=== PATIENT | male | born 1955 | race African-American/Black ===

== ENCOUNTER 2019-03-23 00:07 | Observation (INO) ==
[2019-03-23] MEDS ORDERED: ONDANSETRON INJ 2 MG/ML 2 ML VIAL IV STA (00:27)
[2019-03-23] MEDS ORDERED: MoRPHine SULFATE 4 MG/ML 1 ML CARP\\VIAL IV STA (00:27)
[2019-03-23] MEDS ORDERED: SODIUM CHLORIDE 0.9% 500 ML IV SCH (00:30)
--- NOTE | 2019-03-23 01:03 | Emergency Department Note ---
Entered by Kimberly Bacon acting as a scribe for History of Present Illness General Chief complaint: Chest Pain Stated complaint: HX OF HEART PROBLEMS, CHEST PAIN,SOB,ARM PAIN Time Seen by Provider: 03/23/19 00:20 Source: patient History of Present Illness Onset (ago): minute(s) 30 Location: chest Radiation: back (middle) and extremity (bilateral upper) Severity: similar to prior episodes Pain Consistency: + other (episode ) Maximum Pain Intensity: 9 Current Pain Intensity: 9 Associated symptoms: + diaphoresis, + headaches, + shortness of breath and + other (positive blurry vision in left eye; positive dizziness; positive right hand numbness); no fever/chills and no nausea/vomiting The patient is a 63 year old male who presents to the Emergency Room with complaints of an episode of chest pain that began 30 minutes prior to arrival. The patient rates his pain at a 9/10, and states that this pain came on while he was sitting down. The patient states that his pain radiates to both of his arms and the middle of his back. The patient states that his right hand is numb. He states that when his symptoms began he became dizzy and sweaty. The patient states that he currently has a headache and blurry vision in his left eye. He states that he has had similar symptoms over the past several weeks, but states that they resolved. The patient denies nausea, vomiting, and fever. He states that he was previously on blood thinners and Aspirin after having a stent placed one year ago. The patient states that he was taken off this medication after he had a GI bleed. The patient states that his sugar has been around 400 recently. Home Medications Home Medications Medication Instructions Recorded Confirmed Type Ajayaglayush SamuelPen U-100 Insulin 18 unit SUBCUT BID 03/23/19 03/23/19 History atorvastatin [Lipitor] 40 mg PO PM 03/23/19 03/23/19 History carvedilol 3.125 mg PO BID 30 Days #60 tab 03/23/19 Rx doxycycline hyclate 100 mg PO BID 7 Days #14 cap 03/23/19 Rx guaifenesin [Mucinex] 600 mg PO Q12 7 Days #14 tab 03/23/19 Rx losartan 100 mg PO QAM 30 Days #60 tab 03/23/19 Rx Allergies Allergy/AdvReac Type Severity Reaction Status Date / Time No Known Allergies Allergy Verified 03/23/19 01:03 Past Med/Surg History Medical History Diabetes Surgical History History of heart artery stent Social History Preferred Language: Luxembourgish Communication Ability: Effective Beliefs That Will Affect Care: None Current Living Situation: Family Other Information That Helps Us Care for You: No Feels Safe at Home: Yes Safety Concerns: Feels Safe At This Time Smoking Status: Never smoker Hx Alcohol Use: No Hx Substance Use: No Review of Systems See HPI for pertinent positives & negatives. and A total of 10 systems reviewed and were otherwise negative Physical Exam Vital Signs Vital Signs - 24 hr 03/23/19 00:09 03/23/19 00:23 03/23/19 02:00 Temperature 36.9 C Temperature Source Oral Sepsis Recent Fever Within 48 Hours No Sepsis Action Taken by Nursing No Action Required Pulse Rate 102 H Pulse Rate [Apical] 76 Respiratory Rate 18 18 Respiratory Effort / Characteristics Non-Labored Spontaneous Respiratory Depth Normal Respiratory Pattern Regular Blood Pressure 136/83 Blood Pressure [Left Arm] 157/90 H Blood Pressure Mean 100 Blood Pressure Mean [Left Arm] 112 Blood Pressure Position Sitting Pulse Oximetry 97 99 99 Oxygen Delivery Method Room Air Room Air Room Air 03/23/19 03:18 Temperature Temperature Source Sepsis Recent Fever Within 48 Hours Sepsis Action Taken by Nursing Pulse Rate Pulse Rate [Apical] 77 Respiratory Rate 18 Respiratory Effort / Characteristics Non-Labored Spontaneous Respiratory Depth Normal Respiratory Pattern Blood Pressure Blood Pressure [Left Arm] 136/76 Blood Pressure Mean Blood Pressure Mean [Left Arm] 96 Blood Pressure Position Pulse Oximetry 96 Oxygen Delivery Method Room Air GENERAL: Patient is in no acute distress. HEENT: No acute trauma, normocephalic atraumatic, mucous membranes moist, no nasal congestion, no scleral icterus. NECK: No stridor, no adenopathy, no meningismus, trachea is midline. LUNGS: Clear to auscultation bilaterally, no wheeze, no rhonchi, breath sounds equal. HEART: Without murmurs gallops or rubs, regular rate and rhythm. ABDOMEN: Soft, nontender, bowel sounds positive, no hernias, no peritonitis. EXTREMITIES: No cyanosis or edema, full range of motion of all the joints without pain or difficulty, no signs for acute trauma. NEUROLOGIC: Oriented x 3, no acute motor or sensory deficits, no focal weakness. SKIN: No rash, no jaundice, no diaphoresis. Course 0021: Past medical records reviewed. The patient was evaluated in room C9. A complete history and physical exam was performed. I talked to the patient about his findings, he is currently resting comfortably. I am currently waiting on the results of the chest CT scan. The case was signed out to Dr. Mcallister at the change of shift. Administered Medications Carvedilol (Coreg) 3.125 mg PO BID MARCOS Stop: 04/22/19 08:59 Last Admin: 03/23/19 08:51 Dose: 3.125 mg Documented by: [id number] Insulin Aspart (Novolog Flexpen) 0 units SC ACHS MARCOS Stop: 04/22/19 07:29 Last Admin: 03/23/19 12:19 Dose: 4 units Documented by: [id number] Cosigned by: [id number] Admin: 03/23/19 08:51 Dose: 4 units Documented by: [id number] Cosigned by: [id number] Discontinued Medications Aspirin (Aspirin) 324 mg PO NOW [facility] Stop: 03/23/19 03:00 Last Admin: 03/23/19 03:17 Dose: 324 mg Documented by: [id number] Atropine Sulfate (Atropine Sulfate) Confirm Administered Dose 1 mg IV .STK-MED ONE Stop: 03/23/19 10:21 Last Admin: 03/23/19 11:48 Dose: 0.75 mg Documented by: [id number] Dobutamine HCl (Dobutrex) Confirm Administered Dose 250 mg IV .STK-MED ONE Stop: 03/23/19 10:20 Last Admin: 03/23/19 11:47 Dose: 1 dose Documented by: [id number] Sodium Chloride (Nss) 500 mls @ 999 mls/hr IV .Q31M MARCOS Stop: 03/23/19 01:00 Last Infusion: 03/23/19 02:06 Dose: 0 mls/hr Documented by: [id number] Admin: 03/23/19 01:04 Dose: 999 mls/hr Documented by: [id number] Magnesium Sulfate/Dextrose (Magnesium Sulfate / D5w) 1 gm in 100 mls @ 100 mls/hr IV ONE ONE Stop: 03/23/19 02:44 Last Infusion: 03/23/19 03:10 Dose: 0 mls/hr Documented by: [id number] Admin: 03/23/19 02:09 Dose: 100 mls/hr Documented by: [id number] Insulin Human Regular (Novolin R U-100 Per Unit) 6 units IV NOW STA Stop: 03/23/19 02:49 Last Admin: 03/23/19 03:06 Dose: 6 units Documented by: [id number] Cosigned by: [id number] Ioversol (Optiray 320 125ml) 125 ml IV ONCE PRN PRN Reason: Interaction Checking Stop: 03/27/19 01:59 Last Admin: 03/23/19 02:01 Dose: 115 ml Documented by: [id number] Metoprolol Tartrate (Lopressor) Confirm Administered Dose 10 mg IV .STK-MED ONE Stop: 03/23/19 10:20 Last Admin: 03/23/19 11:48 Dose: 5 mg Documented by: [id number] Morphine Sulfate (Morphine Sulfate) 4 mg IV NOW STA Stop: 03/23/19 00:28 Last Admin: 03/23/19 01:04 Dose: 4 mg Documented by: [id number] Morphine Sulfate (Morphine Sulfate) 3 mg IV Q3H PRN PRN Reason: Pain Stop: 04/06/19 04:20 Last Admin: 03/23/19 04:59 Dose: 3 mg Documented by: [id number] Ondansetron HCl (Zofran) 4 mg IV NOW STA Stop: 03/23/19 00:28 Last Admin: 03/23/19 01:04 Dose: 4 mg Documented by: [id number] Perflutren Lipid Microsphere (Definity) 1.5 ml IV ONCE ONE Stop: 03/23/19 11:49 Last Admin: 03/23/19 11:49 Dose: 2 ml Documented by: [id number] Medical Decision Making Differential Diagnosis Differential diagnoses include angina, [place], aortic dissection, PE, anemia, electrolyte imbalance, pneumonia, bronchitis, and others were considered. Medical Records Attestation: I reviewed the patient's medical records. Home Medications Current Medication List: was personally reviewed by me Laboratory Data Attestation: I reviewed the patient's lab results. Result diagrams: 03/23/19 12:05 03/23/19 12:05 Lab Results 03/23/19 03/23/19 03/23/19 Range/Units 00:55 00:55 00:55 WBC 5.04 (4.8-10.8) K/uL RBC 4.51 L (4.7-6.1) M/uL Hgb 13.5 L (14.0-18.0) g/dL Hct 36.8 L (42-52) % MCV 81.6 (80-100) fL MCH 29.9 (25-34) pg MCHC 36.7 H (32-36) g/dL RDW Std Deviation 39.7 (36.4-46.3) fL RDW Coeff of Bernarda 13.2 (11.5-14.5) % Plt Count 171 (130-400) K/uL MPV 8.9 (7.4-10.4) fL Immature Gran % (Auto) 0.4 % Neut % (Auto) 52.8 % Lymph % (Auto) 34.3 % [place] % (Auto) 9.9 % Eos % (Auto) 1.8 % Baso % (Auto) 0.8 % Immature Gran # (Auto) 0.02 (0.00-0.02) K/uL Neut # (Auto) 2.66 (1.4-6.5) K/uL Lymph # (Auto) 1.73 (1.2-3.4) K/uL [place] # (Auto) 0.50 (0.11-0.59) K/uL Eos # (Auto) 0.09 (0-0.5) K/uL Baso # (Auto) 0.04 (0-0.2) K/uL PT 10.6 (9.0-12.0) Seconds INR 1.0 (0.9-1.1) APTT 24.5 (21.0-31.0) Seconds PTT Ratio 0.9 Sodium 138 (136-145) mmol/L Potassium 4.0 (3.5-5.1) mmol/L Chloride 106 (98-107) mmol/L Carbon Dioxide 27 (21-32) mmol/L Anion Gap 5.0 (3-11) BUN 21 H (7-18) mg/dl Creatinine 1.35 (0.6-1.4) mg/dl Est Cr Clr Drug Dosing 79.6 ml/min Est GFR ( Amer) 65.2 Est GFR (Non-Af Amer) 56.3 BUN/Creatinine Ratio 15.4 (10-20) Glucose 298 H (70-99) mg/dl POC Glucose (70-99) Calcium 8.7 (8.5-10.1) mg/dl Magnesium 1.7 L (1.8-2.4) mg/dl Total Bilirubin 0.7 (0.2-1) mg/dl AST 20 (15-37) U/L ALT 29 (12-78) U/L Alkaline Phosphatase 117 (45-117) U/L Troponin I < 0.015 (0-0.045) ng/ml Total Protein 7.3 (6.4-8.2) gm/dl Albumin 3.5 (3.4-5.0) gm/dl Globulin 3.8 (2.5-4.0) gm/dl Albumin/Globulin Ratio 0.9 (0.9-2) Lipase 107 (73-393) U/L / Range/Units 03:08 WBC (4.8-10.8) K/uL RBC (4.7-6.1) M/uL Hgb (14.0-18.0) g/dL Hct (42-52) % MCV (80-100) fL MCH (25-34) pg MCHC (32-36) g/dL RDW Std Deviation (36.4-46.3) fL RDW Coeff of Bernarda (11.5-14.5) % Plt Count (130-400) K/uL MPV (7.4-10.4) fL Immature Gran % (Auto) % Neut % (Auto) % Lymph % (Auto) % [place] % (Auto) % Eos % (Auto) % Baso % (Auto) % Immature Gran # (Auto) (0.00-0.02) K/uL Neut # (Auto) (1.4-6.5) K/uL Lymph # (Auto) (1.2-3.4) K/uL [place] # (Auto) (0.11-0.59) K/uL Eos # (Auto) (0-0.5) K/uL Baso # (Auto) (0-0.2) K/uL PT (9.0-12.0) Seconds INR (0.9-1.1) APTT (21.0-31.0) Seconds PTT Ratio Sodium (136-145) mmol/L Potassium (3.5-5.1) mmol/L Chloride (98-107) mmol/L Carbon Dioxide (21-32) mmol/L Anion Gap (3-11) BUN (7-18) mg/dl Creatinine (0.6-1.4) mg/dl Est Cr Clr Drug Dosing ml/min Est GFR ( Amer) Est GFR (Non-Af Amer) BUN/Creatinine Ratio (10-20) Glucose (70-99) mg/dl POC Glucose 253 H (70-99) Calcium (8.5-10.1) mg/dl Magnesium (1.8-2.4) mg/dl Total Bilirubin (0.2-1) mg/dl AST (15-37) U/L ALT (12-78) U/L Alkaline Phosphatase (45-117) U/L Troponin I (0-0.045) ng/ml Total Protein (6.4-8.2) gm/dl Albumin (3.4-5.0) gm/dl Globulin (2.5-4.0) gm/dl Albumin/Globulin Ratio (0.9-2) Lipase (73-393) U/L Imaging Data Attestation: I personally reviewed and interpreted this imaging study as follows: My Impression: CHEST X-RAY: No pneumonia or CHF. No mediastinal widening. Radiologist's Impression: Chest CT: Pending. ECG Data Attestation: I personally reviewed and interpreted this ECG as follows: Indication: chest pain Rate (beats per minute): 89 Rhythm: normal sinus Findings: no PVC and no ST elevation Blood Pressure Blood Pressure Disposition: further management by hospitalist [facility] Narrative There is no leukocytosis or worrisome anemia. No coagulopathy. Glucose was somewhat elevated at 298, no evidence for renal failure. Magnesium was low 1.7. No liver enzyme elevations. No evidence for pancreatitis. EKG which was done with his chest pain did not show acute ischemia. Cardiac enzyme testing x1 is not consistent with acute cardiac injury. Chest film does not show mediastinal widening, pneumonia or pneumothorax. Chest CT is currently pending. Patient received IV magnesium. He was given IV saline, IV morphine IV Zofran. He received IV insulin. He received oral aspirin. He refused nitroglycerin as this medication always results in a severe headache. Patient's case is being assumed by Dr. Mcallister, he will follow-up on the CT results and determine the patient's final disposition. Even if the chest CT scan is negative for dissection and PE, I do think a hospital stay for further cardiac work-up would be warranted. Impression & Plan Chest pain, precordial, SOB (shortness of breath), History of coronary artery stent placement, Hypomagnesemia, Acute hyperglycemia Discharge Plan Visit Data *Final* Discharge Date/Time: 03/23/19 04:02 Chief Complaint: Chest Pain Stated Complaint: HX OF HEART PROBLEMS, CHEST PAIN,SOB,ARM PAIN ED Provider: Miguel Rosales Discharge Problem: Chest pain, precordial, SOB (shortness of breath), History of coronary artery stent placement, Hypomagnesemia, Acute hyperglycemia Patient Disposition: Admitted As Inpatient Condition: Good Discharge Instructions Interventions: ED Discharge Assessment Last Done: 03/23/19 04:02 The maryannibe's documentation has been prepared under my direction and personally reviewed by me in its entirety. I confirm that the note above accurately reflects all work, treatment, procedures, and medical decision making performed by me.
[2019-03-23 01:07] LABS: Basophils # (auto) 0.04 K/uL (0-0.2); Basophils % (auto) 0.8 %; Eosinophils # (auto) 0.09 K/uL (0-0.5); Eosinophils % (auto) 1.8 %; Hematocrit (blood only) 36.8 % (42-52); Hemoglobin 13.5 g/dL (14.0-18.0); Immature Granulocytes # (auto) 0.02 K/uL (0.00-0.02); Immature Granulocytes % (auto) 0.4 %; Lymphocytes # (auto) 1.73 K/uL (1.2-3.4); Lymphocytes % (auto) 34.3 %; Mean Corpuscular Hgb Conc 36.7 g/dL (32-36); Mean Corpuscular Volume 81.6 fL (80-100); Mean Platelet Volume 8.9 fL (7.4-10.4); Monocytes % (auto) 9.9 %; Neutrophils # (auto) 2.66 K/uL (1.4-6.5); Neutrophils % (auto) 52.8 %; Platelet Count 171 K/uL (130-400); RDW Coefficient of Variation 13.2 % (11.5-14.5); RDW Standard Deviation 39.7 fL (36.4-46.3); Red Blood Count 4.51 M/uL (4.7-6.1); White Blood Count 5.04 K/uL (4.8-10.8)
[2019-03-23 01:18] LABS: Partial Thromboplastin Ratio 0.9; Partial Thromboplastin Time 24.5 Seconds (21.0-31.0); Prothrombin Time 10.6 Seconds (9.0-12.0)
[2019-03-23 01:28] LABS: Alanine Aminotransferase 29 U/L (12-78); Albumin Level 3.5 gm/dl (3.4-5.0); Aspartate Aminotransferase 20 U/L (15-37); BUN Creatinine Ratio 15.4 (10-20); Bilirubin,Total 0.7 mg/dl (0.2-1); Blood Urea Nitrogen 21 mg/dl (7-18); Calcium 8.7 mg/dl (8.5-10.1); Carbon Dioxide 27 mmol/L (21-32); Chloride 106 mmol/L (98-107); Creatinine Clr Calc Pharmacy 79.6 ml/min; Est GFR (African American) 65.2; Est GFR (Non-African American) 56.3; Glucose 298 mg/dl (70-99); Magnesium 1.7 mg/dl (1.8-2.4); Sodium 138 mmol/L (136-145)
[2019-03-23 01:33] LABS: Albumin Globulin Ratio 0.9 (0.9-2); Alkaline Phosphatase 117 U/L (45-117); Globulin 3.8 gm/dl (2.5-4.0); Total Protein 7.3 gm/dl (6.4-8.2); Troponin I < 0.015 ng/ml (0-0.045)
[2019-03-23] MEDS ORDERED: MAGNESIUM SULFATE / D5W 1 GM/100 ML BAG IV ONE (01:45)
[2019-03-23] MEDS ORDERED: OPTIRAY 320 125ml IV PRN (02:00)
[2019-03-23] MEDS ORDERED: NovoLIN-R INSULIN PER UNIT CHARGE IV STA (02:48)
[2019-03-23] MEDS ORDERED: MoRPHine SULFATE 4 MG/ML 1 ML CARP\\VIAL IV PRN ×2 (02:52→04:21)
[2019-03-23] MEDS ORDERED: ASPIRIN CHEW 324 MG PO STA (02:59)
--- NOTE | 2019-03-23 03:06 | Emergency Department Note ---
ED Visit Note Patient signed out to me at change of shift. History and physical verified by me. Patient is awaiting CTA of the chest. CTA of the chest: Neck No prior chest CT. Chest x-ray same day without report. No mild artifact limits evaluation for small peripheral PE but no evidence for PE is identified. Secretions or other debris's with some airways, example right mainstem bronchus and bronchus intermedius. Areas of atelectasis bilaterally. There is asymmetric opacity at the right lower lobe and the right middle lobe to a lesser extent. Tiny hiatal hernia. Gastric distention. Asymmetric opacity on the right may indicate pneumonia and/or pneumonitis. Component of aspiration not excluded. No effusions. No evidence for edema. Coronary artery calcifications/suspected stenting. Enlarged left thyroid gland with nodules, borderline anterior mediastinal node, small perifissural nodules, small low-density liver lesion, possibly cyst or hemangioma and other nonemergent/incidentals. I did discuss the case with the hospitalist service who agreed to admit the patient. Patient was in agreement with the treatment plan. .
[2019-03-23] MEDS ORDERED: NITROGLYCERIN SL 0.4 MG/TAB TAB SL PRN (04:21)
[2019-03-23] MEDS ORDERED: ONDANSETRON INJ 2 MG/ML 2 ML VIAL IV PRN (04:21)
[2019-03-23] MEDS ORDERED: ACETAMINOPHEN 325 MG TAB PO PRN (04:21)
[2019-03-23] MEDS ORDERED: DEXTROSE 50% 50 ML SYRINGE IV PRN (04:45)
[2019-03-23] MEDS ORDERED: CARBOHYDRATES FOR HYPOGLYCEMIA PO PRN (04:45)
[2019-03-23] MEDS ORDERED: GLUCOSE 40% GEL 15 GM TUBE PO PRN (04:45)
[2019-03-23] MEDS ORDERED: GLUCAGON FOR INJ 1 MG VIAL SQ PRN (04:45)
[2019-03-23] MEDS ORDERED: GLUCOSE 10 TABS/TUBE PO PRN (04:45)
--- NOTE | 2019-03-23 04:58 | History and Physical Report ---
DATE OF ADMISSION: 03/23/2019 CHIEF COMPLAINT: Chest pain. HISTORY OF PRESENT ILLNESS: This is a 63-year-old male with past medical history significant for diabetes, hyperlipidemia, hypertension, history of CAD status post cardiac catheterization and stenting in [facility] last year as per patient. The cardiac catheterization was complicated by the compartment syndrome in his right arm status post surgery. The patient has also a history of laryngeal cancer in 2008, status post surgery, history of DVTs and PE, was treated with Coumadin and Xarelto, but was stopped because of GI bleed and also hematuria. The patient was on Brilinta and aspirin, but they were also stopped because of his GI bleed and hematuria. He says he has a renal mass, he was supposed to get it biopsied, but it was not done yet. He says he takes aspirin on and off. Whenever he has some bleeding, he stops the aspirin and after the bleeding stops, he starts taking the aspirin again. Says he had hematuria a few days back. Currently he has no hematuria, no blood in the stools or black stools. Presents with chest pain today. The patient is from [place], visiting [place]. He lives in an apartment. At around 10:00 p.m., he noticed chest pain in the middle of the chest, 9/10 in severity and both arms were feeling numb. He said he almost passed out, felt some shortness of breath, sweating, dizzy. He still has chest pain, but does not want to take nitro because it gives him headaches. He has some headache now. Denies any blurred visions. No earache, no sore throat. He started having some cough since the last 2-3 days. He says he quit smoking about a month ago. No swelling of the legs. Hemodynamically stable. ALLERGIES: No known drug allergies. PAST MEDICAL HISTORY: As mentioned above. PAST SURGICAL HISTORY: Surgery for laryngeal cancer, cardiac catheterization. MEDICATIONS: The patient is on Lipitor 40 mg p.o. p.m.; Coreg, unknown dose; insulin, NovoLog U-100 18 units b.i.d., lisinopril 20 mg daily. FAMILY HISTORY: Father of lung cancer. Mother had hypertension and pacemaker, still alive. SOCIAL HISTORY: Quit smoking about a month ago, smoked half a pack a day for many years. Denies any alcohol use or drug use. Currently lives alone. REVIEW OF SYMPTOMS: As per HPI. Rest of the review of symptoms negative. PHYSICAL EXAMINATION: GENERAL: The patient is of moderate build, not in acute distress. VITAL SIGNS: Temperature 36.9, pulse 77, respiratory rate 18, blood pressure 136/76, oxygen 96% room air. HEENT: No pallor, no icterus. Pupils equal, round, and reactive to light. NECK: No JVD, no neck masses, no carotid bruits. CARDIOVASCULAR: S1, S2 heard, regular rate and rhythm. No murmur, no gallop. RESPIRATORY SYSTEM: Normal AP diameter. No accessory muscle use. No wheezing, no crackles. ABDOMEN: Soft, bowel sounds present. Mild abdominal discomfort. No guarding, no rigidity, no distention. CENTRAL NERVOUS SYSTEM: Cranial nerves II-XII grossly intact, nonfocal. EXTREMITIES: No edema, no erythema. LABORATORY DATA: WBC 5, hemoglobin 13.5, hematocrit 36.8, platelets 171. PT 10.6, INR 1, APTT 24.5. Sodium 138, potassium 4, chloride 106, bicarbonate 27, BUN 21, creatinine 1.35. Serum glucose 298, calcium 8.7, magnesium 1.7, total bilirubin 0.7, AST 20, ALT 29, alkaline phosphatase 117. Troponin I less than 0.015. Lipase 107. IMAGING DATA: Chest x-ray, no acute findings. CT of the chest, unofficial report, unremarkable, possible aspiration. EKG: Normal sinus rhythm, rate of 89, no acute ST changes seen. ASSESSMENT AND PLAN: This is a 63-year-old male who presents with chest pain. 1. Chest pain. History of coronary artery disease status post stents. He used to be on Brilinta and aspirin, but no longer on those medications because of his GI bleed and also hematuria. But he says he takes aspirin on and off. Initial workup was negative, but patient still has chest pain. Declines nitro because it causes headaches. We will place him on IV morphine p.r.n. Continue his home medications; he does not know the dose of Coreg. We will place him on Coreg 3.125 b.i.d., continue with his Lipitor and lisinopril and Lipitor.received full dose aspirin in [place]. Will continue with baby aspirin. Will follow serial cardiac enzymes, echocardiogram. Keep him n.p.o. and consult cardiology for further recommendations. Monitor on tele floor. 2. History of diabetes. We will place him on insulin sliding scale. Follow hemoglobin A1c levels, follow his blood sugars. 3. Hyperlipidemia. Continue statin. Follow his fasting lipid profile. 4. History of hypertension. Continue his lisinopril and Coreg. Monitor the blood pressure. 5. Patient has DVT and PE, but no longer on anticoagulation secondary to GI bleeds and patient does not think that he has an IVC filter. 6. Deep thrombosis prophylaxis, sequential compression devices for now. 7. Disposition: Observation in tele floor. Expect to discharge home and follow with his family doctor. Level 1 full code. MTDD
--- NOTE | 2019-03-23 06:41 | CT Scan Report ---
CT angio chest PE protocol CT DOSE: 661.60 mGy.cm HISTORY: Chest pain. Dyspnea. Chest Pain, eval for PE TECHNIQUE: Multiaxial CT images of the chest were performed following the intravenous administration of contrast to evaluate the pulmonary arteries. Maximal intensity projection images were also obtaine d. A dose lowering technique was utilized adhering to the principles of ALARA. COMPARISON STUDY: None. FINDINGS: There is a normal caliber thoracic aorta with no evidence for dissection. There is no evide nce for pulmonary embolus. No pleural effusions. No pneumothorax. The liver and spleen are unremarkab le. No mediastinal or hilar lymphadenopathy. The central airways are patent. The lungs are remarkable for small parenchymal infiltrate right base. There is a small hiatal hernia. IMPRESSION: 1. No evidence for pulmonary embolus. 2. Small parenchymal infiltrate right base. The above report was generated using voice recognition software. It may contain grammatical, syntax or spelling errors. Electronically signed by: Dax Ritter M.D. 03/23/2019 6:40 AM
--- NOTE | 2019-03-23 07:05 | XRay Report ---
XR chest 1V portable CLINICAL HISTORY: Chest Pain COMPARISON STUDY: No previous studies for comparison. FINDINGS: Lung volumes are normal. Lungs are clear. There is no pneumothorax or pleural effusion. Car diac size is normal. Mediastinal contours are normal. There is no evidence for pulmonary edema. IMPRESSION: No acute cardiopulmonary findings. Electronically signed by: Socrates Argueta M.D. 03/23/2019 7:04 AM
[2019-03-23 07:50] LABS: Estimated Average Glucose 209 mg/dl; Hemoglobin A1C 8.9 % (4.5-5.6)
[2019-03-23] MEDS: INSULIN ASPART 100 UNITS/ML 3 ML PEN SC SCH ×2 (08:51→12:19)
[2019-03-23 08:52] LABS: Chol HDL Ratio 5; Cholesterol 148 mg/dl (0-200); HDL Cholesterol 31 mg/dl; LDL Cholesterol Calculated 72 mg/dl; Triglycerides 223 mg/dl (0-150); VLDL Cholesterol 45 mg/dl
[2019-03-23] MEDS ORDERED: CARVEDILOL 3.125 MG TAB PO SCH ×2 (09:00→21:00)
[2019-03-23] MEDS ORDERED: ASPIRIN 81 MG ECTAB PO SCH (09:00)
--- NOTE | 2019-03-23 09:25 | Hospitalist Progress Note ---
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 Ruiz has a past medical history of coronary artery disease with stenting the LAD, hypertension, hyperlipidemia, TIA. He presented to the emergency department yesterday due to chest pain and headache. He also has developed neurological symptoms including diplopia and disequilibrium. He was experiencing some pain in tingling in his bilateral arms. Cardiology was consulted to help determine whether not he should prior the patient stress testing. The care everywhere tab was reviewed. He has documentation from 25 different hospital systems. Some of his more recent hospital stays have been at [facility] and [facility]. On 03/04/2019 he was evaluated at [facility] for chest pain and bilateral upper extremity paresthesias. The emergency department note reports concerns for conversion disorder in a psychiatric component behind his discomforts. He has had frequent emergency department visits across several hospital systems for the same complaints with no significant findings with testing. His most recent stress test was completed on 02/07/2019. The stress test did not show any evidence of ischemia, no evidence of transient ischemic dilatation. His EF was 52% at that time and the study was overall low risk/extent for ischemia. His most recent heart catheterization was completed on 08/14/2018. The study showed significant 2 vessel disease with a widely patent stent in the LAD and n onobstructive disease in the RCA. The RCA was evaluated via FFR, confirming that the lesions were non-obstructive." -currently on this hospital stay at [facility], troponins negative x 2 -inpatient cardiology service consulted -will monitor off morphine narcotic pain medication History of Compartment syndrome in the past History of TIA in the distant past? -patient did have recently on 03/18/19 a stroke alert called in the ED of [facility] in [place] for which no evidence of acute infarct was found as per the chart review Hypertension -coreg and lisinopril Type 2 diabetes mellitus -HbA1c 8.9 -continue insulin Case management consult placed to help patient with finding primary care in the area and discharge needs Subjective I have seen and discussed with the patient. Patient is not a good historian and needed to be asked to elaborate on previous hospitalizations. Currently at this time, patient appears to be pain free when interviewed by medical doctor. No Chest pain at the time of the exam reported. no shortness of breath. breathing on room air. no vomiting. no reported dizziness Physical Exam Constitutional: WD/WN, vitals as above Eyes: PERRL, conjunctivae normal, anicteric sclerae EOM intact bilaterally ENMT: external ear and nose normal, oropharynx normal Neck: trachea midline, no thyromegaly normal visual inspection Respiratory: normal respiratory effort, lungs clear to auscultation Cardiovascular: RRR, no murmur, no edema Gastrointestinal (Abdomen): normal bowel sounds, soft, nontender, no hepatosplenomegaly Musculoskeletal: no cyanosis or clubbing, extremities motor strength 5/5 Head/Neck/Chest: normocephalic and head atraumatic Neurologic: PERRL, EOMI, accommodation nl, no face palsy, no dysarthria CN's II-XI intact bilaterally Psychiatric: A+Ox3, euthymic affect Results & Data Vital Signs (Past 12 Hours) Vital Signs Temp Pulse Pulse Resp BP BP Pulse Ox 03/23/19 08:04 36.5 C 55 L 20 129/76 96 03/23/19 04:30 36.6 C 67 137/86 96 03/23/19 03:59 85 16 98 03/23/19 03:18 77 18 136/76 96 03/23/19 02:00 76 18 157/90 H 99 03/23/19 00:23 99 03/23/19 00:09 36.9 C 102 H 18 136/83 97
[2019-03-23] MEDS ORDERED: METOPROLOL TARTRATE 1 MG/ML VIAL IV ONE (10:19)
[2019-03-23] MEDS ORDERED: DOBUTamine HCL 12.5 MG/ML 20 ML VIAL IV ONE (10:19)
[2019-03-23] MEDS ORDERED: ATROPINE SULFATE 0.1 MG/ML 10ML SYR IV ONE (10:20)
--- NOTE | 2019-03-23 11:02 | Cardiology Consultation ---
Date of Consultation March 23, 2019 Assessment & Plan (1) Chest pain, precordial: Symptoms atypical for angina with negative EKGs and enzymes though with patient prior coronary intervention and multiple cardiac risk factors. Will order dobutamine stress echocardiography to complete evaluation. Patient on appropriate medical therapies would resume aspirin Assess need for GI therapies given her recent diagnosis of antral gastritis (2) History of coronary artery stent placement: Will need ongoing cardiac care post hospital discharge anticipates seeking such in [facility]. Denies primary care physician as of day History of Present Illness Reason for Consultation: Atypical chest pain, prior history of coronary artery disease Requesting Physician: Dr. Reynolds Attending Physician: Russ Reynolds MD History of Present Illness Patient is a 63-year-old -[place] male new to the [facility] care. Information derived from chart review and discussion with patient. He was hospitalized earlier this week at [facility] in [place] with records from that admission available. Multiple ER visits to [facility] prior. Present at that time with blurred vision and chest pain with cardiac evaluation initially negative endoscopy demonstrating antral gastritis. Patient notes no fevers or chills but has had a rhonchorous cough recently. His past cardiac history is notable for prior coronary intervention left anterior descending in September 2016. He underwent substance second procedure with balloon angioplasty distal stent later in 2017 at [facility], [place], operated by [facility] course complicated by hemorrhage and compartment syndrome right forearm Presents this admission with symptoms of chest pressure atypical features initial EKGs cardiac enzymes and echocardiogram revealed no wall motion rise or suggestions of ischemia. CT scan of the chest revealed no evidence of pulmonary embolus though possible right infiltrate Aspirin recently held due to gastritis patient otherwise on appropriate the rapies with atorvastatin carvedilol and lisinopril Allergies Allergy/AdvReac Type Severity Reaction Status Date / Time No Known Allergies Allergy Verified 03/23/19 01:03 Home Medications Home Medications Medication Instructions Recorded Confirmed Type atorvastatin [Lipitor] 40 mg PO PM 03/23/19 03/23/19 History carvedilol 0 mg PO QPM 03/23/19 03/23/19 History insulin glargine [Basaglar KwikPen 18 unit SUBCUT BID 03/23/19 03/23/19 History U-100 Insulin] lisinopril 20 mg PO QPM 03/23/19 03/23/19 History Patient History Medical History Diabetes Surgical History History of heart artery stent Social History Preferred Language: Sudanese Communication Ability: Effective Beliefs That Will Affect Care: None Current Living Situation: Family Other Information That Helps Us Care for You: No Feels Safe at Home: Yes Safety Concerns: Feels Safe At This Time Smoking Status: Never smoker Hx Alcohol Use: No Hx Substance Use: No Physical Exam Constitutional: WD/WN, vitals as above + obese; no acute distress -Rwandan Eyes: PERRL, conjunctivae normal, anicteric sclerae ENMT: external ear and nose normal, oropharynx normal Neck: + thick neck Respiratory: Examination revealed clear apices with mild rhonchorous cough on forced expiration Cardiovascular: RRR, no murmur, no edema Heart Sounds: normal S1 and normal S2; no gallop and no cardiac rub Vessels: no carotid bruit Extremities: no edema Gastrointestinal (Abdomen): normal bowel sounds, soft, nontender, no hepatosplenomegaly Musculoskeletal: no cyanosis or clubbing, extremities motor strength 5/5 Surgical incisions right arm visible and well-healed Results & Data Vital Signs (Past 12 Hours) Vital Signs Temp Pulse Pulse Resp BP BP Pulse Ox 03/23/19 08:04 36.5 C 55 L 20 129/76 96 03/23/19 04:30 36.6 C 67 137/86 96 03/23/19 03:59 85 16 98 03/23/19 03:18 77 18 136/76 96 03/23/19 02:00 76 18 157/90 H 99 03/23/19 00:23 99 03/23/19 00:09 36.9 C 102 H 18 136/83 97 Laboratory Results Laboratory Results - last 24 hr 03/23/19 03/23/19 03/23/19 00:55 00:55 00:55 WBC 5.04 RBC 4.51 L Hgb 13.5 L Hct 36.8 L MCV 81.6 MCH 29.9 MCHC 36.7 H RDW Std Deviation 39.7 RDW Coeff of Bernarda 13.2 Plt Count 171 MPV 8.9 Immature Gran % (Auto) 0.4 Neut % (Auto) 52.8 Lymph % (Auto) 34.3 Merrick % (Auto) 9.9 Eos % (Auto) 1.8 Baso % (Auto) 0.8 Immature Gran # (Auto) 0.02 Neut # (Auto) 2.66 Lymph # (Auto) 1.73 Merrick # (Auto) 0.50 Eos # (Auto) 0.09 Baso # (Auto) 0.04 PT 10.6 INR 1.0 APTT 24.5 PTT Ratio 0.9 Sodium 138 Potassium 4.0 Chloride 106 Carbon Dioxide 27 Anion Gap 5.0 BUN 21 H Creatinine 1.35 Est Cr Clr Drug Dosing 79.6 Est GFR ( Amer) 65.2 Est GFR (Non-Af Amer) 56.3 BUN/Creatinine Ratio 15.4 Glucose 298 H POC Glucose Estimat Average Glucose Hemoglobin A1c Hgb A1c Pathologist Com Calcium 8.7 Magnesium 1.7 L Total Bilirubin 0.7 AST 20 ALT 29 Alkaline Phosphatase 117 Troponin I < 0.015 Total Protein 7.3 Albumin 3.5 Globulin 3.8 Albumin/Globulin Ratio 0.9 Triglycerides Cholesterol LDL Cholesterol, Calc VLDL Cholesterol, Calc HDL Cholesterol Cholesterol/HDL Ratio Lipase 107 TSH 03/23/19 03/23/19 03/23/19 03:08 03:58 04:37 WBC RBC Hgb Hct MCV MCH MCHC RDW Std Deviation RDW Coeff of Bernarda Plt Count MPV Immature Gran % (Auto) Neut % (Auto) Lymph % (Auto) Merrick % (Auto) Eos % (Auto) Baso % (Auto) Immature Gran # (Auto) Neut # (Auto) Lymph # (Auto) Merrick # (Auto) Eos # (Auto) Baso # (Auto) PT INR APTT PTT Ratio Sodium Potassium Chloride Carbon Dioxide Anion Gap BUN Creatinine Est Cr Clr Drug Dosing Est GFR ( Amer) Est GFR (Non-Af Amer) BUN/Creatinine Ratio Glucose POC Glucose 253 H 156 H 136 H Estimat Average Glucose Hemoglobin A1c Hgb A1c Pathologist Com Calcium Magnesium Total Bilirubin AST ALT Alkaline Phosphatase Troponin I Total Protein Albumin Globulin Albumin/Globulin Ratio Triglycerides Cholesterol LDL Cholesterol, Calc VLDL Cholesterol, Calc HDL Cholesterol Cholesterol/HDL Ratio Lipase TSH 03/23/19 03/23/19 03/23/19 05:30 05:30 05:30 WBC RBC Hgb Hct MCV MCH MCHC RDW Std Deviation RDW Coeff of Bernarda Plt Count MPV Immature Gran % (Auto) Neut % (Auto) Lymph % (Auto) Merrick % (Auto) Eos % (Auto) Baso % (Auto) Immature Gran # (Auto) Neut # (Auto) Lymph # (Auto) Merrick # (Auto) Eos # (Auto) Baso # (Auto) PT INR APTT PTT Ratio Sodium Potassium Chloride Carbon Dioxide Anion Gap BUN Creatinine Est Cr Clr Drug Dosing Est GFR ( Amer) Est GFR (Non-Af Amer) BUN/Creatinine Ratio Glucose POC Glucose Estimat Average Glucose 209 Hemoglobin A1c 8.9 H Hgb A1c Pathologist Com Pending Calcium Magnesium Total Bilirubin AST ALT Alkaline Phosphatase Troponin I < 0.015 Total Protein Albumin Globulin Albumin/Globulin Ratio Triglycerides Cholesterol LDL Cholesterol, Calc VLDL Cholesterol, Calc HDL Cholesterol Cholesterol/HDL Ratio Lipase TSH 2.230 03/23/19 05:30 WBC RBC Hgb Hct MCV MCH MCHC RDW Std Deviation RDW Coeff of Bernarda Plt Count MPV Immature Gran % (Auto) Neut % (Auto) Lymph % (Auto) Merrick % (Auto) Eos % (Auto) Baso % (Auto) Immature Gran # (Auto) Neut # (Auto) Lymph # (Auto) Merrick # (Auto) Eos # (Auto) Baso # (Auto) PT INR APTT PTT Ratio Sodium Potassium Chloride Carbon Dioxide Anion Gap BUN Creatinine Est Cr Clr Drug Dosing Est GFR ( Amer) Est GFR (Non-Af Amer) BUN/Creatinine Ratio Glucose POC Glucose Estimat Average Glucose Hemoglobin A1c Hgb A1c Pathologist Com Calcium Magnesium Total Bilirubin AST ALT Alkaline Phosphatase Troponin I Total Protein Albumin Globulin Albumin/Globulin Ratio Triglycerides 223 H Cholesterol 148 LDL Cholesterol, Calc 72 VLDL Cholesterol, Calc 45 HDL Cholesterol 31 Cholesterol/HDL Ratio 5 Lipase TSH ECG Additional Comments: 23-MAR-2019 00:23:19 [facility]-EDSTAT ROUTINE RETRIEVAL Normal sinus rhythm Normal ECG No previous ECGs available Confirmed by Kendall Vuong ([id number]) on 03/23/2019 11:08:16 AM
[2019-03-23] MEDS ORDERED: PERFLUTREN LIPID MICROSPHERE (DEFINITY) IV ONE (11:48)
[2019-03-23 12:18] LABS: Basophils # (auto) 0.02 K/uL (0-0.2); Basophils % (auto) 0.5 %; Eosinophils % (auto) 2.6 %; Hematocrit (blood only) 35.5 % (42-52); Hemoglobin 12.8 g/dL (14.0-18.0); Immature Granulocytes # (auto) 0.01 K/uL (0.00-0.02); Immature Granulocytes % (auto) 0.3 %; Lymphocytes # (auto) 1.56 K/uL (1.2-3.4); Lymphocytes % (auto) 41.3 %; Mean Corpuscular Hgb Conc 36.1 g/dL (32-36); Mean Corpuscular Volume 82.2 fL (80-100); Mean Platelet Volume 8.1 fL (7.4-10.4); Monocytes # (auto) 0.38 K/uL (0.11-0.59); Monocytes % (auto) 10.1 %; Neutrophils # (auto) 1.71 K/uL (1.4-6.5); Neutrophils % (auto) 45.2 %; Platelet Count 126 K/uL (130-400); RDW Coefficient of Variation 13.2 % (11.5-14.5); Red Blood Count 4.32 M/uL (4.7-6.1); White Blood Count 3.78 K/uL (4.8-10.8)
[2019-03-23 12:50] LABS: Alanine Aminotransferase 26 U/L (12-78); Albumin Level 3.1 gm/dl (3.4-5.0); Aspartate Aminotransferase 17 U/L (15-37); BUN Creatinine Ratio 19.3 (10-20); Blood Urea Nitrogen 20 mg/dl (7-18); Calcium 8.7 mg/dl (8.5-10.1); Carbon Dioxide 25 mmol/L (21-32); Chloride 107 mmol/L (98-107); Creatinine Clr Calc Pharmacy 102.2 ml/min; Est GFR (African American) 90.4; Glucose 235 mg/dl (70-99); Magnesium 1.9 mg/dl (1.8-2.4); Potassium 3.7 mmol/L (3.5-5.1); Sodium 139 mmol/L (136-145)
[2019-03-23 12:55] LABS: Albumin Globulin Ratio 0.9 (0.9-2); Alkaline Phosphatase 107 U/L (45-117); Bilirubin,Total 0.5 mg/dl (0.2-1); Globulin 3.6 gm/dl (2.5-4.0); Total Protein 6.7 gm/dl (6.4-8.2); Troponin I < 0.015 ng/ml (0-0.045)
--- NOTE | 2019-03-23 13:42 | Hospitalist Progress Note ---
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 Ruiz has a past medical history of coronary artery disease with stenting the LAD, hypertension, hyperlipidemia, TIA. He presented to the emergency department yesterday due to chest pain and headache. He also has developed neurological symptoms including diplopia and disequilibrium. He was experiencing some pain in tingling in his bilateral arms. Cardiology was consulted to help determine whether not he should prior the patient stress testing. The care everywhere tab was reviewed. He has documentation from 25 different hospital systems. Some of his more recent hospital stays have been at [facility] and [facility]. On 03/04/2019 he was evaluated at [facility] for chest pain and bilateral upper extremity paresthesias. The emergency department note reports concerns for conversion disorder in a psychiatric component behind his discomforts. He has had frequent emergency department visits across several hospital systems for the same complaints with no significant findings with testing. His most recent stress test was completed on 02/07/2019. The stress test did not show any evidence of ischemia, no evidence of transient ischemic dilatation. His EF was 52% at that time and the study was overall low risk/extent for ischemia. His most recent heart catheterization was completed on 08/14/2018. The study showed significant 2 vessel disease with a widely patent stent in the LAD and n onobstructive disease in the RCA. The RCA was evaluated via FFR, confirming that the lesions were non-obstructive." -currently on this hospital stay at [facility], troponins negative x 3, patient was evaluated by cardiology service with stress echo that was negative for inducible ischemia -have raised the issue with patient whether he was seen in past with psychiatry services in case symptoms may have been psychogenic in nature - Patient denies psychiatry evaluations and was upset that medical doctor raised this question -have discussed about adjusting patient's cardiology medications -will discharge on carvedilol 3.125 mg BID with Losartan 100 mg daily (stop the lisinopril), continue atorvastatin Hypertension -discharge on carvedilol 3.125 mg BID with Losartan 100 mg daily (stop the lisinopril) Cough -There is a normal caliber thoracic aorta with no evidence for dissection. There is no evidence for pulmonary embolus. No pleural effusions. No pneumothorax. The liver and spleen are unremarkable. No mediastinal or hilar lymphadenopathy. The central airways are patent. The lungs are remarkable for small parenchymal infiltrate right base. There is a small hiatal hernia. -no evidence of pneumonia other than small infiltrate -avoiding TIGRE inhibitor by using Losartan in place if lisinopril -doxycycline 100 mg BID for 7 days, gauifenesin 600 mg every 12 hours History of Compartment syndrome in the past History of TIA in the distant past? -patient did have recently on 03/18/19 a stroke alert called in the ED of [facility] in [place] for which no evidence of acute infarct was found as per the chart review Type 2 diabetes mellitus with watermaster current use of insulin -HbA1c 8.9 -continue insulin as glargine 18 units BID Patient will need to establish with primary care doctor Discharge Diagnosis non cardiac chest pain,history of coronary artery disease, type 2 diabetes mellitus with penitentiary current use of insulin, hypertension, cough Subjective patient was evaluated by cardiology service with stress echo that was negative for inducible ischemia -have raised the issue with patient whether he was seen in past with psychiatry services in case symptoms may have been psychogenic in nature - Patient denies psychiatry evaluations and was upset that medical doctor raised this question -directions and prescriptions were given for outpatient follow up. have stressed that patient needs to follow up with a primary care doctor Physical Exam Constitutional: WD/WN, vitals as above Eyes: PERRL, conjunctivae normal, anicteric sclerae EOM intact bilaterally ENMT: external ear and nose normal, oropharynx normal Neck: trachea midline, no thyromegaly normal visual inspection Respiratory: normal respiratory effort, lungs clear to auscultation Cardiovascular: RRR, no murmur, no edema Gastrointestinal (Abdomen): normal bowel sounds, soft, nontender, no hepat osplenomegaly Musculoskeletal: no cyanosis or clubbing, extremities motor strength 5/5 Head/Neck/Chest: normocephalic and head atraumatic Neurologic: PERRL, EOMI, accommodation nl, no face palsy, no dysarthria CN's II-XI intact bilaterally Psychiatric: A+Ox3, euthymic affect Results & Data Vital Signs (Past 12 Hours) Vital Signs Temp Pulse Resp BP Pulse Ox 03/23/19 12:04 36.4 C L 70 20 101/67 96 03/23/19 08:04 36.5 C 55 L 20 129/76 96 03/23/19 04:30 36.6 C 67 137/86 96 03/23/19 03:59 85 16 98 03/23/19 03:18 77 18 136/76 96 03/23/19 02:00 76 18 157/90 H 99
--- NOTE | 2019-03-23 14:07 | Discharge Summary ---
Date of Service March 23, 2019 Admission HPI Per Admitting Provider HISTORY OF PRESENT ILLNESS: This is a 63-year-old male with past medical history significant for diabetes, hyperlipidemia, hypertension, history of CAD status post cardiac catheterization and stenting in [facility] last year as per patient. The cardiac catheterization was complicated by the compartment syndrome in his right arm status post surgery. The patient has also a history of laryngeal cancer in 2008, status post surgery, history of DVTs and PE, was treated with Coumadin and Xarelto, but was stopped because of GI bleed and also hematuria. The patient was on Brilinta and aspirin, but they were also stopped because of his GI bleed and hematuria. He says he has a renal mass, he was supposed to get it biopsied, but it was not done yet. He says he takes aspirin on and off. Whenever he has some bleeding, he stops the aspirin and after the bleeding stops, he starts taking the aspirin again. Says he had hematuria a few days back. Currently he has no hematuria, no blood in the stools or black stools. Presents with chest pain today. The patient is from [place], visiting [place]. He lives in an apartment. At around 10:00 p.m., he noticed chest pain in the middle of the chest, 9/10 in severity and both arms were feeling numb. He said he almost passed out, felt some shortness of breath, sweating, dizzy. He still has chest pain, but does not want to take nitro because it gives him headaches. He has some headache now. Denies any blurred visions. No earache, no sore throat. He started having some cough since the last 2-3 days. He says he quit smoking about a month ago. No swelling of the legs. Hemodynamically stable. ALLERGIES: No known drug allergies. PAST MEDICAL HISTORY: As mentioned above. PAST SURGICAL HISTORY: Surgery for laryngeal cancer, cardiac catheterization. MEDICATIONS: The patient is on Lipitor 40 mg p.o. p.m.; Coreg, unknown dose; insulin, NovoLog U-100 18 units b.i.d., lisinopril 20 mg daily. FAMILY HISTORY: Father of lung cancer. Mother had hypertension and pacemaker, still alive. SOCIAL HISTORY: Quit smoking about a month ago, smoked half a pack a day for many years. Denies any alcohol use or drug use. Currently lives alone. REVIEW OF SYMPTOMS: As per HPI. Rest of the review of symptoms negative. Admission Exam Per Admitting Provider PHYSICAL EXAMINATION: GENERAL: The patient is of moderate build, not in acute distress. VITAL SIGNS: Temperature 36.9, pulse 77, respiratory rate 18, blood pressure 136/76, oxygen 96% room air. HEENT: No pallor, no icterus. Pupils equal, round, and reactive to light. NECK: No JVD, no neck masses, no carotid bruits. CARDIOVASCULAR: S1, S2 heard, regular rate and rhythm. No murmur, no gallop. RESPIRATORY SYSTEM: Normal AP diameter. No accessory muscle use. No wheezing, no crackles. ABDOMEN: Soft, bowel sounds present. Mild abdominal discomfort. No guarding, no rigidity, no distention. CENTRAL NERVOUS SYSTEM: Cranial nerves II-XII grossly intact, nonfocal. EXTREMITIES: No edema, no erythema. Principal Diagnosis non cardiac chest pain,history of coronary artery disease, type 2 diabetes mellitus with jail current use of insulin, hypertension, cough Discharge Exam Constitutional WD/WN, vitals as above Eyes PERRL, conjunctivae normal, anicteric sclerae EOM intact bilaterally ENMT external ear and nose normal, oropharynx normal Neck trachea midline, no thyromegaly normal visual inspection Respiratory normal respiratory effort, lungs clear to auscultation Cardiovascular RRR, no murmur, no edema Gastrointestinal (Abdomen) normal bowel sounds, soft, nontender, no hepatosplenomegaly Musculoskeletal no cyanosis or clubbing, extremities motor strength 5/5 Head/Neck/Chest: normocephalic and head atraumatic Neurologic PERRL, EOMI, accommodation nl, no face palsy, no dysarthria CN's II-XI intact bilaterally Psychiatric A+Ox3, euthymic affect Discharge Data Allergies Allergy/AdvReac Type Severity Reaction Status Date / Time No Known Allergies Allergy Verified 03/23/19 01:03 Consultations 03/23/19 03:06 ED Decision to Admit Stat 03/23/19 08:00 Consult Cardiology Routine 03/23/19 09:58 Consult Case Management - Discharge Planning Routine Ordered Studies 03/23/19 00:27 CT angio chest PE protocol Urgent Hospital Course (1) Chest pain, precordial: This is a 63 year old male who has been to multiple health care providers - he reports that in the past he has been seen in [facility] but because of his job he reports 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 Ruiz has a past medical history of coronary artery disease with stenting the LAD, hypertension, hyperlipidemia, TIA. He presented to the emergency department yesterday due to chest pain and headache. He also has developed neurological symptoms including diplopia and disequilibrium. He was experiencing some pain in tingling in his bilateral arms. Cardiology was consulted to help determine whether not he should prior the patient stress testing. The care everywhere tab was reviewed. He has documentation from 25 different hospital systems. Some of his more recent hospital stays have been at [facility] and [facility]. On 03/04/2019 he was evaluated at [facility] for chest pain and bilateral upper extremity paresthesias. The emergency department note reports concerns for conversion disorder in a psychiatric component behind his discomforts. He has had frequent emergency department visits across several hospital systems for the same complaints with no significant findings with testing. His most recent stress test was completed on 02/07/2019. The stress test did not show any evidence of ischemia, no evidence of transient ischemic dilatation. His EF was 52% at that time and the study was overall low risk/extent for ischemia. His most recent heart catheterization was completed on 08/14/2018. The study showed significant 2 vessel disease with a widely patent stent in the LAD and nonobstructive disease in the RCA. The RCA was evaluated via FFR, confirming that the lesions were non-obstructive." -currently on this hospital stay at [facility], troponins negative x 3, patient was evaluated by cardiology service with stress echo that was negative for inducible ischemia -have raised the issue with patient whether he was seen in past with psychiatry services in case symptoms may have been psychogenic in nature - Patient denies psychiatry evaluations and was upset that medical doctor raised this question -have discussed about adjusting patient's cardiology medications -will discharge on carvedilol 3.125 mg BID with Losartan 100 mg daily (stop the lisinopril), continue atorvastatin Hypertension -discharge on carvedilol 3.125 mg BID with Losartan 100 mg daily (stop the lisinopril) Cough -CTA: There is a normal caliber thoracic aorta with no evidence for dissection. There is no evidence for pulmonary embolus. No pleural effusions. No pneumothorax. The liver and spleen are unremarkable. No mediastinal or hilar lymphadenopathy. The central airways are patent. The lungs are remarkable for small parenchymal infiltrate right base. There is a small hiatal hernia. -no evidence of pneumonia other than small infiltrate -patient also had EGD done on 03/21/19 at [facility] and impression of mild antral gastritis with small sliding hiatal hernia (the examination was otherwise unremarkable) -avoiding TIGRE inhibitor by using Losartan in place if lisinopril -doxycycline 100 mg BID for 7 days, gauifenesin 600 mg every 12 hours History of Compartment syndrome in the past History of TIA in the distant past? -patient did have recently on 03/18/19 a stroke alert called in the ED of [facility] in [place] for which no evidence of acute infarct was found as per the chart review Type 2 diabetes mellitus with jail current use of insulin -HbA1c 8.9 -continue insulin as glargine 18 units BID Patient will need to establish with primary care doctor Discharge Diagnosis non cardiac chest pain,history of coronary artery disease, type 2 diabetes mellitus with jail current use of insulin, hypertension, cough Total Time Total Time Spent Total Time Spent (In Minutes): 40 minutes Total Time Includes: Examination of the Patient, Discharge Planning, Medication Reconciliation and Communication With Other Providers Discharge Plan Discharge Items Patient Disposition: Home - Self-Care Reason For Visit: CHEST PAIN Discharge Diagnosis: non cardiac chest pain,history of coronary artery disease, type 2 diabetes mellitus with charge coordinator current use of insulin, hypertension, cough Condition: Good Discharge Goals: Improve disease control Activity: Resume your previous activity Non-emergency contact: Primary Care Provider Call non-emergency contact if: you have any medication questions Follow-up/Referrals: PCP,NO [Primary Care Provider] - Diet: Carb Consistent or DM2 Addtl Provider Instructions: -currently on this hospital stay at [facility], troponins negative x 3, patient was evaluated by cardiology service with stress echo that was negative for inducible ischemia -have discussed about adjusting patient's cardiology medications -will discharge on carvedilol 3.125 mg BID with Losartan 100 mg daily (stop the lisinopril), continue atorvastatin Cough -There is a normal caliber thoracic aorta with no evidence for dissection. There is no evidence for pulmonary embolus. No pleural effusions. No pneumothorax. The liver and spleen are unremarkable. No mediastinal or hilar lymphadenopathy. The central airways are patent. The lungs are remarkable for small parenchymal infiltrate right base. There is a small hiatal hernia. -no evidence of pneumonia other than small infiltrate -avoiding TIGRE inhibitor by using Losartan in place if lisinopril -doxycycline 100 mg BID for 7 days, gauifenesin 600 mg every 12 hours Type 2 diabetes mellitus with charge coordinator current use of insulin -HbA1c 8.9 -continue insulin as glargine 18 units BID Patient will need to establish with primary care doctor Prescriptions: New losartan 50 mg Tablet 100 mg PO QAM 30 Days Qty: 60 RF: 0 doxycycline hyclate 100 mg Capsule 100 mg PO BID 7 Days Qty: 14 RF: 0 carvedilol 3.125 mg Tablet 3.125 mg PO BID 30 Days Qty: 60 RF: 0 guaifenesin [Mucinex] 600 mg Tablet Extended Release 12hr 600 mg PO Q12 7 Days Qty: 14 RF: 0 Continued atorvastatin [Lipitor] 40 mg Tablet 40 mg PO PM RF: 0 Basaglar KwikPen U-100 Insulin 100 unit/mL (3 mL) insulin pen 18 unit subcut BID RF: 0 Discontinued carvedilol 25 mg Tablet PO QPM RF: 0 lisinopril 20 mg Tablet 20 mg PO QPM RF: 0 Stand-Alone Forms: Call Back Authorization, Pending Sale To [facility] Discharge Orders: Discharge Order (Routine); Ordered 03/23/19 Ordered By: Russ Reynolds Admission Data Admit Date/Time: 03/23/19 03:44 Attending Provider: Russ Reynolds Admit Provider: Phillip Benitez Primary Care Provider: PCP,NO Other Providers: Phillip Benitez ; Don Velazquez Service: Telemetry
[2019-03-23] MEDS ORDERED: DOXYCYCLINE HYCLATE 100 MG CAP PO SCH (21:00)
[2019-03-23] MEDS ORDERED: INSULIN GLARGINE SOLOSTAR 100 UNITS/ML 3 ML PEN SC SCH (21:00)
[2019-03-23] MEDS ORDERED: ATORVASTATIN 40 MG TAB PO SCH (21:00)
[2019-03-23] MEDS ORDERED: guaiFENesin 600 MG TABCR PO SCH (21:00)
[2019-03-23] MEDS ORDERED: LISINOPRIL 20 MG TAB PO SCH (21:00)
[2019-03-24] MEDS ORDERED: ASPIRIN 81 MG ECTAB PO SCH (09:00)
[2019-03-24] MEDS ORDERED: LOSARTAN POTASSIUM 50 MG TAB PO SCH (09:00)
== END 2019-03-23 14:30 | disposition home or self-care (01) ==
LOC: ED 00:07 → 2S 00:07

== ENCOUNTER 2019-04-20 05:02 | Inpatient (IN) ==
[2019-04-20] MEDS ORDERED: INSULIN HUMAN REGULAR PER SC STA ×2 (05:28→08:16)
[2019-04-20] MEDS ORDERED: NovoLIN-R INSULIN PER UNIT CHARGE ONE ×2 (05:41→08:25)
--- NOTE | 2019-04-20 06:44 | Emergency Department Note ---
Entered by Sandra Lilly acting as a scribe for Lakeshia Quintero DO History of Present Illness General Chief complaint: Mental Health Evaluation Stated complaint: DEPRESSION,ANXIETY Time Seen by Provider: 04/20/19 05:08 Source: patient History of Present Illness Onset (ago): year(s) (1.5) Location: head (Depression) Severity: similar to prior episodes Pain Consistency: + other (Worsening) Maximum Pain Intensity: 9 Quality: + other (Depression) Exacerbated By: + other (Compartment syndrome, of sister) Associated symptoms: + other (Depression, anxiety, SI) Treatments prior to arrival: none The patient is a 63 year old male who presents to the Emergency Department complaining of worsening depression starting 1.5 years ago. The patient reports that he was in the ED earlier today for depression and anxiety. He states that he has been having depressing thoughts because of his compartment syndrome in his right arm. He explains that he was diagnosed with compartment syndrome 1.5 years ago and that this has ruined his life and worsens his depressive thoughts. He notes that his depression is worsening as he now has suicidal thoughts. He adds that he has a gun that his friends took from him in fear that he may try to kill himself. The patient reports that when he was discharged from the hospital earlier today his friends were supposed to pick him up but they never came. He states that his friends did not come pick him up because they believe he needs to stay in the hospital to get psychiatric help. He explains that he did not tell the entire truth about his situation during his earlier visit today because he was embarrassed. He notes that he now is voluntary and wants to get help. He adds that despite wanting to get help he regrets coming to the hospital earlier today. The patient reports that a Hernandez act was placed upon him shortly after he was diagnosed with compartment syndrome. He states that he was prescribed medication but that he stopped taking them. He explains that he was also diagnosed with PTSD from this procedure. He notes that he has been very paranoid and isolating himself. He explains that 2 days ago he ignored his obligations and locked himself in a hotel room. He adds that his sister recently but he does not remember what from and that her contributes to his depression. The patient reports that he took no treatments [employer] today. Home Medications Home Medications Medication Instructions Recorded Confirmed Type Elyse SamuelPen U-100 Insulin 18 unit SUBCUT BID 03/23/19 04/20/19 History atorvastatin [Lipitor] 40 mg PO PM 03/23/19 04/20/19 History carvedilol 3.125 mg PO BID 30 Days #60 tab 03/23/19 04/20/19 Rx losartan 100 mg PO QAM 30 Days #60 tab 03/23/19 04/20/19 Rx Allergies Allergy/AdvReac Type Severity Reaction Status Date / Time No Known Allergies Allergy Verified 04/20/19 05:23 Past Med/Surg History Medical History PTSD (post-traumatic stress disorder) HTN (hypertension) Diabetes Compartment syndrome Surgical History History of heart artery stent History of coronary artery stent placement (Acute) Social History Preferred Language: Tamazight Communication Ability: Effective Beliefs That Will Affect Care: None Current Living Situation: Family Feels Safe at Home: Yes Smoking Status: Current some day smoker Tobacco Type: cigarettes Hx Alcohol Use: No Hx Substance Use: No Review of Systems See HPI for pertinent positives & negatives. and A total of 10 systems reviewed and were otherwise negative Physical Exam Vital Signs Vital Signs - 24 hr 04/20/19 05:05 Temperature 36.8 C Temperature Source Oral Sepsis Recent Fever Within 48 Hours No Sepsis New/Unexplained Change in Mental Status No Sepsis Action Taken by Nursing No Action Required Pulse Rate 81 Respiratory Rate 16 Respiratory Effort / Characteristics Non-Labored Spontaneous Respiratory Depth Normal Blood Pressure 162/83 H Blood Pressure Mean 109 Pulse Oximetry 97 Oxygen Delivery Method Room Air See physical exam from patient's chart earlier today. Right arm: Patient has obvious scars from fasciotomy secondary to compartment syndrome Psych: Patient admits to suicidal thoughts. Gave away his gun from fear of shooting himself. Course 0519: The patient was evaluated again in room A6. 0530: The patient had significant hyperglycemia when he was seen here earlier this morning. I consulted with pharmacy in regards to a subcutaneous insulin dose for the patient. 0538: The patients blood glucose is 374 at this time. 0542: Novolin R U-100 per unit 20 units SC 0634: The patient is willing to sign himself in voluntarily. I spoke with the psychiatric adult protective caseworker at this time. The patient will be evaluated by [facility]. They request that his blood sugar decrease before he is evaluated. 0727: I discussed the patient's case with Dr. Esvin ORLANDO. He will evaluate the patient for further management. Consultations Consultation #1: I discussed the patient's case with Dr. Esvin ORLANDO. He will evaluate the patient for further management. Time: 07:27 Administered Medications Discontinued Medications Insulin Human Regular 20 units (/ Syringe) 0.2 mls @ 0.0033 mls/min SC NOW STA Stop: 04/20/19 05:29 Last Admin: 04/20/19 05:42 Dose: 0.0033 mls/min Documented by: [id number] Cosigned by: [id number] Insulin Human Regular (Novolin R U-100 Per Unit) Confirm Administered Dose 20 units .ROUTE .[facility] Stop: 04/20/19 05:42 Last Admin: 04/20/19 05:46 Dose: Not Given Documented by: [id number] Medical Decision Making Differential Diagnosis Differential diagnosis includes SI, mood disorder, thought disorder and medication non-compliance amongst others. Medical Records Attestation: I reviewed the patient's medical records. Home Medications Current Medication List: was personally reviewed by me Laboratory Data Attestation: I reviewed the patient's lab results. Lab Results 04/20/19 04/20/19 Range/Units 05:34 06:23 POC Glucose 374 H* 332 H* (70-99) Blood Pressure Blood Pressure Findings: Elevated blood pressure Blood Pressure Disposition: further management by hospitalist [facility] Narrative The patient is a 63 year old male who presents to the ED with worsening depression starting 1.5 years ago. Differential diagnosis includes SI, mood disorder, thought disorder and medication non-compliance amongst others. The patient had a full work-up and evaluation earlier this morning and was discharged from the emergency department. He never physically left the hospital. He admits that he was not truthful during his initial visit. He admits to suicidal ideation. He was so concerned about his safety that he gave his a gun to a friend so that he would not harm himself. The patient is willing to admit himself voluntarily. He does have a history of insulin-dependent diabetes. He has not been taking his insulin as directed. He was given a dose of subcutaneous insulin here in the emergency department and his sugar is coming down. Patient will be evaluated by [facility]. The case was signed out to Dr. Mcallister at change of shift. Impression & Plan Suicidal ideation, Hyperglycemia Discharge Plan Visit Data Chief Complaint: Mental Health Evaluation Stated Complaint: DEPRESSION,ANXIETY ED Provider: Lakeshia Quintero Discharge Problem: Suicidal ideation, Hyperglycemia Patient Disposition: Still a Patient Forms Stand Alone Forms: My [facility] Prescriptions Prescriptions: No Action atorvastatin [Lipitor] 40 mg Tablet 40 mg PO PM RF: 0 Basaglar KwikPen U-100 Insulin 100 unit/mL (3 mL) insulin pen 18 unit subcut BID RF: 0 losartan 50 mg Tablet 100 mg PO QAM 30 Days Qty: 60 RF: 0 carvedilol 3.125 mg Tablet 3.125 mg PO BID 30 Days Qty: 60 RF: 0 Referrals Referrals: PCP,NO [Primary Care Provider] - The scribe's documentation has been prepared under my direction and personally reviewed by me in its entirety. I confirm that the note above accurately reflects all work, treatment, procedures, and medical decision making performed by me.
[2019-04-20] MEDS ORDERED: IBUPROFEN 600 MG TAB PO STA (08:18)
[2019-04-20] MEDS ORDERED: OXYCODONE HCL IR 5 MG TAB (IMMEDIATE RELEASE) PO STA (08:18)
--- NOTE | 2019-04-20 09:27 | Emergency Department Note ---
ED Visit Note Received patient in signout. History and physical verified by me. Patient's laboratory work from last evening was reviewed. His blood sugars found to be elevated this morning therefore he was given 20 units of insulin subcu. He is complaining of left-sided facial pain. His x-rays and CAT scans were reviewed from last evening. This does not show any acute fracture dislocation. He was therefore given ibuprofen as well as oxycodone for his pain. He currently at this point is a 201 and a bed search is continuing. He was given his NovoLog insulin. His blood sugar continued to drop here in the emergency department and the patient had no other complaints. He was independently evaluated and subsequently admitted to 3 . .
[2019-04-20] MEDS ORDERED: INSULIN HUMAN REGULAR SC STA (09:39)
[2019-04-20] MEDS ORDERED: LANTUS PER UNIT CHARGE SQ STA (09:39)
[2019-04-20] MEDS ORDERED: SODIUM CHLORIDE 0.65% NA SOLN 45 ML (OCEAN) PRN (11:59)
[2019-04-20] MEDS ORDERED: BISMUTH SUBSALICYLATE PER ML OMNICELL CHARGE PO PRN (11:59)
[2019-04-20] MEDS ORDERED: ALUMINUM/MAGNESIUM SUSP 30 ML UDC PO PRN (11:59)
[2019-04-20] MEDS ORDERED: MAGNESIUM HYDROXIDE SUSP 30 ML UDC PO PRN (11:59)
[2019-04-20] MEDS ORDERED: PHARMACY GLYCEMIC MGMT CONSULT PRN (12:54)
[2019-04-20] MEDS ORDERED: NICOTINE 21 MG/24 HR TDSY TD SCH (13:00)
[2019-04-20] MEDS ORDERED: CARBOHYDRATES FOR HYPOGLYCEMIA PO PRN (13:45)
[2019-04-20] MEDS ORDERED: GLUCOSE 40% GEL 15 GM TUBE PO PRN (13:45)
[2019-04-20] MEDS ORDERED: GLUCOSE 10 TABS/TUBE PO PRN (13:45)
[2019-04-20] MEDS ORDERED: DEXTROSE 50% 50 ML SYRINGE IV PRN (13:45)
[2019-04-20] MEDS ORDERED: GLUCAGON FOR INJ 1 MG VIAL IM PRN (13:45)
--- NOTE | 2019-04-20 14:09 | Pharmacy Report ---
Glycemic Control Consultation - Date of Service April 20, 2019 - Scope Scope: Glycemic Pharmacist consulted by Elena Lebron PA-C on 04/20/19 for glycemic control and to write orders per [facility] inpatient glycemic control protocol - Objective Weight: 112.6 kg Accuchecks BSG (last 24hrs): 04/20/19 04/20/19 04/20/19 05:34 06:23 06:56 POC Glucose 374 H* 332 H* 333 H* 04/20/19 04/20/19 04/20/19 07:34 08:03 08:35 POC Glucose 287 H 297 H 346 H* 04/20/19 04/20/19 04/20/19 09:07 09:37 10:07 POC Glucose 350 H* 339 H* 295 H 04/20/19 10:53 POC Glucose 248 H - Recent Pertinent Medications Outpatient Anti-diabetic Regimen: * Basaglar 18 units SQ BID * A1c = 8.9 % 03/24/19 The patient is currently receiving: * Basal insulin: Lantus 18 units x1 dose in ER Novolog 20 units x 2 doses in ER Risk Factors for Insulin Resistance: * Diet: Type 2 DM - Assessment & Plan Assessment & Plan: ASSESSMENT: * 63 year old male admitted for depression, suicidal, type 2 diabetic reported to be on basaglar, but after discussion with RN, pt is homeless so unknown if pt is taking insulin as outpatient * Consult CDE to find out patient's compliance and future insulin compliance after discharge * RN reports patient has been eating constantly since he came up to the floor from ER * Hyperglycemic in ER, likely d/t missed doses of insulin, patient had a total of 58 units of insulin (18 units Lantus, 20 units novolog x2) in ED. * Will treat patient with basal bolus therapy and titrate based on blood sugars. PLAN FOR INPATIENT GLYCEMIC CONTROL: * Basal insulin * Lantus BID * BSG < 180mg/dl - 18 units * BSG 180mg/dl or greater - 24 units * Bolus insulin * NovoLog per scale ACHS or Q6hrs while NPO * Goal Range: Low 110 mg/dL - High 140 mg/dL * Correction Factor: 20 mg/dL/unit * Nutritional / Prandial insulin per carb ratio of 1 unit per 7 grams CHO consumed * Please note that the plan above was derived based on current level of insulin resistance and hospital stress. These recommendations are appropriate for inpatient admission only. Plan of care upon discharge will need to be reassessed to avoid potential outpatient hypo/hyperglycemia. Thank you.
[2019-04-20] MEDS: INSULIN ASPART 100 UNITS/ML 3 ML PEN SC SCH ×3 (14:37→21:30)
[2019-04-20] MEDS: NICOTINE POLACRILEX 2 MG GUM MT PRN (15:03)
--- NOTE | 2019-04-20 15:13 | History & Physical ---
Date of Service April 20, 2019 Impression / Recommendations Impression This 63-year-old man reports that he essentially had no psychiatric history (other than a brief psychiatric hospitalization 13 years ago following a "minor crisis" that resolved quickly) until about a year and a half ago following severe complications associated with an attempt to insert a coronary artery stent. The complication resulted in multiple subsequent surgeries, a jay jay- operative event that led to cardiopulmonary arrest. He also has a chronic compartment syndrome that is quite painful. The pain often interferes with the patient's sleep. Further, the patient is highly distressed by what he perceives to be his significant disfigurement (right forearm). 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 Also, he notes that his sleep sleep onset is typically delayed because of his anger and distress regarding his injured, and that he awakens frequently in the night and finds himself thinking about his injury and the related losses associated with the injury the as great difficulty falling back to sleep complicating the clinical picture is the fact that the patient a number of somatic illnesses, including insulin-dependent diabetes, ASCVD (with stent placement), and hypertension. He appears to be a high functioning individual who attended both [employer] and [employer], both in the [facility], and has a masters degree in criminology. 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 The patient acknowledges that he has had intermittent thoughts of suicide for the past year and a half, within the context of the above referenced surgical complication. He has reported that he had a gun in his apartment, but turned it over to a neighbor for safe keeping, evidently because the neighbor was concerned about the patient's safety. He tells us that he is not having any active thoughts of suicide and does not have a suicide plan. He is also future oriented at this point, as evidenced by his assertion that he mostly wants treatment for depression and PTSD so that he will be able to function appropriately upon returning to his usual profession next month. He says that he has never taken any psychiatric medications and is agreeable to a trial of antidepressants/anxiolytics. 1 of his chief complaints is difficulty sleeping (initial and intermittent insomnia with some activities attendant awakening.) Accordingly, we will offer the trial of duloxetine, starting at 30 mg daily and titrate as indicated and tolerated. Duloxetine is selected to address depression, anxiety, and, possibly, chronic pain. Also, we are offering the patient a trial of trazodone 100 mg at bedtime for sleep. This is ordered as a standing dose. Finally, because the patient tells us that much of his distress is related to not only the disfigurement of his right forearm, but also to the chronic, persistent and sometimes severe pain associated with the surgical complication, the patient has been prescribed Indocin 25 mg 3 times daily. The patient's ASCVD and the cardiac risk associated within indomethacin (and other NSAIDs) is noted, and has been reviewed with the patient. In my opinion, in this case, the anticipated benefit of the anticipated pain relief associated with indomethacin, given the substantial negative impact it has upon the patient's overall health and well-being, outweighs the risk of cardiac complications. (1) Depression: 04/20/19 -We will encourage the patient to participate in individual, group, and activity therapies in order to teach improved coping strategies and to help the patient learn about his illness, together with treatment options. -The patient will be offered Cymbalta (duloxetine) 30 mg daily. Material risks and anticipated benefits of duloxetine have been reviewed with the patient and he indicates understanding. Present on Admission?: Yes (2) Suicidal ideation: 04/20/19 -The patient acknowledges intermittent suicidal thoughts for the past year a nd a half, subsequent to his surgical complication. He reports that, in the past, he "came close" "a couple times to making suicide attempts, but has not recently had suicidal plan or intent. Nevertheless, a neighbor/friend recently asked to take possession of the patient's gun as a safety matter. -The patient has agreed to let us know if suicidal thoughts return. Present on Admission?: Yes (3) Diabetes: 04/20/19 -The patient reports that he is compliant with his diabetic medication regimen, but freely admits that he often is not adherent with his diabetic diet. For example, upon arriving the unit I observe the patient about to take an open a sugar sweetened carbonated beverage, reminded him that he should not be drinking sugared beverages because of his diabetes, and offered him a "diet" soda as an alternative. The patient's initial response was to say, "I do not really care. I usually eat what I want." -We have requested a pharmacy consult in order to receive guidance for management of his diabetes. Present on Admission?: Yes (4) Compartment syndrome: 04/20/19 -The patient had complications associated with a coronary artery stent placement that involved his right radial artery. Reportedly, the radial artery ruptured, he underwent several surgeries and has developed a compartment syndrome that appears to be chronic and is quite painful. -In addition to the pain, of the disfigurement associated with the surgical scars and a somewhat unsightly skin graft remains a source of significant distress. -The patient reports that persistent, chronic, and sometimes severe pain associated with a compartment syndrome interferes with his ability to function, tends to cause him to be irritable, interferes with his sleep, and contributes to his depressed mood. We have added indomethacin 25 mg 3 times daily as needed for pain. The patient has a history of ASCVD, and we are aware of the risk associated with indomethacin in this regard. However, it is my opinion that the anticipated benefit of nonsteroidal anti-inflammatory medication for his compartment syndrome outweighs the risk. Risk benefit has been reviewed with the patient and he is in agreement. Present on Admission?: Yes (5) PTSD (post-traumatic stress disorder): 04/20/19 -Subsequent to surgical complications associated with the attempted placement of a stent approximately year and a half ago, the patient has suffered from symptoms of posttraumatic stress syndrome. These reportedly include nightmares, periodic flashbacks to the surgical complicationswhich reportedly included a jay jay-operative episode of cardiopulmonary arrestand painful rehabilitation efforts and convalescence --generalized anxiety and insomnia. 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 He was admitted on 04/20/19 11:59 on a 201 voluntary agreement. Chief Complaint "PTSD and Depression". History of Present Illness The patient is a 63-year-old man who has presented to the emergency department twice within the past 24 hours, initially for pain associated with a compartment syndrome in his right forearm, and, the second time, without ever leaving the building following release, for worsening depression. The patient explains that approximately a year and a half ago he underwent a procedure for a coronary artery stent that involved access through the right radial artery. He explains that during the procedure complications occurred and he ended up with disfiguring scars on his right forearm, the need for a skin graft, and residual compartment syndrome. He reports that he feels traumatized by the experience, and particular by the degree to which his right forearm is disfigured. He also notes that he is suffering from chronic pain in association with the compartment syndrome. Presenting symptoms include depressed mood, irritable mood, initial and intermittent insomnia, fatigue, anhedonia and psychosocial withdrawal. He also reports that he becomes excessively distressed every time he views his scars, has flashbacks to the trauma of surgeries and medical care (which she says included cardiopulmonary arrest), and episodic nightmares. The patient is focused on the degree to which his injured right forearm has interfered with his ability to function in several spheres. 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 However, he notes that he is scheduled to resume work in his usual profession in [place], [place], in about a month. His concern is that he is not sleeping, feel depressed, irritable, and is concerned that unless he is functioning better he might not be able to perform adequately in his profession. He had reportedly told emergency room staff that friends were concerned enough about him that they removed the gun that he had had in his possession. The patient tells me that he is not suicidal currently, but notes that, in the past year and a half he has contemplated suicide. Past Psychiatric History Previous Psych History: The patient reports that he had a "in and out" psychiatric hospitalization in [place], [place], approximately 13 years ago for what he referred to as a "minor crisis" that resolved quickly. Current Psychiatric Diagnosis: depression, anxiety. Outpatient Services: The patient reports that he does not have a history of outpatient psychiatric treatment. Previous Psych Admissions: As above, the patient reports a psychiatric hospitalization in [place], [place] approximately 13 years ago.. He notes that this admission was "in and out" and was due to a minor crisis that passed jaylon ckly. Do You Have Access To A Gun?: No History of Previous Suicide Attempt: No Describe Attempts in the Past: No prior attempts but prior threats Past Head Trauma/Neuro History History of Concussion/Seizure: Yes (The patient has a history of several concussions. 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.) Allergies Allergy/AdvReac Type Severity Reaction Status Date / Time diphenhydramine Allergy Intermediate Unverified 04/20/19 14:08 [From Benadryl] Home Medications Home Medications Medication Instructions Recorded Confirmed Type Basaglar KwikPen U-100 Insulin 18 unit SUBCUT BID 03/23/19 04/20/19 History atorvastatin [Lipitor] 40 mg PO PM 03/23/19 04/20/19 History carvedilol 3.125 mg PO BID 30 Days #60 tab 03/23/19 04/20/19 Rx losartan 100 mg PO QAM 30 Days #60 tab 03/23/19 04/20/19 Rx Family History Family History of: None Alcohol History Hx of Alcohol Use Over the Past 12 Months: No (denies) AUDIT Total Score: 0 Smoking Use Have You Smoked or Used Tobacco Products in the Last 30 Days: Yes tobacco type: cigars Smoking Status: Current some day smoker Substance History Hx of Prescription Med Misuse Over the Past 12 Months: No (denies) Hx of Over the Counter Med Misuse Over the Past 12 Months: No (denies) Hx of Inhalent Misuse Over the Past 12 Months: No (denies) Hx of Organic Substance Use Over the Past 12 Months: No (denies) Hx of Illegal Substances/Street Drug Use Over Past 12 Months: No (denies) Problems as a Result of Past Substance Use: None Identified Personal History Living Arrangements: Apartment Living Arrangements Comments: The patient lives in an apartment, next to the [employer] that he attends, and [place], [place]. He says tells us that he likes [place] because of the diversity and its proximity to other [facility], including [place] and [place]. Highest Grade Completed: Graduate School Highest Grade Completed Comment: Criminology and behavioral health. The patient holds a master's degree from the [employer]. 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 Both marriages lasted approximately 8 years.) Number Of Children: 5 Beliefs That Will Affect Care: Latter-Day (The patient identifies as Adventism.) Current Legal Problems: No Hx Legal Problems: No Hx Traumatic Life Events: Yes (The patient found the unexpected medical complications from an attempted cardiac stent) Psychological Trauma History Comment: Patient tells me that in addition to having his right forearm badly disfigured, he underwent a number of traumatic surgical procedures and painful rehabilitations. He also reports that during 1 of the medical procedures he experienced a cardiopulmonary arrest. 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 This morning, at 5:[address]Kasandra Quintero completed a review of systems, somatic history, and physical examination during the first hospital visit. The patient was technically released from the emergency room, but did not leave the hospital, and returned to report additional complaints. Following the second evaluation the patient was referred to psychiatry and accepted. The above referenced physical examination occurred within approximately 8 hours of his admission to psychiatry and is accepted for purposes of medical clearance to the [facility] behavioral health unit. Physical Exam Psychiatric: Orientation: oriented x 3 Apperance: appropriately dressed, appropriately groomed and appeared stated age Eye Contact: + poor eye contact Motor Behavior: no abnormal motor movements The patient's speech is spontaneous, but slowed and Affect: + depressed affect and + irritable affect Mood: + depressed mood and + anxious mood Thought Process: goal directed thought process, linear/logical thought process and clear/coherent thought process Thought Content: reality based without delusions (The patient refers to being "paranoid," but says that by that he has felt anxious run around people who that he does not know. There is no evidence of delusional paranoia.) Suicidal Thoughts: + reports suicidal thoughts The patient acknowledges that he has had suicidal thoughts, but denies that he is actually suicidal. He notes that, in the past year and a half he has had thoughts of suicide, but is currently not experiencing any suicidal intent. He is future oriented, and tells us that a main purpose of his psychiatric hospitalization at this point is to "get [his] head together" in order to return to work in [place] Homicidal Thoughts: denies homicidal thoughts Hallucinations: no auditory hallucinations, no visual hallucinations and no tactile hallucinations Cognition: recent memory grossly intact, remote memory grossly intact, attention grossly intact and language grossly intact Estimated Intelligence: + above average estimated intelligence Insight: + fair insight Judgement: + fair judgement Vital Signs (Past 24 Hours): Last Vital Signs Temp 36.5 C 04/20/19 13:33 Pulse 66 04/20/19 13:33 Resp 18 04/20/19 13:33 BP 156/88 H 04/20/19 13:33 Pulse Ox 98 04/20/19 10:58 Results & Data Laboratory Results Laboratory Results - last 24 hr 04/20/19 04/20/19 04/20/19 05:34 06:23 06:56 POC Glucose 374 H* 332 H* 333 H* 04/20/19 04/20/19 04/20/19 07:34 08:03 08:35 POC Glucose 287 H 297 H 346 H* 04/20/19 04/20/19 04/20/19 09:07 09:37 10:07 POC Glucose 350 H* 339 H* 295 H 04/20/19 10:53 POC Glucose 248 H Current Inpatient Medications Current Inpatient Medications: Current Inpatient Medications Acetaminophen (Tylenol) 650 mg PO Q4H PRN PRN Reason: Headache or Minor Fever Stop: 05/20/19 11:58 Al Hydrox/Mg Hydrox/Simethicone (Maalox) 30 ml PO Q4H PRN PRN Reason: GI Upset Stop: 05/20/19 11:58 Atorvastatin Calcium (Lipitor) 40 mg PO PM MARCOS Stop: 05/20/19 20:59 Bismuth Subsalicylate (Kaopectate) 15 ml PO PRN PRN PRN Reason: Loose Stool Stop: 05/20/19 11:58 Carvedilol (Coreg) 3.125 mg PO BID [facility] Stop: 05/20/19 20:59 Dextrose (Dextrose 50%) 25 - 50 ml IV UD PRN; Protocol PRN Reason: Hypoglycemia Protocol Stop: 05/20/19 13:44 Duloxetine HCl (Cymbalta) 30 mg PO QAM [facility] Stop: 05/21/19 08:59 Glucagon (Glucagen) 1 mg IM UD PRN; Protocol PRN Reason: Hypoglycemia Protocol Stop: 05/20/19 13:44 Glucose (Glucose 40%) 15 - 30 gm PO UD PRN; Protocol PRN Reason: Hypoglycemia Protocol Stop: 05/20/19 13:44 Glucose (Dex4 Glucose) 4 - 8 tabs PO UD PRN; Protocol PRN Reason: Hypoglycemia Protocol Stop: 05/20/19 13:44 Hydroxyzine HCl (Vistaril) 50 mg PO HSZ PRN PRN Reason: Insomnia Stop: 05/20/19 11:58 Hydroxyzine HCl (Vistaril) 25 mg PO Q4H PRN PRN Reason: Anxiety Stop: 05/20/19 11:58 Indomethacin (Indocin) 25 mg PO TID PRN PRN Reason: pain Stop: 05/20/19 20:59 Insulin Aspart (Novolog Flexpen) 0 units SC ACHS [facility]; Protocol Stop: 05/20/19 13:44 Last Admin: 04/20/19 14:37 Dose: Not Given Documented by: Insulin Glargine (Lantus Solostar Pen) 0 units SC BID [facility]; Protocol Stop: 05/20/19 20:59 Losartan Potassium (Cozaar) 100 mg PO QAM [facility] Stop: 05/21/19 08:59 Magnesium Hydroxide (Milk Of Magnesia) 30 ml PO DAILY PRN PRN Reason: Heartburn Stop: 05/20/19 11:58 Miscellaneous (Remove Nicoderm Patch) 1 ea N/A HS MARCOS Stop: 05/20/19 20:59 Miscellaneous (Carbohydrates For Hypoglycemia) 15 - 30 gm PO UD PRN PRN Reason: Hypoglycemia Treatment Stop: 05/20/19 13:44 Miscellaneous Information (Consult Glycemic Management Pharmacy) 1 ea N/A UD PRN PRN Reason: Consult Stop: 05/20/19 12:53 Nicotine (Nicoderm Cq) 21 mg TD QAM MARCOS Stop: 05/21/19 08:59 Nicotine Polacrilex (Nicorette 2mg) 1 piece MT PRN PRN PRN Reason: nicotine cravings Stop: 05/20/19 12:51 Last Admin: 04/20/19 15:03 Dose: 1 piece Documented by: Sodium Chloride (Dunning Nasal) 1 - 2 sprays NA PRN PRN PRN Reason: Nasal Dryness/Congestion Stop: 05/20/19 11:58 Trazodone HCl (Desyrel) 100 mg PO HS MARCOS Stop: 05/20/19 21:59 CPT Code CPT Code Initial Hospital Care: 16451
[2019-04-20] MEDS: ACETAMINOPHEN 325 MG TAB PO PRN (17:36)
[2019-04-20] MEDS: INDOMETHACIN 25 MG CAP PO PRN ×2 (18:06→20:27)
[2019-04-20] MEDS: CARVEDILOL 3.125 MG TAB PO SCH (21:29)
[2019-04-20] MEDS: INSULIN GLARGINE SOLOSTAR 100 UNITS/ML 3 ML PEN SC SCH (21:29)
[2019-04-20] MEDS: ATORVASTATIN 40 MG TAB PO SCH (21:29)
[2019-04-20] MEDS: TRAZODONE HCL 100 MG TAB PO SCH (21:30)
[2019-04-21] MEDS: NICOTINE 21 MG/24 HR TDSY TD SCH (08:15)
[2019-04-21] MEDS: CARVEDILOL 3.125 MG TAB PO SCH ×2 (09:15→21:42)
[2019-04-21] MEDS: LOSARTAN POTASSIUM 50 MG TAB PO SCH (09:15)
[2019-04-21] MEDS: DULOXETINE HCL 30 MG CAP PO SCH (09:16)
[2019-04-21] MEDS: ACETAMINOPHEN 325 MG TAB PO PRN (09:22)
[2019-04-21] MEDS: INDOMETHACIN 25 MG CAP PO PRN (09:22)
--- NOTE | 2019-04-21 09:29 | Psychiatric Progress Note ---
Date of Service April 21, 2019 Impression / Recommendations Impression This 63-year-old man reports that he essentially had no psychiatric history other than remote brief hospitalization 13years ago. 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 He reports intermittant SI in the last 1.5 years related to his medical/surgical complications. Being Male, in chronic pain, poor sleep preceding hospital stay, intermmittant SI, low mood, and anxiety all are risk factors for safety. Lack of f/u both medically and psychiatrically are also modifiable risk factors. He is voluntary for admission. He was agreeable to cymbalta 30mg, trazodone 100mg and consented for indomethicin for pain then changed to ibuprofen/tylenol day 2 of hospital stay (1) Depression: 04/20/19 -We will encourage the patient to participate in individual, group, and activity therapies in order to teach improved coping strategies and to help the patient learn about his illness, together with treatment options. -The patient will be offered Cymbalta (duloxetine) 30 mg daily. Material risks and anticipated benefits of duloxetine have been reviewed with the patient and he indicates understanding. 04/21/19 - blurry vision and HOLLAND preceded cymbalta 30mg and trzodone at hs, will continue at present doses and consider increase cymbalat to 60mg 04/22. 04/22/19 - documentation and patient hx confirm blurred vision precedes medications and is unchanged and given no direct eye pain or s/sx of injection do not think there is acute angle glaucoma, and given initial tolerability to advance to 60mg today to help mood, anxiety and pain. Patient may have some HOLLAND from this medication that should tray within a few days with tylenol, motrin while watching for bleeding risk . Continue trazodole 100mghs as he has some benefit in falling asleep and return to sleep if woken by pain. (2) Suicidal ideation: 04/20/19 -The patient acknowledges intermittent suicidal thoughts for the past year and a half, subsequent to his surgical complication. He reports that, in the past, he "came close" "a couple times to making suicide attempts, but has not recently had suicidal plan or intent. Nevertheless, a neighbor/friend recently asked to take possession of the patient's gun as a safety matter. -The patient has agreed to let us know if suicidal thoughts return. 04/21 - deneis overt SI, but has ongoing significant RF, will work to modify risk by targeting mood and anxiety and pain as outlined in the surrounding problem plans. 04/22 - denies SI, but my concern is less about acute SI at this time since it has been absent and more about patient's closed nature, primitive way of avoiding emotional/psychological concepts and discussions and that he could be a risk if distressed again as he has not gained skills to work through distress or coping in any meaningful way here. I cannot force the patient but will continue to attempt to both empathize while challenge him to engage the resources availed to him while trying to respect his stated discomfort with culture and race. (3) Diabetes: 04/20/19 and 04/21, and 04/22 -The patient reports that he is compliant with his diabetic medication regimen, but freely admits that he often is not adherent with his diabetic diet. For example, upon arriving the unit I observe the patient about to take an open a sugar sweetened carbonated beverage, reminded him that he should not be drinking sugared beverages because of his diabetes, and offered him a "diet" soda as an alternative. The patient's initial response was to say, "I do not really care. I usually eat what I want." -We have requested a pharmacy consult in order to receive guidance for management of his diabetes. (4) Compartment syndrome: 04/20/19 -The patient had complications associated with a coronary artery stent placement that involved his right radial artery. Reportedly, the radial artery ruptured, he underwent several surgeries and has developed a compartment syndrome that appears to be chronic and is quite painful. -In addition to the pain, of the disfigurement associated with the surgical scars and a somewhat unsightly skin graft remains a source of significant distress. -The patient reports that persistent, chronic, and sometimes severe pain associated with a compartment syndrome interferes with his ability to function, tends to cause him to be irritable, interferes with his sleep, and contributes to his depressed mood. We have added indomethacin 25 mg 3 times daily as needed for pain. The patient has a history of ASCVD, and we are aware of the risk associated with indomethacin in this regard. However, it is my opinion that the anticipated benefit of nonsteroidal anti-inflammatory medication for his compartment syndrome outweighs the risk. Risk benefit has been reviewed with the patient and he is in agreement. 04/21/19 - continue as above. [place]APDMP under "Evan Hansen" shows ER MD prescribed tramadol 12/2018, there are no other controlled meds in PAPDMP. I am confused about the limited consistent f/u for this individual with a single health care provider Patient needs routine PCM in the [place] area to have consistency in management of IDDM, CVD, pain, and to f/u on thyroid nodules and enlarged thyroid noted in his CT Cspine in ER 04/19 (TSH wnl), and mention of renal mass stated at his 03/23/19 medical stay that was to be biopsied but he had not had yet for unclear reasons, and finally ongoing f/u [facility] opthomology regarding diabetic changes as well as his blurry vision (5) PTSD (post-traumatic stress disorder): 04/20/19 -Subsequent to surgical complications associated with the attempted placement of a stent approximately year and a half ago, the patient has suffered from symptoms of posttraumatic stress syndrome. These reportedly include nightmares, periodic flashbacks to the surgical complicationswhich reportedly included a jay jay-operative episode of cardiopulmonary arrestand painful rehabilitation efforts and convalescence --generalized anxiety and insomnia. 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 He was admitted on 04/20/19 11:59 on a 201 voluntary agreement. Chief Complaint "I am hopeful (said without making eye contact, hand over face in a monotone voice). Review of Systems Sleep Information Total Hours of Sleep: 8 Meal Information Percent Meal Consumed - Breakfast: 100 Percent Meal Consumed - Lunch: 50 Percent Meal Consumed - Dinner: 100 Nutrition Comment: per meal record Subjective Subjective Patient was seen & assessed and interval progress reviewed with Treatment Team. Per nursing staff the patient has expressed ongoing pain of his face with Headache and blurry vision. Nursing assessed yesterday and did not see acute changes. We did change from indocin to ibuprofen 800mg q8h + tylenol q8h offset with offering ice packs to which patient seems offput. Per staff patient has mentioned concerns that he feels he is not being offered additional options "because I am black," and seems closed and defensive to further discussion with staff. He is sleeping at night, and naps/rests in the day, attends some groups and speaks at times but not about personal concerns. SUMMARY OF RECORDS/HISTORY OBTAINED FROM MEDICAL RECORD: Provider reviewed chart both at two ER visits 04/19, and 04/20 as well as 03/23/19 medical hospitalization. the patient did report blurred vision of his left eye and dizzyness at his February hospitalization. He did have CN exam and ENT exam as normal at February encounters, and 04/19 there was a focal exam on his face due to the reported fall. I defer the reader to the 03/23/19 discharge summary in which there is thorough documentation of patient is described as a poor historian Per that discharge summary [employer] [facility] and Care everywhere search also show patient seeking care in > 25 health systems to include [facility] with additional evaluation 03/04/19 for CP as well. Patient had stress test 02/07/19 and s/p cath 07/2018 cited in that note.Additional documentation of visit to [place] 03/16/19 with double vision and dysequilibirm as well, found to have non-cardiac chest pain after evaluation with mention of conversion. Notation about TIA but hospitalists further reserach could not find evidence of this diagnosis in these collateral sources. Apparently the [facility] hospitalist attempted to mention concern for behavioral health etiology causing chest pain and patient was defensive and off put. Provider reviewed record further for social history and medical history documented in ER visits and February 2019 hospital stay: Patient notes medical h/o DVT and PE previously on Xarelto, then moved to [place] and ASA with ongoing GI bleed and taken off. He reported h/o laryngeal CA in 2008 s/p surgery, and renal mass that he stated he had not had biopsied yet. He reported that he is from [facility] [place] at his 02/2018 contact, he noted he quit smoking "1 month ago" (estimated January 2019) after 1/2 ppd for many years. Family history includes father s/p lung cancer, mother is living has HTN and pace maker. Per 03/2019 ER notes patient has recently lost his sister. Evaluation with patient today: Met with patient he was laying in bed with covers over his head. He grunts at provider when verbally greeted and agrees to meet slowly rising, using restroom then slowly but steadily comes with provider to intervieiwng room. He states "I am feeling better... 04/04" when given a scale while his MSE shows him sitting hand over his face/eyes with poor EC and monotone voice. When provider asked him to share more he states "I don't know, being here has helped me see it was not so bad out there....I need to get back to doing things and be with people who make me feel more comfortable....you, this place, I will forget it in a few days" When asked in anything here has been helpful he says, "no, just realizing how bad it is here makes me feel I did not have it so bad out there." He states he is hopeful to get home and "work on some things." He is vague when asked what he hopes to work on. Discussed possible goals for working here on mood, anxiety and living with chronic medical problems and he states "I can't, you rural white people don't understand me." Encouraged him to share more and he repeats himself but does not offer further information. When provider asks if there is any ways this provider can work to help him feel more comfortable now he says "no, I am better, I don't need you to do anything. 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 He states "I am in the field and I know this stuff." Provider affirmed his knowl edge and prompted that the goal would be the exercise of practicing these concepts much like one can know how to do squat thrusts at the gym, but one benefits physically by doing the repetitions. Likewise going through the exercises int he workbook with personal application may be helpful to sort through feelings that come with living with pain, illness and loss (referring to the loss of his sister mentioned in the ER notes from 04/19 or 04/20). Patient again states he does not think that would be helpful, "I just need to work on getting out of here" Discussed that establishing aftercare with PCM as well as with therapist and behavioral health prescriber would be hudson to helping him as he leaves to have someone f/u on medical concerns and emotional/psychological and medication supports. He again states as he did yesterday " I will arrange all that myself when I leave." Provider noted if he has names of individuals he would prefer to see we would work with him to try to connect to those providers, but that in the absence of specific names, or a specific insurance he has identified (stating he has the name of his future insurance on his phone but then states he can't access it) we would make the best recommendations we could and he could ammend/adjust them if need be. He states "I know." He states it is his job that keeps him from having a consistent primary care, most recent was Grace Mcneil in [facility] in [place], but due to plan to be working in [place] in April he will need to estblish care there. He states he slepts " alittle better" waking wtih pain but denies SE to trazodone or cymbalta. States his mood is "Better" and "not anxious" and when asking about intrusive thoughts about his pain, surgeries and disfugurement h e states "I said I feel better, not thinking about that right now." He reports that hisHeadache however continues locating it to facial pain that is the most significant, and a dull throbbing frontal and parietal region on the left side today., he notes some eye discharge stated it was green this AM, but denies itchy eyes, continues to have left sided blurry vision states it is constant but unchanged from last several months. States he had opthamology exam "a few months ago...all they said was they see the changes of diabetes and to come back" He cannot recall if this was before or after onset of the blurry vision. FOCAL Exam: there is some modest facial swelling below the left eye down to the nasal labial fold across the cheek to about 2/[address] to TMJ joint, TMJ joints are non tender and there is not evidence of displacement of the jaw the periorbital bones around the eye, nor the maxilla on either side. Although left side this swollen cirular region below the eye is tender to palpation, some pre- auricular tenderness but no swelling of LAD there. CN 2, 3, 4 and 6 intact meaning - EOM all intact, patient has poor discrimination of number of fingers extended on visual field testing but can see fingers moving in visual field test. Pupillary reaction is equal on direct and conseual reflex in both eyes. CN V intact and symmetrical in all three regions of the face. THe eye is not injected, no icterus and there is not pain upon palpation of the globe through the eye lid, he does have watery discharge no pus, no erythemia noted although he has dark skin so hard to appreciate, no foreign bodies. Bilateral irises have an opagque whitish ring around the outside edge about 1/2 mm which patient said the opthamologist told him were diabetic changes but this provider is not familiar with. He denies s/sx of elevated or mixed state, denies SI, intetion or plan, denies HI intention or plan, denies s/sx of psychosis. Physical Exam Psychiatric Orientation: alert and oriented x 3 Apperance: appropriately dressed, appropriately groomed and appeared stated age Eye Contact: + fair eye contact (initiallly poor with hand over eyes, then does transition to make EC) he is cooperative and makes EC during focal exam but EC lessens when discussing symptoms from not looking at provider at all to more looking to the side when talking and looking at provider intermittantly Motor Behavior: no abnormal motor movements Answers spontanesouly but in few words that are not short but also not euthymic as if he is cooperating but not inviting further conversation, he is NAD, he does become more bold when sharing how he does not feel that this provider who is and this hospital program is culturally different than he is and his unwillingness to even engage the workbook feeling they are irrelevant to him due to his culture Affect: + depressed affect (states mood is "better" but appears depressed/disconnected) and + irritable affect (mildly irritable raised town wh en pressed to engage in therapeutic goals ) states his mood is "better" which is incongruent with his demeanor and affect Thought Process: goal directed thought process Thought Content: reality based without delusions (The patient refers to being "paranoid," but says that by that he has felt anxious run around people who that he does not know. There is no evidence of delusional paranoia.) but vague in content, lacking psychological words and lacking self observation, and reverts to discussion of phsycal concerns and culture as reasons for not engaging more actively in care Suicidal Thoughts: + reports suicidal thoughts Homicidal Thoughts: denies homicidal thoughts Hallucinations: no auditory hallucinations, no visual hallucinations and no tactile hallucinations Cognition: recent memory grossly intact (but vague in detail even when pressed), attention grossly intact and language grossly intact Estimated Intelligence: average estimated intelligence Insight: + limited insight Judgement: + fair judgement Vital Signs (Past 24 Hours) Last Vital Signs Temp 36.8 C 04/21/19 06:48 Pulse 96 H 04/21/19 06:49 Resp 18 04/21/19 06:48 BP 109/62 04/21/19 06:49 Pulse Ox 98 04/20/19 10:58 Results & Data Laboratory Results Laboratory Results - last 24 hr 04/20/19 04/20/19 04/20/19 08:35 09:07 09:37 POC Glucose 346 H* 350 H* 339 H* 04/20/19 04/20/19 04/20/19 10:07 10:53 17:15 POC Glucose 295 H 248 H 205 H 04/20/19 04/21/19 20:34 06:23 POC Glucose 272 H 138 H Current Inpatient Medications Current Inpatient Medications: Current Inpatient Medications Acetaminophen (Tylenol) 650 mg PO Q4H PRN PRN Reason: Headache or Minor Fever Stop: 05/20/19 11:58 Last Admin: 04/20/19 17:36 Dose: 650 mg Documented by: Al Hydrox/Mg Hydrox/Simethicone (Maalox) 30 ml PO Q4H PRN PRN Reason: GI Upset Stop: 05/20/19 11:58 Atorvastatin Calcium (Lipitor) 40 mg PO PM MARCOS Stop: 05/20/19 20:59 Last Admin: 04/20/19 21:29 Dose: 40 mg Documented by: Bismuth Subsalicylate (Kaopectate) 15 ml PO PRN PRN PRN Reason: Loose Stool Stop: 05/20/19 11:58 Carvedilol (Coreg) 3.125 mg PO BID [facility] Stop: 05/20/19 20:59 Last Admin: 04/21/19 09:15 Dose: 3.125 mg Documented by: Dextrose (Dextrose 50%) 25 - 50 ml IV UD PRN; Protocol PRN Reason: Hypoglycemia Protocol Stop: 05/20/19 13:44 Duloxetine HCl (Cymbalta) 30 mg PO QAM [facility] Stop: 05/21/19 08:59 Last Admin: 04/21/19 09:16 Dose: 30 mg Documented by: Glucagon (Glucagen) 1 mg IM UD PRN; Protocol PRN Reason: Hypoglycemia Protocol Stop: 05/20/19 13:44 Glucose (Glucose 40%) 15 - 30 gm PO UD PRN; Protocol PRN Reason: Hypoglycemia Protocol Stop: 05/20/19 13:44 Glucose (Dex4 Glucose) 4 - 8 tabs PO UD PRN; Protocol PRN Reason: Hypoglycemia Protocol Stop: 05/20/19 13:44 Hydroxyzine HCl (Vistaril) 50 mg PO HSZ PRN PRN Reason: Insomnia Stop: 05/20/19 11:58 Hydroxyzine HCl (Vistaril) 25 mg PO Q4H PRN PRN Reason: Anxiety Stop: 05/20/19 11:58 Indomethacin (Indocin) 25 mg PO TID PRN PRN Reason: pain Stop: 05/20/19 20:59 Last Admin: 04/20/19 20:27 Dose: 25 mg Documented by: Insulin Aspart (Novolog Flexpen) 0 units SC ACHS [facility]; Protocol Stop: 05/20/19 13:44 Last Admin: 04/20/19 21:30 Dose: 16 units Documented by: Insulin Glargine (Lantus Solostar Pen) 0 units SC BID [facility]; Protocol Stop: 05/20/19 20:59 Last Admin: 04/20/19 21:29 Dose: 24 units Documented by: Losartan Potassium (Cozaar) 100 mg PO QAM [facility] Stop: 05/21/19 08:59 Last Admin: 04/21/19 09:15 Dose: 100 mg Documented by: Magnesium Hydroxide (Milk Of Magnesia) 30 ml PO DAILY PRN PRN Reason: Heartburn Stop: 05/20/19 11:58 Miscellaneous (Remove Nicoderm Patch) 1 ea N/A HS MARCOS Stop: 05/20/19 20:59 Last Admin: 04/20/19 21:39 Dose: Not Given Documented by: Miscellaneous (Carbohydrates For Hypoglycemia) 15 - 30 gm PO UD PRN PRN Reason: Hypoglycemia Treatment Stop: 05/20/19 13:44 Miscellaneous Information (Consult Glycemic Management Pharmacy) 1 ea N/A UD PRN PRN Reason: Consult Stop: 05/20/19 12:53 Nicotine (Nicoderm Cq) 21 mg TD QAM MARCOS Stop: 05/21/19 08:59 Last Admin: 04/21/19 08:15 Dose: 21 mg Documented by: Nicotine Polacrilex (Nicorette 2mg) 1 piece MT PRN PRN PRN Reason: nicotine cravings Stop: 05/20/19 12:51 Last Admin: 04/20/19 15:03 Dose: 1 piece Documented by: Sodium Chloride ([place] Nasal) 1 - 2 sprays NA PRN PRN PRN Reason: Nasal Dryness/Congestion Stop: 05/20/19 11:58 Trazodone HCl (Desyrel) 100 mg PO HS MARCOS Stop: 05/20/19 21:59 Last Admin: 04/20/19 21:30 Dose: 100 mg Documented by: Mental Health & Subst Abuse Tx Therapist Name of Therapist: None Technical Support Assistant Name of Technical Support Assistant: None Post Discharge Appointments Primary Care Physician Name Of Family Doctor: None - seeking PCP in [facility] CPT Code CPT Code 41996
[2019-04-21] MEDS: INSULIN ASPART 100 UNITS/ML 3 ML PEN SC SCH ×5 (09:33→21:43)
[2019-04-21] MEDS: INSULIN GLARGINE SOLOSTAR 100 UNITS/ML 3 ML PEN SC SCH ×2 (09:35→21:45)
[2019-04-21] MEDS: ACETAMINOPHEN 500 MG TAB PO SCH (20:25)
[2019-04-21] MEDS: TRAZODONE HCL 100 MG TAB PO SCH (21:47)
[2019-04-21] MEDS: ATORVASTATIN 40 MG TAB PO SCH (21:47)
[2019-04-22] MEDS: IBUPROFEN 800 MG TAB PO SCH ×3 (00:35→15:29)
[2019-04-22] MEDS: ACETAMINOPHEN 500 MG TAB PO SCH ×4 (06:20→20:14)
[2019-04-22] MEDS: CARVEDILOL 3.125 MG TAB PO SCH ×2 (08:39→21:36)
[2019-04-22] MEDS: NICOTINE 21 MG/24 HR TDSY TD SCH (08:40)
[2019-04-22] MEDS: DULOXETINE HCL 30 MG CAP PO SCH (08:40)
[2019-04-22] MEDS: LOSARTAN POTASSIUM 50 MG TAB PO SCH (08:40)
[2019-04-22] MEDS: INSULIN ASPART 100 UNITS/ML 3 ML PEN SC SCH ×5 (09:16→21:44)
[2019-04-22] MEDS: INSULIN GLARGINE SOLOSTAR 100 UNITS/ML 3 ML PEN SC SCH ×2 (09:17→21:39)
[2019-04-22] MEDS ORDERED: DULOXETINE HCL 30 MG CAP PO STA (11:39)
--- NOTE | 2019-04-22 13:39 | Pharmacy Report ---
Pharmacy Glycemic Short Note 2 - Date of Service April 22, 2019 - Glycemic Short BSG Results (Last 24 hours): 04/21/19 04/21/19 04/22/19 17:30 20:23 07:53 POC Glucose 299 H 276 H 162 H 04/22/19 04/22/19 12:15 12:17 POC Glucose 332 H* 320 H* OUTPATIENT ANTIDIABETIC REGIMEN: * Basaglar 18 units SQ BID * A1c = 8.9 % 03/24/19 The patient is currently receiving: * Basal insulin: Lantus 18 units sq am + 24 units SQ PM * Bolus insulin: Novolog with meals and at HS (dosing ranges 10-18 units per dose) * Total daily insulin dose: 96 units ASSESSMENT: * 63 year old male admitted for depression, suicidal, type 2 diabetic reported to be on basaglar, but after discussion with RN, pt is homeless so unknown if pt is taking insulin as outpatient * Consult CDE to find out patient's compliance and future insulin compliance after discharge * AM fasting BSG is in goal range indicating adequate basal insulin dosing - continue ~ 40-45 units of basal insulin * Post-prandial BSGs significantly elevated indicating more prandial coverage needed. Will tighten CR PLAN FOR INPATIENT GLYCEMIC CONTROL: * Basal insulin * Lantus 20-25 units SQ BID - dose based on BSG * Bolus insulin * NovoLog per scale ACHS or Q6hrs while NPO * Goal Range: Low 110 mg/dL - High 140 mg/dL * Correction Factor: 20 mg/dL/unit * Nutritional / Prandial insulin per carb ratio of 1 unit per 5 grams CHO consumed
[2019-04-22] MEDS: NICOTINE POLACRILEX 2 MG GUM MT PRN (16:04)
[2019-04-22] MEDS: ATORVASTATIN 40 MG TAB PO SCH (21:36)
[2019-04-22] MEDS: TRAZODONE HCL 100 MG TAB PO SCH (21:36)
[2019-04-23] MEDS: IBUPROFEN 800 MG TAB PO SCH ×4 (00:01→17:35)
[2019-04-23] MEDS: ACETAMINOPHEN 500 MG TAB PO SCH ×3 (05:12→20:29)
[2019-04-23] MEDS: CARVEDILOL 3.125 MG TAB PO SCH ×2 (08:55→20:50)
[2019-04-23] MEDS: DULOXETINE HCL 60 MG CAP PO SCH (08:55)
[2019-04-23] MEDS: LOSARTAN POTASSIUM 50 MG TAB PO SCH (08:55)
[2019-04-23] MEDS: INSULIN ASPART 100 UNITS/ML 3 ML PEN SC SCH ×4 (08:57→20:52)
[2019-04-23] MEDS: INSULIN GLARGINE SOLOSTAR 100 UNITS/ML 3 ML PEN SC SCH ×2 (08:58→20:51)
[2019-04-23] MEDS: NICOTINE 21 MG/24 HR TDSY TD SCH (08:59)
--- NOTE | 2019-04-23 12:05 | Psychiatric Progress Note ---
Date of Service April 23, 2019 Impression / Recommendations Impression This 63-year-old man reports that he essentially had no psychiatric history other than remote brief hospitalization 13years ago. 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 He reports intermittant SI in the last 1.5 years related to his medical/surgical complications. Being Male, in chronic pain, poor sleep preceding hospital stay, intermittent SI, low mood, and anxiety all are risk factors for safety. Lack of f/u both medically and psychiatrically are also modifiable risk factors. He is voluntary for admission. Cymbalta was titrated to 60mg. He continues on trazodone 100mg and consented for indomethicin for pain then changed to ibuprof en/tylenol for pain management as well. Pt now reporting "paranoia" with very vague disjointed description. Will continue to discuss and encourage patient to process these thoughts. The report of paranoia further increases concerns regarding patient's safety should he be discharged without adequate discharge plan. Ongoing inpatient psychiatric treatment is medically necessary. (1) Depression: 04/20/19 -We will encourage the patient to participate in individual, group, and activity therapies in order to teach improved coping strategies and to help the patient learn about his illness, together with treatment options. -The patient will be offered Cymbalta (duloxetine) 30 mg daily. Material risks and anticipated benefits of duloxetine have been reviewed with the patient and he indicates understanding. 04/21/19 - blurry vision and HOLLAND preceded cymbalta 30mg and trazodone at hs, will continue at present doses and consider increase cymbalta to 60mg 04/22. 04/22/19 - documentation and patient hx confirm blurred vision precedes medications and is unchanged and given no direct eye pain or s/sx of injection do not think there is acute angle glaucoma, and given initial tolerability to advance to 60mg today to help mood, anxiety and pain. Patient may have some HOLLAND from this medication that should tray within a few days with tylenol, motrin while watching for bleeding risk . Continue trazodone 100mghs as he has some benefit in falling asleep and return to sleep if woken by pain. 04/23 - Continue current medication regimen - persistent somatic complaints which may or may not be related to his medication changes - continue to observe for now - Patient is reporting "paranoia" today, but provides a very general description of "restlessness, confusion, and dizziness" without specific paranoid beliefs or obvious delusional thought content, continue to discuss this as well (2) Suicidal ideation: 04/20/19 -The patient acknowledges intermittent suicidal thoughts for the past year and a half, subsequent to his surgical complication. He reports that, in the past, he "came close" "a couple times to making suicide attempts, but has not recently had suicidal plan or intent. Nevertheless, a neighbor/friend recently asked to take possession of the patient's gun as a safety matter. -The patient has agreed to let us know if suicidal thoughts return. 04/21 - deneis overt SI, but has ongoing significant RF, will work to modify risk by targeting mood and anxiety and pain as outlined in the surrounding problem plans. 04/22 - denies SI, but my concern is less about acute SI at this time since it has been absent and more about patient's closed nature, primitive way of avoiding emotional/psychological concepts and discussions and that he could be a risk if distressed again as he has not gained skills to work through distress or coping in any meaningful way here. I cannot force the patient but will continue to attempt to both empathize while challenge him to engage the resources availed to him while trying to respect his stated discomfort with culture and race. (3) Diabetes: 04/20/19 and 04/21, and 04/22 -The patient reports that he is compliant with his diabetic medication regimen, but freely admits that he often is not adherent with his diabetic diet. For example, upon arriving the unit I observe the patient about to take an open a sugar sweetened carbonated beverage, reminded him that he should not be drinking sugared beverages because of his diabetes, and offered him a "diet" soda as an alternative. The patient's initial response was to say, "I do not really care. I usually eat what I want." -We have requested a pharmacy consult in order to receive guidance for management of his diabetes. 04/23 - Met with a knowledge analyst today to discuss health food choices - Will work to better control blood glucose, while also being cautious of hypoglycemia - patient reporting dizziness, confusion, and restlessness (medication side effects versus hypo/hyper glycemia versus somatic concerns) (4) Compartment syndrome: 04/20/19 -The patient had complications associated with a coronary artery stent placement that involved his right radial artery. Reportedly, the radial artery ruptured, he underwent several surgeries and has developed a compartment syndrome that appears to be chronic and is quite painful. -In addition to the pain, of the disfigurement associated with the surgical scars and a somewhat unsightly skin graft remains a source of significant distress. -The patient reports that persistent, chronic, and sometimes severe pain associated with a compartment syndrome interferes with his ability to function, tends to cause him to be irritable, interferes with his sleep, and contributes to his depressed mood. We have added indomethacin 25 mg 3 times daily as needed for pain. The patient has a history of ASCVD, and we are aware of the risk associated with indomethacin in this regard. However, it is my opinion that the anticipated benefit of nonsteroidal anti-inflammatory medication for his compartment syndrome outweighs the risk. Risk benefit has been reviewed with the patient and he is in agreement. 04/21/19 - continue as above. [place] under "Evan Hansen" shows ER MD prescribed tramadol 12/2018, there are no other controlled meds in [place]AP[place]MP. I am confused about the limited consistent f/u for this individual with a single health care provider Patient needs routine PCM in the [place] area to have consistency in management of IDDM, CVD, pain, and to f/u on thyroid nodules and enlarged thyroid noted in his CT Cspine in ER 04/19 (TSH wnl), and mention of renal mass stated at his 03/23/19 medical stay that was to be biopsied but he had not had yet for unclear reasons, and finally ongoing f/u with ophthalmology regarding diabetic changes as well as his blurry vision (5) PTSD (post-traumatic stress disorder): 04/20/19 -Subsequent to surgical complications associated with the attempted placement of a stent approximately year and a half ago, the patient has suffered from symptoms of posttraumatic stress syndrome. These reportedly include nightmares, periodic flashbacks to the surgical complicationswhich reportedly included a jay jay-operative episode of cardiopulmonary arrestand painful rehabilitation efforts and convalescence --generalized anxiety and insomnia. 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 He was admitted on 04/20/19 11:59 on a 201 voluntary agreement. Chief Complaint "I feel paranoid, I can't focus. My memory is not so good." Review of Systems Notes Constitutional: multiple vague complaints - "dizziness, restlessness, paranoia, anxiety, confusion, etc." Cardiovascular: denied Respiratory: denied Gastrointestinal: denied Neurological: reports headache Musculoskeletal: reports ongoing zygomatic pain from fall Psychiatric: denies symptoms other than stated above Total of at least 10 systems reviewed, pertinent positives as above and in HPI. Sleep Information Total Hours of Sleep: 10 Sleep Comments: pt appeared to sleep 3.5 hrs during evening shift. pt on q-15 minute checks Meal Information Percent Meal Consumed - Breakfast: 100 Percent Meal Consumed - Lunch: 100 Percent Meal Consumed - Dinner: 100 Nutrition Comment: per meal record Subjective Subjective Patient was seen & assessed and interval progress reviewed with Treatment Team. Staff report the patient has been refusing to sign ROIs or work with social work to arrange appropriate aftercare. Pt was reportedly irritable over the weekend. Pt was seen today to assess progress since admission. Pt states he is "paranoid" today, also verbalizing "restlessness", "anxiety", and "confusion." Pt is unable to provide any specific precipitating factors or thoughts leading to these vague reports - unable to provide any additional detail as to the feelings. Pt states there was not a particular situation on the unit to which he is referring, but states he is "distrustful" and is feeling "leery". When further asked to describe his "paranoia", the patient responds by again mentioning reports of restlessness, dizziness, and confusion. Pt questions if medication changes are the cause for some of these complaints. We discussed his aftercare, which he said "shouldn't be a problem, I have providers we are able to see through work and my assignment." He was encouraged to continue to work with staff to make these arrangements. Pt is somewhat circumstantial, jumping from various topics, eventually landing on his zygomatic pain from his recent fall. He then reports persistent headache. Pt does admit that his mood has been "fine", but states "I'm more worried about this paranoia." Pt was encouraged to continue to monitor and process with staff, he was asked if attending the group currently taking place would help to distract him - and verbalized willingness to try this. Pt denies other needs or concerns presently. Physical Exam Psychiatric Orientation: alert and oriented x 3 Apperance: appropriately dressed (casually, in long-sleeved t-shirt and gym pants) and appropriately groomed Holding ice pack to the top of his head for most of encounter Eye Contact: + fair eye contact Motor Behavior: steady gait and station and no abnormal motor movements Speech: normal rate/rhythm/volume of speech (low tone) Affect: + blunted affect Mood: + anxious mood ("I'm just concerned about this paranoia. I'm pretty restless.") Thought Process: goal directed thought process, + circumstantial thought process (jumping from vague somatic, concerns to aftercare, to persistent pain) and + perseveration (on pain and various physical complaints) Thought Content: + preoccupation (with zygomatic pain, headache, and vague physical complaints) and + paranoid (verbalizes vague "paranoia" and feeling "leery") Suicidal Thoughts: denies suicidal thoughts Homicidal Thoughts: denies homicidal thoughts Hallucinations: no auditory hallucinations and no visual hallucinations Cognition: attention grossly intact and language grossly intact Estimated Intelligence: consistent with education level Insight: + limited insight Judgement: + fair judgement Vital Signs (Past 24 Hours) Last Vital Signs Temp 36.7 C 04/23/19 06:45 Pulse 85 04/23/19 06:46 Resp 18 04/23/19 06:45 BP 134/81 04/23/19 06:46 Pulse Ox 98 04/20/19 10:58 Results & Data Laboratory Results Laboratory Results - last 24 hr 04/22/19 04/22/19 04/22/19 12:15 12:17 15:26 POC Glucose 332 H* 320 H* 267 H 04/22/19 04/22/19 04/23/19 17:04 20:35 08:04 POC Glucose 228 H 287 H 92 04/23/19 08:53 POC Glucose 166 H Current Inpatient Medications Current Inpatient Medications: Current Inpatient Medications Acetaminophen (Tylenol) 650 mg PO Q4H PRN PRN Reason: Headache or Minor Fever Stop: 05/20/19 11:58 Last Admin: 04/21/19 09:22 Dose: 325 mg Documented by: Acetaminophen (Tylenol) 500 mg PO DAILY@0400,1200,2000 [facility] Stop: 05/21/19 19:59 Last Admin: 04/23/19 05:12 Dose: 500 mg Documented by: Al Hydrox/Mg Hydrox/Simethicone (Maalox) 30 ml PO Q4H PRN PRN Reason: GI Upset Stop: 05/20/19 11:58 Atorvastatin Calcium (Lipitor) 40 mg PO PM [facility] Stop: 05/20/19 20:59 Last Admin: 04/22/19 21:36 Dose: 40 mg Documented by: Bismuth Subsalicylate (Kaopectate) 15 ml PO PRN PRN PRN Reason: Loose Stool Stop: 05/20/19 11:58 Carvedilol (Coreg) 3.125 mg PO BID [facility] Stop: 05/20/19 20:59 Last Admin: 04/23/19 08:55 Dose: 3.125 mg Documented by: Dextrose (Dextrose 50%) 25 - 50 ml IV UD PRN; Protocol PRN Reason: Hypoglycemia Protocol Stop: 05/20/19 13:44 Duloxetine HCl (Cymbalta) 60 mg PO QAM [facility] Stop: 05/23/19 08:59 Last Admin: 04/23/19 08:55 Dose: 60 mg Documented by: Glucagon (Glucagen) 1 mg IM UD PRN; Protocol PRN Reason: Hypoglycemia Protocol Stop: 05/20/19 13:44 Glucose (Glucose 40%) 15 - 30 gm PO UD PRN; Protocol PRN Reason: Hypoglycemia Protocol Stop: 05/20/19 13:44 Glucose (Dex4 Glucose) 4 - 8 tabs PO UD PRN; Protocol PRN Reason: Hypoglycemia Protocol Stop: 05/20/19 13:44 Hydroxyzine HCl (Vistaril) 50 mg PO HSZ PRN PRN Reason: Insomnia Stop: 05/20/19 11:58 Hydroxyzine HCl (Vistaril) 25 mg PO Q4H PRN PRN Reason: Anxiety Stop: 05/20/19 11:58 Ibuprofen (Motrin) 800 mg PO DAILY@0000,0800,1600 [facility] Stop: 05/22/19 00:00 Last Admin: 04/23/19 08:54 Dose: 800 mg Documented by: Insulin Aspart (Novolog Flexpen) 0 units SC ACHS [facility]; Protocol Stop: 05/20/19 13:44 Last Admin: 04/23/19 08:57 Dose: 3 units Documented by: Insulin Glargine (Lantus Solostar Pen) 0 units SC BID [facility]; Protocol Stop: 05/20/19 20:59 Last Admin: 04/23/19 08:58 Dose: 20 units Documented by: Losartan Potassium (Cozaar) 100 mg PO QAM [facility] Stop: 05/21/19 08:59 Last Admin: 04/23/19 08:55 Dose: 100 mg Documented by: Magnesium Hydroxide (Milk Of Magnesia) 30 ml PO DAILY PRN PRN Reason: Heartburn Stop: 05/20/19 11:58 Metformin HCl (Glucophage Er) 500 mg PO QDD [facility]; Protocol Stop: 05/23/19 17:44 Miscellaneous (Remove Nicoderm Patch) 1 ea N/A HS [facility] Stop: 05/20/19 20:59 Last Admin: 04/22/19 21:44 Dose: Not Given Documented by: Miscellaneous (Carbohydrates For Hypoglycemia) 15 - 30 gm PO UD PRN PRN Reason: Hypoglycemia Treatment Stop: 05/20/19 13:44 Miscellaneous Information (Consult Glycemic Management Pharmacy) 1 ea N/A UD PRN PRN Reason: Consult Stop: 05/20/19 12:53 Nicotine (Nicoderm Cq) 21 mg TD QAM [facility] Stop: 05/21/19 08:59 Last Admin: 04/23/19 08:59 Dose: 21 mg Documented by: Nicotine Polacrilex (Nicorette 2mg) 1 piece MT PRN PRN PRN Reason: nicotine cravings Stop: 05/20/19 12:51 Last Admin: 04/22/19 16:04 Dose: 1 piece Documented by: Sodium Chloride (Addison Nasal) 1 - 2 sprays NA PRN PRN PRN Reason: Nasal Dryness/Congestion Stop: 05/20/19 11:58 Trazodone HCl (Desyrel) 100 mg PO HS [facility] Stop: 05/20/19 21:59 Last Admin: 04/22/19 21:36 Dose: 100 mg Documented by: Mental Health & Subst Abuse Tx Psychiatrist Name of Psychiatrist: Archie Cruz Psychiatrist's Time of Appointment with Psychiatrist: Referral sent, on waiting list. Psychiatric Appointment Comment: [address] [place] [address] Therapist Name of Therapist: Archie Cruz Therapist's Time of Therapist Appointment: Referral sent, on waiting list. Therapy Appointment Comment: [address] [place] [address] Fabrication Lead Name of Fabrication Lead: None Post Discharge Appointments Primary Care Physician Name Of Family Doctor: None Other #1: Name of Aftercare Appointment: [facility] services w/o insurance Phone Number of Aftercare Appointment: [phone] Aftercare Appointment Comment: [address], [place] [address] Contact Information Discharge Discharge Address: [address] [place] [address] [place] [address] CPT Code CPT Code 78568
--- NOTE | 2019-04-23 12:39 | Pharmacy Report ---
Pharmacy Glycemic Short Note 2 - Date of Service April 23, 2019 - Glycemic Short BSG Results (Last 24 hours): 04/22/19 04/22/19 04/22/19 15:26 17:04 20:35 POC Glucose 267 H 228 H 287 H 04/23/19 04/23/19 04/23/19 08:04 08:53 12:28 POC Glucose 92 166 H 222 H OUTPATIENT ANTIDIABETIC REGIMEN: * Basaglar - correction: 24 units BID * A1c = 8.9 % 03/24/19 The patient is currently receiving: * Basal insulin: Lantus 20-25 units BID * Bolus insulin: Novolog with meals and at HS (dosing ranges 8-25 units per dose) * Total daily insulin dose: 110 units ASSESSMENT: 04/23 * BSGs are significantly improved this AM. Fasting = 92 mg/dL * Patient rec'd 110 units of insulin yesterday, with basal dose of 45 units * I spoke with AMENA Chou, after she spoke with the patient this AM. Outpatient Basaglar dose has been corrected, as noted above. Patient seemed quite knowledgeable and was able to review diabetes care in detail. He r ecognizes that his diet could be better on the outpatient side. He is also willing to trial metformin ER to see if he can tolerate it. Will start today so we have a better idea by the time of discharge. Of note, patient did not feel well this AM when BSG was down to 92 mg/dL, since he is not used to this. Will need to be cautious with drastic changes. 04/22 * 63 year old male admitted for depression, suicidal, type 2 diabetic reported to be on basaglar, but after discussion with RN, pt is homeless so unknown if pt is taking insulin as outpatient * Consult CDE to find out patient's compliance and future insulin compliance after discharge * AM fasting BSG is in goal range indicating adequate basal insulin dosing - continue ~ 40-45 units of basal insulin * Post-prandial BSGs significantly elevated indicating more prandial coverage needed. Will tighten CR PLAN FOR INPATIENT GLYCEMIC CONTROL: * Basal insulin - no change * Lantus 20-25 units SQ BID - dose based on BSG * Bolus insulin - tighten CF slightly to help correct elevated BSGs. Can hopefully loosen these parameters tomorrow once metformin on board. * NovoLog per scale ACHS or Q6hrs while NPO * Goal Range: Low 110 mg/dL - High 140 mg/dL * Correction Factor: 15 mg/dL/unit * Nutritional / Prandial insulin per carb ratio of 1 unit per 5 grams CHO consumed * Start metformin ER 500 mg daily with dinner (SCr 1.2, CrCl 86 on 04/20/19) Discharge Recommendations: * Continue Basaglar 24 units BID * Start metformin ER 500 mg once daily
[2019-04-23] MEDS: METFORMIN HCL ER 500 MG TABCR PO SCH (17:49)
[2019-04-23] MEDS: ATORVASTATIN 40 MG TAB PO SCH (20:50)
[2019-04-23] MEDS: TRAZODONE HCL 100 MG TAB PO SCH (20:50)
[2019-04-24] MEDS: IBUPROFEN 800 MG TAB PO SCH ×3 (00:02→15:36)
[2019-04-24] MEDS: ACETAMINOPHEN 500 MG TAB PO SCH ×3 (06:03→21:00)
[2019-04-24] MEDS: ACETAMINOPHEN 325 MG TAB PO PRN (06:42)
[2019-04-24] MEDS: DULOXETINE HCL 60 MG CAP PO SCH (07:41)
[2019-04-24] MEDS: CARVEDILOL 3.125 MG TAB PO SCH ×2 (07:41→21:01)
[2019-04-24] MEDS: LOSARTAN POTASSIUM 50 MG TAB PO SCH (07:41)
[2019-04-24] MEDS: NICOTINE 21 MG/24 HR TDSY TD SCH (07:42)
[2019-04-24] MEDS: INSULIN GLARGINE SOLOSTAR 100 UNITS/ML 3 ML PEN SC SCH (08:48)
[2019-04-24] MEDS: INSULIN ASPART 100 UNITS/ML 3 ML PEN SC SCH ×4 (08:50→21:01)
[2019-04-24] MEDS ORDERED: INSULIN GLARGINE SOLOSTAR 100 UNITS/ML 3 ML PEN SC ONE (09:00)
--- NOTE | 2019-04-24 10:02 | Psychiatric Progress Note ---
Date of Service April 24, 2019 Impression / Recommendations Impression This 63-year-old man reports that he has no psychiatric history other than a brief hospitalization 13 years ago, and presented with mood and anxiety symptoms with suicidal thoughts, for which she was admitted voluntarily. 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 There are some inconsistencies in his reports, however, and he is vague and evasive with questioning, has refused to sign releases to allow friends or family to be involved or provide collateral information, and is refusing participation in groups. He has multiple risk factors given his suicidality, mood and anxiety symptoms, sex, age, chronic pain, unemployed status, and lack of apparent supports. He also lacks outpatient follow-up both medically and psychiatrically, and is putting up barriers to allowing us to arrange that. He has been started on duloxetine and is tolerating 60mg well, is also on trazodone 100mg, and multiple medication changes have been made for diabetes and pain management as well. He is reporting vague "paranoia," and is quite guarded, so cannot rule out a psychotic component. Will continue to discuss and encourage patient to process these thoughts. Today he reports he does not feel safe leaving the hospital, fearing he may "explode," and hurt himself or someone else. Inpatient treatment remains necessary and is least restrictive option available. (1) Depression: 04/20/19 -We will encourage the patient to participate in individual, group, and activity therapies in order to teach improved coping strategies and to help the patient learn about his illness, together with treatment options. -The patient will be offered Cymbalta (duloxetine) 30 mg daily. Material risks and anticipated benefits of duloxetine have been reviewed with the patient and he indicates understanding. 04/21/19 - blurry vision and HOLLAND preceded cymbalta 30mg and trazodone at hs, will continue at present doses and consider increase cymbalta to 60mg 04/22. 04/22/19 - documentation and patient hx confirm blurred vision precedes medications and is unchanged and given no direct eye pain or s/sx of injection do not think there is acute angle glaucoma, and given initial tolerability to advance to 60mg today to help mood, anxiety and pain. Patient may have some HOLLAND from this medication that should tray within a few days with tylenol, motrin while watching for bleeding risk . Continue trazodone 100mghs as he has some benefit in falling asleep and return to sleep if woken by pain. 04/23 - Continue current medication regimen - persistent somatic complaints which may or may not be related to his medication changes - continue to observe for now - Patient is reporting "paranoia" today, but provides a very general description of "restlessness, confusion, and dizziness" without specific paranoid beliefs or obvious delusional thought content, continue to discuss this as well 04/24 -Continue duloxetine 60 mg daily. Encourage patient to attend to participate in groups, work on healthy coping skills and his discharge safety plan. He has been referred to facilities in [place] for outpatient treatment, but is on a wait list. Social work continues to work with him to attempt to elicit more information to allow a good outpatient treatment plan, but the patient is quite resistant. He is demonstrating paranoia that does not quite rise to the level of psychosis, but continue to monitor and explore. (2) Suicidal ideation: 04/20/19 -The patient acknowledges intermittent suicidal thoughts for the past year and a half, subsequent to his surgical complication. He reports that, in the past, he "came close" "a couple times to making suicide attempts, but has not recently had suicidal plan or intent. Nevertheless, a neighbor/friend recently asked to take possession of the patient's gun as a safety matter. -The patient has agreed to let us know if suicidal thoughts return. 04/21 - denies overt SI, but has ongoing significant RF, will work to modify risk by targeting mood and anxiety and pain as outlined in the surrounding problem plans. 04/22 - denies SI, but my concern is less about acute SI at this time since it has been absent and more about patient's closed nature, primitive way of avoiding emotional/psychological concepts and discussions and that he could be a risk if distressed again as he has not gained skills to work through distress or coping in any meaningful way here. I cannot force the patient but will continue to attempt to both empathize while challenge him to engage the resources availed to him while trying to respect his stated discomfort with culture and race. 04/24 -Patient declined to complete a safety plan, stating he did not feel comfortable putting down the names and phone numbers of his supports. Continue to work with him to explore ways that he can manage suicidal thoughts and anger. (3) PTSD (post-traumatic stress disorder): 04/20/19 -Subsequent to surgical complications associated with the attempted placement of a stent approximately year and a half ago, the patient has suffered from symptoms of posttraumatic stress syndrome. These reportedly include nightmares, periodic flashbacks to the surgical complicationswhich reportedly included a jay jay-operative episode of cardiopulmonary arrestand painful rehabilitation efforts and convalescence --generalized anxiety and insomnia. 04/21/19 - cymbalta may help these concerns, but overtime therapy would be the mainstay of treatment for PTSD alongside medication (4) Diabetes: 04/20/19 and 04/21, and 04/22 -The patient reports that he is compliant with his diabetic medication regimen, but freely admits that he often is not adherent with his diabetic diet. For example, upon arriving the unit I observe the patient about to take an open a sugar sweetened carbonated beverage, reminded him that he should not be drinking sugared beverages because of his diabetes, and offered him a "diet" soda as an alternative. The patient's initial response was to say, "I do not really care. I usually eat what I want." -We have requested a pharmacy consult in order to receive guidance for management of his diabetes. 04/23 - Met with a song writer today to discuss health food choices - Will work to better control blood glucose, while also being cautious of hypoglycemia - patient reporting dizziness, confusion, and restlessness (medication side effects versus hypo/hyper glycemia versus somatic concerns) 04/24 -Patient denies that he has a PCP or technical communicator, but reports taking medications for diabetes as an outpatient. It is unclear who is managing this illness. Again reviewed with him concerns with lack of good coordination of care, that we would prefer he have an identified physician who will be taking over management of his chronic medical problems and prescription of his medications. He says he knows many physicians through a [employer] organization he is in, and is sure that one of them will take care of him. (5) Compartment syndrome: 04/20/19 -The patient had complications associated with a coronary artery stent placement that involved his right radial artery. Reportedly, the radial artery ruptured, he underwent several surgeries and has developed a compartment syndrome that appears to be chronic and is quite painful. -In addition to the pain, of the disfigurement associated with the surgical scars and a somewhat unsightly skin graft remains a source of significant distress. -The patient reports that persistent, chronic, and sometimes severe pain associated with a compartment syndrome interferes with his ability to function, tends to cause him to be irritable, interferes with his sleep, and contributes to his depressed mood. We have added indomethacin 25 mg 3 times daily as needed for pain. The patient has a history of ASCVD, and we are aware of the risk associated with indomethacin in this regard. However, it is my opinion that the anticipated benefit of nonsteroidal anti-inflammatory medication for his compartment syndrome outweighs the risk. Risk benefit has been reviewed with the patient and he is in agreement. 04/21/19 - continue as above. PAPDMP under "Evan Hansen" shows ER MD prescribed tramadol 12/2018, there are no other controlled meds in PAPDMP. I am confused about the limited consistent f/u for this individual with a single health care provider Patient needs routine PCM in the [place] area to have consistency in management of IDDM, CVD, pain, and to f/u on thyroid nodules and enlarged thyroid noted in his CT Cspine in ER 04/19 (TSH wnl), and mention of renal mass stated at his 03/23/19 medical stay that was to be biopsied but he had not had yet for unclear reasons, and finally ongoing f/u with ophthalmology regarding diabetic changes as well as his blurry vision Inventory Assets Strengths: Education, states he has housing and will resume work next week Needs: Consistent outpatient treatment, engagement in treatment Risk Factors Assessment Male: Yes : No Do You Have Access To A Gun?: No Health Problems: Yes Mental Health Diagnoses: Yes Substance Use Disorders: No Previous Attempt: No Previous Psychiatric Hospitalization: Yes Hopelessness: No Protective Factors Assessment Sabianist Beliefs: Yes : No Responsible for Young Children: No 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 He was admitted on 04/20/19 11:59 on a 201 voluntary agreement. Chief Complaint "So-so, you know I had compartment syndrome, every time I look at my arm, I go through every emotion from extremely sad to extremely angry". Review of Systems Sleep Information Total Hours of Sleep: 7.5 Sleep Comments: pt on q-15 minute checks Meal Information Percent Meal Consumed - Breakfast: 100 Percent Meal Consumed - Lunch: 100 Percent Meal Consumed - Dinner: 75 Nutrition Comment: per meal record Subjective Subjective Patient was seen & assessed and interval progress reviewed with nursing and social work. Staff report the patient continues to report multiple somatic symptoms, including intermittent dizziness, dark urine, "head symptoms" for which he requested an ice pack, and diarrhea. He asked for them to check his glucose, as he thought it was low, and it was 166. The unit educator met with him due to hyperglycemia, and recommended a trial of metformin XR, which was started yesterday. He told the social worker school that he called his insurance company and was informed that they would cover outpatient treatment in the [facility], but he would not engage further in discharge planning, stating that he wanted to go through his employer and would not give any names, saying he wanted it "off the record." He had agreed to sign a release for 2 outpatient facilities in the [facility], but was put on a wait list as they did not have available appointments. He told staff that he believed he had PTSD because whenever he looked at his arm he experienced "anxiety and extreme anger," and said he wanted to get treatment to address his PTSD, but then declined to work with the social worker school to arrange that. He continues to refuse to sign releases for friends or allow them to be involved in treatment, and would not even write down friends names on his safety plan, saying he did not feel safe disclosing that information. He has been compliant with medication, and refusing most groups, although did attend part of self-awareness group last evening. On my assessment today, he reports ongoing "severe emotions, from extreme sadness to extreme anger." He says he was "in denial that I had a problem, but I guess it was PTSD, I'm just trying to get the adequate treatment to deal with it. It's t aken its toll." He was informed of the treatment recommendations to address PTSD, including therapy and medication, and again reminded of previous discussions about the importance of arranging aftercare prior to discharge and coordination of care with sending records. 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 He states his mood is "up and down, angry and anxious," and that he does not feel ready to leave as "I'm afraid I might go out and explode, don't know what I might do, you're irrational when you're like that." He reports a history of aggression, which he is vague about, and "being wronged," but will not give further information. He denies any plan or intent to harm himself or anyone else on the unit. When encouraged to attend and participate fully in groups to work on ways to cope, he references being different than everyone else here, so that treatment may not really applied to him. He does think medication is helping him feel "more calm." Physical Exam Psychiatric Orientation: alert Partially cooperative, answers questions, but is vague and evasive. Apperance: appropriately dressed and appeared stated age Eye Contact: + fair eye contact Motor Behavior: steady gait and station and no abnormal motor movements Speech: normal rate/rhythm/volume of speech Affect: + blunted affect "Up and down, anxious and angry." Goal-directed Thought Content: + paranoid Paucity of thought content Suicidal Thoughts: + reports suicidal thoughts Expresses concerns that if discharged, he might "explode" and hurt someone else or himself Homicidal Thoughts: + reports homicidal thoughts Hallucinations: no auditory hallucinations and no visual hallucinations Cognition: language grossly intact Insight: + impaired insight Judgement: + impaired judgement Vital Signs (Past 24 Hours) Last Vital Signs Temp 36.7 C 04/24/19 09:15 Pulse 67 04/24/19 09:15 Resp 18 04/24/19 06:45 BP 135/82 04/24/19 09:15 Pulse Ox 98 04/20/19 10:58 Results & Data Laboratory Results Laboratory Results - last 24 hr 04/23/19 04/23/19 04/23/19 12:28 17:12 20:22 POC Glucose 222 H 184 H 205 H 04/24/19 07:56 POC Glucose 113 H Current Inpatient Medications Current Inpatient Medications: Current Inpatient Medications Acetaminophen (Tylenol) 650 mg PO Q4H PRN PRN Reason: Headache or Minor Fever Stop: 05/20/19 11:58 Last Admin: 04/24/19 06:42 Dose: 650 mg Documented by: Acetaminophen (Tylenol) 500 mg PO DAILY@0400,1200,2000 [facility] Stop: 05/21/19 19:59 Last Admin: 04/24/19 06:03 Dose: Not Given Documented by: Al Hydrox/Mg Hydrox/Simethicone (Maalox) 30 ml PO Q4H PRN PRN Reason: GI Upset Stop: 05/20/19 11:58 Atorvastatin Calcium (Lipitor) 40 mg PO PM [facility] Stop: 05/20/19 20:59 Last Admin: 04/23/19 20:50 Dose: 40 mg Documented by: Bismuth Subsalicylate (Kaopectate) 15 ml PO PRN PRN PRN Reason: Loose Stool Stop: 05/20/19 11:58 Carvedilol (Coreg) 3.125 mg PO BID [facility] Stop: 05/20/19 20:59 Last Admin: 04/24/19 07:41 Dose: 3.125 mg Documented by: Dextrose (Dextrose 50%) 25 - 50 ml IV UD PRN; Protocol PRN Reason: Hypoglycemia Protocol Stop: 05/20/19 13:44 Duloxetine HCl (Cymbalta) 60 mg PO QAM [facility] Stop: 05/23/19 08:59 Last Admin: 04/24/19 07:41 Dose: 60 mg Documented by: Glucagon (Glucagen) 1 mg IM UD PRN; Protocol PRN Reason: Hypoglycemia Protocol Stop: 05/20/19 13:44 Glucose (Glucose 40%) 15 - 30 gm PO UD PRN; Protocol PRN Reason: Hypoglycemia Protocol Stop: 05/20/19 13:44 Glucose (Dex4 Glucose) 4 - 8 tabs PO UD PRN; Protocol PRN Reason: Hypoglycemia Protocol Stop: 05/20/19 13:44 Hydroxyzine HCl (Vistaril) 50 mg PO HSZ PRN PRN Reason: Insomnia Stop: 05/20/19 11:58 Hydroxyzine HCl (Vistaril) 25 mg PO Q4H PRN PRN Reason: Anxiety Stop: 05/20/19 11:58 Ibuprofen (Motrin) 800 mg PO DAILY@0000,0800,1600 [facility] Stop: 05/22/19 00:00 Last Admin: 04/24/19 07:40 Dose: 800 mg Documented by: Insulin Aspart (Novolog Flexpen) 0 units SC ACHS [facility]; Protocol Stop: 05/20/19 13:44 Last Admin: 04/24/19 08:50 Dose: 7 units Documented by: Insulin Glargine (Lantus Solostar Pen) 30 units SC QAM [facility]; Protocol Stop: 05/25/19 08:59 Insulin Glargine (Lantus Solostar Pen) 15 units SC QDD [facility]; Protocol Stop: 05/24/19 17:44 Losartan Potassium (Cozaar) 100 mg PO QAM [facility] Stop: 05/21/19 08:59 Last Admin: 04/24/19 07:41 Dose: 100 mg Documented by: Magnesium Hydroxide (Milk Of Magnesia) 30 ml PO DAILY PRN PRN Reason: Heartburn Stop: 05/20/19 11:58 Metformin HCl (Glucophage Er) 500 mg PO QDD [facility]; Protocol Stop: 05/23/19 17:44 Last Admin: 04/23/19 17:49 Dose: 500 mg Documented by: Miscellaneous (Remove Nicoderm Patch) 1 ea N/A [facility] Stop: 05/20/19 20:59 Last Admin: 04/23/19 21:00 Dose: Not Given Documented by: Miscellaneous (Carbohydrates For Hypoglycemia) 15 - 30 gm PO UD PRN PRN Reason: Hypoglycemia Treatment Stop: 05/20/19 13:44 Miscellaneous Information (Consult Glycemic Management Pharmacy) 1 ea N/A UD PRN PRN Reason: Consult Stop: 05/20/19 12:53 Nicotine (Nicoderm Cq) 21 mg TD QAM [facility] Stop: 05/21/19 08:59 Last Admin: 04/24/19 07:42 Dose: 21 mg Documented by: Nicotine Polacrilex (Nicorette 2mg) 1 piece MT PRN PRN PRN Reason: nicotine cravings Stop: 05/20/19 12:51 Last Admin: 04/22/19 16:04 Dose: 1 piece Documented by: Sodium Chloride ([place] Nasal) 1 - 2 sprays NA PRN PRN PRN Reason: Nasal Dryness/Congestion Stop: 05/20/19 11:58 Trazodone HCl (Desyrel) 100 mg PO HS [facility] Stop: 05/20/19 21:59 Last Admin: 04/23/19 20:50 Dose: 100 mg Documented by: Mental Health & Subst Abuse Tx Psychiatrist Name of Psychiatrist: [facility] [place] Psychiatrist's Time of Appointment with Psychiatrist: Referral sent, on waiting list. Psychiatric Appointment Comment: [address] [facility] [place] [address] Therapist Name of Therapist: [facility] Therapist's Time of Therapist Appointment: Referral sent, on waiting list. Therapy Appointment Comment: [address] [facility] [place] [address] Director Treasurer Name of Director Treasurer: None Post Discharge Appointments Primary Care Physician Name Of Family Doctor: None Contact Information Discharge Discharge Address: [address] [place] [address] CPT Code CPT Code 80743
--- NOTE | 2019-04-24 15:52 | Pharmacy Report ---
Pharmacy Glycemic Short Note 2 - Date of Service April 24, 2019 - Glycemic Short BSG Results (Last 24 hours): 04/23/19 04/23/19 04/24/19 17:12 20:22 07:56 Glucose POC Glucose 184 H 205 H 113 H 04/24/19 04/24/19 04/24/19 12:08 12:16 12:17 Glucose 242 H POC Glucose > 600 H* 287 H OUTPATIENT ANTIDIABETIC REGIMEN: * Basaglar 24 units SQ BID * A1c = 8.9 % 03/24/19 ASSESSMENT: 04/24/19 * Patient rec'd 84 units of insulin yesterday, 45 of which were basal. * BSG trend continues to be below goal range in the am, with hyperglycemia throughout the rest of the day. * Lantus dosing adjusted this morning to provide a larger dose with breakfast and a smaller dose with dinner (still 45 units total daily). * Will adjust Novolog tomorrow depending on BSG trend with new Lantus dosing. 04/23 * BSGs are significantly improved this AM. Fasting = 92 mg/dL * Patient rec'd 110 units of insulin yesterday, with basal dose of 45 units * I spoke with AMENA Chou, after she spoke with the patient this AM. Outpatient Basaglar dose has been corrected, as noted above. Patient seemed quite knowledgeable and was able to review diabetes care in detail. He recognizes that his diet could be better on the outpatient side. He is also willing to trial metformin ER to see if he can tolerate it. Will start today so we have a better idea by the time of discharge. Of note, patient did not feel well this AM when BSG was down to 92 mg/dL, since he is not used to this. Will need to be cautious with drastic changes. 04/22 * 63 year old male admitted for depression, suicidal, type 2 diabetic reported to be on basaglar, but after discussion with RN, pt is homeless so unknown if pt is taking insulin as outpatient * Consult CDE to find out patient's compliance and future insulin compliance after discharge * AM fasting BSG is in goal range indicating adequate basal insulin dosing - continue ~ 40-45 units of basal insulin * Post-prandial BSGs significantly elevated indicating more prandial coverage needed. Will tighten CR PLAN FOR INPATIENT GLYCEMIC CONTROL: * Basal insulin - redistribute * Lantus 30 units SQ qAM * Lantus 15 units SQ qPM * Bolus insulin - * NovoLog per scale ACHS or Q6hrs while NPO * Goal Range: Low 110 mg/dL - High 140 mg/dL * Correction Factor: 15 mg/dL/unit * Nutritional / Prandial insulin per carb ratio of 1 unit per 5 grams CHO consumed * Metformin ER 500 mg daily with dinner Discharge Recommendations: * Continue Basaglar 24 units BID * Start metformin ER 500 mg once daily
[2019-04-24] MEDS ORDERED: INSULIN GLARGINE SOLOSTAR 100 UNITS/ML 3 ML PEN SC SCH (17:45)
[2019-04-24] MEDS: METFORMIN HCL ER 500 MG TABCR PO SCH (18:11)
[2019-04-24] MEDS: TRAZODONE HCL 100 MG TAB PO SCH (21:00)
[2019-04-24] MEDS: ATORVASTATIN 40 MG TAB PO SCH (21:00)
[2019-04-25] MEDS: IBUPROFEN 800 MG TAB PO SCH ×2 (00:13→09:04)
[2019-04-25] MEDS: ACETAMINOPHEN 500 MG TAB PO SCH (07:04)
[2019-04-25] MEDS ORDERED: INSULIN GLARGINE SOLOSTAR 100 UNITS/ML 3 ML PEN SC SCH (09:00)
--- NOTE | 2019-04-25 09:02 | Discharge Summary ---
Date of Service April 25, 2019 History of Present Illness The patient is a 63-year-old man who has presented to the emergency department twice within the past 24 hours, initially for pain associated with a compartment syndrome in his right forearm, and, the second time, without ever leaving the building following release, for worsening depression. The patient explains that approximately a year and a half ago he underwent a procedure for a coronary artery stent that involved access through the right radial artery. He explains that during the procedure complications occurred and he ended up with disfiguring scars on his right forearm, the need for a skin graft, and residual compartment syndrome. He reports that he feels traumatized by the experience, and particular by the degree to which his right forearm is disfigured. He also notes that he is suffering from chronic pain in association with the compartment syndrome. Presenting symptoms include depressed mood, irritable mood, initial and intermittent insomnia, fatigue, anhedonia and psychosocial withdrawal. He also reports that he becomes excessively distressed every time he views his scars, has flashbacks to the trauma of surgeries and medical care (which she says included cardiopulmonary arrest), and episodic nightmares. The patient is focused on the degree to which his injured right forearm has interfered with his ability to function in several spheres. 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 However, he notes that he is scheduled to resume work in his usual profession in [place], [place], in about a month. His concern is that he is not sleeping, feel depressed, irritable, and is concerned that unless he is functioning better he might not be able to perform adequately in his profession. He had reportedly told emergency room staff that friends were concerned enough about him that they removed the gun that he had had in his possession. The patient tells me that he is not suicidal currently, but notes that, in the past year and a half he has contemplated suicide. Physical Exam Psychiatric Calm, cooperative, and pleasant. Orientation: alert, oriented x 3 and cooperative Apperance: appropriately dressed, appropriately groomed and appeared stated age Eye Contact: good eye contact Motor Behavior: no abnormal motor movements Speech: normal rate/rhythm/volume of speech Affect: euthymic affect and mood congruent with affect "Much better, I feel like I can deal with it." Thought Process: goal directed thought process Thought Content: reality based without delusions Suicidal Thoughts: denies suicidal thoughts Homicidal Thoughts: denies homicidal thoughts Hallucinations: no auditory hallucinations and no visual hallucinations Cognition: recent memory grossly intact, attention grossly intact and language grossly intact Patient remains evasive with certain information, unclear if this is due to memory impairment or unwillingness to divulge information. Insight: + fair insight Judgement: + fair judgement Vital Signs (Past 24 Hours) Last Vital Signs Temp 36.5 C 04/25/19 06:00 Pulse 80 04/25/19 06:48 Resp 16 04/25/19 06:00 BP 117/77 04/25/19 06:48 Pulse Ox 98 04/20/19 10:58 Principal Diagnosis PTSD Depression not otherwise specified Rule out conversion disorder, rule out malingering Psychiatric Data The patient was hospitalized on our unit for 5 days. He was initially diagnosed with depression not otherwise specified, and started on duloxetine 30 mg daily and trazodone 100 mg at bedtime for sleep. His duloxetine was titrated to 60 mg daily, which he tolerated well. He reported blurry vision which had been going on for some time prior to hospitalization, and was advised to follow-up with ophthalmology as an outpatient. The diabetic pharmacist was consulted to assist with diabetes management, as the patient had an elevated hemoglobin A1c (8.9) and reported he did not follow a diabetic diet. Metformin XR was added to his regimen, as he reported previous difficulty tolerating regular metformin due to GI distress. An extensive chart review was performed due to his multiple medical issues (see below), as identified during his recent medical hospitalization, and the recommended follow-up was reviewed with the patient. He would not allow the social work manager to make a referral for a primary care physician in the [place] area where he lives, stating that he would do it himself. He was similarly resistant to allowing us to make referrals for mental health treatment, but after much discussion regarding the concerns of not having adequate follow-up, he did sign releases for 2 facilities in the [facility] that accepted his insurance and referrals were made; unfortunately both had wait lists so an appointment was not scheduled at the time of discharge. The patient did express understanding of the importance of following up and agreed to contact the facilities and attend appointments once scheduled. He was somatically preoccupied at times, and a diagnosis of conversion disorder was considered, as well as the possibility of a component of malingering, given his unwillingness to be forthcoming with information or to fully engage in discharge planning. He was vague and evasive when asked questions about his living situation, support system, and how he came to be in [facility], and said he would be able to receive outpatient services in multiple different [facility] areas, although could not explain how he was tied to these various places, or why he had [place] insurance. He refused to sign releases for friends that live locally or any other friends or family to provide collateral information. There were multiple discrepancies in his reports compared to other episodes of care in our system, and he could not or would not explain them. Concern for malingering given his unwillingness to provide basic historical information, inconsistent reports, and focused on pain medications at times, with allegations of missed treatment due to his race or shinto believes when his requests were not granted. He was resistant to attending and participating in groups, stating that no one could understand him due to cultural differences. With encouragement, he did attend and participate in some groups and therapy. He did identify with a diagnosis of PTSD related to some of his past medical issues, and reported that medication was helpful. He consistently denied suicidal and homicidal thoughts or plans while in the hospital, and was not aggressive or threatening towards others. Per 04/21/[address] Uribe: SUMMARY OF RECORDS/HISTORY OBTAINED FROM MEDICAL RECORD: Provider reviewed chart both at two ER visits 04/19, and 04/20 as well as 03/23/19 medical hospitalization. the patient did report blurred vision of his left eye and dizziness at his February hospitalization. He did have CN exam and ENT exam as normal at February encounters, and 04/19 there was a focal exam on his face due to the reported fall. I defer the reader to the 03/23/19 discharge summary in which there is thorough documentation of patient is described as a poor historian. Per that discharge summary Dr. Z Connect and Care everywhere search also show patient seeking care in > 25 health systems to include [facility] with additional evaluation 03/04/19 for CP as well. Patient had stress test 02/07/19 and s/p cath 07/2018 cited in that note. Additional documentation of visit to [facility] with double vision and dysequilibrium as well, found to have non-cardiac chest pain after evaluation with mention of conversion. Notation about TIA but hospitalists further research could not find evidence of this diagnosis in these collateral sources. Apparently the [facility] hospitalist attempted to mention concern for behavioral health etiology causing chest pain and patient was defensive and off put. 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 He reported h/o laryngeal CA in 2008 s/p surgery, and renal mass that he stated he had not had biopsied yet. He reported that he is from [facility] [employer] at his 02/2018 contact, he noted he quit smoking "1 month ago" (estimated January 2019) after 1/2 ppd for many years. Family history includes father s/p lung cancer, mother is living has HTN and pace maker. Per 03/2019 ER notes patient has recently lost his sister. Day of Discharge Assessment Staff report the patient attended some groups yesterday, appeared less irritable and brighter in his interactions with others. He met with social work multiple times regarding discharge planning, which he remains quite resistant to, stating he will arrange follow-up with a PCP on his own. He told the social work manager he will be working at [employer] in [place], which provides therapy, life coaching, mentoring and substance abuse treatment. He says that he will get support and services through professionals there, and refused to sign releases so that care can be coordinated with them or an appointment scheduled. He reports improved mood, rating it as 6 out of 10, and has been eating and sleeping well. On my assessment, he reports mood is "better, I can deal with it." He denies thoughts of harming himself or anyone else, and is able to review his safety plan. He states he plans to go to [place] today, saying he lives in [place] outside [place], and requests that his prescriptions be se nt to a [facility] on [address] in [place]. He denies side effects to the duloxetine or trazodone, and states that although the trazodone has been helpful for sleep, he would like to increase the dose slightly as he still wakes up throughout the night. He expresses understanding of the recommendations to follow-up for his multiple medical conditions, and continues to decline to allow the social work manager to make a referral for him so that his outpatient providers will have access to these records. He states he plans to leave [facility] immediately after discharge to return to [facility], but will not disclose how he will be traveling, dismissing any concerns expressed about the lack of clarity in his plan. Transition of Care Transition Of Care Record: was reviewed with the patient Advance Directives Advance Directives Information Provided: Yes Advance Directives: No Mental Health Advance Directive: No Advance Directives on File: No Living Will: Yes Power of Waist Presser: Yes Advance Directives Reason:: Declines as Mental Health Visit. Risk Factors Assessment Risk factors were mitigated by admission to the inpatient unit, treatment of medical comorbidities, psychoeducation about his psychiatric diagnoses and review of the treatment recommendations, starting medication to target mood, anxiety, and sleep, involving him in groups and therapy, working on healthy coping skills and a discharge safety plan, requesting permission to speak to friends or family for collateral information which he declined, review of recommendations to refer for outpatient medical treatment which he declined, and referrals for outpatient mental health treatment. He is reporting improved mood, anxiety, and sleep, and consistently denying thoughts of harming himself or others. He has not been violent or aggressive here, is taking medications, and stating willingness to continue them and to follow up with outpatient treatment. He remains at elevated risk for harm to himself compared to the general population given his sex, age, psychiatric and medical illnesses, lack of supports, lack of clear outpatient treatment, recent suicidal ideation, and lack of engagement in treatment. He is not currently at acute risk of harm to himself, and his modifiable risk factors have been addressed during this hospitalization as much as he will allow them to be. He is requesting discharge, does not meet criteria for involuntary commitment, and as he is no longer at imminent risk, can be discharged and managed as an outpatient at this time. Although he alludes to a history of aggression, he has not endorsed a plan or intent to harm others here, has not been violent or aggressive, and is not at acute risk of harm to others. 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) Stable Relationships: No Supportive Family: No Good Rapport with Provider: No Tobacco Cessation at Discharge Tobacco Cessation Medication Prescribed at Discharge: Offered & Pt Refused Total Time Total Time Spent: Greater Than 30 Minutes Total Time Includes: Examination of the patient, Discharge Planning and Medication Reconciliation Discharge Data Consultations 04/20/19 12:00 ED Decision to Admit Stat Lab Results 04/20/19 04/20/19 04/20/19 05:34 06:23 06:56 Glucose POC Glucose 374 H* 332 H* 333 H* 04/20/19 04/20/19 04/20/19 07:34 08:03 08:35 Glucose POC Glucose 287 H 297 H 346 H* 04/20/19 04/20/19 04/20/19 09:07 09:37 10:07 Glucose POC Glucose 350 H* 339 H* 295 H 04/20/19 04/20/19 04/20/19 10:53 17:15 20:34 Glucose POC Glucose 248 H 205 H 272 H 04/21/19 04/21/19 04/21/19 06:23 12:35 17:30 Glucose POC Glucose 138 H 306 H* 299 H 04/21/19 04/22/19 04/22/19 20:23 07:53 12:15 Glucose POC Glucose 276 H 162 H 332 H* 04/22/19 04/22/19 04/22/19 12:17 15:26 17:04 Glucose POC Glucose 320 H* 267 H 228 H 04/22/19 04/23/19 04/23/19 20:35 08:04 08:53 Glucose POC Glucose 287 H 92 166 H 04/23/19 04/23/19 04/23/19 12:28 17:12 20:22 Glucose POC Glucose 222 H 184 H 205 H 04/24/19 04/24/19 04/24/19 07:56 12:08 12:16 Glucose POC Glucose 113 H > 600 H* 287 H 04/24/19 04/24/19 04/24/19 12:17 17:09 20:41 Glucose 242 H POC Glucose 144 H 154 H 04/25/19 08:33 Glucose POC Glucose 123 H Hospital Course (1) Depression: 04/20/19 -We will encourage the patient to participate in individual, group, and ac tivity therapies in order to teach improved coping strategies and to help the patient learn about his illness, together with treatment options. -The patient will be offered Cymbalta (duloxetine) 30 mg daily. Material risks and anticipated benefits of duloxetine have been reviewed with the patient and he indicates understanding. 04/21/19 - blurry vision and HOLLAND preceded cymbalta 30mg and trazodone at hs, will continue at present doses and consider increase cymbalta to 60mg 04/22. 04/22/19 - documentation and patient hx confirm blurred vision precedes medications and is unchanged and given no direct eye pain or s/sx of injection do not think there is acute angle glaucoma, and given initial tolerability to advance to 60mg today to help mood, anxiety and pain. Patient may have some HOLLAND from this medication that should tray within a few days with tylenol, motrin while watching for bleeding risk . Continue trazodone 100mghs as he has some benefit in falling asleep and return to sleep if woken by pain. 04/23 - Continue current medication regimen - persistent somatic complaints which may or may not be related to his medication changes - continue to observe for now - Patient is reporting "paranoia" today, but provides a very general description of "restlessness, confusion, and dizziness" without specific paranoid beliefs or obvious delusional thought content, continue to discuss this as well 04/24 -Continue duloxetine 60 mg daily. Encourage patient to attend to participate in groups, work on healthy coping skills and his discharge safety plan. He has been referred to facilities in [place] for outpatient treatment, but is on a wait list. Social work continues to work with him to attempt to elicit more information to allow a good outpatient treatment plan, but the patient is quite resistant. He is demonstrating paranoia that does not quite rise to the level of psychosis, but continue to monitor and explore. (2) Suicidal ideation: 04/20/19 -The patient acknowledges intermittent suicidal thoughts for the past year and a half, subsequent to his surgical complication. He reports that, in the past, he "came close" "a couple times to making suicide attempts, but has not recently had suicidal plan or intent. Nevertheless, a neighbor/friend recently asked to take possession of the patient's gun as a safety matter. -The patient has agreed to let us know if suicidal thoughts return. 04/21 - denies overt SI, but has ongoing significant RF, will work to modify risk by targeting mood and anxiety and pain as outlined in the surrounding problem plans. 04/22 - denies SI, but my concern is less about acute SI at this time since it has been absent and more about patient's closed nature, primitive way of avoiding emotional/psychological concepts and discussions and that he could be a risk if distressed again as he has not gained skills to work through distress or coping in any meaningful way here. I cannot force the patient but will continue to attempt to both empathize while challenge him to engage the resources availed to him while trying to respect his stated discomfort with culture and race. 04/24 -Patient declined to complete a safety plan, stating he did not feel comfortable putting down the names and phone numbers of his supports. Continue to work with him to explore ways that he can manage suicidal thoughts and anger. (3) PTSD (post-traumatic stress disorder): 04/20/19 -Subsequent to surgical complications associated with the attempted placement of a stent approximately year and a half ago, the patient has suffered from symptoms of posttraumatic stress syndrome. These reportedly include nightmares, periodic flashbacks to the surgical complicationswhich reportedly included a jay jay-operative episode of cardiopulmonary arrestand painful rehabilitation efforts and convalescence --generalized anxiety and insomnia. 04/21/19 - cymbalta may help these concerns, but overtime therapy would be the mainstay of treatment for PTSD alongside medication (4) Diabetes: 04/20/19 and 04/21, and 04/22 -The patient reports that he is compliant with his diabetic medication regimen, but freely admits that he often is not adherent with his diabetic diet. For example, upon arriving the unit I observe the patient about to take an open a sugar sweetened carbonated beverage, reminded him that he should not be drinking sugared beverages because of his diabetes, and offered him a "diet" soda as an alternative. The patient's initial response was to say, "I do not really care. I usually eat what I want." -We have requested a pharmacy consult in order to receive guidance for management of his diabetes. 04/23 - Met with a lawn mower today to discuss health food choices - Will work to better control blood glucose, while also being cautious of hypoglycemia - patient reporting dizziness, confusion, and restlessness (medication side effects versus hypo/hyper glycemia versus somatic concerns) 04/24 -Patient denies that he has a PCP or mail examiner, but reports taking medications for diabetes as an outpatient. It is unclear who is managing this illness. Again reviewed with him concerns with lack of good coordination of care, that we would prefer he have an identified physician who will be taking over management of his chronic medical problems and prescription of his medications. 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 (5) Compartment syndrome: 04/20/19 -The patient had complications associated with a coronary artery stent placement that involved his right radial artery. Reportedly, the radial artery ruptured, he underwent several surgeries and has developed a compartment syndrome that appears to be chronic and is quite painful. -In addition to the pain, of the disfigurement associated with the surgical scars and a somewhat unsightly skin graft remains a source of significant distress. -The patient reports that persistent, chronic, and sometimes severe pain associated with a compartment syndrome interferes with his ability to function, tends to cause him to be irritable, interferes with his sleep, and contributes to his depressed mood. We have added indomethacin 25 mg 3 times daily as needed for pain. The patient has a history of ASCVD, and we are aware of the risk associated with indomethacin in this regard. However, it is my opinion that the anticipated benefit of nonsteroidal anti-inflammatory medication for his compartment syndrome outweighs the risk. Risk benefit has been reviewed with the patient and he is in agreement. 04/21/19 - continue as above. [place]APDMP under "Evan Ruiz" shows ER prescribed tramadol 12/2018, there are no other controlled meds in PAPDMP. I am confused about the limited consistent f/u for this individual with a single health care provider Patient needs routine PCM in the [place] area to have consistency in management of IDDM, CVD, pain, and to f/u on thyroid nodules and enlarged t hyroid noted in his CT Cspine in ER 04/19 (TSH wnl), and mention of renal mass stated at his 03/23/19 medical stay that was to be biopsied but he had not had yet for unclear reasons, and finally ongoing f/u with ophthalmology regarding diabetic changes as well as his blurry vision Mental Health & Subst Abuse Tx Psychiatrist Name of Psychiatrist: Archie Cruz Psychiatrist's Time of Appointment with Psychiatrist: Referral sent, on waiting list. Psychiatric Appointment Comment: [address] [facility] [place] [address] Psychiatrist Release of Information: Obtained, Reviewed and Signed Therapist Name of Therapist: Archie Cruz Therapist's Time of Therapist Appointment: Referral sent, on waiting list. [facility] [address] [facility] [place] [address] Clinical Systems Educator Name of Clinical Systems Educator: None Post Discharge Appointments Primary Care Physician Name Of Family Doctor: None Smoking Cessation Counseling Tobacco Cessation Medication Prescribed at Discharge: Offered & Pt Refused Contact Information Discharge Discharge Address: [address] [place] [id number] Discharge Plan Discharge Items Patient Disposition: Home - Self-Care Reason For Visit: DEPRESSION NOS Discharge Diagnosis: PTSD, depression not otherwise specified Discharge Goals: Decrease discomfort, Improve disease control, Improve function, Learn about illness, Prevent disease, Specific goals and Therapeutic interve ntion Specific Goals: Referral for outpatient treatment Activity: Per 'Additional Instructions' section Non-emergency contact: Primary Care Provider, Psychiatrist and Therapist Call non-emergency contact if: you have any medication questions and your symptoms worsen Follow-up/Referrals: PCP,NO [Primary Care Provider] - Diet: Carb Consistent or DM2 and Heart Healthy Addtl Provider Instructions: SPECIAL CARE INSTRUCTIONS: 1. Follow through with your scheduled aftercare appointments. If unable to keep an appointment, please call to reschedule. - We recommended referral to a PCP to manage your medical conditions, but you declined and said you wanted to arrange it yourself. It is very important that you follow-up regularly with a physician for consistent management of your diabetes, cardiovascular disease, and pain. You also need to follow-up regarding thyroid nodules and enlarged thyroid noted in years CT scan from 04/19/2019, and renal mass during year medical hospitalization 03/23/2019. You need ongoing follow-up with ophthalmology given your poorly controlled diabetes. - You have been referred for psychiatric care as below. 2. Take your medication only as prescribed. Medication should not be changed or stopped without the approval of your doctor. In the event of worsening symptoms or concerns about side effects, contact your doctor immediately. 3. Utilize new healthy coping skills, anger management skills, and stress management skills learned during your hospitalization. Journal feelings and process them with a support person. Identify stressors or situations that may result in relapse, deterioration or inappropriate behaviors and develop a plan to deal with those issues. 4. If your coping skills are ineffective and you are in crisis, contact your outpatient providers for direction. If unable to reach your providers, please call the CAN HELP LINE AT or go to the closest Emergency Room. 5. Avoid alcohol and un-prescribed drugs. 6. You have been provided with the Mental Health Advance Directives Pamphlet for your review. AFTERCARE APPOINTMENTS: * Please call your insurance company prior to your scheduled appointment to confirm your aftercare providers are covered. Take your insurance information to your appointments. WHO TO CALL AND WHEN: Medical Emergencies: For questions or emergencies related to your hospital stay, please contact the Inpatient Behavioral Health Unit at [phone]. A homicide squad sergeant is on-call 18/04 for the Behavioral Health Unit for emergencies At any time you feel your situation is an emergency, you may also call 911 immediately. Your Doctors Instructions noted above were prepared by provider Floridalma Galarza MD. Prescriptions: New trazodone 100 mg Tablet 150 mg PO HS Qty: 45 RF: 0 duloxetine 60 mg Capsule,Delayed Release(Dr/Ec) 60 mg PO QAM Qty: 30 RF: 0 metformin 500 mg Tablet Extended Release 24 Hr 500 mg PO QDD Qty: 30 RF: 0 Continued atorvastatin [Lipitor] 40 mg Tablet 40 mg PO PM RF: 0 Basaglar KwikPen U-100 Insulin 100 unit/mL (3 mL) insulin pen 18 unit subcut BID RF: 0 Stand-Alone Forms: [facility] Discharge Orders: Discharge Order (Routine); Ordered 04/25/19 Ordered By: Floridalma Galarza Admission Data Admit Date/Time: 04/20/19 11:59 Attending Provider: Don Echols Admit Provider: Don Echols Primary Care Provider: PCP,NO Other Providers: Don Echols Service: Psychiatry Other Interventions: PSY Interdisciplinary Discharge Planning Last Done: 04/25/19 08:53 Pending Studies at Discharge: No
[2019-04-25] MEDS: LOSARTAN POTASSIUM 50 MG TAB PO SCH (09:03)
[2019-04-25] MEDS: DULOXETINE HCL 60 MG CAP PO SCH (09:03)
[2019-04-25] MEDS: CARVEDILOL 3.125 MG TAB PO SCH (09:03)
[2019-04-25] MEDS: INSULIN ASPART 100 UNITS/ML 3 ML PEN SC SCH (09:06)
[2019-04-25] MEDS: NICOTINE 21 MG/24 HR TDSY TD SCH (09:19)
== END 2019-04-25 09:34 | disposition home or self-care (01) | DRG 881 ==
LOC: ED 05:02 → 3S 11:59

== ENCOUNTER 2019-11-05 10:26 | Inpatient (IN) ==
[2019-11-05 11:22] LABS: Basophils # (auto) 0.03 K/uL (0-0.2); Basophils % (auto) 0.7 %; Eosinophils # (auto) 0.06 K/uL (0-0.5); Eosinophils % (auto) 1.4 %; Hematocrit (blood only) 39.6 % (42-52); Hemoglobin 14.4 g/dL (14.0-18.0); Immature Granulocytes # (auto) 0.01 K/uL (0.00-0.02); Immature Granulocytes % (auto) 0.2 %; Lymphocytes # (auto) 1.45 K/uL (1.2-3.4); Lymphocytes % (auto) 34.6 %; Mean Corpuscular Hemoglobin 30.2 pg (25-34); Mean Corpuscular Hgb Conc 36.4 g/dL (32-36); Mean Platelet Volume 9.5 fL (7.4-10.4); Monocytes # (auto) 0.32 K/uL (0.11-0.59); Monocytes % (auto) 7.6 %; Neutrophils # (auto) 2.32 K/uL (1.4-6.5); Neutrophils % (auto) 55.5 %; Platelet Count 136 K/uL (130-400); RDW Coefficient of Variation 13.7 % (11.5-14.5); RDW Standard Deviation 41.5 fL (36.4-46.3); Red Blood Count 4.77 M/uL (4.7-6.1); White Blood Count 4.19 K/uL (4.8-10.8)
[2019-11-05 11:24] LABS: Appearance Urine Clear (Clear); Bilirubin Urine Negative (Negative); Blood Urine Negative (Negative); Color Urine Yellow; Glucose Urine UA 3+ (Negative); Ketones Urine Negative (Negative); Leukocyte Esterase Urine Negative (Negative); Nitrite Urine Negative (Negative); Protein Urine Negative (Negative); Specific Gravity Urine 1.033 (1.000-1.030); Urobilinogen Urine Negative (Negative)
--- NOTE | 2019-11-05 11:31 | XRay Report ---
XR chest 1V portable CLINICAL HISTORY: Atypical chest pain COMPARISON STUDY: 05/25/2019 FINDINGS: The cardiac and mediastinal contours are normal. There is no evidence of focal pulmonary co nsolidation. There is no evidence of failure. No pleural effusions are visualized.[ IMPRESSION: No active disease in the chest. ACT 112: Negative or not required by law. Electronically signed by: Richard Trujillo M.D. 11/05/2019 11:29 AM
--- NOTE | 2019-11-05 11:34 | Emergency Department Note ---
Entered by Sandra Lilly acting as a scribe for Violette Geller DO History of Present Illness General Chief complaint: Chest Pain Stated complaint: CHEST PAIN, ABDOMINAL PAINK, URINE IN BLOOD Time Seen by Provider: 11/05/19 11:10 Source: patient History of Present Illness Onset (ago): day(s) 2 Location: chest Radiation: abdomen Severity: similar to prior episodes Pain Consistency: + other (persistent) Maximum Pain Intensity: 10 Quality: + burning Exacerbated By: + other (bleeding ulcers) Associated symptoms: + nausea/vomiting and + other (abdominal pain, dysuria, hematuria, weight loss); no shortness of breath Treatments prior to arrival: other (Carafate) The patient is a 64 year old male presenting to the Emergency Department complaining of persistent chest pain starting 2 days ago. The patient reports that he has right sided chest pain that is radiating down to his stomach. He states that his abdomen is also painful and describes this pain as burning. He explains that he has blood with urination and with his bowel movements. He notes that he has gone through 5 pairs of underwear because he is bleeding onto them. He adds that he began vomiting this morning and that his emesis looks like coffee grounds. The patient reports that he has been experiencing dysuria. 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 He explains that he has lost 17 pounds in the past 7 days. He notes that he has experienced some of these symptoms before as he recently found out that he has bleeding ulcers. He adds that moving around worsens his pain. The patient explains that he used to be on blood thinners but hasnt taken any in 3 to 4 months. He notes that he has been taking Carafate. He denies shortness of breath. Home Medications Home Medications Medication Instructions Recorded Confirmed Type Basaglar KwikPen U-100 Insulin 20 unit SUBCUT BID 03/23/19 11/05/19 History atorvastatin 80 mg PO HS 11/05/19 11/05/19 History carvedilol 3.125 mg PO BID 11/05/19 11/05/19 History gabapentin 100 mg PO TID 11/05/19 11/05/19 History lisinopril 40 mg PO DAILY 11/05/19 11/05/19 History metformin 1,000 mg PO BIDM 11/05/19 11/05/19 History pantoprazole 40 mg PO DAILY 11/05/19 11/05/19 History sertraline 25 mg PO DAILY 11/05/19 11/05/19 History sucralfate [Carafate] 1 g PO ACHS 11/05/19 11/05/19 History Allergies Allergy/AdvReac Type Severity Reaction Status Date / Time diphenhydramine Allergy Intermediate Unknown Unverified 11/05/19 12:05 [From Benadryl] Past Med/Surg History Medical History (Updated 11/05/19 @ 16:41 by Charmaine Bunch PA-C) Bleeding ulcer CAD (coronary artery disease) 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 Depression Diabetes Esophageal stricture History of laryngeal cancer Status post radiation HTN (hypertension) PTSD (post-traumatic stress disorder) Suicidal ideation (Acute) Surgical History History of coronary artery stent placement (Acute) History of endoscopy 08/2019 revealed esophageal strictures, gastric ulcerations and hemorrhagic duodenitis History of heart artery stent History of partial thyroidectomy Family History Father Cancer Lung Social History Preferred Language: Kazakh Communication Ability: Effective Manager Universal Required: No Current Living Situation: Alone Other Information That Helps Us Care for You: No Feels Safe at Home: Yes Safety Concerns: Feels Safe At This Time Smoking Status: Former smoker Tobacco Type: cigars ; Hx Alcohol Use: No Hx Substance Use: No Review of Systems See HPI for pertinent positives & negatives. and A total of 10 systems reviewed and were otherwise negative Physical Exam Vital Signs Vital Signs - 24 hr 11/05/19 14:40 11/05/19 14:50 11/05/19 15:00 Pulse Rate 65 72 62 Respiratory Rate 12 14 22 Blood Pressure 147/93 H Blood Pressure Mean 106 Oxygen Delivery Method Room Air Room Air Room Air 11/05/19 15:01 11/05/19 15:10 11/05/19 15:20 Pulse Rate 66 68 68 Respiratory Rate 15 17 16 Blood Pressure Blood Pressure Mean Oxygen Delivery Method Room Air Room Air Room Air 11/05/19 15:30 11/05/19 15:31 Pulse Rate 66 68 Respiratory Rate 16 19 Blood Pressure 140/84 Blood Pressure Mean 96 Oxygen Delivery Method Room Air Room Air GENERAL: Patient is in moderate distress. Alert, uncomfortable appearing, well nourished, non-toxic EYE EXAM: normal conjunctiva, PERRL and EOM's grossly intact OROPHARYNX: no exudate, no erythema, lips, buccal mucosa, and tongue normal and mucous membranes are moist NECK: supple, no nuchal rigidity, no adenopathy, non-tender LUNGS: Clear to auscultation. Normal chest wall mechanics, no w/r/r HEART: no murmurs, S1 normal and S2 normal ABDOMEN: Abdomen is tender to palpation in the epigastric, LUQ and LLQ. Abdomen soft, normo-active bowel sounds, no masses, no rebound or guarding. RECTAL: No obvious external hemorrhoids. No anal fissure. No stool in rectal vault. Mucous heme negative. BACK: Back is symmetrical on inspection and there is no deformity, no midline tenderness, no CVA tenderness. SKIN: no rashes and no bruising UPPER EXTREMITIES: upper extremities are grossly normal. FROM, nml pulses b/l. LOWER EXTREMITIES: No pitting edema. FROM, nml pulses b/l. NEURO EXAM: Normal sensorium, cranial nerves II-XII grossly intact, normal speech, no gross weakness of arms, no gross weakness of legs. Course Course 1131: The patient was evaluated in room C2B, and a complete history and physical examination were performed. 1400: I performed a rectal exam at this time which was chaperoned by Nurse Trisha. See physical exam. Patient states that he is still having abdominal pain. I updated him on his results. 1433: I discussed the patients case with Dr. Ayden Parish hospitalist. He will evaluate the patient for further management. 1535: Received fax information regarding the patient's recent hospitalization in [place]. This was given to Dr. Hensley at bedside. Administered Medications Atorvastatin Calcium (Lipitor) 80 mg PO HS [facility] Stop: 12/05/19 20:59 Last Admin: 11/05/19 21:13 Dose: 80 mg Documented by: [id number] Carvedilol (Coreg) 3.125 mg PO BID [facility] Stop: 12/05/19 20:59 Last Admin: 11/06/19 08:22 Dose: 3.125 mg Documented by: [id number] Admin: 11/05/19 21:13 Dose: 3.125 mg Documented by: [id number] Docusate Sodium (Colace) 100 mg PO BID [facility] Stop: 12/06/19 10:29 Last Admin: 11/06/19 11:23 Dose: 100 mg Documented by: [id number] Gabapentin (Neurontin) 100 mg PO TID [facility] Stop: 12/05/19 20:59 Last Admin: 11/06/19 12:54 Dose: 100 mg Documented by: [id number] Admin: 11/06/19 08:22 Dose: 100 mg Documented by: [id number] Admin: 11/05/19 21:13 Dose: 100 mg Documented by: [id number] Insulin Aspart (Novolog Flexpen) 0 units SC ACHS [facility] Stop: 12/05/19 17:29 Last Admin: 11/06/19 12:52 Dose: 2 units Documented by: [id number] Cosigned by: [id number] Admin: 11/06/19 08:16 Dose: 3 units Documented by: [id number] Cosigned by: [id number] Admin: 11/05/19 20:55 Dose: Not Given Documented by: [id number] Admin: 11/05/19 18:16 Dose: 7 units Documented by: [id number] Cosigned by: [id number] Insulin Glargine (Lantus Solostar Pen) 0 - 20 units SC BID [facility] Stop: 12/05/19 20:59 Last Admin: 11/06/19 08:16 Dose: 20 units Documented by: [id number] Cosigned by: [id number] Admin: 11/05/19 20:54 Dose: Not Given Documented by: [id number] Lisinopril (Zestril) 40 mg PO DAILY [facility] Stop: 12/06/19 08:59 Last Admin: 11/06/19 08:23 Dose: 40 mg Documented by: [id number] Miscellaneous (Remove Nicoderm Patch) 1 ea N/A DAILY@[id number] [facility] Stop: 12/05/19 18:19 Last Admin: 11/06/19 08:38 Dose: 1 ea Documented by: [id number] Admin: 11/05/19 20:11 Dose: Not Given Documented by: [id number] Nicotine (Nicoderm Cq) 14 mg TD QAM [facility] Stop: 12/06/19 08:59 Last Admin: 11/06/19 08:39 Dose: 14 mg Documented by: [id number] Polyethylene Glycol (Miralax Powder Packet) 17 gm PO DAILY [facility] Stop: 12/06/19 10:29 Last Admin: 11/06/19 11:23 Dose: 17 gm Documented by: [id number] Sertraline HCl (Zoloft) 25 mg PO DAILY [facility] Stop: 12/06/19 08:59 Last Admin: 11/06/19 08:23 Dose: 25 mg Documented by: [id number] Sucralfate (Carafate Tab) 1 gm PO ACHS [facility] Stop: 12/05/19 17:16 Last Admin: 11/06/19 12:51 Dose: 1 gm Documented by: [id number] Admin: 11/06/19 08:23 Dose: 1 gm Documented by: [id number] Admin: 11/05/19 21:14 Dose: 1 gm Documented by: [id number] Admin: 11/05/19 18:17 Dose: 1 gm Documented by: [id number] Discontinued Medications Fentanyl Citrate (Fentanyl Citrate) 100 mcg IV Q15M PRN PRN Reason: Pain Stop: 11/19/19 11:40 Last Admin: 11/05/19 13:08 Dose: 100 mcg Documented by: [id number] Admin: 11/05/19 12:11 Dose: 100 mcg Documented by: [id number] Admin: 11/05/19 11:52 Dose: 100 mcg Documented by: [id number] Hydromorphone HCl (Dilaudid) 0.5 mg IV NOW STA Stop: 11/05/19 16:25 Last Admin: 11/05/19 16:36 Dose: 0.5 mg Documented by: [id number] Sodium Chloride (Nss 1000ml) 1,000 mls @ 999 mls/hr IV .Q1H1M ONE Stop: 11/05/19 12:35 Last Infusion: 11/05/19 13:47 Dose: 0 mls/hr Documented by: [id number] Admin: 11/05/19 11:53 Dose: 999 mls/hr Documented by: [id number] Pantoprazole Sodium 80 mg/ (Dextrose) 120 mls @ 480 mls/hr IV 1200 [facility] Stop: 11/05/19 12:14 Last Infusion: 11/05/19 12:30 Dose: 0 mls/hr Documented by: [id number] Admin: 11/05/19 12:09 Dose: 480 mls/hr Documented by: [id number] Pantoprazole Sodium 40 mg/ (Dextrose) 100 mls @ 20 mls/hr IV Q5H [facility] Stop: 12/05/19 12:14 Last Admin: 11/06/19 08:21 Dose: 20 mls/hr Documented by: [id number] Infusion: 11/06/19 08:21 Dose: 0 mls/hr Documented by: [id number] Admin: 11/06/19 03:15 Dose: 20 mls/hr Documented by: [id number] Infusion: 11/06/19 03:15 Dose: 20 mls/hr Documented by: [id number] Admin: 11/05/19 22:15 Dose: 20 mls/hr Documented by: [id number] Infusion: 11/05/19 22:15 Dose: 20 mls/hr Documented by: [id number] Admin: 11/05/19 17:39 Dose: 20 mls/hr Documented by: [id number] Infusion: 11/05/19 17:30 Dose: 20 mls/hr Documented by: [id number] Admin: 11/05/19 12:30 Dose: 20 mls/hr Documented by: [id number] Acetaminophen (Ofirmev) 1,000 mg in 100 mls @ 400 mls/hr IV NOW STA Stop: 11/05/19 14:17 Last Infusion: 11/05/19 14:34 Dose: 0 mls/hr Documented by: [id number] Admin: 11/05/19 14:09 Dose: 400 mls/hr Documented by: [id number] Sodium Chloride (Nss 1000ml) 1,000 mls @ 125 mls/hr IV .Q8H [facility] Stop: 11/06/19 09:16 Last Infusion: 11/06/19 10:51 Dose: 0 mls/hr Documented by: [id number] Admin: 11/06/19 02:06 Dose: 125 mls/hr Documented by: [id number] Infusion: 11/06/19 01:39 Dose: 125 mls/hr Documented by: [id number] Admin: 11/05/19 17:39 Dose: 125 mls/hr Documented by: [id number] Insulin Human Regular (Novolin R U-100 Per Unit) 8 units SC NOW STA Stop: 11/05/19 14:07 Last Admin: 11/05/19 14:14 Dose: 8 units Documented by: [id number] Cosigned by: [id number] Ioversol (Optiray 320 125ml) 120 ml IV ONCE PRN PRN Reason: Interaction Checking Stop: 11/09/19 12:46 Last Admin: 11/05/19 12:47 Dose: 120 ml Documented by: [id number] Morphine Sulfate (Morphine Sulfate) 4 mg IV NOW STA Stop: 11/05/19 14:04 Last Admin: 11/05/19 14:09 Dose: 4 mg Documented by: [id number] Critical Care Time Critical Care Time: Yes Total Critical Care Time: 48 Critical care of 48 min performed to assess and manage high likelihood of life-threatening GI bleed, involving labs and imaging to evaluate abdominal pain and possible GI bleed with frequent reassessment. This time includes bedside time, treatment discussions with patient/family/consultants, documentation time and excludes procedure time. Medical Decision Making Differential Diagnosis Differential diagnoses includes but is not limited to gastritis, peptic ulcer disease, GERD, gallbladder disease, pancreatitis, small bowel obstruction, acute coronary syndrome, pericarditis, ischemic bowel, irritable bowel disease, irritable bowel syndrome, appendicitis, diverticulitis, malignancy, hernia, u rinary tract infection, torsion, perforation, trauma, infectious. Medical Records Attestation: I reviewed the patient's medical records. Home Medications Current Medication List: was personally reviewed by me Laboratory Data Attestation: I reviewed the patient's lab results. Result diagrams: 11/06/19 07:02 11/06/19 07:02 Lab Results 11/05/19 11/05/19 11/05/19 Range/Units 11:05 11:05 11:05 WBC 4.19 L (4.8-10.8) K/uL RBC 4.77 (4.7-6.1) M/uL Hgb 14.4 (14.0-18.0) g/dL Hct 39.6 L (42-52) % MCV 83.0 (80-100) fL MCH 30.2 (25-34) pg MCHC 36.4 H (32-36) g/dL RDW Std Deviation 41.5 (36.4-46.3) fL RDW Coeff of Bernarda 13.7 (11.5-14.5) % Plt Count 136 (130-400) K/uL MPV 9.5 (7.4-10.4) fL Immature Gran % (Auto) 0.2 % Neut % (Auto) 55.5 % Lymph % (Auto) 34.6 % Meigs % (Auto) 7.6 % Eos % (Auto) 1.4 % Baso % (Auto) 0.7 % Immature Gran # (Auto) 0.01 (0.00-0.02) K/uL Neut # (Auto) 2.32 (1.4-6.5) K/uL Lymph # (Auto) 1.45 (1.2-3.4) K/uL Meigs # (Auto) 0.32 (0.11-0.59) K/uL Eos # (Auto) 0.06 (0-0.5) K/uL Baso # (Auto) 0.03 (0-0.2) K/uL PT 10.0 (9.0-12.0) Seconds INR 1.0 (0.9-1.1) APTT 23.4 (21.0-31.0) Seconds PTT Ratio 0.9 Sodium 136 (136-145) mmol/L Potassium 4.5 (3.5-5.1) mmol/L Chloride 102 (98-107) mmol/L Carbon Dioxide 29 (21-32) mmol/L Anion Gap 5.0 (3-11) BUN 13 (7-18) mg/dl Creatinine 1.19 (0.6-1.4) mg/dl Est Cr Clr Drug Dosing 89.1 ml/min Est GFR ( Amer) 75.4 Est GFR (Non-Af Amer) 65.1 BUN/Creatinine Ratio 11.0 (10-20) Glucose 427 H* (70-99) mg/dl POC Glucose (70-99) mg/dl Calcium 8.8 (8.5-10.1) mg/dl Total Bilirubin 0.7 (0.2-1) mg/dl AST 19 (15-37) U/L ALT 31 (12-78) U/L Alkaline Phosphatase 141 H (45-117) U/L Troponin I < 0.015 (0-0.045) ng/ml Total Protein 7.5 (6.4-8.2) gm/dl Albumin 3.6 (3.4-5.0) gm/dl Globulin 3.9 (2.5-4.0) gm/dl Albumin/Globulin Ratio 0.9 (0.9-2) Lipase (73-393) U/L Beta-Hydroxybutyric Acd 0.73 (0.2-2.81) mg/dl Urine Color Urine Appearance (Clear) Urine pH (4.5-7.5) Ur Specific Markesan (1.000-1.030) Urine Protein (Negative) Urine Glucose (UA) (Negative) Urine Ketones (Negative) Urine Blood (Negative) Urine Nitrite (Negative) Urine Bilirubin (Negative) Urine Urobilinogen (Negative) Ur Leukocyte Esterase (Negative) Urine Opiates Screen (Neg) Ur Methadone, Qual (Neg) Urine Barbiturates (Neg) Ur Phencyclidine (PCP) (Neg) U Amphetamin/Meth Scrn (Neg) MDMA (Ecstasy) Screen (Neg) U Benzodiazepines Scrn (Neg) Ur Cocaine Metabolite (Neg) U Marijuana (THC) Screen (Neg) 11/05/19 11/05/19 11/05/19 Range/Units 11:05 11:05 11:55 WBC (4.8-10.8) K/uL RBC (4.7-6.1) M/uL Hgb (14.0-18.0) g/dL Hct (42-52) % MCV (80-100) fL MCH (25-34) pg MCHC (32-36) g/dL RDW Std Deviation (36.4-46.3) fL RDW Coeff of Bernarda (11.5-14.5) % Plt Count (130-400) K/uL MPV (7.4-10.4) fL Immature Gran % (Auto) % Neut % (Auto) % Lymph % (Auto) % Meigs % (Auto) % Eos % (Auto) % Baso % (Auto) % Immature Gran # (Auto) (0.00-0.02) K/uL Neut # (Auto) (1.4-6.5) K/uL Lymph # (Auto) (1.2-3.4) K/uL Meigs # (Auto) (0.11-0.59) K/uL Eos # (Auto) (0-0.5) K/uL Baso # (Auto) (0-0.2) K/uL PT (9.0-12.0) Seconds INR (0.9-1.1) APTT (21.0-31.0) Seconds PTT Ratio Sodium (136-145) mmol/L Potassium (3.5-5.1) mmol/L Chloride (98-107) mmol/L Carbon Dioxide (21-32) mmol/L Anion Gap (3-11) BUN (7-18) mg/dl Creatinine (0.6-1.4) mg/dl Est Cr Clr Drug Dosing ml/min Est GFR ( Amer) Est GFR (Non-Af Amer) BUN/Creatinine Ratio (10-20) Glucose (70-99) mg/dl POC Glucose (70-99) mg/dl Calcium (8.5-10.1) mg/dl Total Bilirubin (0.2-1) mg/dl AST (15-37) U/L ALT (12-78) U/L Alkaline Phosphatase (45-117) U/L Troponin I (0-0.045) ng/ml Total Protein (6.4-8.2) gm/dl Albumin (3.4-5.0) gm/dl Globulin (2.5-4.0) gm/dl Albumin/Globulin Ratio (0.9-2) Lipase 374 (73-393) U/L Beta-Hydroxybutyric Acd (0.2-2.81) mg/dl Urine Color Yellow Urine Appearance Clear (Clear) Urine pH 6.0 (4.5-7.5) Ur Specific Markesan 1.033 H (1.000-1.030) Urine Protein Negative (Negative) Urine Glucose (UA) 3+ H (Negative) Urine Ketones Negative (Negative) Urine Blood Negative (Negative) Urine Nitrite Negative (Negative) Urine Bilirubin Negative (Negative) Urine Urobilinogen Negative (Negative) Ur Leukocyte Esterase Negative (Negative) Urine Opiates Screen Neg (Neg) Ur Methadone, Qual Neg (Neg) Urine Barbiturates Neg (Neg) Ur Phencyclidine (PCP) Neg (Neg) U Amphetamin/Meth Scrn Neg (Neg) MDMA (Ecstasy) Screen Neg (Neg) U Benzodiazepines Scrn Neg (Neg) Ur Cocaine Metabolite Neg (Neg) U Marijuana (THC) Screen Neg (Neg) 11/05/19 Range/Units 14:52 WBC (4.8-10.8) K/uL RBC (4.7-6.1) M/uL Hgb (14.0-18.0) g/dL Hct (42-52) % MCV (80-100) fL MCH (25-34) pg MCHC (32-36) g/dL RDW Std Deviation (36.4-46.3) fL RDW Coeff of Bernarda (11.5-14.5) % Plt Count (130-400) K/uL MPV (7.4-10.4) fL Immature Gran % (Auto) % Neut % (Auto) % Lymph % (Auto) % Meigs % (Auto) % Eos % (Auto) % Baso % (Auto) % Immature Gran # (Auto) (0.00-0.02) K/uL Neut # (Auto) (1.4-6.5) K/uL Lymph # (Auto) (1.2-3.4) K/uL Meigs # (Auto) (0.11-0.59) K/uL Eos # (Auto) (0-0.5) K/uL Baso # (Auto) (0-0.2) K/uL PT (9.0-12.0) Seconds INR (0.9-1.1) APTT (21.0-31.0) Seconds PTT Ratio Sodium (136-145) mmol/L Potassium (3.5-5.1) mmol/L Chloride (98-107) mmol/L Carbon Dioxide (21-32) mmol/L Anion Gap (3-11) BUN (7-18) mg/dl Creatinine (0.6-1.4) mg/dl Est Cr Clr Drug Dosing ml/min Est GFR ( Amer) Est GFR (Non-Af Amer) BUN/Creatinine Ratio (10-20) Glucose (70-99) mg/dl POC Glucose 326 H* (70-99) mg/dl Calcium (8.5-10.1) mg/dl Total Bilirubin (0.2-1) mg/dl AST (15-37) U/L ALT (12-78) U/L Alkaline Phosphatase (45-117) U/L Troponin I (0-0.045) ng/ml Total Protein (6.4-8.2) gm/dl Albumin (3.4-5.0) gm/dl Globulin (2.5-4.0) gm/dl Albumin/Globulin Ratio (0.9-2) Lipase (73-393) U/L Beta-Hydroxybutyric Acd (0.2-2.81) mg/dl Urine Color Urine Appearance (Clear) Urine pH (4.5-7.5) Ur Specific [place] (1.000-1.030) Urine Protein (Negative) Urine Glucose (UA) (Negative) Urine Ketones (Negative) Urine Blood (Negative) Urine Nitrite (Negative) Urine Bilirubin (Negative) Urine Urobilinogen (Negative) Ur Leukocyte Esterase (Negative) Urine Opiates Screen (Neg) Ur Methadone, Qual (Neg) Urine Barbiturates (Neg) Ur Phencyclidine (PCP) (Neg) U Amphetamin/Meth Scrn (Neg) MDMA (Ecstasy) Screen (Neg) U Benzodiazepines Scrn (Neg) Ur Cocaine Metabolite (Neg) U Marijuana (THC) Screen (Neg) Imaging Data Radiologist's Impression: Radiology results as stated below per my review and the radiologist's interpretation: CT angio abdomen pelvis w con CLINICAL HISTORY: 64 years-old Male presenting with central abdominal pain radiating to the back, GI bleed. TECHNIQUE: Multidetector CT angiography of the abdomen and pelvis was performed after the administration of intravenous contrast. 3-D volumetric and/or maximum intensity projection (MIP) images were subsequently reconstructed for review. IV contrast: 120 mL of Optiray 320. One or more dose lowering techniques were used consistent with the principles of ALARA (as low as reasonably achievable), including automatic exposure control, mA or kV adjustment to individual patient size, and/or use of iterative reconstruction. Stenosis measurements were based on NASCET-like criteria (distal lumen diameter as the denominator for stenosis measurement). COMPARISON: None. CT DOSE (mGy.cm): The estimated cumulative dose is 913.05 mGy.cm. 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 Vasculature: Abdominal aorta normal in course with only mild atherosclerotic plaque in the distal portion. There is ectasia of the aortic bifurcation and bilateral common iliac arteries, measuring 1.7 cm on the right and 1.6 cm on the left. Normal appearance of the patent bilateral external and internal iliac arteries. Visualized portions of the bilateral common, superficial, deep femoral arteries patent. Bilateral single main renal arteries patent. Only minimal stenosis of the proximal 1 cm of the celiac artery. Superior mesenteric artery widely patent. Remaining abdomen and pelvis: Lung bases: Borderline enlargement of the heart. Coronary artery calcification. Coronary stent likely in place within the left anterior descending coronary artery. No pericardial or pleural effusion. Minimal dependent changes likely atelectasis. Liver: Normal morphology. Hepatic cyst suspected in the central liver. Conventional hepatic arterial anatomy. Biliary: No intrahepatic or extrahepatic biliary ductal dilatation. Gallbladder decompressed. Pancreas: Normal. Spleen: Normal. Adrenal glands: Multinodular appearance of the left adrenal gland with the largest focal nodule measuring 3 cm. The right adrenal gland is normal. Kidneys and ureters: Normal. No hydronephrosis. Bladder: Circumferential bladder wall thickening. Pelvic organs: Prostate enlargement likely secondary to benign prostatic hyperplasia. Bowel: Mild diverticulosis of the splenic flexure of the colon without wall thickening or pericolonic inflammatory change. The appendix is normal. No bowel obstruction. Peritoneal cavity: No free fluid or intraperitoneal gas. Lymph nodes: No enlarged lymph nodes in the abdomen or pelvis. Abdominal wall: Few nodular foci of subcutaneous fat infiltration in the anterior abdominal wall likely from medication administration Musculoskeletal: Degenerative changes of the spine. IMPRESSION: 1. No acute aortic injury. 2. Mild ectasia of the aortic bifurcation and bilateral common iliac arteries, the larger on the right measuring 1.7 cm. 3. No acute intra-abdominal pathology. 4. Multiple left adrenal gland nodules, which are indeterminate though statistically most likely represent benign adenomas. This could be confirmed with dedicated adrenal CT or MR. The largest measures 3 cm. 5. Chronic bladder outlet obstruction secondary to prostatomegaly. ACT 112: Negative or not required by law. Electronically signed by: Cuco Chapin M.D. 11/05/2019 1:07 PM XR chest 1V portable CLINICAL HISTORY: Atypical chest pain COMPARISON STUDY: 05/25/2019 FINDINGS: The cardiac and mediastinal contours are normal. There is no evidence of focal pulmonary consolidation. There is no evidence of failure. No pleural effusions are visualized.[ IMPRESSION: No active disease in the chest. ACT 112: Negative or not required by law. Electronically signed by: Richard Trujillo M.D. 11/05/2019 11:29 AM ECG Data Attestation: I personally reviewed and interpreted this ECG as follows: Indication: + chest pain Rate (beats per minute): 93 Rhythm: + sinus rhythm ECG Intervals/blocks: + Normal QRS and + Normal QT-c ECG Lengby: + Normal ECG ST segments: no ST depression and no ST elevation ECG Findings: no PACs and no PVCs Blood Pressure Blood Pressure Findings: Elevated blood pressure Blood Pressure Disposition: further management by hospitalist BOGDAN Narrative Patient here with story concerning for abdominal pain and possible GI bleed. Patient does state he was recently diagnosed with multiple gastric ulcers. Patient stated he was taking Carafate however no other acid reducing medication. We did attempt to obtain medical records from outside hospital in [place]. Patient's H&H stable, BUN not significantly elevated, patient had no coffee-gr ound emesis or bright red blood per rectum here, however he did have a heme positive stool on rectal exam. Patient remained hemodynamically stable throughout. Patient was started on Protonix bolus and drip, and after labs and imaging were resulted, case discussed with hospitalist for additional ev aluation. Eventually during his admission process and hospitalist evaluation, some records from the outside hospital were faxed to our facility and these were given to Dr. Hensley. Impression & Plan Abdominal pain, Hyperglycemia, GI bleed, PUD (peptic ulcer disease) Discharge Plan Visit Data *Final* Discharge Date/Time: 11/05/19 16:51 Chief Complaint: Chest Pain Stated Complaint: CHEST PAIN, ABDOMINAL PAINK, URINE IN BLOOD ED Provider: Violette Geller Discharge Problem: Abdominal pain, Hyperglycemia, GI bleed, PUD (peptic ulcer disease) Patient Disposition: Admitted As Inpatient Discharge Instructions Interventions: ED Discharge Assessment Last Done: 11/05/19 16:51 Discharge Problem: Abdominal pain Qualifiers: Abdominal location: unspecified location Qualified Code(s): R10.9 - Unspecified abdominal pain GI bleed Qualifiers: GI bleed type/associated pathology: unspecified gastrointestinal hemorrhage type Qualified Code(s): K92.2 - Gastrointestinal hemorrhage, unspecified The scribe's documentation has been prepared under my direction and personally reviewed by me in its entirety. I confirm that the note above accurately reflects all work, treatment, procedures, and medical decision making performed by me.
[2019-11-05 11:35] LABS: Partial Thromboplastin Ratio 0.9; Partial Thromboplastin Time 23.4 Seconds (21.0-31.0)
[2019-11-05] MEDS ORDERED: SODIUM CHLORIDE 0.9% 1000ML 1,000 ML IV ONE (11:35)
[2019-11-05 11:45] LABS: Alanine Aminotransferase 31 U/L (12-78); Albumin Globulin Ratio 0.9 (0.9-2); Albumin Level 3.6 gm/dl (3.4-5.0); Alkaline Phosphatase 141 U/L (45-117); Aspartate Aminotransferase 19 U/L (15-37); Bilirubin,Total 0.7 mg/dl (0.2-1); Blood Urea Nitrogen 13 mg/dl (7-18); Calcium 8.8 mg/dl (8.5-10.1); Carbon Dioxide 29 mmol/L (21-32); Chloride 102 mmol/L (98-107); Creatinine Clr Calc Pharmacy 89.1 ml/min; Est GFR (African American) 75.4; Est GFR (Non-African American) 65.1; Globulin 3.9 gm/dl (2.5-4.0); Glucose 427 mg/dl (70-99); Potassium 4.5 mmol/L (3.5-5.1); Sodium 136 mmol/L (136-145); Total Protein 7.5 gm/dl (6.4-8.2); Troponin I < 0.015 ng/ml (0-0.045)
[2019-11-05] MEDS: fentaNYL citrate 100 MCG/2 ML VIAL IV PRN ×3 (11:52→13:08)
[2019-11-05] MEDS ORDERED: PANTOprazole 80 MG in DEXTROSE 5% 100 ML IV SCH (12:00)
[2019-11-05 12:05] LABS: Beta-Hydroxybutyrate 0.73 mg/dl (0.2-2.81)
--- NOTE | 2019-11-05 12:25 | Electrocardiogram Report ---
Test Reason : Blood Pressure : / mmHG Vent. Rate : 093 BPM Atrial Rate : 093 BPM P-R Int : 156 ms QRS Dur : 080 ms QT Int : 348 ms P-R-T Axes : 071 041 037 degrees QTc Int : 432 ms Normal sinus rhythm Possible Left atrial enlargement Borderline ECG When compared with ECG of 25-MAY-2019 16:38, No significant change was found Confirmed by Lefty Whitmore ([id number]) on 11/05/2019 12:25:54 PM Referred By: Confirmed By:Lefty Whitmore
[2019-11-05] MEDS: PANTOprazole 40 MG in DEXTROSE 5% 100 ML IV SCH ×3 (12:30→22:15)
[2019-11-05 12:34] LABS: Amphetamines+Metham, Urine Neg (Neg); Barbiturates, Urine Neg (Neg); Benzodiazepine, Urine Neg (Neg); Cocaine, Urine Neg (Neg); MDMA (Ecstacy), Urine Neg (Neg); Methadone, Urine Neg (Neg); Opiate, Urine Neg (Neg); Phencyclidine, Urine Neg (Neg)
[2019-11-05] MEDS ORDERED: OPTIRAY 320 125ml IV PRN (12:47)
--- NOTE | 2019-11-05 13:09 | CT Scan Report ---
CT angio abdomen pelvis w con CLINICAL HISTORY: 64 years-old Male presenting with central abdominal pain radiating to the back, GI bleed. TECHNIQUE: Multidetector CT angiography of the abdomen and pelvis was performed after the administrat ion of intravenous contrast. 3-D volumetric and/or maximum intensity projection (MIP) images were sub sequently reconstructed for review. IV contrast: 120 mL of Optiray 320. One or more dose lowering francisco hniques were used consistent with the principles of ALARA (as low as reasonably achievable), includin g automatic exposure control, mA or kV adjustment to individual patient size, and/or use of iterative reconstruction. Stenosis measurements were based on NASCET-like criteria (distal lumen diameter as t he denominator for stenosis measurement). COMPARISON: None. CT DOSE (mGy.cm): The estimated cumulative dose is 913.05 mGy.cm. FINDINGS: Bi Data Modeler topogram: Unremarkable. Vasculature: Abdominal aorta normal in course with only mild atherosclerotic plaque in the distal portion. There i s ectasia of the aortic bifurcation and bilateral common iliac arteries, measuring 1.7 cm on the righ t and 1.6 cm on the left. Normal appearance of the patent bilateral external and internal iliac arter ies. Visualized portions of the bilateral common, superficial, deep femoral arteries patent. Bilatera l single main renal arteries patent. Only minimal stenosis of the proximal 1 cm of the celiac artery. Superior mesenteric artery widely patent. Remaining abdomen and pelvis: Lung bases: Borderline enlargement of the heart. Coronary artery calcification. Coronary stent likely in place within the left anterior descending coronary artery. No pericardial or pleural effusion. Mi nimal dependent changes likely atelectasis. Liver: Normal morphology. Hepatic cyst suspected in the central liver. Conventional hepatic arterial anatomy. Biliary: No intrahepatic or extrahepatic biliary ductal dilatation. Gallbladder decompressed. Pancreas: Normal. Spleen: Normal. Adrenal glands: Multinodular appearance of the left adrenal gland with the largest focal nodule measu ring 3 cm. The right adrenal gland is normal. Kidneys and ureters: Normal. No hydronephrosis. Bladder: Circumferential bladder wall thickening. Pelvic organs: Prostate enlargement likely secondary to benign prostatic hyperplasia. Bowel: Mild diverticulosis of the splenic flexure of the colon without wall thickening or pericolonic inflammatory change. The appendix is normal. No bowel obstruction. Peritoneal cavity: No free fluid or intraperitoneal gas. Lymph nodes: No enlarged lymph nodes in the abdomen or pelvis. Abdominal wall: Few nodular foci of subcutaneous fat infiltration in the anterior abdominal wall like ly from medication administration Musculoskeletal: Degenerative changes of the spine. IMPRESSION: 1. No acute aortic injury. 2. Mild ectasia of the aortic bifurcation and bilateral common iliac arteries, the larger on the rig ht measuring 1.7 cm. 3. No acute intra-abdominal pathology. 4. Multiple left adrenal gland nodules, which are indeterminate though statistically most likely rep resent benign adenomas. This could be confirmed with dedicated adrenal CT or MR. The largest measures 3 cm. 5. Chronic bladder outlet obstruction secondary to prostatomegaly. ACT 112: Negative or not required by law. Electronically signed by: Cuco Chapin M.D. 11/05/2019 1:07 PM
[2019-11-05] MEDS ORDERED: MoRPHine SULFATE 4 MG/ML 1 ML CARP\\VIAL IV STA (14:03)
[2019-11-05] MEDS ORDERED: ACETAMINOPHEN 1,000 MG/100 ML VIAL IV STA (14:03)
[2019-11-05] MEDS ORDERED: NovoLIN-R INSULIN PER UNIT CHARGE SC STA (14:06)
--- NOTE | 2019-11-05 16:20 | History & Physical Report ---
Date of Service November 05, 2019 Assessment & Plan (1) Coffee ground emesis: (2) BRBPR (bright red blood per rectum): (3) Chest pain, precordial: (4) Abdominal pain: This is a 64-year-old -[place] male who has significant PMH of CAD with PCI to LAD, IDDM 2, HTN, HLD, depression with anxiety, history of psychiatric hospitalizations, chronic compartment syndrome RUE s/p cardiac cath, esophageal stricture, history of laryngeal CA s/p XRT, history of PUD who presents to ED with multiple complaints including chest pain off and on x3 days and abdominal pain x1 day. In ED patient remained hemodynamically stable. His H&H 14.4 and 39.6, WC 4.19, platelet 136, BUN 13, creatinine 1.19, glucose 427, troponin WNL, LFTs WNL, lipase WNL. Urinalysis reviewed elevated specific gravity but was otherwise negative for blood, infection and tox screen. Chest x-ray reviewed no acute cardiopulmonary abnormality. CT A/P: Mild ectasia of the aortic bifurcation and bilateral common iliac arteries, the larger on the right measuring 1.7 cm. No intraabdominal pathology. Multiple left adrenal gland nodules, which are indeterminate though statistically most likely represent benign adenomas, Chronic bladder outlet obstruction secondary to prostatomegaly. He was started on a PPI bolus and drip, IVF, IV morphine and received 8 units IV regular insulin. admit to med tele clear liquid diet, NPO after midnight consult GI - likely to need EGD given recent dx of hemorrhagic duodenitis, stric ture and multiple ulcers consult cardiology - hx of cad with stent placement in past. CP x 3 days off and on to L arm. Initial trop negative and ECG without change, poor compliance and poorly controlled diabetic, off antiplatelet due to GIB cycle cardiac enzymes and repeat EKG (5) Duodenitis: Recently hospitalized 09/20/19-09/25/19 at [facility] in [place] secondary to chest pain and abdominal pain. Underwent endoscopy per discharge summary which revealed multiple antral ulcers along with hemorrhagic duodenitis. He was discharged on PPI and Carafate. Patient with poor compliance. He is being admitted with reports of coffee-ground emesis and BRBPR in brief. Patient received IV PPI bolus in ED, continue IV PPI drip Carafate 1 g before meals at bedtime clear liquid diet, NPO after midnight GI consulted (6) Esophageal stricture: dilated strictures per recent d/c summary GI consulted clear liquid diet (7) CAD (coronary artery disease): History of previous coronary stent placed LAD. Last cardiac cath 08/14/2018 which revealed two-vessel CAD, patent stent LAD and nonobstructive RCA disease Had stress echo 02/2019 which revealed EF 55 to 60%, moderate LVH, negative for inducible ischemia Patient with poor compliance, does not follow with routine deicer inspector pneumatic Continue Coreg, lisinopril Not on ASA or Plavix due to above Consult cardiology given nature of chest pain and poor compliance, will likely need outpatient follow-up as well (8) Diabetes: uncontrolled diabetes presenting with hyperglycemia Last A1c noted to be 8.9 02/2019 Lantus/NovoLog per protocol Continue TIGRE for renal protection On gabapentin, questionable neuropathy (9) HTN (hypertension): blood pressure stable in ED on lisinopril, coreg monitor (10) Depression: Previous inpatient psych hospitalization 03/2019 due to suicidal ideation Denies any suicidal ideation at this time Per discharge summary at OSH on Zoloft daily; however per psych hospital DC was placed on Cymbalta and trazodone Patient is unaware what medications he is taking We will continue low-dose Zoloft daily low threshold for psychiatric involvement (11) DVT prophylaxis: SCD/TEDS given concern for GIB Disposition: admit to med/surg tele Follow up: Pt needs to establish with PCP in area and have close follow up along with appropriate GI and Cardiology follow up Pt was seen and examined in collaboration with Dr. Hensley, please see addendum History of Present Illness Chief Complaint: Chest pain off and on x3 days; abdominal pain x1 day. Primary Care Provider: NO PCP This is a 64-year-old -[place] male who has significant PMH of CAD with PCI to LAD, IDDM 2, HTN, HLD, depression with anxiety, history of psychiatric hospitalizations, chronic compartment syndrome RUE s/p cardiac cath, esophageal stricture, history of laryngeal CA s/p XRT, history of PUD who presents to ED with multiple complaints including chest pain off and on x3 days and abdominal pain x1 day. Patient does not follow with routine PCP, is noncompliant and does not have a deicer inspector pneumatic despite history of stent. Of significance patient had recently been staying in [place] with his mother who is, "dying," where he had hospitalization 09/20 and 09/25/2019 secondary to chest pain, hyperglycemia and abdominal pain. During his hospitalization he has seen GI and psychiatry. Per reports GI performed endoscopy which revealed esophageal strictures which were dilated, gastric ulcerations and hemorrhagic duodenitis. He was placed on PPI and Carafate therapy. Recommend outpatient follow-up endoscopy in 4 to 6 weeks which patient states is to be this week. Regarding chest pain during the hospitalization cardiac enzymes were negative felt to be noncardiac in nature. He states during recent [place] hospitalization he was told he also had a TIA. Symptoms included unable to move bilateral upper and lower extremities and unable to think straight. He is unsure if he was placed on any antiplatelets for this. (This was not mentioned in D/C summary from [facility].) On D/C summary it was noted his plavix was d/c due to above. Approximately 3 days ago patient had returned home from [place] when he began developing off and on substernal chest discomfort with radiation to his left arm. Pain was nonexertional but he did elicit associated shortness of breath. There was no pattern to the pain and relieved on its own. Pain will come and go lasting several seconds to minutes. Does not endorse being affected by meals. Nothing made it better or worse. He denies any diaphoresis, lightheadedness, dizziness or syncope with chest pain. Unsure of feels similar to previous pain. He does elicit to having nausea and emesis today. Complains of emesis being coffee-ground in nature. Also states he went through 5 brief secondary to noting bright red blood in his briefs. Last BM however was 3 days ago. He denies any recent illness, fever, chills, sweats, hemoptysis, shortness breath at rest. Complains of dysuria but denies any increased frequency or urgency with urination. Overall has poor appetite and early satiety. Complains of approximately 18 pound weight loss since hospitalization. With his recent travel in the past 3 days he states he flew from [facility] in which his luggage, lost and therefore he did not have any of his medications. Does admit to taking his medications were prescribed at discharge along with insulin. He was unaware exactly which medications he was taking or how much. He states he does not have a PCP and despite having history of heart stent he does not follow with deicer inspector pneumatic. In ED patient remained hemodynamically stable. His H&H 14.4 and 39.6, WC 4.19, platelet 136, BUN 13, creatinine 1.19, glucose 427, troponin WNL, LFTs WNL, lipase WNL. Urinalysis reviewed elevated specific gravity but was otherwise negative for blood, infection and tox screen. Chest x-ray reviewed no acute cardiopulmonary abnormality. CT A/P: Mild ectasia of the aortic bifurcation and bilateral common iliac arteries, the larger on the right measuring 1.7 cm. No intraabdominal pathology. Multiple left adrenal gland nodules, which are indeterminate though statistically most likely represent benign adenomas, Chronic bladder outlet obstruction secondary to prostatomegaly. He was started on a PPI bolus and drip, IVF, IV morphine and received 8 units IV regular insulin. Allergies Allergy/AdvReac Type Severity Reaction Status Date / Time diphenhydramine Allergy Intermediate Unknown Unverified 11/05/19 12:05 [From [facility]] Home Medications Home Medications Medication Instructions Recorded Confirmed Type Elyse SamuelPen U-100 Insulin 20 unit SUBCUT BID 03/23/19 11/05/19 History atorvastatin 80 mg PO HS 11/05/19 11/05/19 History carvedilol 3.125 mg PO BID 11/05/19 11/05/19 History gabapentin 100 mg PO TID 11/05/19 11/05/19 History lisinopril 40 mg PO DAILY 11/05/19 11/05/19 History metformin 1,000 mg PO BIDM 11/05/19 11/05/19 History pantoprazole 40 mg PO DAILY 11/05/19 11/05/19 History sertraline 25 mg PO DAILY 11/05/19 11/05/19 History sucralfate [Carafate] 1 g PO ACHS 11/05/19 11/05/19 History Past Med/Surg History Medical History (Updated 11/05/19 @ 16:41 by Charmaine Bunch PA-C) Bleeding ulcer CAD (coronary artery disease) 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 Depression Diabetes Esophageal stricture History of laryngeal cancer Status post radiation HTN (hypertension) PTSD (post-traumatic stress disorder) Suicidal ideation (Acute) Surgical History History of coronary artery stent placement (Acute) History of endoscopy 08/2019 revealed esophageal strictures, gastric ulcerations and hemorrhagic duodenitis History of heart artery stent History of partial thyroidectomy Family History Father Cancer Lung Social History Preferred Language: Citizen Of [place] Communication Ability: Effective 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: No Current Living Situation: Alone Other Information That Helps Us Care for You: No Feels Safe at Home: Yes Safety Concerns: Feels Safe At This Time Smoking Status: Former smoker Tobacco Type: cigars ; Hx Alcohol Use: No Hx Substance Use: No Review of Systems Review of Systems: All systems reviewed & are unremarkable except as noted in HPI & below Physical Exam Physical Exam: Constitutional: WD/WN, alert, but drowsy, vitals as above, NAD, sitting up in bed, pleasant, answers questions appropriately Head: Normocephalic, Atraumatic Eyes: PERRL, conjunctivae normal, anicteric sclerae ENMT: external ear and nose normal, oropharynx normal Neck: trachea midline, no thyromegaly normal visual inspection Respiratory: normal respiratory effort, lungs clear to auscultation with decreased breath sounds at bases, no wheeze, rales, rhonchi. Normal insp/exp effort, no accessory muscle use Cardiovascular: RRR, no murmur, no edema Vessels: no JVD or carotid bruit Chest: normal inspection of chest, + pain when place stethoscope on RUSB, but no pain physical palpation Abdomen: normal bowel sounds, soft, nontender, no hepatosplenomegaly Musculoskeletal: no cyanosis or clubbing, extremities motor strength 5/5 Skin: no rashes, warm and dry normal turgor, + scar noted RUE dorsal forearm from prior fasciotomy Neurologic: PERRL, EOMI, accommodation nl, no face palsy, no dysarthria CN's II-XI intact bilaterally and moves all extremities Psychiatric: A+Ox3, euthymic affect Lymphatic: no cervical or axillary lymphadenopathy : deferred -please refer to attending addendum Results & Data Vital Signs (Past 12 Hours) Vital Signs Temp Pulse Pulse Resp BP BP Pulse Ox 11/05/19 15:20 68 16 11/05/19 15:10 68 17 11/05/19 15:01 66 15 11/05/19 15:00 62 22 147/93 H 11/05/19 14:50 72 14 11/05/19 14:40 65 12 11/05/19 14:31 84 13 146/75 H 11/05/19 14:30 63 14 11/05/19 14:20 63 14 11/05/19 14:10 70 17 11/05/19 14:00 69 13 179/109 H 11/05/19 13:50 77 16 11/05/19 13:40 64 13 11/05/19 13:31 64 15 11/05/19 13:30 80 82 38 H 162/94 H 164/94 H 96 11/05/19 13:20 67 14 11/05/19 13:10 71 16 11/05/19 13:01 81 13 11/05/19 13:00 74 19 145/91 H 11/05/19 12:51 74 16 11/05/19 12:32 78 18 158/78 H 95 11/05/19 12:31 77 13 95 11/05/19 12:30 85 14 158/78 H 96 11/05/19 12:20 80 13 93 11/05/19 12:10 84 17 96 11/05/19 12:01 95 H 15 94 11/05/19 12:00 80 14 171/83 H 95 11/05/19 11:55 87 86 14 161/91 H 161/91 H 97 11/05/19 11:50 91 H 20 11/05/19 11:40 91 H 15 11/05/19 11:30 81 20 11/05/19 11:20 82 23 11/05/19 11:11 89 22 11/05/19 10:50 89 15 97 11/05/19 10:41 91 H 17 98 11/05/19 10:38 90 15 97 11/05/19 10:33 90 28 H 180/101 H 97 11/05/19 10:31 36.5 C 95 H 18 180/101 H 99 Laboratory Results Short CBC 11/05/19 Range/Units 11:05 WBC 4.19 L (4.8-10.8) K/uL Hgb 14.4 (14.0-18.0) g/dL Hct 39.6 L (42-52) % Plt Count 136 (130-400) K/uL BMP 11/05/19 11:05 Sodium 136 Potassium 4.5 Chloride 102 Carbon Dioxide 29 BUN 13 Creatinine 1.19 Glucose 427 H* Calcium 8.8 Cardiac Enzymes 11/05/19 Range/Units 11:05 Troponin I < 0.015 (0-0.045) ng/ml Liver Function 11/05/19 Range/Units 11:05 Total Bilirubin 0.7 (0.2-1) mg/dl AST 19 (15-37) U/L ALT 31 (12-78) U/L Alkaline Phosphatase 141 H (45-117) U/L Albumin 3.6 (3.4-5.0) gm/dl Urine 11/05/19 Range/Units 11:05 Urine Color Yellow Urine Appearance Clear (Clear) Urine pH 6.0 (4.5-7.5) Ur Specific [place] 1.033 H (1.000-1.030) Urine Protein Negative (Negative) Urine Glucose (UA) 3+ H (Negative) Diagnostic Findings CXR: IMPRESSION: No active disease in the chest. Abd/Pelvis CTA: IMPRESSION: 1. No acute aortic injury. 2. Mild ectasia of the aortic bifurcation and bilateral common iliac arteries, the larger on the right measuring 1.7 cm. 3. No acute intra-abdominal pathology. 4. Multiple left adrenal gland nodules, which are indeterminate though statistically most likely represent benign adenomas. This could be confirmed with dedicated adrenal CT or MR. The largest measures 3 cm. 5. Chronic bladder outlet obstruction secondary to prostatomegaly. Medications Administered Fentanyl Citrate (Fentanyl Citrate) 100 mcg IV Q15M PRN PRN Reason: Pain Stop: 11/19/19 11:40 Last Admin: 11/05/19 13:08 Dose: 100 mcg Documented by: [id number] Admin: 11/05/19 12:11 Dose: 100 mcg Documented by: [id number] Admin: 11/05/19 11:52 Dose: 100 mcg Documented by: [id number] Pantoprazole Sodium 40 mg/ (Dextrose) 100 mls @ 20 mls/hr IV Q5H MARCOS Stop: 11/05/19 17:14 Last Admin: 11/05/19 12:30 Dose: 20 mls/hr Documented by: [id number] Ioversol (Optiray 320 125ml) 120 ml IV ONCE PRN PRN Reason: Interaction Checking Stop: 11/09/19 12:46 Last Admin: 11/05/19 12:47 Dose: 120 ml Documented by: [id number] Discontinued Medications Sodium Chloride (Nss 1000ml) 1,000 mls @ 999 mls/hr IV .Q1H1M ONE Stop: 11/05/19 12:35 Last Infusion: 11/05/19 13:47 Dose: 0 mls/hr Documented by: [id number] Admin: 11/05/19 11:53 Dose: 999 mls/hr Documented by: [id number] Pantoprazole Sodium 80 mg/ (Dextrose) 120 mls @ 480 mls/hr IV 1200 MARCOS Stop: 11/05/19 12:14 Last Infusion: 11/05/19 12:30 Dose: 0 mls/hr Documented by: [id number] Admin: 11/05/19 12:09 Dose: 480 mls/hr Documented by: [id number] Acetaminophen (Ofirmev) 1,000 mg in 100 mls @ 400 mls/hr IV NOW STA Stop: 11/05/19 14:17 Last Infusion: 11/05/19 14:34 Dose: 0 mls/hr Documented by: [id number] Admin: 11/05/19 14:09 Dose: 400 mls/hr Documented by: [id number] Insulin Human Regular (Novolin R U-100 Per Unit) 8 units SC NOW STA Stop: 11/05/19 14:07 Last Admin: 11/05/19 14:14 Dose: 8 units Documented by: [id number] Cosigned by: [id number] Morphine Sulfate (Morphine Sulfate) 4 mg IV NOW STA Stop: 11/05/19 14:04 Last Admin: 11/05/19 14:09 Dose: 4 mg Documented by: [id number] ECG Rate (beats per minute): 93 Additional Comments: left atrial enlargement, QTC 432, no ST t wave changes Code Status & VTE Plan Code Status Full Code VTE Prophylaxis Plan VTE Prophylaxis will be ordered: Yes Supervising Physician Co-Signing Physician Notes I performed a history and physical examination of the patient on 11/05/2019. I have discussed the patient's management with the advanced practitioner. Please refer to the PA-C note for the documented findings and plan of care. This is a 64-year-old male with past medical history as above who has presented to the ER with multiple complaints. He is a rather poor historian and does not seem like he takes good care of himself. He was recently in [place] to take care of his mother who he stated is dying from colon cancer. He was there for about 3 months and was admitted to a hospital of which fever able to obtain the records. He was admitted with chest pain and probably had some GI bleeding for which he underwent an EGD. That showed esophageal stricture which was dilated as well as gastric ulcers for which she was discharged on PPI and Carafate. He stated that on his flight back he lost his luggage which contained his medication so he had not been taking any medications. Today he was also complaining of chest pain which was radiating to his left arm. The pain is random, comes on without any physical activity and then tends to go away without any intervention as well. He also complained of coffee-ground emesis and that his underwear sometimes gets stains with red blood. Rectal exam in the ER was guaiac positive. He did complain of left groin pain and on my exam had some tenderness in the left groin but I could not palpate any masses and he had intact femoral pulse. We will continue Protonix infusion and consult gastroenterology. We will also consult cardiology to evaluate his chest pain, given his significant history of coronary artery disease and the fact that he had not been taking his medications. (1) Abdominal pain Abdominal location: unspecified location Qualified Code(s): R10.9 - Unspecified abdominal pain
[2019-11-05] MEDS ORDERED: HYDROmorphone INJ 0.5 MG/0.5 ML SYR IV STA (16:24)
[2019-11-05] MEDS ORDERED: GLUCOSE 40% GEL 15 GM TUBE PO PRN (17:17)
[2019-11-05] MEDS ORDERED: GLUCAGON FOR INJ 1 MG VIAL SQ PRN (17:17)
[2019-11-05] MEDS ORDERED: GLUCOSE 10 TABS/TUBE PO PRN (17:17)
[2019-11-05] MEDS ORDERED: DEXTROSE 50% 50 ML SYRINGE IV PRN (17:17)
[2019-11-05] MEDS ORDERED: CARBOHYDRATES FOR HYPOGLYCEMIA PO PRN (17:17)
[2019-11-05] MEDS: SODIUM CHLORIDE 0.9% 1000ML 1,000 ML IV SCH (17:39)
[2019-11-05 18:11] LABS: Hematocrit (blood only) 39.4 % (42-52); Hemoglobin 14.3 g/dL (14.0-18.0)
[2019-11-05] MEDS: INSULIN ASPART 100 UNITS/ML 3 ML PEN SC SCH ×2 (18:16→20:55)
[2019-11-05] MEDS: SUCRALFATE 1 GM TAB PO SCH ×2 (18:17→21:14)
[2019-11-05] MEDS ORDERED: ACETAMINOPHEN 325 MG TAB PO PRN (20:25)
[2019-11-05] MEDS ORDERED: ONDANSETRON INJ 2 MG/ML 2 ML VIAL IV PRN (20:37)
[2019-11-05] MEDS: INSULIN GLARGINE SOLOSTAR 100 UNITS/ML 3 ML PEN SC SCH (20:54)
[2019-11-05] MEDS: carvediloL 3.125 MG TAB PO SCH (21:13)
[2019-11-05] MEDS: ATORVASTATIN 40 MG TAB PO SCH (21:13)
[2019-11-05] MEDS: GABAPENTIN 100 MG CAP PO SCH (21:13)
[2019-11-05 23:31] LABS: Hemoglobin 13.8 g/dL (14.0-18.0)
[2019-11-06] MEDS: SODIUM CHLORIDE 0.9% 1000ML 1,000 ML IV SCH (02:06)
[2019-11-06] MEDS: PANTOprazole 40 MG in DEXTROSE 5% 100 ML IV SCH ×2 (03:15→08:21)
[2019-11-06 07:14] LABS: Basophils # (auto) 0.02 K/uL (0-0.2); Basophils % (auto) 0.5 %; Eosinophils # (auto) 0.13 K/uL (0-0.5); Eosinophils % (auto) 3.1 %; Hemoglobin 13.6 g/dL (14.0-18.0); Lymphocytes % (auto) 47.8 %; Mean Corpuscular Hemoglobin 29.6 pg (25-34); Mean Corpuscular Hgb Conc 36.8 g/dL (32-36); Mean Corpuscular Volume 80.6 fL (80-100); Mean Platelet Volume 8.6 fL (7.4-10.4); Monocytes # (auto) 0.36 K/uL (0.11-0.59); Monocytes % (auto) 8.6 %; Neutrophils # (auto) 1.67 K/uL (1.4-6.5); Platelet Count 122 K/uL (130-400); RDW Coefficient of Variation 13.8 % (11.5-14.5); RDW Standard Deviation 40.4 fL (36.4-46.3); Red Blood Count 4.59 M/uL (4.7-6.1); White Blood Count 4.18 K/uL (4.8-10.8)
[2019-11-06 07:21] LABS: Estimated Average Glucose 209 mg/dl; Hemoglobin A1C 8.9 % (4.5-5.6)
[2019-11-06 07:54] LABS: Albumin Globulin Ratio 0.9 (0.9-2); BUN Creatinine Ratio 11.4 (10-20); Bilirubin,Total 0.8 mg/dl (0.2-1); Calcium 8.1 mg/dl (8.5-10.1); Creatinine Clr Calc Pharmacy 122.7 ml/min; Est GFR (African American) 107.7; Est GFR (Non-African American) 92.9; Globulin 3.3 gm/dl (2.5-4.0); Potassium 3.8 mmol/L (3.5-5.1); Total Protein 6.3 gm/dl (6.4-8.2)
[2019-11-06] MEDS: INSULIN GLARGINE SOLOSTAR 100 UNITS/ML 3 ML PEN SC SCH ×2 (08:16→21:00)
[2019-11-06] MEDS: INSULIN ASPART 100 UNITS/ML 3 ML PEN SC SCH ×4 (08:16→21:00)
[2019-11-06] MEDS: GABAPENTIN 100 MG CAP PO SCH ×3 (08:22→20:58)
[2019-11-06] MEDS: carvediloL 3.125 MG TAB PO SCH ×2 (08:22→20:58)
[2019-11-06] MEDS: SERTRALINE HCL 50 MG TABLET PO SCH (08:23)
[2019-11-06] MEDS: SUCRALFATE 1 GM TAB PO SCH ×4 (08:23→21:00)
[2019-11-06] MEDS: lisinopriL 40 MG TAB PO SCH (08:23)
[2019-11-06] MEDS: NICOTINE 14 MG/24 HR PATCH TD SCH (08:39)
--- NOTE | 2019-11-06 08:46 | Gastrointestinal Consultation ---
Date of Consultation November 06, 2019 Assessment & Plan (1) Abdominal pain: 64 year old male with complex past cardiac/gastrointestinal history admitted w/ CP and abdominal pain. He endorses EGD at OSH in August w/ gastric ulcer, duodenitis and esophageal stricture, dilated. He endorses intermittent episodes of coffee ground emesis and rectal bleeding prior to admission but today to me reports brown stools, last 48 hours and denies any vomiting. He has not been compliant with his outpatient PPI/carafate medication regimen. He is hemodynamically stable without further evidence of active GI bleed. His HGB has remained stable without BUN elevation. There is no current plan for urgent endoscopic evaluation but we would be happy to arrange outpatient endoscopy over the next few weeks if he remains stable during addmision. Trend H&H Monitor and document all GI output Can let the IV PPI run dry PO PPI BID Can continue carafate as previously ordered No NSAIDs ABD US Colace 100 mg twice daily Miralax 1 capful daily Cardiology consultation appreciated OP EGD/Colonoscopy Will sign off. Please recall if needed. Thank you for allowing us to participate in the care of this patient. Please call with any acute changes, questions or concerns. Please see addendum below with additional recommendation from my supervising physician. Supervising Physician Co-Signing Physician Notes I have seen and examined the patient and discussed the management with TIM Wilkerson. 64 yo male for which GI is being consulted for ? hematemesis, abd pain. He is alert and oriented, normal resp, slightly ttp in luq, otherwise benign exam Pertinent other history as above Agree with further plan of care as above. History of Present Illness Reason for Consultation: coffee ground emesis Requesting Physician: Rodolfo Attending Physician: Russ Reynolds MD History of Present Illness 64 year old male with complex past medical history CAD with PCI to LAD, T2DM, dyslipidemia, HTN, depression/anxiety, compartment syndrome RUE s/p cardiac cath, esophageal stricture, history of laryngeal CA s/p XRT, history of PUD admitted through the ED for evaluation of chest pain and abdominal pain. GI ask ed to evaluate. Pt was seeen and evaluated, chart reviewed. He is a vague historian. Endorses ongoing GI symptoms. Recent admission in August in [place] at which time he underwent EGD w/ report of eso stricture which was dilated, gastric ulcers and duodenitis. He was to be on PPI and follow up as an OP w/ an EGD. He tells me this was scheduled in [place] but did not intent on returning to [place] for the EGD. Today he reports generalized abdominal pain. Worse in left upper quadrant. Sharp. Some nausea, vomiting. Has seen coffee ground appearing emesis x 3. No emesis since admission. No hematemesis. Notes his bowel habits have changed as well. Stools more formed, harder to pass w/ straining. Denies any black/bloody stools. Has lost 20+ lbs in the past 1-2 months, unintentional. He denies NSAIDs He denies AC/antiplatelet use despite his reported cardiac stent history He denies ETOH use x 30 years He denies any illicit drug use CTA 2019: No acute aortic injury. Mild ectasia of the aortic bifurcation and bilateral common iliac arteries, the larger on the right measuring 1.7 cm.No acute intra-abdominal pathology.Multiple left adrenal gland nodules, which are indeterminate though statistically most likely represent benign adenomas. This could be confirmed with dedicated adrenal CT or MR. The largest measures 3 cm. Chronic bladder outlet obstruction secondary to prostatomegaly. Allergies Allergy/AdvReac Type Severity Reaction Status Date / Time diphenhydramine Allergy Intermediate Unknown Unverified 11/05/19 12:05 [From Kim] Home Medications Home Medications Medication Instructions Recorded Confirmed Type Basaglar PriscillaikPen U-100 Insulin 20 unit SUBCUT BID 03/23/19 11/05/19 History atorvastatin 80 mg PO HS 11/05/19 11/05/19 History carvedilol 3.125 mg PO BID 11/05/19 11/05/19 History gabapentin 100 mg PO TID 11/05/19 11/05/19 History lisinopril 40 mg PO DAILY 11/05/19 11/05/19 History metformin 1,000 mg PO BIDM 11/05/19 11/05/19 History pantoprazole 40 mg PO DAILY 11/05/19 11/05/19 History sertraline 25 mg PO DAILY 11/05/19 11/05/19 History sucralfate [Carafate] 1 g PO ACHS 11/05/19 11/05/19 History Patient History Medical History (Updated 11/05/19 @ 16:41 by Charmaine Bunch PA-C) Bleeding ulcer CAD (coronary artery disease) 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 Depression Diabetes Esophageal stricture History of laryngeal cancer Status post radiation HTN (hypertension) PTSD (post-traumatic stress disorder) Suicidal ideation (Acute) Surgical History History of coronary artery stent placement (Acute) History of endoscopy 08/2019 revealed esophageal strictures, gastric ulcerations and hemorrhagic duodenitis History of heart artery stent History of partial thyroidectomy Family History Father Cancer Lung Social History Preferred Language: Georgian Communication Ability: Effective Clinical Auditor Required: No Current Living Situation: Alone Other Information That Helps Us Care for You: No Feels Safe at Home: Yes Safety Concerns: Feels Safe At This Time Smoking Status: Former smoker Tobacco Type: cigars ; Hx Alcohol Use: No Hx Substance Use: No Review of Systems Constitutional: + anorexia and + weight loss; no fever, no chills and no fatigue Respiratory: no cough and no dyspnea Cardiovascular: no chest pain, no dyspnea on exertion and no palpitations Gastrointestinal: + abdominal pain, + nausea, + coffee ground emesis (history of coffee ground emesis) and + constipation; no belching, no bloating, no heartburn, no vomiting, no hematemesis, no pain with swallowing, no cramping, no change in stools, no fecal incontinence and no melena Physical Exam Constitutional: well developed and well nourished; no acute distress Neck: trachea midline Respiratory: normal respiratory effort, lungs clear to auscultation Cardiovascular: Rate/Rhythm: regular rate and regular rhythm Gastrointestinal (Abdomen): Percussion/Palpation: + abdomen tender (upper abdominal pain) and abdomen soft; no guarding, abdomen not rigid and no abdominal mass Skin: no rashes, warm and dry Results & Data ([facility]) Vital Signs (Past 12 Hours) Vital Signs Temp Pulse Pulse Resp BP Pulse Ox 11/06/19 07:25 36.5 C 64 18 159/94 H 98 11/06/19 07:00 60 11/06/19 03:05 36.5 C 75 18 174/103 H 96 11/06/19 00:08 79 11/05/19 23:29 36.5 C 64 18 151/89 H 96 Laboratory Results 11/06/19 11/06/19 11/06/19 Range/Units 07:02 07:02 07:02 WBC 4.18 L (4.8-10.8) K/uL RBC 4.59 L (4.7-6.1) M/uL Hgb 13.6 L (14.0-18.0) g/dL Hct 37.0 L (42-52) % MCV 80.6 (80-100) fL MCH 29.6 (25-34) pg MCHC 36.8 H (32-36) g/dL RDW Std Deviation 40.4 (36.4-46.3) fL RDW Coeff of Bernard[place] 13.8 (11.5-14.5) % Plt Count 122 L (130-400) K/uL MPV 8.6 (7.4-10.4) fL Immature Gran % (Auto) 0.0 % Neut % (Auto) 40.0 % Lymph % (Auto) 47.8 % Marion % (Auto) 8.6 % Eos % (Auto) 3.1 % Baso % (Auto) 0.5 % Immature Gran # (Auto) 0.00 (0.00-0.02) K/uL Neut # (Auto) 1.67 (1.4-6.5) K/uL Lymph # (Auto) 2.00 (1.2-3.4) K/uL [place] # (Auto) 0.36 (0.11-0.59) K/uL Eos # (Auto) 0.13 (0-0.5) K/uL Baso # (Auto) 0.02 (0-0.2) K/uL PT (9.0-12.0) Seconds INR (0.9-1.1) APTT (21.0-31.0) Seconds PTT Ratio Sodium 139 (136-145) mmol/L Potassium 3.8 D (3.5-5.1) mmol/L Chloride 108 H (98-107) mmol/L Carbon Dioxide 25 (21-32) mmol/L Anion Gap 5.0 (3-11) BUN 10 (7-18) mg/dl Creatinine 0.86 D (0.6-1.4) mg/dl Est Cr Clr Drug Dosing 122.7 ml/min Est GFR ( Amer) 107.7 Est GFR (Non-Af Amer) 92.9 BUN/Creatinine Ratio 11.4 (10-20) Glucose 185 H (70-99) mg/dl POC Glucose (70-99) mg/dl Estimat Average Glucose 209 mg/dl Hemoglobin A1c 8.9 H (4.5-5.6) % Hgb A1c Pathologist Com Calcium 8.1 L (8.5-10.1) mg/dl Total Bilirubin 0.8 (0.2-1) mg/dl AST 16 (15-37) U/L ALT 25 (12-78) U/L Alkaline Phosphatase 96 (45-117) U/L Troponin I (0-0.045) ng/ml Total Protein 6.3 L (6.4-8.2) gm/dl Albumin 3.0 L (3.4-5.0) gm/dl Globulin 3.3 (2.5-4.0) gm/dl Albumin/Globulin Ratio 0.9 (0.9-2) Lipase (73-393) U/L Beta-Hydroxybutyric Acd (0.2-2.81) mg/dl Urine Color Urine Appearance (Clear) Urine pH (4.5-7.5) Ur Specific [place] (1.000-1.030) Urine Protein (Negative) Urine Glucose (UA) (Negative) Urine Ketones (Negative) Urine Blood (Negative) Urine Nitrite (Negative) Urine Bilirubin (Negative) Urine Urobilinogen (Negative) Ur Leukocyte Esterase (Negative) Urine Opiates Screen (Neg) Ur Methadone, Qual (Neg) Urine Barbiturates (Neg) Ur Phencyclidine (PCP) (Neg) U Amphetamin/Meth Scrn (Neg) MDMA (Ecstasy) Screen (Neg) U Benzodiazepines Scrn (Neg) Ur Cocaine Metabolite (Neg) U Marijuana (THC) Screen (Neg) 11/05/19 11/05/19 11/05/19 Range/Units 23:10 23:10 20:07 WBC (4.8-10.8) K/uL RBC (4.7-6.1) M/uL Hgb 13.8 L (14.0-18.0) g/dL Hct 38.0 L (42-52) % MCV (80-100) fL MCH (25-34) pg MCHC (32-36) g/dL RDW Std Deviation (36.4-46.3) fL RDW Coeff of Bernarda (11.5-14.5) % Plt Count (130-400) K/uL MPV (7.4-10.4) fL Immature Gran % (Auto) % Neut % (Auto) % Lymph % (Auto) % [place] % (Auto) % Eos % (Auto) % Baso % (Auto) % Immature Gran # (Auto) (0.00-0.02) K/uL Neut # (Auto) (1.4-6.5) K/uL Lymph # (Auto) (1.2-3.4) K/uL [place] # (Auto) (0.11-0.59) K/uL Eos # (Auto) (0-0.5) K/uL Baso # (Auto) (0-0.2) K/uL PT (9.0-12.0) Seconds INR (0.9-1.1) APTT (21.0-31.0) Seconds PTT Ratio Sodium (136-145) mmol/L Potassium (3.5-5.1) mmol/L Chloride (98-107) mmol/L Carbon Dioxide (21-32) mmol/L Anion Gap (3-11) BUN (7-18) mg/dl Creatinine (0.6-1.4) mg/dl Est Cr Clr Drug Dosing ml/min Est GFR ( Amer) Est GFR (Non-Af Amer) BUN/Creatinine Ratio (10-20) Glucose (70-99) mg/dl POC Glucose 217 H (70-99) mg/dl Estimat Average Glucose mg/dl Hemoglobin A1c (4.5-5.6) % Hgb A1c Pathologist Com Calcium (8.5-10.1) mg/dl Total Bilirubin (0.2-1) mg/dl AST (15-37) U/L ALT (12-78) U/L Alkaline Phosphatase (45-117) U/L Troponin I < 0.015 (0-0.045) ng/ml Total Protein (6.4-8.2) gm/dl Albumin (3.4-5.0) gm/dl Globulin (2.5-4.0) gm/dl Albumin/Globulin Ratio (0.9-2) Lipase (73-393) U/L Beta-Hydroxybutyric Acd (0.2-2.81) mg/dl Urine Color Urine Appearance (Clear) Urine pH (4.5-7.5) Ur Specific [place] (1.000-1.030) Urine Protein (Negative) Urine Glucose (UA) (Negative) Urine Ketones (Negative) Urine Blood (Negative) Urine Nitrite (Negative) Urine Bilirubin (Negative) Urine Urobilinogen (Negative) Ur Leukocyte Esterase (Negative) Urine Opiates Screen (Neg) Ur Methadone, Qual (Neg) Urine Barbiturates (Neg) Ur Phencyclidine (PCP) (Neg) U Amphetamin/Meth Scrn (Neg) MDMA (Ecstasy) Screen (Neg) U Benzodiazepines Scrn (Neg) Ur Cocaine Metabolite (Neg) U Marijuana (THC) Screen (Neg) 11/05/19 11/05/19 11/05/19 Range/Units 18:01 18:01 17:15 WBC (4.8-10.8) K/uL RBC (4.7-6.1) M/uL Hgb 14.3 (14.0-18.0) g/dL Hct 39.4 L (42-52) % MCV (80-100) fL MCH (25-34) pg MCHC (32-36) g/dL RDW Std Deviation (36.4-46.3) fL RDW Coeff of Bernarda (11.5-14.5) % Plt Count (130-400) K/uL MPV (7.4-10.4) fL Immature Gran % (Auto) % Neut % (Auto) % Lymph % (Auto) % [place] % (Auto) % Eos % (Auto) % Baso % (Auto) % Immature Gran # (Auto) (0.00-0.02) K/uL Neut # (Auto) (1.4-6.5) K/uL Lymph # (Auto) (1.2-3.4) K/uL [place] # (Auto) (0.11-0.59) K/uL Eos # (Auto) (0-0.5) K/uL Baso # (Auto) (0-0.2) K/uL PT (9.0-12.0) Seconds INR (0.9-1.1) APTT (21.0-31.0) Seconds PTT Ratio Sodium (136-145) mmol/L Potassium (3.5-5.1) mmol/L Chloride (98-107) mmol/L Carbon Dioxide (21-32) mmol/L Anion Gap (3-11) BUN (7-18) mg/dl Creatinine (0.6-1.4) mg/dl Est Cr Clr Drug Dosing ml/min Est GFR ( Amer) Est GFR (Non-Af Amer) BUN/Creatinine Ratio (10-20) Glucose (70-99) mg/dl POC Glucose 230 H (70-99) mg/dl Estimat Average Glucose mg/dl Hemoglobin A1c (4.5-5.6) % Hgb A1c Pathologist Com Calcium (8.5-10.1) mg/dl Total Bilirubin (0.2-1) mg/dl AST (15-37) U/L ALT (12-78) U/L Alkaline Phosphatase (45-117) U/L Troponin I < 0.015 (0-0.045) ng/ml Total Protein (6.4-8.2) gm/dl Albumin (3.4-5.0) gm/dl Globulin (2.5-4.0) gm/dl Albumin/Globulin Ratio (0.9-2) Lipase (73-393) U/L Beta-Hydroxybutyric Acd (0.2-2.81) mg/dl Urine Color Urine Appearance (Clear) Urine pH (4.5-7.5) Ur Specific [place] (1.000-1.030) Urine Protein (Negative) Urine Glucose (UA) (Negative) Urine Ketones (Negative) Urine Blood (Negative) Urine Nitrite (Negative) Urine Bilirubin (Negative) Urine Urobilinogen (Negative) Ur Leukocyte Esterase (Negative) Urine Opiates Screen (Neg) Ur Methadone, Qual (Neg) Urine Barbiturates (Neg) Ur Phencyclidine (PCP) (Neg) U Amphetamin/Meth Scrn (Neg) MDMA (Ecstasy) Screen (Neg) U Benzodiazepines Scrn (Neg) Ur Cocaine Metabolite (Neg) U Marijuana (THC) Screen (Neg) 11/05/19 11/05/19 11/05/19 Range/Units 14:52 11:55 11:05 WBC (4.8-10.8) K/uL RBC (4.7-6.1) M/uL Hgb (14.0-18.0) g/dL Hct (42-52) % MCV (80-100) fL MCH (25-34) pg MCHC (32-36) g/dL RDW Std Deviation (36.4-46.3) fL RDW Coeff of Bernarda (11.5-14.5) % Plt Count (130-400) K/uL MPV (7.4-10.4) fL Immature Gran % (Auto) % Neut % (Auto) % Lymph % (Auto) % [place] % (Auto) % Eos % (Auto) % Baso % (Auto) % Immature Gran # (Auto) (0.00-0.02) K/uL Neut # (Auto) (1.4-6.5) K/uL Lymph # (Auto) (1.2-3.4) K/uL [place] # (Auto) (0.11-0.59) K/uL Eos # (Auto) (0-0.5) K/uL Baso # (Auto) (0-0.2) K/uL PT (9.0-12.0) Seconds INR (0.9-1.1) APTT (21.0-31.0) Seconds PTT Ratio Sodium (136-145) mmol/L Potassium (3.5-5.1) mmol/L Chloride (98-107) mmol/L Carbon Dioxide (21-32) mmol/L Anion Gap (3-11) BUN (7-18) mg/dl Creatinine (0.6-1.4) mg/dl Est Cr Clr Drug Dosing ml/min Est GFR ( Amer) Est GFR (Non-Af Amer) BUN/Creatinine Ratio (10-20) Glucose (70-99) mg/dl POC Glucose 326 H* (70-99) mg/dl Estimat Average Glucose mg/dl Hemoglobin A1c (4.5-5.6) % Hgb A1c Pathologist Com Calcium (8.5-10.1) mg/dl Total Bilirubin (0.2-1) mg/dl AST (15-37) U/L ALT (12-78) U/L Alkaline Phosphatase (45-117) U/L Troponin I (0-0.045) ng/ml Total Protein (6.4-8.2) gm/dl Albumin (3.4-5.0) gm/dl Globulin (2.5-4.0) gm/dl Albumin/Globulin Ratio (0.9-2) Lipase 374 (73-393) U/L Beta-Hydroxybutyric Acd (0.2-2.81) mg/dl Urine Color Urine Appearance (Clear) Urine pH (4.5-7.5) Ur Specific [place] (1.000-1.030) Urine Protein (Negative) Urine Glucose (UA) (Negative) Urine Ketones (Negative) Urine Blood (Negative) Urine Nitrite (Negative) Urine Bilirubin (Negative) Urine Urobilinogen (Negative) Ur Leukocyte Esterase (Negative) Urine Opiates Screen Neg (Neg) Ur Methadone, Qual Neg (Neg) Urine Barbiturates Neg (Neg) Ur Phencyclidine (PCP) Neg (Neg) U Amphetamin/Meth Scrn Neg (Neg) MDMA (Ecstasy) Screen Neg (Neg) U Benzodiazepines Scrn Neg (Neg) Ur Cocaine Metabolite Neg (Neg) U Marijuana (THC) Screen Neg (Neg) 11/05/19 11/05/19 11/05/19 Range/Units 11:05 11:05 11:05 WBC (4.8-10.8) K/uL RBC (4.7-6.1) M/uL Hgb (14.0-18.0) g/dL Hct (42-52) % MCV (80-100) fL MCH (25-34) pg MCHC (32-36) g/dL RDW Std Deviation (36.4-46.3) fL RDW Coeff of Bernarda (11.5-14.5) % Plt Count (130-400) K/uL MPV (7.4-10.4) fL Immature Gran % (Auto) % Neut % (Auto) % Lymph % (Auto) % [place] % (Auto) % Eos % (Auto) % Baso % (Auto) % Immature Gran # (Auto) (0.00-0.02) K/uL Neut # (Auto) (1.4-6.5) K/uL Lymph # (Auto) (1.2-3.4) K/uL [place] # (Auto) (0.11-0.59) K/uL Eos # (Auto) (0-0.5) K/uL Baso # (Auto) (0-0.2) K/uL PT 10.0 (9.0-12.0) Seconds INR 1.0 (0.9-1.1) APTT 23.4 (21.0-31.0) Seconds PTT Ratio 0.9 Sodium 136 (136-145) mmol/L Potassium 4.5 (3.5-5.1) mmol/L Chloride 102 (98-107) mmol/L Carbon Dioxide 29 (21-32) mmol/L Anion Gap 5.0 (3-11) BUN 13 (7-18) mg/dl Creatinine 1.19 (0.6-1.4) mg/dl Est Cr Clr Drug Dosing 89.1 ml/min Est GFR ( Amer) 75.4 Est GFR (Non-Af Amer) 65.1 BUN/Creatinine Ratio 11.0 (10-20) Glucose 427 H* (70-99) mg/dl POC Glucose (70-99) mg/dl Estimat Average Glucose mg/dl Hemoglobin A1c (4.5-5.6) % Hgb A1c Pathologist Com Calcium 8.8 (8.5-10.1) mg/dl Total Bilirubin 0.7 (0.2-1) mg/dl AST 19 (15-37) U/L ALT 31 (12-78) U/L Alkaline Phosphatase 141 H (45-117) U/L Troponin I < 0.015 (0-0.045) ng/ml Total Protein 7.5 (6.4-8.2) gm/dl Albumin 3.6 (3.4-5.0) gm/dl Globulin 3.9 (2.5-4.0) gm/dl Albumin/Globulin Ratio 0.9 (0.9-2) Lipase (73-393) U/L Beta-Hydroxybutyric Acd 0.73 (0.2-2.81) mg/dl Urine Color Yellow Urine Appearance Clear (Clear) Urine pH 6.0 (4.5-7.5) Ur Specific [place] 1.033 H (1.000-1.030) Urine Protein Negative (Negative) Urine Glucose (UA) 3+ H (Negative) Urine Ketones Negative (Negative) Urine Blood Negative (Negative) Urine Nitrite Negative (Negative) Urine Bilirubin Negative (Negative) Urine Urobilinogen Negative (Negative) Ur Leukocyte Esterase Negative (Negative) Urine Opiates Screen (Neg) Ur Methadone, Qual (Neg) Urine Barbiturates (Neg) Ur Phencyclidine (PCP) (Neg) U Amphetamin/Meth Scrn (Neg) MDMA (Ecstasy) Screen (Neg) U Benzodiazepines Scrn (Neg) Ur Cocaine Metabolite (Neg) U Marijuana (THC) Screen (Neg) 11/05/19 Range/Units 11:05 WBC 4.19 L (4.8-10.8) K/uL RBC 4.77 (4.7-6.1) M/uL Hgb 14.4 (14.0-18.0) g/dL Hct 39.6 L (42-52) % MCV 83.0 (80-100) fL MCH 30.2 (25-34) pg MCHC 36.4 H (32-36) g/dL RDW Std Deviation 41.5 (36.4-46.3) fL RDW Coeff of Bernarda 13.7 (11.5-14.5) % Plt Count 136 (130-400) K/uL MPV 9.5 (7.4-10.4) fL Immature Gran % (Auto) 0.2 % Neut % (Auto) 55.5 % Lymph % (Auto) 34.6 % [place] % (Auto) 7.6 % Eos % (Auto) 1.4 % Baso % (Auto) 0.7 % Immature Gran # (Auto) 0.01 (0.00-0.02) K/uL Neut # (Auto) 2.32 (1.4-6.5) K/uL Lymph # (Auto) 1.45 (1.2-3.4) K/uL [place] # (Auto) 0.32 (0.11-0.59) K/uL Eos # (Auto) 0.06 (0-0.5) K/uL Baso # (Auto) 0.03 (0-0.2) K/uL PT (9.0-12.0) Seconds INR (0.9-1.1) APTT (21.0-31.0) Seconds PTT Ratio Sodium (136-145) mmol/L Potassium (3.5-5.1) mmol/L Chloride (98-107) mmol/L Carbon Dioxide (21-32) mmol/L Anion Gap (3-11) BUN (7-18) mg/dl Creatinine (0.6-1.4) mg/dl Est Cr Clr Drug Dosing ml/min Est GFR ( Amer) Est GFR (Non-Af Amer) BUN/Creatinine Ratio (10-20) Glucose (70-99) mg/dl POC Glucose (70-99) mg/dl Estimat Average Glucose mg/dl Hemoglobin A1c (4.5-5.6) % Hgb A1c Pathologist Com Calcium (8.5-10.1) mg/dl Total Bilirubin (0.2-1) mg/dl AST (15-37) U/L ALT (12-78) U/L Alkaline Phosphatase (45-117) U/L Troponin I (0-0.045) ng/ml Total Protein (6.4-8.2) gm/dl Albumin (3.4-5.0) gm/dl Globulin (2.5-4.0) gm/dl Albumin/Globulin Ratio (0.9-2) Lipase (73-393) U/L Beta-Hydroxybutyric Acd (0.2-2.81) mg/dl Urine Color Urine Appearance (Clear) Urine pH (4.5-7.5) Ur Specific [place] (1.000-1.030) Urine Protein (Negative) Urine Glucose (UA) (Negative) Urine Ketones (Negative) Urine Blood (Negative) Urine Nitrite (Negative) Urine Bilirubin (Negative) Urine Urobilinogen (Negative) Ur Leukocyte Esterase (Negative) Urine Opiates Screen (Neg) Ur Methadone, Qual (Neg) Urine Barbiturates (Neg) Ur Phencyclidine (PCP) (Neg) U Amphetamin/Meth Scrn (Neg) MDMA (Ecstasy) Screen (Neg) U Benzodiazepines Scrn (Neg) Ur Cocaine Metabolite (Neg) U Marijuana (THC) Screen (Neg) (1) Abdominal pain Abdominal location: unspecified location Qualified Code(s): R10.9 - Unspecified abdominal pain
--- NOTE | 2019-11-06 10:59 | Electrocardiogram Report ---
Test Reason : Blood Pressure : / mmHG Vent. Rate : 063 BPM Atrial Rate : 063 BPM P-R Int : 176 ms QRS Dur : 084 ms QT Int : 416 ms P-R-T Axes : 081 050 030 degrees QTc Int : 425 ms Normal sinus rhythm Normal ECG When compared with ECG of 05-NOV-2019 10:33, No significant change was found Confirmed by Lefty Whitmore ([id number]) on 11/06/2019 10:59:25 AM Referred By: REFERRED SELF Confirmed By:Lefty Whitmore
--- NOTE | 2019-11-06 11:13 | Hospitalist Progress Note ---
Date of Service November 06, 2019 Assessment & Plan (1) Coffee ground emesis: (2) BRBPR (bright red blood per rectum): (3) Chest pain, precordial: (4) Abdominal pain: This is a 64-year-old -[place] male who has significant PMH of CAD with PCI to LAD, IDDM 2, HTN, HLD, depression with anxiety, history of psychiatric hospitalizations, chronic compartment syndrome RUE s/p cardiac cath, esophageal stricture, history of laryngeal CA s/p XRT, history of PUD who presents to ED with multiple complaints including chest pain off and on x3 days and abdominal pain x1 day. In ED patient remained hemodynamically stable. His H&H 14.4 and 39.6, WC 4.19, platelet 136, BUN 13, creatinine 1.19, glucose 427, troponin WNL, LFTs WNL, lipase WNL. Urinalysis reviewed elevated specific gravity but was otherwise negative for blood, infection and tox screen. Chest x-ray reviewed no acute cardiopulmonary abnormality. CT A/P: Mild ectasia of the aortic bifurcation and bilateral common iliac arteries, the larger on the right measuring 1.7 cm. No intraabdominal pathology. Multiple left adrenal gland nodules, which are indeterminate though statistically most likely represent benign adenomas, Chronic bladder outlet obstruction secondary to prostatomegaly. He was started on a PPI bolus and drip, IVF, IV morphine and received 8 units IV regular insulin. admit to med tele clear liquid diet, NPO after midnight consult GI - likely to need EGD given recent dx of hemorrhagic duodenitis, stric ture and multiple ulcers consult cardiology - hx of cad with stent placement in past. CP x 3 days off and on to L arm. Initial trop negative and ECG without change, poor compliance and poorly controlled diabetic, off antiplatelet due to GIB troponins negative x 3, no acute telemetry events, continue telemetry monitoring for now (5) Duodenitis: Recently hospitalized 09/20/19-09/25/19 at [facility] in [place] secondary to chest pain and abdominal pain. Underwent endoscopy per discharge summary which revealed multiple antral ulcers along with hemorrhagic duodenitis. He was discharged on PPI and Carafate. Patient with poor compliance. He is being admitted with reports of coffee-ground emesis and BRBPR in brief. Patient received IV PPI bolus in ED, was was on IV PPI drip Carafate 1 g before meals at bedtime clear liquid diet 11/06/2019 GI recommended transition from IV protonics to oral protonics and bowel regimen will monitor on telemetry and send FOBT when possible, based on current blood counts Hemoglobin not suggestive of acute GI bleed as Hgb on admission 14.4 and recent Hgb of 13.8 and 13.6 (6) Esophageal stricture: dilated strictures per recent d/c summary clear liquid diet advance diet depending if GI symptoms stable or improves, diet re-assessment on 11/07/2019 (7) CAD (coronary artery disease): History of previous coronary stent placed LAD. 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 Continue Coreg, lisinopril Not on ASA or Plavix due to above Consult cardiology given nature of chest pain and poor compliance, will likely need outpatient follow-up as well (8) Diabetes: uncontrolled diabetes presenting with hyperglycemia Last A1c noted to be 8.9 02/2019 Lantus/NovoLog per protocol Continue TIGRE for renal protection On gabapentin, questionable neuropathy (9) HTN (hypertension): blood pressure stable in ED on lisinopril, coreg, continue (10) Depression: Previous inpatient psych hospitalization 03/2019 due to suicidal ideation Denies any suicidal ideation at this time Per discharge summary at OSH on Zoloft daily; however per psych hospital DC was placed on Cymbalta and trazodone Patient is unaware what medications he is taking We will continue low-dose Zoloft daily low threshold for psychiatric involvement as per admission hospitalist team assessments currently mood is stable (11) DVT prophylaxis: SCD/TEDS given concern for GIB Disposition: admit to med/surg tele Follow up: Pt needs to establish with PCP in area and have close follow up along with appropriate GI and Cardiology follow up Admission and Anticipated Discharge Date Admission Date: November 05, 2019 Subjective Tenderness of the abdomen when I placed my stethoscope to the abdomen. no vomiting today. no fevers recently as per patient. no chest pain. no dizziness. no headache. Review of Systems Review of Systems: All systems reviewed & are unremarkable except as noted in HPI & below Physical Exam Constitutional: WD/WN, vitals as above Eyes: PERRL, conjunctivae normal, anicteric sclerae EOM intact bilaterally ENMT: external ear and nose normal, oropharynx normal Neck: normal visual inspection Respiratory: normal respiratory effort, lungs clear to auscultation Gastrointestinal (Abdomen): tenderness on palpation Musculoskeletal: Head/Neck/Chest: normocephalic and head atraumatic Neurologic: PERRL, EOMI, accommodation nl, no face palsy, no dysarthria CN's II-XI intact bilaterally Psychiatric: A+Ox3, euthymic affect Results & Data ([facility]) Vital Signs (Past 12 Hours) Vital Signs Temp Pulse Pulse Resp BP Pulse Ox 11/06/19 07:25 36.5 C 64 18 159/94 H 98 11/06/19 07:00 60 11/06/19 03:05 36.5 C 75 18 174/103 H 96 11/06/19 00:08 79 11/05/19 23:29 36.5 C 64 18 151/89 H 96 (1) Abdominal pain Abdominal location: unspecified location Qualified Code(s): R10.9 - Unspecified abdominal pain
[2019-11-06] MEDS: POLYETHYLENE (MIRALAX) 17 GM PACK PO SCH (11:23)
[2019-11-06] MEDS: DOCUSATE SODIUM 100 MG CAP PO SCH ×2 (11:23→20:59)
--- NOTE | 2019-11-06 15:02 | Electrocardiogram Report ---
Test Reason : Blood Pressure : / mmHG Vent. Rate : 063 BPM Atrial Rate : 063 BPM P-R Int : 168 ms QRS Dur : 086 ms QT Int : 424 ms P-R-T Axes : 069 054 051 degrees QTc Int : 433 ms Normal sinus rhythm Normal ECG When compared with ECG of 05-NOV-2019 16:40, (unconfirmed) No significant change was found Confirmed by Lefty Whitmore ([id number]) on 11/06/2019 3:02:08 PM Referred By: REFERRED SELF Confirmed By:Lefty Whitmore
--- NOTE | 2019-11-06 16:52 | Cardiology Consultation ---
Date of Consultation November 06, 2019 Assessment & Plan (1) CAD (coronary artery disease): The patient states that he has been seen at multiple institutions because he travels for his job. With this in mind, I reviewed his records in [facility] utilizing the "Care Everywhere" function. I counted 34 institutions from which the patient has received care. After his admission to our facility in February,, a post hospital follow-up visit has been arranged for 06/01/2019 which the patient did not keep. I asked the patient if he has been taking aspirin or clopidogrel recently, and he did not know. With recent endoscopy findings of gastric ulcer, duodenitis, and ongoing vague abdominal discomfort, I do not feel he is a candidate for going back on antiplatelet therapy at the present time. Cardiac enzymes are negative, serial EKG tracings are negative. I do not think that further ischemic work-up is indicated at this time, and I do not think he is a candidate for antiplatelet therapy. The patient was counseled to establish a local long-term care outside the hospital. History of Present Illness Attending Physician: Russ Reynolds MD History of Present Illness Unruly Ruiz is a 64 year old male seen in cardiology consultation per the request of Erasmo Bunch PA-C of the [facility] service for the evaluation of chest pain. The patient denies chest discomfort at present, but does describe generalized abdominal discomfort, reproduced on palpitation. 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 For this reason he travels a great deal with his job, although he tells me that he is settling locally. Interestingly, when I viewed a recent discharge summary from [facility], it appears he had expressed to the provider there that he was establishing local care there and follow-up visits were made there at the time of his discharge in August,. An outpatient gastroenterology note from [facility] in [place], [place] describes recent admission there from 09/20/2019 until 09/25/2018 with initial complaint of chest pain and abdominal discomfort. Endoscopy was performed and the patient was found to have esophageal strictures which were dilated as well as gastric ulcers with hemorrhagic duodenitis. He was started on proton pump inhibitor medication as well as Carafate. Cardiac enzymes were reportedly negative. The GI follow-up note specifically states that treatment with clopidogrel was discontinued during that hospital stay. In the medication list at that time included no clopidogrel and no aspirin. Past history is notable for coronary intervention to the left anterior descending coronary artery in September 2016. He subsequently underwent balloon angioplasty distal to the stent later in 2016 at [facility] with course complicated by hemorrhage and compartment syndrome in the right forearm for which she required fasciotomy and has a long well-healed surgical incision on the ventral aspect of his right forearm. He had been hospitalized about the knee on 03/23/2019 and underwent dobutamine stress echocardiogram supervised by my partner Dr. Lozano with nonischemic response at that time. He was discharged at that time on no antiplatelet therapy. Allergies Allergy/AdvReac Type Severity Reaction Status Date / Time diphenhydramine Allergy Intermediate Unknown Unverified 11/05/19 12:05 [From Kim] Home Medications Home Medications Medication Instructions Recorded Confirmed Type Basaglar KwikPen U-100 Insulin 20 unit SUBCUT BID 03/23/19 11/05/19 History atorvastatin 80 mg PO HS 11/05/19 11/05/19 History carvedilol 3.125 mg PO BID 11/05/19 11/05/19 History gabapentin 100 mg PO TID 11/05/19 11/05/19 History lisinopril 40 mg PO DAILY 11/05/19 11/05/19 History metformin 1,000 mg PO BIDM 11/05/19 11/05/19 History pantoprazole 40 mg PO DAILY 11/05/19 11/05/19 History sertraline 25 mg PO DAILY 11/05/19 11/05/19 History sucralfate [Carafate] 1 g PO ACHS 11/05/19 11/05/19 History Patient History Medical History Bleeding ulcer CAD (coronary artery disease) 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 Depression Diabetes Esophageal stricture History of laryngeal cancer Status post radiation HTN (hypertension) PTSD (post-traumatic stress disorder) Suicidal ideation (Acute) Surgical History History of coronary artery stent placement (Acute) History of endoscopy 08/2019 revealed esophageal strictures, gastric ulcerations and hemorrhagic duodenitis History of heart artery stent History of partial thyroidectomy Family History Father Cancer Lung Social History Preferred Language: Telugu Communication Ability: Effective Inspector Outside Production Required: No Current Living Situation: Alone Other Information That Helps Us Care for You: No Feels Safe at Home: Yes Safety Concerns: Feels Safe At This Time Smoking Status: Former smoker Tobacco Type: cigars ; Hx Alcohol Use: No Hx Substance Use: No Physical Exam Physical Exam: Temp Pulse Resp BP Pulse Ox 36.6 C 61 18 156/94 H 97 11/06/19 16:00 11/06/19 16:00 11/06/19 16:00 11/06/19 16:00 11/06/19 16:00 Constitutional: + ill appearing; no acute distress Respiratory: normal respiratory effort, lungs clear to auscultation Cardiovascular: RRR, no murmur, no edema Gastrointestinal (Abdomen): Mild diffuse tenderness on light palpation Musculoskeletal: Well-healed incision over the ventral aspect of the right for earm consistent with patient's history of surgical intervention for right forearm compartment syndrome Neurologic: PERRL, EOMI, accommodation nl, no face palsy, no dysarthria Results & Data ([facility]) Vital Signs (Past 12 Hours) Vital Signs Temp Pulse Pulse Resp BP Pulse Ox 11/06/19 16:00 36.6 C 61 18 156/94 H 97 11/06/19 14:20 62 11/06/19 11:20 36.8 C 55 L 18 143/87 H 95 11/06/19 07:25 36.5 C 64 18 159/94 H 98 11/06/19 07:00 60 Laboratory Results Cardiac Enzymes 11/05/19 11/05/19 11/06/19 Range/Units 18:01 23:10 07:02 AST 16 (15-37) U/L Troponin I < 0.015 < 0.015 (0-0.045) ng/ml CBC 11/05/19 11/05/19 11/06/19 Range/Units 18:01 23:10 07:02 WBC 4.18 L (4.8-10.8) K/uL RBC 4.59 L (4.7-6.1) M/uL Hgb 14.3 13.8 L 13.6 L (14.0-18.0) g/dL Hct 39.4 L 38.0 L 37.0 L (42-52) % Plt Count 122 L (130-400) K/uL Neut # (Auto) 1.67 (1.4-6.5) K/uL Lymph # (Auto) 2.00 (1.2-3.4) K/uL [place] # (Auto) 0.36 (0.11-0.59) K/uL Eos # (Auto) 0.13 (0-0.5) K/uL Baso # (Auto) 0.02 (0-0.2) K/uL Comprehensive Metabolic Panel 11/06/19 Range/Units 07:02 Sodium 139 (136-145) mmol/L Potassium 3.8 D (3.5-5.1) mmol/L Chloride 108 H (98-107) mmol/L Carbon Dioxide 25 (21-32) mmol/L BUN 10 (7-18) mg/dl Creatinine 0.86 D (0.6-1.4) mg/dl Glucose 185 H (70-99) mg/dl Calcium 8.1 L (8.5-10.1) mg/dl AST 16 (15-37) U/L ALT 25 (12-78) U/L Alkaline Phosphatase 96 (45-117) U/L Total Protein 6.3 L (6.4-8.2) gm/dl Albumin 3.0 L (3.4-5.0) gm/dl Intake and Output 11/06/19 11/06/19 11/06/19 06:59 14:59 22:59 Intake Total 1200 / 2612 1100 / 1100 Output Total 625 / 625 300 / 300 Balance 1986 800 / 800 Intake: IV 1100 / 2512 1100 / 1100 Protonix 40 mg In D5 100 ml @ 100 / 292 100 / 100 20 mls/hr IV Q5H MARCOS Rx#: [id number] Nss 1000ML 1,000 ml @ 125 mls/ 1000 / 1000 1000 / 1000 hr IV .Q8H MARCOS Rx#:[id number] Oral 100 / 100 Output: Urine 625 / 625 300 / 300 Other: Other Intake Source npo Weight 113.4 kg 113.4 kg Patient Weight 11/07/19 06:59 Weight 113.4 kg Diagnostic Findings EKG tracing performed 11/05/2019 at 10:30 AM revealed normal sinus rhythm at 93 bpm. Unchanged compared to 05/25/2019 EKG performed 11/05/2019 at 1640 revealed normal sinus rhythm at 63 bpm, normal EKG. EKG performed 11/06/2019 revealed normal sinus rhythm, normal EKG. Telemetry reveals stable sinus rhythm in the range of 60 to 70 bpm. Medications Administered Current Inpatient Medications Acetaminophen (Tylenol) 650 mg PO Q4H PRN PRN Reason: Pain Stop: 12/05/19 20:24 Atorvastatin Calcium (Lipitor) 80 mg PO HS [facility] Stop: 12/05/19 20:59 Last Admin: 11/05/19 21:13 Dose: 80 mg Documented by: Carvedilol (Coreg) 3.125 mg PO BID [facility] Stop: 12/05/19 20:59 Last Admin: 11/06/19 08:22 Dose: 3.125 mg Documented by: Dextrose (Dextrose 50%) 25 - 50 ml IV UD PRN; Protocol PRN Reason: Hypoglycemia Protocol Stop: 12/05/19 17:16 Docusate Sodium (Colace) 100 mg PO BID [facility] Stop: 12/06/19 10:29 Last Admin: 11/06/19 11:23 Dose: 100 mg Documented by: Gabapentin (Neurontin) 100 mg PO TID [facility] Stop: 12/05/19 20:59 Last Admin: 11/06/19 12:54 Dose: 100 mg Documented by: Glucagon (Glucagen) 1 mg SQ UD PRN; Protocol PRN Reason: Hypoglycemia Protocol Stop: 12/05/19 17:16 Glucose (Dex4 Glucose) 4 - 8 tabs PO UD PRN; Protocol PRN Reason: Hypoglycemia Protocol Stop: 12/05/19 17:16 Glucose (Glucose 40%) 15 - 30 gm PO UD PRN; Protocol PRN Reason: Hypoglycemia Protocol Stop: 12/05/19 17:16 Insulin Aspart (Novolog Flexpen) 0 units SC ACHS [facility] Stop: 12/05/19 17:29 Last Admin: 11/06/19 17:21 Dose: 4 units Documented by: Insulin Glargine (Lantus Solostar Pen) 0 - 20 units SC BID [facility] Stop: 12/05/19 20:59 Last Admin: 11/06/19 08:16 Dose: 20 units Documented by: Lisinopril (Zestril) 40 mg PO DAILY [facility] Stop: 12/06/19 08:59 Last Admin: 11/06/19 08:23 Dose: 40 mg Documented by: Miscellaneous (Carbohydrates For Hypoglycemia) 15 - 30 gm PO UD PRN PRN Reason: Hypoglycemia Protocol Stop: 12/05/19 17:16 Miscellaneous (Remove Nicoderm Patch) 1 ea N/A DAILY@0859 [facility] Stop: 12/05/19 18:19 Last Admin: 11/06/19 08:38 Dose: 1 ea Documented by: Nicotine (Nicoderm Cq) 14 mg TD QAM [facility] Stop: 12/06/19 08:59 Last Admin: 11/06/19 08:39 Dose: 14 mg Documented by: Ondansetron HCl (Zofran) 4 mg IV Q6H PRN PRN Reason: Nausea Stop: 12/05/19 20:36 Pantoprazole Sodium (Protonix) 40 mg PO BID [facility] Stop: 12/06/19 20:59 Polyethylene Glycol (Miralax Powder Packet) 17 gm PO DAILY [facility] Stop: 12/06/19 10:29 Last Admin: 11/06/19 11:23 Dose: 17 gm Documented by: Sertraline HCl (Zoloft) 25 mg PO DAILY [facility] Stop: 12/06/19 08:59 Last Admin: 11/06/19 08:23 Dose: 25 mg Documented by: Sucralfate (Carafate Tab) 1 gm PO ACHS [facility] Stop: 12/05/19 17:16 Last Admin: 11/06/19 17:20 Dose: 1 gm Documented by:
[2019-11-06] MEDS: ATORVASTATIN 40 MG TAB PO SCH (20:58)
[2019-11-06] MEDS: PANTOprazole 40 MG TAB PO SCH (20:59)
[2019-11-06] MEDS ORDERED: ZOLPIDEM TARTRATE 5 MG TAB PO STA (21:11)
[2019-11-07 06:34] LABS: Basophils # (auto) 0.03 K/uL (0-0.2); Basophils % (auto) 0.8 %; Eosinophils # (auto) 0.09 K/uL (0-0.5); Eosinophils % (auto) 2.3 %; Hematocrit (blood only) 37.2 % (42-52); Lymphocytes # (auto) 1.46 K/uL (1.2-3.4); Lymphocytes % (auto) 36.5 %; Mean Corpuscular Hemoglobin 30.1 pg (25-34); Mean Corpuscular Hgb Conc 37.6 g/dL (32-36); Mean Platelet Volume 8.7 fL (7.4-10.4); Neutrophils # (auto) 2.02 K/uL (1.4-6.5); Neutrophils % (auto) 50.4 %; Platelet Count 122 K/uL (130-400); RDW Coefficient of Variation 13.6 % (11.5-14.5); RDW Standard Deviation 39.4 fL (36.4-46.3); Red Blood Count 4.65 M/uL (4.7-6.1)
[2019-11-07 07:05] LABS: BUN Creatinine Ratio 10.7 (10-20); Calcium 8.7 mg/dl (8.5-10.1); Creatinine Clr Calc Pharmacy 132.8 ml/min; Est GFR (African American) 111.5; Est GFR (Non-African American) 96.2; Potassium 3.7 mmol/L (3.5-5.1)
[2019-11-07 07:07] LABS: Albumin Globulin Ratio 0.9 (0.9-2); Bilirubin,Total 1.2 mg/dl (0.2-1); Globulin 3.5 gm/dl (2.5-4.0); Total Protein 6.5 gm/dl (6.4-8.2)
[2019-11-07 07:14] LABS: Platelet Estimate Decreased (Normal)
[2019-11-07] MEDS: SUCRALFATE 1 GM TAB PO SCH ×4 (08:08→21:01)
[2019-11-07] MEDS: DOCUSATE SODIUM 100 MG CAP PO SCH ×2 (08:09→21:00)
[2019-11-07] MEDS: POLYETHYLENE (MIRALAX) 17 GM PACK PO SCH ×2 (08:09→08:22)
[2019-11-07] MEDS: GABAPENTIN 100 MG CAP PO SCH ×3 (08:10→20:59)
[2019-11-07] MEDS: NICOTINE 14 MG/24 HR PATCH TD SCH (08:10)
[2019-11-07] MEDS: lisinopriL 40 MG TAB PO SCH (08:10)
[2019-11-07] MEDS: carvediloL 3.125 MG TAB PO SCH ×2 (08:11→21:00)
[2019-11-07] MEDS: INSULIN GLARGINE SOLOSTAR 100 UNITS/ML 3 ML PEN SC SCH ×2 (08:11→21:00)
[2019-11-07] MEDS: SERTRALINE HCL 50 MG TABLET PO SCH (08:11)
[2019-11-07] MEDS: PANTOprazole 40 MG TAB PO SCH ×2 (08:11→21:00)
[2019-11-07] MEDS: INSULIN ASPART 100 UNITS/ML 3 ML PEN SC SCH ×3 (08:13→18:08)
--- NOTE | 2019-11-07 11:22 | Hospitalist Progress Note ---
Date of Service November 07, 2019 Assessment & Plan (1) Abdominal pain: Coffee ground emesis, Hematochezia - no recurrence Hg stable at 14 -Given #2, requested GI service to reevaluate the patient Lower abdominal pain - r/o UTI r/o Prostatis check UA, Culture if indicated bladder scan may need Abx, FLomax Diarrhea, Lower Abdominal pain - check C diff - GI re-evaluation IV NSS, PRN Tramadol Hypertension - not controlled from pain? - Amlodipine 5mg po daily started Continue lisinopril 40 mg daily and carvedilol 3.125 mg p.o. twice daily Duodenitis: Per previous attending notes, Dr. Elisha Reynolds: Recently hospitalized 09/20/19-09/25/19 at [facility] in [place] secondary to chest pain and abdominal pain. Underwent endoscopy per discharge summary which revealed multiple antral ulcers along with hemorrhagic duodenitis. He was discharged on PPI and Carafate. Patient with poor compliance. He is being admitted with reports of coffee-ground emesis and BRBPR in brief. Patient received IV PPI bolus in ED, was was on IV PPI drip Carafate 1 g before meals at bedtime clear liquid diet --GI recommends Protonix twice daily and sucralfate Esophageal stricture: dilated strictures per recent d/c summary CAD (coronary artery disease): --Per previous attending physician notes, Dr. Russ Reynolds: History of previous coronary stent placed LAD. 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 Bill Palomo, does not recommend aspirin Plavix at this time secondary to possible GI Diabetes: -- uncontrolled diabetes presenting with hyperglycemia Hemoglobin A1c 8.9 Lantus/NovoLog per protocol Continue TIGRE for renal protection Depression: --Per previous attending physician notes, Dr. Russ Reynolds: Previous inpatient psych hospitalization 03/2019 due to suicidal ideation Denies any suicidal ideation at this time Per discharge summary at OSH on Zoloft daily; however per psych hospital DC was placed on Cymbalta and trazodone Patient is unaware what medications he is taking We will continue low-dose Zoloft daily --Mood stable DVT prophylaxis: SCD/TEDS given concern for GIB Disposition: Pending Anticipate discharge to home when medically stable Follow up: Pt needs to establish with PCP in area and have close follow up along with appropriate GI and Cardiology follow up Admission and Anticipated Discharge Date Admission Date: November 05, 2019 Subjective Follow-up for abdominal pain, possible GI bleed Seen sleeping in bed, but easily awakened, not in distress Patient reports severe central/periumbilical pain, pressure, nonradiating States he is not able to keep anything down including medications States he has been having diarrhea since yesterday about 6 times Also reports dysuria, but no hematuria Denies fever or chills No chest pain, shortness of breath, palpitations, dizziness No other symptoms Review of Systems Review of Systems: All systems reviewed & are unremarkable except as noted in HPI & below Physical Exam Physical Exam: General- oriented x 3, not in distress, speaks in sentences with no effort or accessory muscle use Head- atraumatic Eyes- PERRL, EOMI, anicteric ENT- oropharynx clear Neck- supple, no JVD, no adenopathy, no thyromegaly; carotids +2/2, no bruits appreciated Lungs- clear to auscultation bilaterally, no rales/wheezes Heart- normal rate, regular rhythm; no murmur, no gallop, no rub appreciated Abdomen- normal bowel sounds, nondistended, soft, positive moderate tenderness on all quadrants, no masses or hepatosplenomegaly Extremities- no pretibial edema, no calf tenderness; peripheral pulses intact Neuro- alert, oriented x 3; CN 2-12 grossly intact; motor 5/5 bilaterally;sensation 100% on all extremities; no other gross focal neurologic deficits Skin- warm & dry Results & Data ([facility]) Vital Signs (Past 12 Hours) Vital Signs Temp Pulse Pulse Resp BP Pulse Ox 11/07/19 10:53 36.8 C 68 20 163/89 H 100 11/07/19 07:41 55 L 11/07/19 07:14 36.7 C 64 20 160/78 H 97 11/07/19 04:00 36.8 C 54 L 18 147/88 H 96 Laboratory Results Laboratory Results - last 24 hr 11/06/19 11/06/19 11/07/19 16:33 20:17 06:18 WBC 4.00 L RBC 4.65 L Hgb 14.0 Hct 37.2 L MCV 80.0 MCH 30.1 MCHC 37.6 H RDW Std Deviation 39.4 RDW Coeff of [place] 13.6 Plt Count 122 L MPV 8.7 Immature Gran % (Auto) 0.0 Neut % (Auto) 50.4 Lymph % (Auto) 36.5 [place] % (Auto) 10.0 Eos % (Auto) 2.3 Baso % (Auto) 0.8 Immature Gran # (Auto) 0.00 Neut # (Auto) 2.02 Lymph # (Auto) 1.46 [place] # (Auto) 0.40 Eos # (Auto) 0.09 Baso # (Auto) 0.03 Platelet Estimate Decreased L Sodium Potassium Chloride Carbon Dioxide Anion Gap BUN Creatinine Est Cr Clr Drug Dosing Est GFR ( Amer) Est GFR (Non-Af Amer) BUN/Creatinine Ratio Glucose POC Glucose 205 H 255 H Calcium Total Bilirubin AST ALT Alkaline Phosphatase Total Protein Albumin Globulin Albumin/Globulin Ratio Urine Color Urine Appearance Urine pH Ur Specific [place] Urine Protein Urine Glucose (UA) Urine Ketones Urine Blood Urine Nitrite Urine Bilirubin Urine Urobilinogen Ur Leukocyte Esterase 11/07/19 11/07/19 11/07/19 06:18 07:35 11:56 WBC RBC Hgb Hct MCV MCH MCHC RDW Std Deviation RDW Coeff of Bernarda Plt Count MPV Immature Gran % (Auto) Neut % (Auto) Lymph % (Auto) [place] % (Auto) Eos % (Auto) Baso % (Auto) Immature Gran # (Auto) Neut # (Auto) Lymph # (Auto) [place] # (Auto) Eos # (Auto) Baso # (Auto) Platelet Estimate Sodium 139 Potassium 3.7 Chloride 108 H Carbon Dioxide 24 Anion Gap 7.0 BUN 8 Creatinine 0.79 Est Cr Clr Drug Dosing 132.8 Est GFR ( Amer) 111.5 Est GFR (Non-Af Amer) 96.2 BUN/Creatinine Ratio 10.7 Glucose 149 H POC Glucose 148 H 177 H Calcium 8.7 Total Bilirubin 1.2 H AST 15 ALT 24 Alkaline Phosphatase 93 Total Protein 6.5 Albumin 3.0 L Globulin 3.5 Albumin/Globulin Ratio 0.9 Urine Color Urine Appearance Urine pH Ur Specific [place] Urine Protein Urine Glucose (UA) Urine Ketones Urine Blood Urine Nitrite Urine Bilirubin Urine Urobilinogen Ur Leukocyte Esterase 11/07/19 14:10 WBC RBC Hgb Hct MCV MCH MCHC RDW Std Deviation RDW Coeff of [place]a Plt Count MPV Immature Gran % (Auto) Neut % (Auto) Lymph % (Auto) [place] % (Auto) Eos % (Auto) Baso % (Auto) Immature Gran # (Auto) Neut # (Auto) Lymph # (Auto) [place] # (Auto) Eos # (Auto) Baso # (Auto) Platelet Estimate Sodium Potassium Chloride Carbon Dioxide Anion Gap BUN Creatinine Est Cr Clr Drug Dosing Est GFR ( Amer) Est GFR (Non-Af Amer) BUN/Creatinine Ratio Glucose POC Glucose Calcium Total Bilirubin AST ALT Alkaline Phosphatase Total Protein Albumin Globulin Albumin/Globulin Ratio Urine Color Yellow Urine Appearance Clear Urine pH 7.5 Ur Specific [place] 1.010 Urine Protein Negative Urine Glucose (UA) Negative Urine Ketones Negative Urine Blood Negative Urine Nitrite Negative Urine Bilirubin Negative Urine Urobilinogen Negative Ur Leukocyte Esterase Negative (1) Abdominal pain Abdominal location: unspecified location Qualified Code(s): R10.9 - Unspecified abdominal pain
--- NOTE | 2019-11-07 12:01 | Gastroenterology Progress Note ---
Date of Service November 07, 2019 Assessment & Plan (1) Abdominal pain: 64 year old male with complex past cardiac/gastrointestinal history admitted w/ CP and abdominal pain. He endorses EGD at OSH in August w/ gastric ulcer, duodenitis and esophageal stricture, dilated. He endorses intermittent episodes of coffee ground emesis and rectal bleeding prior to admission but today to me reports brown stools, last 48 hours and denies any vomiting. He has not been compliant with his outpatient PPI/carafate medication regimen. He is hemodynamically stable without further evidence of active GI bleed. His HGB has remained stable without BUN elevation. GI aksed to re-evaluate for persistent abdominal pain, pt now reporting diarrhea although not documented in the EMR. Check c.diff and stool culture anti emetics prn analgesia prn clear liquid diet NPO after midnight EGD/Colon 11/08/19 Trend H&H Monitor and document all GI output PO PPI BID Can continue carafate as previously ordered No NSAIDs KUB Cardiology consultation appreciated Bentyl 10 mg TID Thank you for allowing us to participate in the care of this patient. Please call with any acute changes, questions or concerns. Please see addendum below with additional recommendation from my supervising physician. Admission and Anticipated Discharge Date Admission Date: November 05, 2019 Supervising Physician Co-Signing Physician Notes I have seen and examined the patient and discussed the management with TIM Wilkerson. 64 yo male for which GI was consulted for abdominal pain. Prior workup with an egd done elsewhere with ulcers, gastritis, duodenitis. has been on a PPI. The pain he describes is like someone punched him in the stomach around his navel. Abdomen slightly ttp but very superifically. Hgb/bun/creatinine/lft's all stable. recent CTA 2 days ago reviewed and essentially normal. Would given Bentyl tid Prep today Continue PPI po bid KUB today Egd/colon tomorrow for further evaluation of abdominal pain. Family history of mom with colon cancer. Subjective GI asked to re-evaluate, persistent pain Lower abdominal pain. Constant, worsening. Sharp. Now reports diarrhea although no BM documented in chart He denies black/bloody stools No further episodes of hematemesis/coffee ground emesis Review of Systems Constitutional: no fever, no chills and no fatigue Respiratory: no cough, no dyspnea and no pain on inspiration Cardiovascular: no chest pain, no radiating jaw, neck or arm pain and no dyspnea on exertion Gastrointestinal: + abdominal pain, + nausea and + vomiting; no coffee ground emesis, no hematemesis, no blood in stools and no melena Physical Exam Constitutional: well developed and well nourished; no acute distress Neck: trachea midline Respiratory: normal respiratory effort, lungs clear to auscultation Cardiovascular: Rate/Rhythm: regular rate and regular rhythm Gastrointestinal (Abdomen): Percussion/Palpation: + abdomen tender (upper and lower abdominal pain) and abdomen soft; no guarding, abdomen not rigid and no abdominal mass Skin: no rashes, warm and dry Results & Data ([facility]) Vital Signs (Past 12 Hours) Vital Signs Temp Pulse Pulse Resp BP Pulse Ox 11/07/19 10:53 36.8 C 68 20 163/89 H 100 11/07/19 07:41 55 L 11/07/19 07:14 36.7 C 64 20 160/78 H 97 11/07/19 04:00 36.8 C 54 L 18 147/88 H 96 Laboratory Results 11/07/19 11/07/19 11/07/19 Range/Units 11:56 07:35 06:18 WBC (4.8-10.8) K/uL RBC (4.7-6.1) M/uL Hgb (14.0-18.0) g/dL Hct (42-52) % MCV (80-100) fL MCH (25-34) pg MCHC (32-36) g/dL RDW Std Deviation (36.4-46.3) fL RDW Coeff of [place] (11.5-14.5) % Plt Count (130-400) K/uL MPV (7.4-10.4) fL Immature Gran % (Auto) % Neut % (Auto) % Lymph % (Auto) % [place] % (Auto) % Eos % (Auto) % Baso % (Auto) % Immature Gran # (Auto) (0.00-0.02) K/uL Neut # (Auto) (1.4-6.5) K/uL Lymph # (Auto) (1.2-3.4) K/uL [place] # (Auto) (0.11-0.59) K/uL Eos # (Auto) (0-0.5) K/uL Baso # (Auto) (0-0.2) K/uL Platelet Estimate (Normal) Sodium 139 (136-145) mmol/L Potassium 3.7 (3.5-5.1) mmol/L Chloride 108 H (98-107) mmol/L Carbon Dioxide 24 (21-32) mmol/L Anion Gap 7.0 (3-11) BUN 8 (7-18) mg/dl Creatinine 0.79 (0.6-1.4) mg/dl Est Cr Clr Drug Dosing 132.8 ml/min Est GFR ( Amer) 111.5 Est GFR (Non-Af Amer) 96.2 BUN/Creatinine Ratio 10.7 (10-20) Glucose 149 H (70-99) mg/dl POC Glucose 177 H 148 H (70-99) mg/dl Calcium 8.7 (8.5-10.1) mg/dl Total Bilirubin 1.2 H (0.2-1) mg/dl AST 15 (15-37) U/L ALT 24 (12-78) U/L Alkaline Phosphatase 93 (45-117) U/L Total Protein 6.5 (6.4-8.2) gm/dl Albumin 3.0 L (3.4-5.0) gm/dl Globulin 3.5 (2.5-4.0) gm/dl Albumin/Globulin Ratio 0.9 (0.9-2) Stool Occult Bld Scrn (Negative) 11/07/19 11/06/19 11/06/19 Range/Units 06:18 20:17 16:33 WBC 4.00 L (4.8-10.8) K/uL RBC 4.65 L (4.7-6.1) M/uL Hgb 14.0 (14.0-18.0) g/dL Hct 37.2 L (42-52) % MCV 80.0 (80-100) fL MCH 30.1 (25-34) pg MCHC 37.6 H (32-36) g/dL RDW Std Deviation 39.4 (36.4-46.3) fL RDW Coeff of Bernard[place] 13.6 (11.5-14.5) % Plt Count 122 L (130-400) K/uL MPV 8.7 (7.4-10.4) fL Immature Gran % (Auto) 0.0 % Neut % (Auto) 50.4 % Lymph % (Auto) 36.5 % [place] % (Auto) 10.0 % Eos % (Auto) 2.3 % Baso % (Auto) 0.8 % Immature Gran # (Auto) 0.00 (0.00-0.02) K/uL Neut # (Auto) 2.02 (1.4-6.5) K/uL Lymph # (Auto) 1.46 (1.2-3.4) K/uL [place] # (Auto) 0.40 (0.11-0.59) K/uL Eos # (Auto) 0.09 (0-0.5) K/uL Baso # (Auto) 0.03 (0-0.2) K/uL Platelet Estimate Decreased L (Normal) Sodium (136-145) mmol/L Potassium (3.5-5.1) mmol/L Chloride (98-107) mmol/L Carbon Dioxide (21-32) mmol/L Anion Gap (3-11) BUN (7-18) mg/dl Creatinine (0.6-1.4) mg/dl Est Cr Clr Drug Dosing ml/min Est GFR ( Amer) Est GFR (Non-Af Amer) BUN/Creatinine Ratio (10-20) Glucose (70-99) mg/dl POC Glucose 255 H 205 H (70-99) mg/dl Calcium (8.5-10.1) mg/dl Total Bilirubin (0.2-1) mg/dl AST (15-37) U/L ALT (12-78) U/L Alkaline Phosphatase (45-117) U/L Total Protein (6.4-8.2) gm/dl Albumin (3.4-5.0) gm/dl Globulin (2.5-4.0) gm/dl Albumin/Globulin Ratio (0.9-2) Stool Occult Bld Scrn (Negative) 11/06/19 Range/Units 12:45 WBC (4.8-10.8) K/uL RBC (4.7-6.1) M/uL Hgb (14.0-18.0) g/dL Hct (42-52) % MCV (80-100) fL MCH (25-34) pg MCHC (32-36) g/dL RDW Std Deviation (36.4-46.3) fL RDW Coeff of Bernarda (11.5-14.5) % Plt Count (130-400) K/uL MPV (7.4-10.4) fL Immature Gran % (Auto) % Neut % (Auto) % Lymph % (Auto) % [place] % (Auto) % Eos % (Auto) % Baso % (Auto) % Immature Gran # (Auto) (0.00-0.02) K/uL Neut # (Auto) (1.4-6.5) K/uL Lymph # (Auto) (1.2-3.4) K/uL [place] # (Auto) (0.11-0.59) K/uL Eos # (Auto) (0-0.5) K/uL Baso # (Auto) (0-0.2) K/uL Platelet Estimate (Normal) Sodium (136-145) mmol/L Potassium (3.5-5.1) mmol/L Chloride (98-107) mmol/L Carbon Dioxide (21-32) mmol/L Anion Gap (3-11) BUN (7-18) mg/dl Creatinine (0.6-1.4) mg/dl Est Cr Clr Drug Dosing ml/min Est GFR ( Amer) Est GFR (Non-Af Amer) BUN/Creatinine Ratio (10-20) Glucose (70-99) mg/dl POC Glucose (70-99) mg/dl Calcium (8.5-10.1) mg/dl Total Bilirubin (0.2-1) mg/dl AST (15-37) U/L ALT (12-78) U/L Alkaline Phosphatase (45-117) U/L Total Protein (6.4-8.2) gm/dl Albumin (3.4-5.0) gm/dl Globulin (2.5-4.0) gm/dl Albumin/Globulin Ratio (0.9-2) Stool Occult Bld Scrn Negative (Negative) (1) Abdominal pain Abdominal location: unspecified location Qualified Code(s): R10.9 - Unspecified abdominal pain
--- NOTE | 2019-11-07 12:02 | Electrocardiogram Report ---
Test Reason : Blood Pressure : / mmHG Vent. Rate : 055 BPM Atrial Rate : 055 BPM P-R Int : 178 ms QRS Dur : 086 ms QT Int : 434 ms P-R-T Axes : -22 014 025 degrees QTc Int : 415 ms Sinus bradycardia Otherwise normal ECG When compared with ECG of 06-NOV-2019 07:13, No significant change was found Confirmed by Lefty Whitmore ([id number]) on 11/07/2019 12:01:42 PM Referred By: REFERRED SELF Confirmed By:Lefty Whitmore
[2019-11-07] MEDS: AMLODIPINE BESYLATE 5 MG TAB PO SCH (12:19)
[2019-11-07] MEDS: TRAMADOL HCL 50 MG TABLET PO PRN ×2 (13:13→20:59)
--- NOTE | 2019-11-07 13:20 | XRay Report ---
XR KUB/Abdomen 1 view CLINICAL HISTORY: 64 years-old Male presenting with abd pain, generalized. TECHNIQUE: Single supine view of the abdomen was obtained. COMPARISON: CTA of the abdomen and pelvis from 11/05/2019. FINDINGS: Nonobstructive bowel gas pattern. No gross pneumoperitoneum. Allowing for bowel gas and stool, no calcifications to suggest nephrolithiasis. Degenerative changes of the spine. Lung bases clear. IMPRESSION: 1. No acute intra-abdominal pathology. ACT 112: Negative or not required by law. Electronically signed by: Cuco Chapin M.D. 11/07/2019 1:19 PM
[2019-11-07] MEDS: NSS + 20MEQ KCL 20 MEQ/1,000 ML BAG IV SCH (13:37)
[2019-11-07] MEDS: LAVAGE SOLUTION 4000ML PO ONE ×2 (13:55→16:38)
[2019-11-07 14:33] LABS: Appearance Urine Clear (Clear); Bilirubin Urine Negative (Negative); Blood Urine Negative (Negative); Color Urine Yellow; Glucose Urine UA Negative (Negative); Ketones Urine Negative (Negative); Leukocyte Esterase Urine Negative (Negative); Nitrite Urine Negative (Negative); Protein Urine Negative (Negative); Urobilinogen Urine Negative (Negative); pH Urine 7.5 (4.5-7.5)
--- NOTE | 2019-11-07 15:14 | Cardiology Progress Note ---
Date of Service November 07, 2019 Assessment & Plan (1) Abdominal pain: (2) CAD (coronary artery disease): History of LAD stent in 2017. Off of antiplatelet therapy due to endoscopy performed in [facility] in August 2019 with findings of esophageal stricture, gastric ulcers, and hemorrh agic duodenitis. As noted, patient has been receiving treatment/interventions at multiple institutions (over 30 institutions) stating that he travels for work. Patient was able to take his carvedilol this morning. Continue carvedilol, atorvastatin, lisinopril. GI input noted and appreciated, EGD colonoscopy planned 11/08/2019. DVT prophylaxis: Knee-high SCDs. Subjective Patient states it feels like he has been "punched in the stomach". He states he is unable to swallow a pill today. Telemetry reveals stable sinus rhythm in the range of 50 to 60 bpm. EKG performed this morning 11/07/2019 revealed sinus bradycardia at 35 bpm, normal EKG. Physical Exam Physical Exam: Temp Pulse Resp BP Pulse Ox 36.6 C 61 18 146/87 H 96 11/07/19 14:56 11/07/19 14:56 11/07/19 14:56 11/07/19 14:56 11/07/19 14:56 Constitutional: WD/WN, vitals as above Respiratory: normal respiratory effort, lungs clear to auscultation Cardiovascular: RRR, no murmur, no edema Gastrointestinal (Abdomen): Mild diffuse tenderness on palpation Neurologic: PERRL, EOMI, accommodation nl, no face palsy, no dysarthria Results & Data Vital Signs (Past 12 Hours) Vital Signs Temp Pulse Pulse Resp BP Pulse Ox 11/07/19 14:56 36.6 C 61 18 146/87 H 96 11/07/19 10:53 36.8 C 68 20 163/89 H 100 11/07/19 07:41 55 L 11/07/19 07:14 36.7 C 64 20 160/78 H 97 11/07/19 04:00 36.8 C 54 L 18 147/88 H 96 Laboratory Results Cardiac Enzymes 11/07/19 Range/Units 06:18 AST 15 (15-37) U/L CBC 11/07/19 Range/Units 06:18 WBC 4.00 L (4.8-10.8) K/uL RBC 4.65 L (4.7-6.1) M/uL Hgb 14.0 (14.0-18.0) g/dL Hct 37.2 L (42-52) % Plt Count 122 L (130-400) K/uL Neut # (Auto) 2.02 (1.4-6.5) K/uL Lymph # (Auto) 1.46 (1.2-3.4) K/uL [place] # (Auto) 0.40 (0.11-0.59) K/uL Eos # (Auto) 0.09 (0-0.5) K/uL Baso # (Auto) 0.03 (0-0.2) K/uL Comprehensive Metabolic Panel 11/07/19 Range/Units 06:18 Sodium 139 (136-145) mmol/L Potassium 3.7 (3.5-5.1) mmol/L Chloride 108 H (98-107) mmol/L Carbon Dioxide 24 (21-32) mmol/L BUN 8 (7-18) mg/dl Creatinine 0.79 (0.6-1.4) mg/dl Glucose 149 H (70-99) mg/dl Calcium 8.7 (8.5-10.1) mg/dl AST 15 (15-37) U/L ALT 24 (12-78) U/L Alkaline Phosphatase 93 (45-117) U/L Total Protein 6.5 (6.4-8.2) gm/dl Albumin 3.0 L (3.4-5.0) gm/dl Intake and Output 11/07/19 11/07/19 11/07/19 06:59 14:59 22:59 Intake Total 125 / 1725 Output Total 300 / 600 400 / 400 Balance -175 / 1125 -400 / -400 Intake: Oral 125 / 525 Output: Urine 300 / 600 400 / 400 Other: Other Intake Source npo Weight 111.9 kg (1) Abdominal pain Abdominal location: unspecified location Qualified Code(s): R10.9 - Unspecified abdominal pain
[2019-11-07] MEDS ORDERED: Nursing to Pharmacy Communication ONE (15:57)
[2019-11-07] MEDS: ATORVASTATIN 40 MG TAB PO SCH (21:00)
[2019-11-08] MEDS: INSULIN ASPART 100 UNITS/ML 3 ML PEN SC SCH ×4 (00:46→17:20)
[2019-11-08] MEDS ORDERED: INSULIN GLARGINE SOLOSTAR 100 UNITS/ML 3 ML PEN SC STA (00:57)
[2019-11-08] MEDS: NSS + 20MEQ KCL 20 MEQ/1,000 ML BAG IV SCH ×2 (02:19→18:55)
[2019-11-08] MEDS: SUCRALFATE 1 GM TAB PO SCH ×4 (07:43→20:22)
[2019-11-08] MEDS: DOCUSATE SODIUM 100 MG CAP PO SCH ×2 (07:43→20:21)
[2019-11-08] MEDS: AMLODIPINE BESYLATE 5 MG TAB PO SCH ×2 (07:44→12:23)
[2019-11-08] MEDS: INSULIN GLARGINE SOLOSTAR 100 UNITS/ML 3 ML PEN SC SCH ×2 (07:44→20:16)
[2019-11-08] MEDS: carvediloL 3.125 MG TAB PO SCH ×2 (07:44→12:19)
[2019-11-08] MEDS: PANTOprazole 40 MG TAB PO SCH ×2 (07:44→20:22)
[2019-11-08] MEDS: GABAPENTIN 100 MG CAP PO SCH ×3 (07:44→20:22)
[2019-11-08] MEDS: POLYETHYLENE (MIRALAX) 17 GM PACK PO SCH (07:44)
[2019-11-08] MEDS: SERTRALINE HCL 50 MG TABLET PO SCH ×2 (07:45→12:19)
[2019-11-08] MEDS: lisinopriL 40 MG TAB PO SCH ×2 (07:45→12:19)
[2019-11-08] MEDS: NICOTINE 14 MG/24 HR PATCH TD SCH (08:29)
--- NOTE | 2019-11-08 08:57 | Gastroenterology Progress Note ---
Date of Service November 08, 2019 Assessment & Plan (1) Abdominal pain: 64 year old male with complex past cardiac/gastrointestinal history admitted w/ CP and abdominal pain. He endorses EGD at OSH in August w/ gastric ulcer, duodenitis and esophageal stricture, dilated. He endorses intermittent episodes of coffee ground emesis and rectal bleeding prior to admission but today to me reports brown stools, last 48 hours and denies any vomiting. He has not been compliant with his outpatient PPI/carafate medication regimen. NPO EGD/Colon 11/08/19 He refused enema prep this AM as he notes he is "cleared out" despite about 1/4 of prep remaining on bedside table Trend H&H Monitor and document all GI output PO PPI BID Can continue carafate as previously ordered No NSAIDs Bentyl 10 mg TID Thank you for allowing us to participate in the care of this patient. Please call with any acute changes, questions or concerns. Please see addendum below with additional recommendation from my supervising physician. Admission and Anticipated Discharge Date Admission Date: November 07, 2019 Supervising Physician Co-Signing Physician Notes I have seen and examined the patient and discussed the management with TIM Wilkerson. 64 yo male with a history of abdominal pain, reported prior egd in [place] with gastritis, duodenitis, ? gastric ulcer. Mom with colon cancer. Ongoing abd pain though better today. Not clear how much he drank of his prep. PE - well nourished male in nad, HEENT - perrla, CV- sinus jimmy, Pulm- ctab, Abd - soft nt nd +bs Labs stable KUB normal Egd for abdominal pain/colon for abdominal pain today. Subjective Pt was seen and evaluated, chart reviewed Denies complaints or concerns to me this AM Did not finish colonoscopy prep, there is about 1/4 remaining at bedside table this AM He tells me his stools are complete clear liquid Unsure if he has had any black/bloody stools with prep No UGI symptoms No vomiting Nursing has been unable to assess any BM during his prep process per patient request Review of Systems Constitutional: no fever, no body aches and no weakness Respiratory: no cough and no dyspnea Cardiovascular: no chest pain and no radiating jaw, neck or arm pain Gastrointestinal: no abdominal pain, no coffee ground emesis, no hematemesis, no blood in stools and no melena Physical Exam Constitutional: well developed and well nourished; no acute distress Neck: trachea midline Respiratory: normal respiratory effort, lungs clear to auscultation Cardiovascular: Rate/Rhythm: regular rate and regular rhythm Gastrointestinal (Abdomen): Percussion/Palpation: + abdomen tender (upper and lower abdominal pain) and abdomen soft; no guarding, abdomen not rigid and no abdominal mass Skin: no rashes, warm and dry Results & Data ([facility]) Vital Signs (Past 12 Hours) Vital Signs Temp Pulse Pulse Resp BP Pulse Ox 11/08/19 07:11 57 L 11/08/19 06:30 36.6 C 57 L 16 154/84 H 93 11/08/19 03:00 36.7 C 65 18 160/83 H 97 11/07/19 23:57 71 11/07/19 22:38 36.6 C 67 20 177/79 H 95 (1) Abdominal pain Abdominal location: unspecified location Qualified Code(s): R10.9 - Unspecified abdominal pain
[2019-11-08] MEDS ORDERED: PROPOFOL IV EMULSION 10 MG/ML 20 ML VIAL IV ONE (09:29)
[2019-11-08] MEDS ORDERED: LIDOCAINE HCL 2% 2 ML VIAL/AMP(20MG/ML) INFIL ONE (09:29)
[2019-11-08 10:00] LABS: Basophils # (auto) 0.01 K/uL (0-0.2); Basophils % (auto) 0.3 %; Eosinophils # (auto) 0.07 K/uL (0-0.5); Eosinophils % (auto) 1.8 %; Hematocrit (blood only) 38.3 % (42-52); Immature Granulocytes # (auto) 0.01 K/uL (0.00-0.02); Immature Granulocytes % (auto) 0.3 %; Lymphocytes # (auto) 1.32 K/uL (1.2-3.4); Lymphocytes % (auto) 34.3 %; Mean Corpuscular Hemoglobin 29.7 pg (25-34); Mean Corpuscular Hgb Conc 36.6 g/dL (32-36); Mean Corpuscular Volume 81.1 fL (80-100); Mean Platelet Volume 8.6 fL (7.4-10.4); Monocytes # (auto) 0.51 K/uL (0.11-0.59); Monocytes % (auto) 13.2 %; Neutrophils # (auto) 1.93 K/uL (1.4-6.5); Neutrophils % (auto) 50.1 %; Platelet Count 111 K/uL (130-400); RDW Coefficient of Variation 13.7 % (11.5-14.5); RDW Standard Deviation 40.6 fL (36.4-46.3); Red Blood Count 4.72 M/uL (4.7-6.1); White Blood Count 3.85 K/uL (4.8-10.8)
--- NOTE | 2019-11-08 10:26 | Anesthesiology Consultation ---
Date of Service November 08, 2019 Assessment & Plan ASA ASA3 Proposed Anesthesia Anesthesia Type: MAC Risk / Benefits Reviewed With: PT / POA / Parent / Guardian, Accepts Plan and Informed Consent Obtained History Surgery Operation Date: 11/08/19 16:00 Proposed Procedures p Colonoscopy EGD Dr. Kevin Brown M.D. Height/Weight Height: 6 ft 4 in Weight: 111.5 kg Allergies Allergy/AdvReac Type Severity Reaction Status Date / Time diphenhydramine Allergy Intermediate Unknown Verified 11/08/19 10:08 [From [facility]] Medications Home Medications Medication Instructions Recorded Confirmed Last Taken Basaglar KwikPen U-100 Insulin 20 unit SUBCUT BID 03/23/19 11/05/19 05/25/19 atorvastatin 80 mg PO HS 11/05/19 11/05/19 Unknown carvedilol 3.125 mg PO BID 11/05/19 11/05/19 Unknown gabapentin 100 mg PO TID 11/05/19 11/05/19 Unknown lisinopril 40 mg PO DAILY 11/05/19 11/05/19 Unknown metformin 1,000 mg PO BIDM 11/05/19 11/05/19 Unknown pantoprazole 40 mg PO DAILY 11/05/19 11/05/19 Unknown sertraline 25 mg PO DAILY 11/05/19 11/05/19 Unknown sucralfate [Carafate] 1 g PO ACHS 11/05/19 11/05/19 Unknown Active Medications Generic Name Dose Route Start Last Admin Trade Name Freq PRN Reason Stop Dose Admin Amlodipine Besylate 5 mg 11/07/19 11:00 11/08/19 07:44 Norvasc PO 12/07/19 10:59 Not Given QAM MARCOS Atorvastatin Calcium 80 mg 11/05/19 21:00 11/07/19 21:00 Lipitor PO 12/05/19 20:59 80 mg HS MARCOS Administration Carvedilol 3.125 mg 11/05/19 21:00 11/08/19 07:44 Coreg PO 12/05/19 20:59 Not Given BID MARCOS Docusate Sodium 100 mg 11/06/19 10:30 11/08/19 07:43 Colace PO 12/06/19 10:29 Not Given BID MARCOS Gabapentin 100 mg 11/05/19 21:00 11/08/19 07:44 Neurontin PO 12/05/19 20:59 Not Given TID [facility] Potassium Chloride/Sodium Chloride 20 meq in 1,000 mls @ 75 mls/hr 11/07/19 13:30 11/08/19 02:19 Normal Saline W/20 Meq Kcl IV 12/07/19 13:29 75 mls/hr .[id number] MARCOS Administration Insulin Aspart 0 units 11/08/19 06:00 11/08/19 06:27 Novolog Flexpen SC 12/07/19 05:59 Not Given Q6 MARCOS Insulin Glargine 0 - 20 units 11/05/19 21:00 11/08/19 07:44 Lantus Solostar Pen SC 12/05/19 20:59 Not Given BID [facility] Lisinopril 40 mg 11/06/19 09:00 11/08/19 07:45 Zestril PO 12/06/19 08:59 Not Given DAILY [facility] Miscellaneous 1 ea 11/05/19 18:20 11/08/19 08:29 Remove Nicoderm Patch N/A 12/05/19 18:19 1 ea DAILY@0859 [facility] Administration Nicotine 14 mg 11/06/19 09:00 11/08/19 08:29 Nicoderm Cq TD 12/06/19 08:59 14 mg QAM [facility] Administration Pantoprazole Sodium 40 mg 11/06/19 21:00 11/08/19 07:44 Protonix PO 12/06/19 20:59 Not Given BID [facility] Polyethylene Glycol 17 gm 11/06/19 10:30 11/08/19 07:44 Miralax Powder Packet PO 12/06/19 10:29 Not Given DAILY [facility] Sertraline HCl 25 mg 11/06/19 09:00 11/08/19 07:45 Zoloft PO 12/06/19 08:59 Not Given DAILY [facility] Sucralfate 1 gm 11/05/19 17:17 11/08/19 07:43 Carafate Tab PO 12/05/19 17:16 Not Given ACHS [facility] Tramadol HCl 50 mg 11/07/19 11:15 11/07/19 20:59 Ultram PO 12/07/19 11:14 50 mg Q6H PRN Administration Pain NPO Date Last Intake of Fluids: 02/13/20 Time Last Intake of Fluids: 05:00 Last Intake of Fluids Comment: prep Date Last Intake of Solids: 11/04/19 Time Last Intake of Solids: 18:00 Past Medical History Medical History Bleeding ulcer CAD (coronary artery disease) 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 Depression Diabetes Esophageal stricture History of laryngeal cancer Status post radiation HTN (hypertension) PTSD (post-traumatic stress disorder) Suicidal ideation (Acute) Exercise / Class Metabolic Activity II 4-5 Yardwork/Stairs/Walk up hill Past Family History Family History Father Cancer Lung Past Surgical History Surgical History History of coronary artery stent placement (Acute) History of endoscopy 08/2019 revealed esophageal strictures, gastric ulcerations and hemorrhagic duodenitis History of heart artery stent History of partial thyroidectomy Past Anesthesia History No Hx of Anesthesia Complications and No Family Hx of Anesthesia Complications History of PONV No Hx of PONV and No Hx of Motion Sickness Social History Smoking Status: Current some day smoker tobacco type: cigars Hx Alcohol Use: No Hx Substance Use: No Review of Systems denies fever/cough/ colds/ chest pain/ SOB/ TERRENCE Constitutional: no fever and no chills Respiratory: no cough and no dyspnea denies TERRENCE Cardiovascular: no chest pain and no dyspnea on exertion Physical Exam Vital Signs Last Vital Signs Temp 36.7 C 11/08/19 10:09 Pulse 56 L 11/08/19 10:09 Resp 18 11/08/19 10:09 BP 127/72 11/08/19 10:09 Pulse Ox 95 11/08/19 10:09 ENMT Mouth: + dentures (partial) and + chipped teeth; no TMJ abnormality and no dentition abnormality Thyromental Distance: > or= 3.5 Finger Breadths Mallampati Class: II Neck neck extension not limited Respiratory normal respiratory effort; no respiratory distress Auscultation: lungs clear to auscultation bilaterally Cardiovascular Rate/Rhythm: regular rate and regular rhythm Neurologic moves all extremities Psychiatric Orientation: alert and oriented x 3 Testing Laboratory Results 11/08/19 09:42 PT 10.0 Seconds (9.0-12.0) 11/05/19 11:05 INR 1.0 (0.9-1.1) 11/05/19 11:05 APTT 23.4 Seconds (21.0-31.0) 11/05/19 11:05 Hemoglobin A1c 8.9 % (4.5-5.6) H 11/06/19 07:02 Urine Color Yellow 11/07/19 14:10 Urine Appearance Clear (Clear) 11/07/19 14:10 Urine pH 7.5 (4.5-7.5) 11/07/19 14:10 Ur Specific [place] 1.010 (1.000-1.030) 11/07/19 14:10 Urine Protein Negative (Negative) 11/07/19 14:10 Urine Glucose (UA) Negative (Negative) 11/07/19 14:10 Urine Ketones Negative (Negative) 11/07/19 14:10 Urine Nitrite Negative (Negative) 11/07/19 14:10 Ur Leukocyte Esterase Negative (Negative) 11/07/19 14:10 11/08/19 11/08/19 11/08/19 06:13 00:06 00:05 POC Glucose 108 H 324 H* 310 H*
[2019-11-08] MEDS ORDERED: PROMETHAZINE HCL 12.5 MG in SODIUM CHLORIDE 0.9% 50 ML IV PRN (10:29)
[2019-11-08] MEDS ORDERED: ONDANSETRON INJ 2 MG/ML 2 ML VIAL IV PRN (10:29)
[2019-11-08] MEDS ORDERED: ATROPINE SULFATE 0.1 MG/ML 10ML SYR IV PRN (10:29)
[2019-11-08] MEDS ORDERED: fentaNYL citrate 100 MCG/2 ML VIAL IV PRN (10:29)
[2019-11-08] MEDS ORDERED: ePHEDrine sulfate 50 MG/ML AMP IV PRN (10:29)
[2019-11-08] MEDS ORDERED: MIDAZOLAM HCL 1 MG/ML 2ML VIAL ONE (10:30)
[2019-11-08 10:32] LABS: BUN Creatinine Ratio 7.9 (10-20); Calcium 8.4 mg/dl (8.5-10.1); Creatinine Clr Calc Pharmacy 129.3 ml/min; Est GFR (African American) 110.4; Est GFR (Non-African American) 95.3; Potassium 3.8 mmol/L (3.5-5.1)
--- NOTE | 2019-11-08 11:10 | GI REPORT ---
Patient Name: Unruly Ruiz Procedure Date: 11/08/2019 10:44 AM Date of : 1955 Admit Type: Inpatient Age: 64 Gender: Male Attending MD: Alla Brown M.d. Procedure: Upper GI endoscopy Providers: Alla Brown M.d. Referring MD: Dom Robles Indications: Epigastric abdominal pain Medicines: Propofol per Anesthesia, Lidocaine Complications: No immediate complications. Estimated Blood Loss: Estimated blood loss: none. Estimated blood loss was minimal. Procedure: Pre-Anesthesia Assessment: - Patient identification and proposed procedure were verified prior to the procedure by the physician, the nurse and the anesthesiologist. The procedure was verified in the pre-procedure area. - Prior to the procedure, a History and Physical was performed, and patient medications, allergies and sensitivities were reviewed. The patient's tolerance of previous anesthesia was reviewed. - The risks and benefits of the procedure and the sedation options and risks were discussed with the patient. All questions were answered and informed consent was obtained. - ASA Grade Assessment: After obtaining informed consent, the endoscope was passed under direct vision. Throughout the procedure, the patient's blood pressure, pulse, and oxygen saturations were monitored continuously. The Endoscope was introduced through the mouth, and advanced to the second part of duodenum. The upper GI endoscopy was accomplished without difficulty. The patient tolerated the procedure well. Findings: The examined esophagus appeared normal. The examined stomach appeared normal. Biopsies were taken with a cold forceps for Helicobacter pylori testing. The pathology specimen was placed into Bottle B. Verification of patient identification for the specimen was done by the physician and nurse using the patient's name and medical record number. Localized mild inflammation characterized by erythema was found in the duodenal bulb. Biopsies were taken with a cold forceps for histology. The pathology specimen was placed into Bottle A. The duodenal bulb and second portion of the duodenum were otherwise normal. Impression: - Normal esophagus. - Normal stomach. - Mild duodenitis. Recommendation: - Await pathology results. Walker Dominguez M.d. 11/08/2019 11:09:54 AM This report has been signed electronically. Note Initiated On: 11/08/2019 10:44 AM Number of Addenda: 0 I attest to the content of the Intraoperative Record and orders documented therein, exceptions below {[id number]}
--- NOTE | 2019-11-08 11:12 | GI REPORT ---
Patient Name: Unruly Ruiz Procedure Date: 11/08/2019 10:43 AM Date of : 1955 Admit Type: Inpatient Age: 64 Gender: Male Attending MD: Alla Brown M.d. Procedure: Colonoscopy Providers: Alla Brown M.d. Referring MD: Dom Zepeda Indications: Abdominal pain Medicines: Propofol per Anesthesia, Lidocaine Complications: No immediate complications. Estimated Blood Loss: Estimated blood loss: none. Procedure: Pre-Anesthesia Assessment: - Patient identification and proposed procedure were verified prior to the procedure by the physician, the nurse and the anesthesiologist. The procedure was verified in the pre-procedure area. - Prior to the procedure, a History and Physical was performed, and patient medications, allergies and sensitivities were reviewed. The patient's tolerance of previous anesthesia was reviewed. - The risks and benefits of the procedure and the sedation options and risks were discussed with the patient. All questions were answered and informed consent was obtained. - ASA Grade Assessment: III - A patient with severe systemic disease. After I obtained informed consent, the scope was passed under direct vision. Throughout the procedure, the patient's blood pressure, pulse, and oxygen saturations were monitored continuously. The scope was introduced through the anus and advanced to the terminal ileum. The colonoscopy was performed without difficulty. The patient tolerated the procedure well. The quality of the bowel preparation was adequate to identify polyps 6 mm and larger in size. Findings: The examined terminal ileum appeared normal. The examined colon appeared normal. A 4 mm polyp was found in the ascending colon. The polyp was sessile and was removed with a cold biopsy forceps. Resection and retrieval were complete. The pathology specimen was placed into Bottle D. Verification of patient identification for the specimen was done by the physician and nurse using the patient's name and medical record number. Multiple small and large-mouthed diverticula were found in the ascending colon. Internal hemorrhoids were found during retroflexion. Impression: - The examined portion of the terminal ileum appeared normal. - The examined colon appeared normal. - One 4 mm polyp in the ascending colon, removed with a cold biopsy forceps. Resected and retrieved. - Scattered ascending diverticulosis in the ascending colon. - Internal hemorrhoids. Recommendation: - Await pathology results. - Repeat colonoscopy for surveillance based on pathology results. Alla Brown M.D. Alla Brown M.d. 11/08/2019 11:12:41 AM This report has been signed electronically. Note Initiated On: 11/08/2019 10:43 AM Number of Addenda: 0 I attest to the content of the Intraoperative Record and orders documented therein, exceptions below {[id number]}
--- NOTE | 2019-11-08 11:25 | Anesthesiology Progress Note ---
Date of Service November 08, 2019 Anesthesia Post Procedure Vital Signs Vital Signs: Temp Pulse Pulse Resp BP Pulse Ox 11/08/19 11:18 64 18 130/78 97 11/08/19 10:09 36.7 C 56 L 18 127/72 95 11/08/19 07:11 57 L 11/08/19 06:30 36.6 C 57 L 16 154/84 H 93 11/08/19 03:00 36.7 C 65 18 160/83 H 97 11/07/19 23:57 71 11/07/19 22:38 36.6 C 67 20 177/79 H 95 11/07/19 19:55 36.5 C 57 L 18 155/79 H 97 11/07/19 15:54 58 L 11/07/19 14:56 36.6 C 61 18 146/87 H 96 Pain Intensity Chest: Pain Intensity: 4 Transfer of Care Handoff Completed per policy Notes Mental Status: alert / awake / arousable and participated in evaluation Patient Amnestic to Procedure: Yes Nausea / Vomiting: adequately controlled Pain: adequately controlled Airway Patency, RR, SpO2: stable & adequate BP & HR: stable & adequate Hydration State: stable & adequate Anesthetic Complications: no major complications apparent and Pt Satisfied with anesthetic care
[2019-11-08] MEDS ORDERED: NITROGLYCERIN SL 0.4 MG/TAB TAB SL STA (17:24)
--- NOTE | 2019-11-08 17:27 | Hospitalist Progress Note ---
Date of Service November 08, 2019 Assessment & Plan (1) Abdominal pain: Coffee ground emesis, Hematochezia - no recurrence Hg stable at 14 -Status post EGD and colonoscopy 11/08/2019 EGD: Normal esophagus, normal stomach, mild duodenitis, biopsy [id number] results Colonoscopy: Examined portion of terminal ileum appeared normal Examined colon appeared normal One 4 mm polyp in the ascending colon removed with cold biopsy forceps, resected and retrieved Scattered ascending diverticulosis in the ascending colon Internal hemorrhoids Biopsy [id number]-[id number]-[id number] results Repeat colonoscopy for surveillance based on pathology results Lower abdominal pain, resolved -UTI/prostatitis unlikely -No urinary symptoms today Diarrhea, Lower Abdominal pain, resolved -C. difficile test negative Chest pain -Patient reported chest pain today radiating to the back -CT chest angios: No dissection, no PE -Troponin x1 EKG no signs of acute ischemia or infarct -Given Nitrostat -Continue to trend troponins - from HTN? management below musculosketletal? lidoderm patch ordered Hypertension - not controlled - Amlodipine 5mg po daily started Continue lisinopril 40 mg daily and carvedilol 3.125 mg p.o. twice daily -If blood pressure still not controlled tonight, may order additional amlodipine 5 mg p.o. 1 dose CAD (coronary artery disease): --Per previous attending physician notes, Dr. Russ Reynolds: History of previous coronary stent placed LAD. Last cardiac cath 08/14/2018 which revealed two-vessel CAD, patent stent LAD and nonobstructive RCA disease Had stress echo 02/2019 which revealed EF 55 to 60%, moderate LVH, negative for inducible ischemia Patient with poor compliance, does not follow with routine hospital technician Continue Coreg, lisinopril --Evaluated by hospital technician Dr. Bill Palomo, does not recommend aspirin Plavix at this time secondary to possible GI Duodenitis: Per previous attending notes, Dr. Elisha Reynolds: Recently hospitalized 09/20/19-09/25/19 at [facility] in [place] secondary to chest pain and abdominal pain. Underwent endoscopy per discharge summary which revealed multiple antral ulcers along with hemorrhagic duodenitis. He was discharged on PPI and Carafate. Patient with poor compliance. He is being admitted with reports of coffee-ground emesis and BRBPR in brief. Patient received IV PPI bolus in ED, was was on IV PPI drip Carafate 1 g before meals at bedtime --EGD per #1 -- clear liquid diet --GI recommends Protonix twice daily and sucralfate Esophageal stricture: dilated strictures per recent d/c summary --Not noted on EGD per #1 Diabetes: -- uncontrolled diabetes presenting with hyperglycemia Hemoglobin A1c 8.9 Lantus/NovoLog per protocol Pharmacy glycemic control consulted Continue TIGRE for renal protection Depression: --Per previous attending physician notes, Dr. Russ Reynolds: Previous inpatient psych hospitalization 03/2019 due to suicidal ideation Denies any suicidal ideation at this time Per discharge summary at OSH on Zoloft daily; however per psych hospital DC was placed on Cymbalta and trazodone Patient is unaware what medications he is taking We will continue low-dose Zoloft daily --Mood stable DVT prophylaxis: SCD/TEDS given concern for GIB Disposition: Pending Anticipate discharge to home when medically stable Follow up: Pt needs to establish with PCP in area and have close follow up along with appropriate GI and Cardiology follow up Admission and Anticipated Discharge Date Admission Date: November 07, 2019 Subjective Follow-up for abdominal pain, possible GI bleed Initially seen in the morning prior to EGD and colonoscopy Seen resting in bed, not in distress Still reporting some abdominal pain, unable to tolerate p.o. medications Otherwise denies chest pain, shortness of breath, palpitations, dizziness Reevaluated in the afternoon around 5:30 PM as nurse reporting patient was having chest Patient seen and evaluated at bedside Reporting substernal chest pain, sharp/pressure radiating to his mid thoracic region, 8 out of 10 in severity No associated nausea, diaphoresis, dizziness, shortness of breath Started 45 minutes earlier No other symptoms Review of Systems Review of Systems: All systems reviewed & are unremarkable except as noted in HPI & below Physical Exam Physical Exam: General- oriented x 3, not in distress, speaks in sentences with no effort or accessory muscle use Eyes- anicteric Neck- no JVD Lungs- clear breath sounds bilaterally, no rales/wheezes Chest wall nontender Heart- normal rate, regular rhythm; no murmurs Abdomen- normal bowel sounds, nondistended, soft, nontender Extremities- no pretibial edema, no calf tenderness Neuro- alert, oriented x 3; no gross focal neurologic deficits Skin- warm & dry Results & Data ([facility]) Vital Signs (Past 12 Hours) Vital Signs Temp Pulse Pulse Pulse Resp BP Pulse Ox 11/08/19 15:15 62 11/08/19 14:43 36.5 C 61 20 160/83 H 96 11/08/19 11:39 20 L 54 L 20 168/97 H 99 11/08/19 11:24 61 20 160/96 H 97 11/08/19 11:08 64 18 130/78 97 11/08/19 10:09 36.7 C 56 L 18 127/72 95 11/08/19 07:11 57 L 11/08/19 06:30 36.6 C 57 L 16 154/84 H 93 (1) Abdominal pain Abdominal location: unspecified location Qualified Code(s): R10.9 - Unspecified abdominal pain
[2019-11-08] MEDS ORDERED: OPTIRAY 320 125ml IV PRN (17:47)
--- NOTE | 2019-11-08 18:17 | CT Scan Report ---
CT ANGIOGRAPHY OF THE CHEST DISSECTION PROTOCOL CLINICAL HISTORY: chest pain radiating to the back, r/o dissection COMPARISON STUDY: Chest CT March 23, 2019. Chest radiograph November 05, 2019. TECHNIQUE: Before and following the IV administration of 118 mL of Optiray-320, helical axial images of the chest were obtained. Maximal intensity projections and sagittal and coronal reformats were vi ewed on an independent 3D workstation. IV contrast was administered without complication. Automated exposure control was utilized for the study. A dose lowering technique was utilized adhering to the principles of ALARA. CT DOSE: 1674.09 mGy.cm FINDINGS: Caliber of the thoracic aorta is normal. There is no intramural hematoma or dissection wit hin the thoracic aorta. Mild cardiomegaly is noted. No pulmonary emboli are identified. Coronary laurel ry stent is noted. There is no pericardial effusion. No pneumothorax or pleural effusion is noted. No consolidation to suggest pneumonia. Multiple small pulmonary nodules are unchanged since CT of March 23, 2019. These include a 7 mm subpleural left upper lobe nodule on image 145 of 296. A hypodense lef t adrenal nodule is likely benign. A few hepatic cysts are noted. IMPRESSION: 1. No thoracic aortic dissection. 2. No acute findings within the chest. 3. A few small pulmonary nodules which are likely benign. A follow up chest CT in 6 months to ensure stability is recommended ACT 112: Negative or not required by law. Electronically signed by: Socrates Argueta M.D. 11/08/2019 6:16 PM
[2019-11-08] MEDS ORDERED: HYDROCODONE/ACETAMOPHEN 5/325MG TAB PO PRN (18:53)
[2019-11-08] MEDS ORDERED: LIDOCAINE 5% 1 PATCH TD SCH (19:00)
[2019-11-08] MEDS: ATORVASTATIN 40 MG TAB PO SCH (20:22)
[2019-11-08] MEDS: TRAMADOL HCL 50 MG TABLET PO PRN (22:22)
[2019-11-09] MEDS: INSULIN ASPART 100 UNITS/ML 3 ML PEN SC SCH ×4 (00:28→16:56)
[2019-11-09] MEDS ORDERED: INSULIN GLARGINE SOLOSTAR 100 UNITS/ML 3 ML PEN SC STA (00:55)
[2019-11-09] MEDS ORDERED: AMLODIPINE BESYLATE 5 MG TAB PO SCH (01:00)
[2019-11-09] MEDS: DOCUSATE SODIUM 100 MG CAP PO SCH (08:01)
[2019-11-09] MEDS: NICOTINE 14 MG/24 HR PATCH TD SCH (08:01)
[2019-11-09] MEDS: GABAPENTIN 100 MG CAP PO SCH ×2 (08:04→13:06)
[2019-11-09] MEDS: lisinopriL 40 MG TAB PO SCH (08:04)
[2019-11-09] MEDS: PANTOprazole 40 MG TAB PO SCH (08:04)
[2019-11-09] MEDS: carvediloL 3.125 MG TAB PO SCH (08:05)
[2019-11-09] MEDS: SERTRALINE HCL 50 MG TABLET PO SCH (08:05)
[2019-11-09] MEDS: SUCRALFATE 1 GM TAB PO SCH ×3 (08:06→16:48)
[2019-11-09] MEDS: INSULIN GLARGINE SOLOSTAR 100 UNITS/ML 3 ML PEN SC SCH (08:07)
[2019-11-09] MEDS: POLYETHYLENE (MIRALAX) 17 GM PACK PO SCH (08:10)
--- NOTE | 2019-11-09 08:46 | Anesthesiology Progress Note ---
Date of Service November 09, 2019 Anesthesia Post Procedure Vital Signs Vital Signs: Temp Pulse Pulse Pulse Resp BP Pulse Ox 11/09/19 07:11 58 L 11/09/19 07:00 36.6 C 83 20 123/60 92 11/09/19 04:00 67 133/74 11/09/19 00:32 183/94 H 11/08/19 23:00 66 11/08/19 22:01 36.6 C 63 20 178/61 H 97 11/08/19 17:15 171/96 H 11/08/19 15:15 62 11/08/19 14:43 36.5 C 61 20 160/83 H 96 11/08/19 11:39 20 L 54 L 20 168/97 H 99 11/08/19 11:24 61 20 160/96 H 97 11/08/19 11:08 64 18 130/78 97 11/08/19 10:09 36.7 C 56 L 18 127/72 95 Pain Intensity Generalized: Pain Intensity: 4 Notes Mental Status: alert / awake / arousable Patient Amnestic to Procedure: Yes Nausea / Vomiting: adequately controlled Pain: adequately controlled Airway Patency, RR, SpO2: stable & adequate BP & HR: stable & adequate Hydration State: stable & adequate Neuraxial Anesthesia: was administered Anesthetic Complications: no major complications apparent and Pt Satisfied with anesthetic care
[2019-11-09 12:04] LABS: Basophils # (auto) 0.03 K/uL (0-0.2); Basophils % (auto) 0.8 %; Eosinophils # (auto) 0.11 K/uL (0-0.5); Hemoglobin 14.1 g/dL (14.0-18.0); Immature Granulocytes # (auto) 0.01 K/uL (0.00-0.02); Immature Granulocytes % (auto) 0.3 %; Lymphocytes # (auto) 1.61 K/uL (1.2-3.4); Lymphocytes % (auto) 43.3 %; Mean Corpuscular Hemoglobin 29.5 pg (25-34); Mean Corpuscular Hgb Conc 36.2 g/dL (32-36); Mean Corpuscular Volume 81.6 fL (80-100); Mean Platelet Volume 8.7 fL (7.4-10.4); Monocytes # (auto) 0.36 K/uL (0.11-0.59); Monocytes % (auto) 9.7 %; Neutrophils % (auto) 42.9 %; Platelet Count 103 K/uL (130-400); RDW Coefficient of Variation 13.6 % (11.5-14.5); RDW Standard Deviation 40.9 fL (36.4-46.3); Red Blood Count 4.78 M/uL (4.7-6.1); White Blood Count 3.72 K/uL (4.8-10.8)
[2019-11-09 12:21] LABS: BUN Creatinine Ratio 6.7 (10-20); Calcium 8.5 mg/dl (8.5-10.1); Creatinine Clr Calc Pharmacy 127.7 ml/min; Est GFR (African American) 109.8; Est GFR (Non-African American) 94.8
--- NOTE | 2019-11-09 16:34 | Electrocardiogram Report ---
Test Reason : Blood Pressure : / mmHG Vent. Rate : 052 BPM Atrial Rate : 052 BPM P-R Int : 186 ms QRS Dur : 098 ms QT Int : 442 ms P-R-T Axes : 076 038 026 degrees QTc Int : 411 ms Sinus bradycardia Otherwise normal ECG When compared with ECG of 07-NOV-2019 06:38, No significant change was found Confirmed by Lefty Whitmore ([id number]) on 11/09/2019 4:33:56 PM Referred By: REFERRED SELF Confirmed By:Lefty Whitmore
--- NOTE | 2019-11-09 18:09 | Discharge Summary ---
Date of Service November 09, 2019 Admission HPI Per Admitting Provider This is a 64-year-old -[place] male who has significant PMH of CAD with PCI to LAD, IDDM 2, HTN, HLD, depression with anxiety, history of psychiatric hospitalizations, chronic compartment syndrome RUE s/p cardiac cath, esophageal stricture, history of laryngeal CA s/p XRT, history of PUD who presents to ED with multiple complaints including chest pain off and on x3 days and abdominal pain x1 day. Patient does not follow with routine PCP, is noncompliant and does not have a cylinder steamer despite history of stent. Of significance patient had recently been staying in [place] with his mother who is, "dying," where he had hospitalization 09/20 and 09/25/2019 secondary to chest pain, hyperglycemia and abdominal pain. During his hospitalization he has seen GI and psychiatry. Per reports GI performed endoscopy which revealed esophageal strictures which were dilated, gastric ulcerations and hemorrhagic duodenitis. He was placed on PPI and Carafate therapy. Recommend outpatient follow-up endoscopy in 4 to 6 weeks which patient states is to be this week. Regarding chest pain during the hospitalization cardiac enzymes were negative felt to be noncardiac in nature. He states during recent [place] hospitalization he was told he also had a TIA. Symptoms included unable to move bilateral upper and lower extremities and unable to think straight. He is unsure if he was placed on any antiplatelets for this. (This was not mentioned in D[facility]C summary [facility] On D/C summary it was noted his plavix was d/c due to above. Approximately 3 days ago patient had returned home from [place] when he began developing off and on substernal chest discomfort with radiation to his left arm. Pain was nonexertional but he did elicit associated shortness of breath. There was no pattern to the pain and relieved on its own. Pain will come and go lasting several seconds to minutes. Does not endorse being affected by meals. Nothing made it better or worse. He denies any diaphoresis, lightheadedness, dizziness or syncope with chest pain. Unsure of feels similar to previous pain. He does elicit to having nausea and emesis today. Complains of emesis being coffee-ground in nature. Also states he went through 5 brief secondary to noting bright red blood in his briefs. Last BM however was 3 days ago. He denies any recent illness, fever, chills, sweats, hemoptysis, shortness breath at rest. Complains of dysuria but denies any increased frequency or urgency with urination. Overall has poor appetite and early satiety. Complains of approximately 18 pound weight loss since hospitalization. With his recent travel in the past 3 days he states he flew from [facility] in which his luggage, lost and therefore he did not have any of his medications. Does admit to taking his medications were prescribed at discharge along with insulin. He was unaware exactly which medications he was taking or how much. He states he does not have a PCP and despite having history of heart stent he does not follow with cylinder steamer. In ED patient remained hemodynamically stable. His H&H 14.4 and 39.6, WC 4.19, platelet 136, BUN 13, creatinine 1.19, glucose 427, troponin WNL, LFTs WNL, lipase WNL. Urinalysis reviewed elevated specific gravity but was otherwise negative for blood, infection and tox screen. Chest x-ray reviewed no acute cardiopulmonary abnormality. CT A/P: Mild ectasia of the aortic bifurcation and bilateral common iliac arteries, the larger on the right measuring 1.7 cm. No intraabdominal pathology. Multiple left adrenal gland nodules, which are indeterminate though statisti hugh most likely represent benign adenomas, Chronic bladder outlet obstruction secondary to prostatomegaly. He was started on a PPI bolus and drip, IVF, IV morphine and received 8 units IV regular insulin. Admission Exam Per Admitting Provider Constitutional: WD/WN, alert, but drowsy, vitals as above, NAD, sitting up in bed, pleasant, answers questions appropriately Head: Normocephalic, Atraumatic Eyes: PERRL, conjunctivae normal, anicteric sclerae ENMT: external ear and nose normal, oropharynx normal Neck: trachea midline, no thyromegaly normal visual inspection Respiratory: normal respiratory effort, lungs clear to auscultation with decreased breath sounds at bases, no wheeze, rales, rhonchi. Normal insp/exp effort, no accessory muscle use Cardiovascular: RRR, no murmur, no edema Vessels: no JVD or carotid bruit Chest: normal inspection of chest, + pain when place stethoscope on RUSB, but no pain physical palpation Abdomen: normal bowel sounds, soft, nontender, no hepatosplenomegaly Musculoskeletal: no cyanosis or clubbing, extremities motor strength 5/5 Skin: no rashes, warm and dry normal turgor, + scar noted RUE dorsal forearm from prior fasciotomy Neurologic: PERRL, EOMI, accommodation nl, no face palsy, no dysarthria CN's II-XI intact bilaterally and moves all extremities Psychiatric: A+Ox3, euthymic affect Lymphatic: no cervical or axillary lymphadenopathy : deferred -please refer to attending addendum Principal Diagnosis CHEST PAIN, ACUTE CORONARY SYNDROME RULED OUT; ABDOMINAL PAIN, POSSIBLE GI BLEED Discharge Exam General- oriented x 3, not in distress, speaks in sentences with no effort or accessory muscle use Eyes- anicteric Neck- no JVD Lungs- clear breath sounds bilaterally, no rales/wheezes Chest wall nontender Heart- normal rate, regular rhythm; no murmurs Abdomen- normal bowel sounds, nondistended, soft, nontender Extremities- no pretibial edema, no calf tenderness Neuro- alert, oriented x 3; no gross focal neurologic deficits Skin- warm & dry Discharge Data Allergies Allergy/AdvReac Type Severity Reaction Status Date / Time diphenhydramine Allergy Intermediate Unknown Verified 11/08/19 10:08 [From Benadryl] Consultations 11/05/19 15:01 ED Decision to Admit Stat 11/05/19 15:37 Consult Gastroenterology Routine 11/05/19 15:39 Consult Cardiology Routine 11/06/19 10:24 Consult Case Management - Discharge Planning Routine Procedures Performed Operation Date: 11/08/19 16:00 Actual Procedures p EGD Biopsy Cytology - Alla Brown M.D. Findings: The examined esophagus appeared normal. The examined stomach appeared normal. Biopsies were taken with a cold forceps for Helicobacter pylori testing. The pathology specimen was placed into Bottle B. Verification of patient identification for the specimen was done by the physician and nurse using the patient's name and medical record number. Localized mild inflammation characterized by erythema was found in the duodenal bulb. Biopsies were taken with a cold forceps for histology. The pathology specimen was placed into Bottle A. The duodenal bulb and second portion of the duodenum were otherwise normal. Impression: - Normal esophagus. - Normal stomach. - Mild duodenitis. Recommendation: - Await pathology results. Alla Brown M.D. s Colonoscopy Polypectomy - Alla Brown M.D. Findings: The examined terminal ileum appeared normal. The examined colon appeared normal. A 4 mm polyp was found in the ascending colon. The polyp was sessile and was removed with a cold biopsy forceps. Resection and retrieval were complete. The pathology specimen was placed into Bottle D. Verification of patient identification for the specimen was done by the physician and nurse using the patient's name and medical record number. Multiple small and large-mouthed diverticula were found in the ascending colon. Internal hemorrhoids were found during retroflexion. Impression: - The examined portion of the terminal ileum appeared normal. - The examined colon appeared normal. - One 4 mm polyp in the ascending colon, removed with a cold biopsy forceps. Resected and retrieved. - Scattered ascending diverticulosis in the ascending colon. - Internal hemorrhoids. Recommendation: - Await pathology results. - Repeat colonoscopy for surveillance based on pathology results. Alla Brown M.D. FINAL DIAGNOSIS A. DUODENUM, BIOPSY: - DUODENAL MUCOSA WITH NO DIAGNOSTIC ABNORMALITY - NEGATIVE FOR HISTOLOGICAL FEATURES OF SPRUE - NEGATIVE FOR PARASITES - NEGATIVE FOR DYSPLASIA AND MALIGNANCY B. STOMACH, BIOPSY: - GASTRIC MUCOSA WITH NO DIAGNOSTIC ABNORMALITY - NEGATIVE FOR INTESTINAL METAPLASIA, DYSPLASIA AND MALIGNANCY - NEGATIVE FOR HELICOBACTER PYLORI ORGANISMS BY MORPHOLOGY C. ESOPHAGUS, BIOPSY: - SQUAMOUS EPITHELIUM WITH NO DIAGNOSTIC ABNORMALITY - NEGATIVE FOR DYSPLASIA AND MALIGNANCY - NO GLANDULAR EPITHELIUM IDENTIFIED D. COLON, ASCENDING POLYP, POLYPECTOMY: - TUBULAR ADENOMA - NEGATIVE FOR HIGH GRADE DYSPLASIA Ordered Studies 11/05/19 11:35 CT angio abdomen pelvis w con Stat COMPARISON: None. CT DOSE (mGy.cm): The estimated cumulative dose is 913.05 mGy.cm. FINDINGS: Reel Repairer topogram: Unremarkable. Vasculature: Abdominal aorta normal in course with only mild atherosclerotic plaque in the distal portion. There is ectasia of the aortic bifurcation and bilateral common iliac arteries, measuring 1.7 cm on the right and 1.6 cm on the left. Normal appearance of the patent bilateral external and internal iliac arteries. Visualized portions of the bilateral common, superficial, deep femoral arteries patent. Bilateral single main renal arteries patent. Only minimal stenosis of the proximal 1 cm of the celiac artery. Superior mesenteric artery widely patent. Remaining abdomen and pelvis: Lung bases: Borderline enlargement of the heart. Coronary artery calcification. Coronary stent likely in place within the left anterior descending coronary artery. No pericardial or pleural effusion. Minimal dependent changes likely atelectasis. Liver: Normal morphology. Hepatic cyst suspected in the central liver. Conventional hepatic arterial anatomy. Biliary: No intrahepatic or extrahepatic biliary ductal dilatation. Gallbladder decompressed. Pancreas: Normal. Spleen: Normal. Adrenal glands: Multinodular appearance of the left adrenal gland with the largest focal nodule measuring 3 cm. The right adrenal gland is normal. Kidneys and ureters: Normal. No hydronephrosis. Bladder: Circumferential bladder wall thickening. Pelvic organs: Prostate enlargement likely secondary to benign prostatic hyperplasia. Bowel: Mild diverticulosis of the splenic flexure of the colon without wall thickening or pericolonic inflammatory change. The appendix is normal. No bowel obstruction. Peritoneal cavity: No free fluid or intraperitoneal gas. Lymph nodes: No enlarged lymph nodes in the abdomen or pelvis. Abdominal wall: Few nodular foci of subcutaneous fat infiltration in the anterior abdominal wall likely from medication administration Musculoskeletal: Degenerative changes of the spine. IMPRESSION: 1. No acute aortic injury. 2. Mild ectasia of the aortic bifurcation and bilateral common iliac arteries, the larger on the right measuring 1.7 cm. 3. No acute intra-abdominal pathology. 4. Multiple left adrenal gland nodules, which are indeterminate though statistically most likely represent benign adenomas. This could be confirmed with dedicated adrenal CT or MR. The largest measures 3 cm. 5. Chronic bladder outlet obstruction secondary to prostatomegaly. ACT 112: Negative or not required by law. 11/08/19 17:24 CT angio chest dissec wo/w con Stat COMPARISON STUDY: Chest CT March 23, 2019. Chest radiograph November 05, 2019. TECHNIQUE: Before and following the IV administration of 118 mL of Optiray-320, helical axial images of the chest were obtained. Maximal intensity projections and sagittal and coronal reformats were viewed on an independent 3D workstation. IV contrast was administered without complication. Automated exposure control was utilized for the study. A dose lowering technique was utilized adhering to the principles of ALARA. CT DOSE: 1674.09 mGy.cm FINDINGS: Caliber of the thoracic aorta is normal. There is no intramural hematoma or dissection within the thoracic aorta. Mild cardiomegaly is noted. No pulmonary emboli are identified. Coronary artery stent is noted. There is no pericardial effusion. No pneumothorax or pleural effusion is noted. No consolidation to suggest pneumonia. Multiple small pulmonary nodules are unchanged since CT of March 23, 2019. These include a 7 mm subpleural left upper lobe nodule on image 145 of 296. A hypodense left adrenal nodule is likely benign. A few hepatic cysts are noted. IMPRESSION: 1. No thoracic aortic dissection. 2. No acute findings within the chest. 3. A few small pulmonary nodules which are likely benign. A follow up chest CT in 6 months to ensure stability is recommended ACT 112: Negative or not required by law. Hospital Course (1) Abdominal pain: -- Abdominal Pain, Possible Acute GI bleed -- patient reported abdominal pain associated with Coffee ground emesis, Hematoc hezia on admission Per previous attending notes, Dr. Russ Reynolds: Recently hospitalized 09/20/19-09/25/19 at [facility] in [place] secondary to chest pain and abdominal pain. Underwent endoscopy per discharge summary which revealed multiple antral ulcers along with hemorrhagic duodenitis. He was discharged on PPI and Carafate. Patient with poor compliance. He is being admitted with reports of coffee-ground emesis and BRBPR in brief. Patient received IV PPI bolus in ED, was was on IV PPI drip -- no report of coffee ground emesis, melena or hematochezia while admitted Hg remained stable at 13-14 -- GI initially recommended observation only, but patient's abdominal pain progressed --Status post EGD and colonoscopy 11/08/[address] Brown EGD: Normal esophagus, normal stomach, mild duodenitis, biopsy [id number] results Colonoscopy: Examined portion of terminal ileum appeared normal Examined colon appeared normal One 4 mm polyp in the ascending colon removed with cold biopsy forceps, resected and retrieved Scattered ascending diverticulosis in the ascending colon Internal hemorrhoids Biopsy [id number] results Repeat colonoscopy for surveillance based on pathology results -- biopsy results noted in the results section above notable for tubular adenoma of colonic polyp -- discharged on Protonix and Sucralfate -- ff up with GI Clinic, will need input on when to restart ASA and Plavix Lower abdominal pain, resolved -UTI/prostatitis unlikely -No urinary symptoms on discharge Diarrhea, Lower Abdominal pain, resolved -C. difficile test negative Chest pain -- Acute Coronary Syndrome ruled out - Investigator Dr. Palomo consulted, per his notes: Off of antiplatelet therapy due to endoscopy performed in [facility] in August 2019 with findings of esophageal stricture, gastric ulcers, and hemorrhagic duodenitis. As noted, patient has been receiving treatment/interventions at multiple institutions (over 30 institutions) stating that he travels for work. Continue carvedilol, atorvastatin, lisinopril. - while admitted, Patient reported chest pain radiating to the back -CT chest angio: No dissection, no PE -Troponin x3 negative EKG no signs of acute ischemia or infarct - likely musculoskeletal origin Flexeril prescribed - repeat BMP on ff up with PCP to monitor renal function after Ct angio - needs to follow up with Cardiology Clinic to determine when patient can resume his Aspirin and Plavix Hypertension - not controlled - Amlodipine started Continue lisinopril 40 mg daily and carvedilol 3.125 mg p.o. twice daily - monitor and ff up as outpatient CAD (coronary artery disease): --Per previous attending physician notes, Dr. Russ Reynolds: History of previous coronary stent placed LAD. Last cardiac cath 08/14/2018 which revealed two-vessel CAD, patent stent LAD and nonobstructive RCA disease Had stress echo 02/2019 which revealed EF 55 to 60%, moderate LVH, negative for inducible ischemia Patient with poor compliance, does not follow with routine cylinder steamer Continue Coreg, lisinopril --Evaluated by cylinder steamer Dr. Bill Palomo, does not recommend aspirin Plavix at this time secondary to possible GI - needs to follow up with Cardiology Clinic to determine when patient can resume his Aspirin and Plavix History of Esophageal stricture: dilated strictures per recent d/c summary --Not noted on EGD per #1 Thrombocytopenia -- Plt 103k -- repeat CBC on ff up with PCP next week Diabetes: -- uncontrolled diabetes presenting with hyperglycemia Hemoglobin A1c 8.9 --- patient prescribed with Insulin regular/nph + metformin while awaiting medicaid approval once approved, advised to resume usual Basaglar + metformin regimen -- advised close ff up with local PCP Abnormal CT Findings -- please refer to full reports noted above in the data section -- CT abdomen/pelvis: 1. No acute aortic injury. 2. Mild ectasia of the aortic bifurcation and bilateral common iliac arteries, the larger on the right measuring 1.7 cm. 3. No acute intra-abdominal pathology. 4. Multiple left adrenal gland nodules, which are indeterminate though statistically most likely represent benign adenomas. This could be confirmed with dedicated adrenal CT or MR. The largest measures 3 cm. 5. Chronic bladder outlet obstruction secondary to prostatomegaly. -- Ct angio chest: 1. No thoracic aortic dissection. 2. No acute findings within the chest. 3. A few small pulmonary nodules which are likely benign. A follow up chest CT in 6 months to ensure stability is recommended -- outpatient further work up and follow up Depression: --Per previous attending physician notes, Dr. Russ Reynolds: Previous inpatient psych hospitalization 03/2019 due to suicidal ideation Denies any suicidal ideation at this time Per discharge summary at OSH on Zoloft daily; however per psych hospital DC was placed on Cymbalta and trazodone Patient is unaware what medications he is taking continue low-dose Zoloft daily --Mood stable DVT prophylaxis: SCD/TEDS given, in light of concern for GIB Disposition: d/c home establish and ff up with local PCP in 1 week ff up with Investigator, GI Total Time Total Time Spent Total Time Spent (In Minutes): 60 minutes Discharge Plan Discharge Items Patient Disposition: Home - Self-Care Reason For Visit: GIB Discharge Diagnosis: Abdominal pain Activity: As commented below Activity Comment: No heavy exertion, resume activity gradually as tolerated Lifting: Wait until after follow-up appointment Exercise/Sports: Wait until after follow-up appointment Driving/Machine Use: No driving until re-evaluated and allowed by Primary Care Physician Non-emergency contact: Primary Care Provider Call non-emergency contact if: you have any medication questions, your symptoms worsen, your pain is not controlled, your pain is worsening, your pain is unusual for you and your pain is concerning for you Follow-up/Referrals: Razia Chávez DO [Outside Practitioners] - 11/12/19 12:45 pm Alla Brown M.D. [Hospitalist] - Diet: Carb Consistent or DM2 and Heart Healthy Addtl Attending Provider Instructions: PLEASE REVIEW YOUR NEW MEDICATION LIST AND FOLLOW THE INSTRUCTIONS CAREFULLY. For now, use insulin NPH/regular 70/30: 15 units subcutaneously twice a day, 30 minutes before breakfast and dinner, in place of Basaglar insulin. Once you have your Medicaid application approved, stop insulin NPH/regular 70/30 and resume your usual Basaglar insulin 20 units subcutaneously twice a day with breakfast and dinner. You can request your primary care physician to give you a prescription for the Basaglar insulin. Hold metformin for now and resume taking metformin on Tuesday, November 11, 2019. This is to avoid kidney injury as you just had IV contrast dye in the CAT scan last November 08, 2019. Do not drive or use machinery while taking Flexeril. Do not take NSAIDs such as Aleve, ibuprofen, etc. Always talk to your doctor first before starting any new medication. It is very important that you take your medications as directed and regularly. If you have any medication questions or problems obtaining your medications, call your primary care physician immediately. Follow-up with primary care physician Dr. Razia Chávez on November 12, 2019 at 12:45 PM at the [address] , [place] [address], telephone number [phone]. Follow-up with a homoeopath Dr. Alla Brown in 2 weeks. Please call her office to set up an appointment. Contact information is outlined above It is very important that you follow-up with the primary care physician and homoeopath for continuation of your care. Call your primary care physician or return to the ER immediately if with recurrence or worsening of symptoms, Including abdominal pain, blood in your stools, nausea or vomiting. Record your blood sugar readings at least twice a day, and present them to your primary care physician on your follow-up visit. No smoking. No alcohol. Always follow the [employer] and diabetic diet. Drink plenty of fluids. Who to Call and When: Medical Emergencies: If at any time you feel your situation is an emergency, please call 911 immediately. Call 911 immediately or go to your nearest Emergency Room if you experience any of the following: Warning Signs and Symptoms of a Heart Attack * Chest pain that is not relieved by medication * Shortness of breath Pending Studies at Discharge: Yes Studies:: Repeat blood work including CBC and basic metabolic profile on follow- up with your primary care physician Stand-Alone Forms: [employer], Smoking Cessation Medications and DC Order Prescriptions: New amlodipine [Norvasc] 5 mg Tablet 10 mg PO QAM 30 Days Qty: 60 RF: 2 nicotine 7 mg/24 hr Patch 24 Hour 14 mg transdermal QAM 7 Days Qty: 7 RF: 0 cyclobenzaprine 5 mg tablet 5 mg PO BID PRN (Reason: muscle spasm) Qty: 10 RF: 0 omeprazole 40 mg capsule,delayed release(DR/EC) 40 mg PO BID Qty: 60 RF: 2 insulin NPH and regular human 100 unit/mL (70-30) insulin pen 15 units SQ BID 30 Days Qty: 9 RF: 2 atorvastatin 80 mg Tablet 80 mg PO HS 30 Days Qty: 30 RF: 1 sucralfate [Carafate] 1 gram Tablet 1 g PO ACHS 30 Days Qty: 30 RF: 1 carvedilol 3.125 mg Tablet 3.125 mg PO BID 30 Days Qty: 60 RF: 1 sertraline 25 mg Tablet 25 mg PO DAILY 30 Days Qty: 30 RF: 0 gabapentin 100 mg Capsule 100 mg PO TID 30 Days Qty: 90 RF: 1 lisinopril 40 mg Tablet 40 mg PO DAILY 30 Days Qty: 30 RF: 1 metformin 500 mg tablet extended release 24 hr 1,000 mg PO BIDM 30 Days Qty: 120 RF: 1 Discontinued pantoprazole 40 mg Tablet,Delayed Release (Dr/Ec) 40 mg PO DAILY RF: 0 Basaglar KwikPen U-100 Insulin 100 unit/mL (3 mL) insulin pen 20 unit subcut BID RF: 0 Discharge Orders: Discharge Order (Routine); Ordered 11/09/19 Ordered By: Dom Robles Admission Data Admit Date/Time: 11/07/19 14:45 Attending Provider: Dom Robles Admit Provider: Bennett Hensley Primary Care Provider: PCP,NO Other Providers: Alla Brown ; Bill Palomo ; Bennett Hensley ; Russ Reynolds. Other Interventions: Discharge Summary Assessment (RN) Last Done: 11/09/19 17:59 DC Date/Time DO NOT enter until pt leaves facility: 11/09/19 19:08
== END 2019-11-09 19:08 | disposition home or self-care (01) | DRG 379 ==
LOC: ED 10:26 → 2W 10:26 → SUATTDRO 15:37 → 2W 16:51

== ENCOUNTER 2019-12-03 14:58 | Inpatient (IN) ==
[2019-12-03] MEDS ORDERED: HYDROmorphone INJ 1 MG/ML SYRINGE IV STA (15:22)
[2019-12-03] MEDS ORDERED: ONDANSETRON INJ 2 MG/ML 2 ML VIAL IV STA (15:22)
--- NOTE | 2019-12-03 15:39 | Emergency Department Note ---
ED Visit Note Patient was seen and evaluated at the bedside w/ Faraz Babb PA-C . Please see their note for history, physical, details, and disposition. Patient did present with multiple complaints including abdominal pain and did have CT scans of the chest abdomen and pelvis. The patient subsequently did develop diffuse body weakness. Upon my assessment the patient did not have great strength in any limb and per the physician assistant press operator he had had normal movement upon arrival. A code stroke was initiated and the patient did get an MRI. .
--- NOTE | 2019-12-03 15:54 | Emergency Department Note ---
History of Present Illness General Chief complaint: Abdominal Pain Stated complaint: ABD & LWR BACK PAIN, GREENISH COLOR URINE Time Seen by Provider: 12/03/19 15:15 History of Present Illness Maximum Pain Intensity: 10 This is a 64-year-old female with a past medical history significant for that of CAD status post PCI to LAD, hyperlipidemia, hypertension, insulin-dependent type 2 diabetes, chronic compartment syndrome of the right upper extremity, esophageal stricture, laryngeal cancer, history of PUD, as well as psychiatric ailments that presents to the emergency department via private vehicle with complaints of "abdominal and lower back pain, greenish colored urine". The patient states that he has been experiencing abdominal pain, lower back pain, as well as chest pain for weeks with worsening over the past few days. He also notes increased pain in the right arm for the past 2 weeks. The patient also notes that when he urinates it is green and foam-like. He denies any risk of STI. He denies any fevers or chills. No speech troubles or weakness. He does have associated vomiting as well. Home Medications Home Medications Medication Instructions Recorded Confirmed Type amlodipine [Norvasc] 10 mg PO QAM 30 Days #60 tab 11/09/19 12/03/19 Rx atorvastatin 80 mg PO HS 30 Days #30 tab 11/09/19 12/03/19 Rx carvedilol 3.125 mg PO BID 30 Days #60 tab 11/09/19 12/03/19 Rx cyclobenzaprine 5 mg PO BID PRN #10 tab 11/09/19 12/03/19 Rx insulin NPH and regular human 15 units SQ BID 30 Days #9 ml 11/09/19 12/03/19 Rx lisinopril 40 mg PO DAILY 30 Days #30 tab 11/09/19 12/03/19 Rx metformin 1,000 mg PO BIDM 30 Days #120 tab 11/09/19 12/03/19 Rx omeprazole 40 mg PO BID #60 cap 11/09/19 12/03/19 Rx sertraline 25 mg PO DAILY 30 Days #30 tab 11/09/19 12/03/19 Rx sucralfate [Carafate] 1 g PO ACHS 30 Days #30 tab 11/09/19 12/03/19 Rx Allergies Allergy/AdvReac Type Severity Reaction Status Date / Time diphenhydramine Allergy Intermediate Unknown Verified 12/03/19 15:46 [From Kim] Past Med/Surg History Medical History Bleeding ulcer CAD (coronary artery disease) 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 Depression Diabetes Esophageal stricture History of laryngeal cancer Status post radiation HTN (hypertension) PTSD (post-traumatic stress disorder) Suicidal ideation (Acute) Surgical History History of coronary artery stent placement (Acute) History of endoscopy 08/2019 revealed esophageal strictures, gastric ulcerations and hemorrhagic duodenitis History of heart artery stent History of partial thyroidectomy Family History Father Cancer Lung Social History Preferred Language: Danish Communication Ability: Effective 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 Current Living Situation: Alone Feels Safe at Home: Yes Smoking Status: Current some day smoker Tobacco Type: cigars ; Hx Alcohol Use: No Hx Substance Use: No Review of Systems A total of 10 systems reviewed and were otherwise negative Physical Exam Vital Signs Vital Signs - 24 hr 12/03/19 15:02 12/03/19 16:00 12/03/19 16:15 Temperature 36.8 C Temperature Source Oral Pulse Rate 92 H 95 H 91 H Pulse Rate [Left Finger] Pulse Rate from SpO2 Sensor Respiratory Rate 20 17 18 Blood Pressure 163/97 H Blood Pressure [Left Arm] Blood Pressure Mean 119 Blood Pressure Mean [Left Arm] Pulse Oximetry 97 Oxygen Delivery Method Room Air Sepsis Recent Fever Within 48 Hours No Sepsis New/Unexplained Change in Mental Status No Sepsis Action Taken by Nursing No Action Required 12/03/19 16:30 12/03/19 16:45 12/03/19 17:17 Temperature Temperature Source Pulse Rate 82 80 Pulse Rate [Left Finger] 83 Pulse Rate from SpO2 Sensor 83 Respiratory Rate 17 18 18 Blood Pressure 146/75 H Blood Pressure [Left Arm] 146/75 H Blood Pressure Mean 94 Blood Pressure Mean [Left Arm] 98 Pulse Oximetry 95 Oxygen Delivery Method Sepsis Recent Fever Within 48 Hours Sepsis New/Unexplained Change in Mental Status Sepsis Action Taken by Nursing 12/03/19 17:30 12/03/19 17:48 12/03/19 18:00 Temperature Temperature Source Pulse Rate 71 79 Pulse Rate [Left Finger] Pulse Rate from SpO2 Sensor 74 Respiratory Rate 20 16 19 Blood Pressure 142/77 H Blood Pressure [Left Arm] Blood Pressure Mean 98 Blood Pressure Mean [Left Arm] Pulse Oximetry 100 100 Oxygen Delivery Method Sepsis Recent Fever Within 48 Hours Sepsis New/Unexplained Change in Mental Status Sepsis Action Taken by Nursing 12/03/19 18:58 12/03/19 19:00 Temperature Temperature Source Pulse Rate Pulse Rate [Left Finger] 88 Pulse Rate from SpO2 Sensor Respiratory Rate 18 Blood Pressure Blood Pressure [Left Arm] 133/77 Blood Pressure Mean Blood Pressure Mean [Left Arm] 95 Pulse Oximetry 100 96 Oxygen Delivery Method Room Air Room Air Sepsis Recent Fever Within 48 Hours Sepsis New/Unexplained Change in Mental Status Sepsis Action Taken by Nursing VITAL SIGNS - Vital signs and nursing notes were reviewed. Stable and afebrile. GENERAL -64-year-old male appearing his stated age who is in no acute distress. Communicates well with provider and answers questions appropriately. SKIN - Without rashes. No meningeal or petechial rash. HEAD - NC/AT. EYES - PERRL with EOMI bilaterally. Sclera anicteric. EARS - No deformities of external structures noted on gross examination bilaterally. External auditory canals without discharge or otorrhea. Tympanic membranes pearly pace without retraction or bulging. No fluid or purulent material visualized behind the TM. Handle of malleus, umbo, cone of light, pars tensa/flaccid all easily visualized. NOSE - Midline and without cyanosis. No epistaxis or purulent drainage noted. Septum midline without deviation or septal hematoma noted. MOUTH/OROPHARYNX - Without perioral cyanosis. Buccal mucosa pink and moist and without leukoplakia. Tongue midline with equal elevation of palate bilaterally. No tonsillar hypertrophy, erythema, or exudates noted. Fair dentition noted. NECK - Neck with FROM. . No nuchal rigidity. LUNGS - Chest wall symmetric without accessory muscle use, intercostals retractions, or central cyanosis. Normal vesicular breath sounds CTA B/L. No wheezes, rales, or rhonchi appreciated. CARDIAC - RRR with S1/S2. No murmur, rubs, or gallops appreciated. ABDOMEN - Abdominal contour normal without pulsations or visible masses. BS normoactive all four quadrants. Significant abdominal tenderness even with light pressure from the stethoscope. This is diffuse. Abdomen is soft and nonrigid. EXTREMITIES - No clubbing or peripheral cyanosis. No pretibial edema present. +5/5 strength noted in UE/LE bilaterally. NEUROLOGIC - Cranial nerves II through XII grossly intact. Sensory intact to light touch throughout. PSYCH - A&Ox3 and cooperates fully with examiner. Pt is very pleasant and interacts well with examiner. Course Administered Medications Atorvastatin Calcium (Lipitor) 80 mg PO HS MARCOS Stop: 01/02/20 20:59 Last Admin: 12/03/19 21:24 Dose: 80 mg Documented by: [id number] Carvedilol (Coreg) 3.125 mg PO BID MAROCS Stop: 01/02/20 20:59 Last Admin: 12/03/19 21:24 Dose: 3.125 mg Documented by: [id number] Magnesium Sulfate/Dextrose (Magnesium Sulfate / D5w) 1 gm in 100 mls @ 100 mls/hr IV Q1H MARCOS Stop: 12/03/19 22:59 Last Admin: 12/03/19 21:24 Dose: 100 mls/hr Documented by: [id number] Pantoprazole Sodium (Protonix) 40 mg PO BID MARCOS Stop: 01/02/20 20:59 Last Admin: 12/03/19 21:25 Dose: 40 mg Documented by: [id number] Sucralfate (Carafate Tab) 1 gm PO ACHS MARCOS Stop: 01/02/20 20:59 Last Admin: 12/03/19 21:25 Dose: 1 gm Documented by: [id number] Discontinued Medications Hydromorphone HCl (Dilaudid) 1 mg IV NOW STA Stop: 12/03/19 15:23 Last Admin: 12/03/19 16:00 Dose: 1 mg Documented by: [id number] Hydromorphone HCl (Dilaudid) 0.5 mg IV NOW STA Stop: 12/03/19 19:30 Last Admin: 12/03/19 19:44 Dose: 0.5 mg Documented by: [id number] Lorazepam (Ativan) 1 mg in 2 mls @ 2 mls/min IV NOW STA Stop: 12/03/19 18:22 Last Admin: 12/03/19 18:33 Dose: 2 mls/min Documented by: [id number] Insulin Aspart (Novolog Flexpen) 0 units SC ONE ONE; Protocol Stop: 12/03/19 21:16 Last Admin: 12/03/19 21:27 Dose: 14 units Documented by: [id number] Cosigned by: [id number] Insulin Human NPH (Novolin N Nph) 10 units SC ONE ONE; Protocol Stop: 12/03/19 21:16 Last Admin: 12/03/19 21:26 Dose: 10 units Documented by: [id number] Cosigned by: [id number] Ioversol (Optiray 320 125ml) 117 ml IV ONCE PRN PRN Reason: Interaction Checking Stop: 12/07/19 17:05 Last Admin: 12/03/19 17:06 Dose: 117 ml Documented by: [id number] Ondansetron HCl (Zofran) 4 mg IV NOW STA Stop: 12/03/19 15:23 Last Admin: 12/03/19 16:09 Dose: Not Given Documented by: [id number] Medical Decision Making Laboratory Data Result diagrams: 12/03/19 15:50 12/03/19 15:50 Lab Results 12/03/19 12/03/19 12/03/19 Range/Units 15:37 15:37 15:50 WBC (4.8-10.8) K/uL RBC (4.7-6.1) M/uL Hgb (14.0-18.0) g/dL Hct (42-52) % MCV (80-100) fL MCH (25-34) pg MCHC (32-36) g/dL RDW Std Deviation (36.4-46.3) fL RDW Coeff of Bernarda (11.5-14.5) % Plt Count (130-400) K/uL MPV (7.4-10.4) fL Immature Gran % (Auto) % Neut % (Auto) % Lymph % (Auto) % Luna % (Auto) % Eos % (Auto) % Baso % (Auto) % Immature Gran # (Auto) (0.00-0.02) K/uL Neut # (Auto) (1.4-6.5) K/uL Lymph # (Auto) (1.2-3.4) K/uL Luna # (Auto) (0.11-0.59) K/uL Eos # (Auto) (0-0.5) K/uL Baso # (Auto) (0-0.2) K/uL PT (9.0-12.0) Seconds INR (0.9-1.1) APTT (21.0-31.0) Seconds PTT Ratio Sodium (136-145) mmol/L Potassium (3.5-5.1) mmol/L Chloride (98-107) mmol/L Carbon Dioxide (21-32) mmol/L Anion Gap (3-11) BUN (7-18) mg/dl Creatinine (0.6-1.4) mg/dl Est Cr Clr Drug Dosing ml/min Est GFR ( Amer) Est GFR (Non-Af Amer) BUN/Creatinine Ratio (10-20) Glucose (70-99) mg/dl POC Glucose (70-99) mg/dl Calcium (8.5-10.1) mg/dl Magnesium (1.8-2.4) mg/dl Total Bilirubin (0.2-1) mg/dl AST (15-37) U/L ALT (12-78) U/L Alkaline Phosphatase (45-117) U/L Troponin I (0-0.045) ng/ml Total Protein (6.4-8.2) gm/dl Albumin (3.4-5.0) gm/dl Globulin (2.5-4.0) gm/dl Albumin/Globulin Ratio (0.9-2) Lipase (73-393) U/L Beta-Hydroxybutyric Acd (0.2-2.81) mg/dl Urine Color Yellow Urine Appearance Clear (Clear) Urine pH 5.0 (4.5-7.5) Ur Specific Redig > 1.045 H (1.000-1.030) Urine Protein Negative (Negative) Urine Glucose (UA) 3+ H (Negative) Urine Ketones Negative (Negative) Urine Blood Negative (Negative) Urine Nitrite Negative (Negative) Urine Bilirubin Negative (Negative) Urine Urobilinogen Negative (Negative) Ur Leukocyte Esterase Negative (Negative) Salicylates < 1.7 L (2.8-20) mg/dl Urine Opiates Screen Pos H (Neg) Ur Methadone, Qual Neg (Neg) Acetaminophen < 2 L (10-30) ug/ml Urine Barbiturates Neg (Neg) Ur Phencyclidine (PCP) Neg (Neg) U Amphetamin/Meth Scrn Neg (Neg) MDMA (Ecstasy) Screen Neg (Neg) U Benzodiazepines Scrn Neg (Neg) Ur Cocaine Metabolite Neg (Neg) U Marijuana (THC) Screen Neg (Neg) Blood Type Antibody Screen 12/03/19 12/03/19 12/03/19 Range/Units 15:50 15:50 15:50 WBC 4.68 L (4.8-10.8) K/uL RBC 4.70 (4.7-6.1) M/uL Hgb 14.2 (14.0-18.0) g/dL Hct 39.1 L (42-52) % MCV 83.2 (80-100) fL MCH 30.2 (25-34) pg MCHC 36.3 H (32-36) g/dL RDW Std Deviation 40.9 (36.4-46.3) fL RDW Coeff of Bernarda 13.5 (11.5-14.5) % Plt Count 146 (130-400) K/uL MPV 9.3 (7.4-10.4) fL Immature Gran % (Auto) 0.2 % Neut % (Auto) 45.0 % Lymph % (Auto) 44.4 % Luna % (Auto) 8.3 % Eos % (Auto) 1.5 % Baso % (Auto) 0.6 % Immature Gran # (Auto) 0.01 (0.00-0.02) K/uL Neut # (Auto) 2.10 (1.4-6.5) K/uL Lymph # (Auto) 2.08 (1.2-3.4) K/uL Luna # (Auto) 0.39 (0.11-0.59) K/uL Eos # (Auto) 0.07 (0-0.5) K/uL Baso # (Auto) 0.03 (0-0.2) K/uL PT 10.4 (9.0-12.0) Seconds INR 1.0 (0.9-1.1) APTT 26.7 (21.0-31.0) Seconds PTT Ratio 1.0 Sodium 135 L (136-145) mmol/L Potassium 3.9 (3.5-5.1) mmol/L Chloride 103 (98-107) mmol/L Carbon Dioxide 24 (21-32) mmol/L Anion Gap 8.0 (3-11) BUN 15 (7-18) mg/dl Creatinine 1.12 (0.6-1.4) mg/dl Est Cr Clr Drug Dosing 95.4 ml/min Est GFR ( Amer) 81.2 Est GFR (Non-Af Amer) 70.0 BUN/Creatinine Ratio 12.9 (10-20) Glucose 387 H* (70-99) mg/dl POC Glucose (70-99) mg/dl Calcium 9.0 (8.5-10.1) mg/dl Magnesium 1.6 L (1.8-2.4) mg/dl Total Bilirubin 0.6 (0.2-1) mg/dl AST 21 (15-37) U/L ALT 37 (12-78) U/L Alkaline Phosphatase 128 H (45-117) U/L Troponin I < 0.015 (0-0.045) ng/ml Total Protein 7.2 (6.4-8.2) gm/dl Albumin 3.6 (3.4-5.0) gm/dl Globulin 3.6 (2.5-4.0) gm/dl Albumin/Globulin Ratio 1.0 (0.9-2) Lipase 150 (73-393) U/L Beta-Hydroxybutyric Acd 0.83 (0.2-2.81) mg/dl Urine Color Urine Appearance (Clear) Urine pH (4.5-7.5) Ur Specific Redig (1.000-1.030) Urine Protein (Negative) Urine Glucose (UA) (Negative) Urine Ketones (Negative) Urine Blood (Negative) Urine Nitrite (Negative) Urine Bilirubin (Negative) Urine Urobilinogen (Negative) Ur Leukocyte Esterase (Negative) Salicylates (2.8-20) mg/dl Urine Opiates Screen (Neg) Ur Methadone, Qual (Neg) Acetaminophen (10-30) ug/ml Urine Barbiturates (Neg) Ur Phencyclidine (PCP) (Neg) U Amphetamin/Meth Scrn (Neg) MDMA (Ecstasy) Screen (Neg) U Benzodiazepines Scrn (Neg) Ur Cocaine Metabolite (Neg) U Marijuana (THC) Screen (Neg) Blood Type Antibody Screen 12/03/19 12/03/19 Range/Units 15:57 17:34 WBC (4.8-10.8) K/uL RBC (4.7-6.1) M/uL Hgb (14.0-18.0) g/dL Hct (42-52) % MCV (80-100) fL MCH (25-34) pg MCHC (32-36) g/dL RDW Std Deviation (36.4-46.3) fL RDW Coeff of Bernarda (11.5-14.5) % Plt Count (130-400) K/uL MPV (7.4-10.4) fL Immature Gran % (Auto) % Neut % (Auto) % Lymph % (Auto) % Luna % (Auto) % Eos % (Auto) % Baso % (Auto) % Immature Gran # (Auto) (0.00-0.02) K/uL Neut # (Auto) (1.4-6.5) K/uL Lymph # (Auto) (1.2-3.4) K/uL Luna # (Auto) (0.11-0.59) K/uL Eos # (Auto) (0-0.5) K/uL Baso # (Auto) (0-0.2) K/uL PT (9.0-12.0) Seconds INR (0.9-1.1) APTT (21.0-31.0) Seconds PTT Ratio Sodium (136-145) mmol/L Potassium (3.5-5.1) mmol/L Chloride (98-107) mmol/L Carbon Dioxide (21-32) mmol/L Anion Gap (3-11) BUN (7-18) mg/dl Creatinine (0.6-1.4) mg/dl Est Cr Clr Drug Dosing ml/min Est GFR ( Amer) Est GFR (Non-Af Amer) BUN/Creatinine Ratio (10-20) Glucose (70-99) mg/dl POC Glucose 363 H* (70-99) mg/dl Calcium (8.5-10.1) mg/dl Magnesium (1.8-2.4) mg/dl Total Bilirubin (0.2-1) mg/dl AST (15-37) U/L ALT (12-78) U/L Alkaline Phosphatase (45-117) U/L Troponin I (0-0.045) ng/ml Total Protein (6.4-8.2) gm/dl Albumin (3.4-5.0) gm/dl Globulin (2.5-4.0) gm/dl Albumin/Globulin Ratio (0.9-2) Lipase (73-393) U/L Beta-Hydroxybutyric Acd (0.2-2.81) mg/dl Urine Color Urine Appearance (Clear) Urine pH (4.5-7.5) Ur Specific Redig (1.000-1.030) Urine Protein (Negative) Urine Glucose (UA) (Negative) Urine Ketones (Negative) Urine Blood (Negative) Urine Nitrite (Negative) Urine Bilirubin (Negative) Urine Urobilinogen (Negative) Ur Leukocyte Esterase (Negative) Salicylates (2.8-20) mg/dl Urine Opiates Screen (Neg) Ur Methadone, Qual (Neg) Acetaminophen (10-30) ug/ml Urine Barbiturates (Neg) Ur Phencyclidine (PCP) (Neg) U Amphetamin/Meth Scrn (Neg) MDMA (Ecstasy) Screen (Neg) U Benzodiazepines Scrn (Neg) Ur Cocaine Metabolite (Neg) U Marijuana (THC) Screen (Neg) Blood Type O Positive Antibody Screen NEGATIVE Imaging Data Radiologist's Impression: CT head/brain wo con CLINICAL HISTORY: 64 years-old Male with extremity weakness, hx TIA/CVA. Acute strokelike symptoms TECHNIQUE: Multiple axial CT images of the head were obtained without contrast. A dose lowering technique was utilized adhering to the principles of ALARA. CT DOSE: 614.27 mGy.cm COMPARISON: None. FINDINGS: No acute intracranial hemorrhage, midline shift, intracranial mass, hydrocephalus, territorial ischemia or abnormal extra-axial collection. Cerebral vascular calcifications are noted. Increased density of the vascular structures secondary to recent enhanced exams. The calvarium is intact. Mastoid air cells are clear. Mild mucoperiosteal thickening of the maxillary sinuses. Partially imaged periapical cysts of the bilateral maxillary teeth. Soft tissues and orbits are unremarkable. IMPRESSION: No acute intracranial abnormality. ACT 112: Negative or not required by law. The above report was generated using voice recognition software. It may contain grammatical, syntax or spelling errors. Electronically signed by: Clarence Kent M.D. 12/03/2019 5:[address] ANGIOGRAM OF THE CHEST; CT SCAN OF THE ABDOMEN AND PELVIS WITH IV CONTRAST CLINICAL HISTORY: Atypical chest pain. Generalized abdominal pain. COMPARISON STUDY: Chest CT scans dated 11/08/2019 and 03/23/2019. Abdominal CT dated 11/05/2019. TECHNIQUE: Following the IV administration of 117 of Optiray 320, CT angiogram of the chest is performed from the upper abdomen to the thoracic inlet utilizing the pulmonary embolus protocol. Images are reviewed in the axial, sagittal, coronal planes. 3-D MIPS images are created and assessed. Subsequently, CT scan of the abdomen and pelvis was performed from the lung bases to the proximal femora. Images are reviewed in the axial, sagittal, and coronal planes. IV contrast was administered without complication. A dose lowering technique was utilized adhering to the principles of ALARA. CT DOSE: 1512.55 mGy.cm FINDINGS: CHEST: Thyroid: The right lobe of the thyroid gland is atrophic versus surgically absent. The left lobe is enlarged and heterogeneous. Subcentimeter nodules are noted. Thoracic aorta: The thoracic aorta is normal in caliber and demonstrates bovine variant arch anatomy. No dissection is seen. Pulmonary vasculature: The main pulmonary arteries are dilated suggesting pulmonary artery hypertension. There are no filling defects identified in the main, lobar, or proximal segmental pulmonary arteries to indicate pulmonary embolus. Evaluation of the peripheral branches is compromised by motion artifact. Heart: The heart is top normal in size and without pericardial effusion. There are coronary artery calcifications. A stent is suggested in the left coronary artery. Lungs and pleural spaces: Evaluation of the lung parenchyma is degraded by motion artifact. Atelectasis is noted at the lung bases. No airspace consolidation or pleural effusion is identified. The trachea and central airways are patent. Mediastinum: A 2.1 cm nodule in the anterior mediastinum is unchanged from prior studies. There is no mediastinal lymphadenopathy. Chelo: Clear. Axillae: There is no axillary lymphadenopathy. Bony thorax: No lytic or blastic lesions are identified. Degenerative change is noted in the thoracic spine and shoulders. ABDOMEN AND PELVIS: Liver: The contrast-enhanced liver is normal in size, contour, and attenuation. There is no intrahepatic or ductal dilatation. The hepatic veins and portal veins are patent. There are 2 hepatic cysts which measure up to 1.5 cm. Gallbladder: Unremarkable. Spleen: Normal in size and attenuation. Pancreas: Unremarkable. Adrenal glands: Low-attenuation left adrenal nodules measuring up to 2.9 cm are unchanged and consistent with small adenomas. The right adrenal gland is normal as imaged. Kidneys: The contrast enhanced kidneys are normal in size and without hydronephrosis. The kidneys enhance symmetrically. Scattered subcentimeter cortical hypodensities likely represent cysts but are too small for definitive characterization. Abdominal vasculature: The abdominal aorta is normal in course and caliber noting moderate atherosclerotic calcification. Bowel: There is mild colonic diverticulosis without CT evidence of acute diverticulitis. No bowel obstruction is seen. The appendix is well-visualized and normal. Peritoneum: There is no intraperitoneal free air or abdominal ascites. Lymphadenopathy: None. Pelvic viscera: The prostate gland is enlarged and heterogeneous, measuring 6.3 cm in transverse diameter. There is median lobe hypertrophy. The bladder wall is mildly thickened and trabeculated indicating chronic outlet obstruction. Skeletal structures: There is mild lumbosacral spondylosis. Degenerative change is noted in the left sacroiliac joint. No lytic or blastic lesions are seen. IMPRESSION: 1. Motion compromised examination. 2. There is no evidence of central pulmonary embolus in the main, lobar, or proximal segmental pulmonary arteries. 3. There is no airspace consolidation or pleural effusion. 4. There are no acute infectious or inflammatory findings in the abdomen or pelvis. 5. Mild colonic diverticulosis without CT evidence of acute diverticulitis. 6. Additional findings as above. ACT 112: Negative or not required by law. Electronically signed by: Miguel Amaya M.D. 12/03/2019 5:45 PM MR brain wo con HISTORY: 64 years-old Male bilateral weakness acute strokelike symptoms COMPARISON: Head CT of same day TECHNIQUE: Multiplanar multisequence MRI of the brain was obtained without the use of IV contrast FINDINGS: There is no restricted diffusion to suggest acute or subacute infarct. Midline structures including the corpus callosum, brainstem, optic chiasm, pituitary and pineal gland appear unremarkable on the sagittal T1 series. There is no cerebellar tonsillar herniation. Degenerative changes are noted about the imaged cervical spine. No acute intracranial hemorrhage, midline shift, abnormal extra-axial collection, hydrocephalus or intracranial mass. Minimal patchy T2/FLAIR hyperintensities about the white matter are suggestive of probable chronic microvascular ischemic disease. Study is mildly motion degraded. Major vascular flow voids appear patent and unremarkable. Mastoid air cells are clear. Mild mucosal thickening of the maxillary, ethmoid and frontal sinuses. Indeterminate 9 mm T1 and T2 hypointense focus of the parietal scalp on image 21 series 6 suggests probable area of scarring. Orbits, skull and soft tissues are otherwise unremarkable. IMPRESSION: No acute intracranial abnormality identified, specifically there is no acute or subacute infarct. ACT 112: Negative or not required by law. The above report was generated using voice recognition software. It may contain grammatical, syntax or spelling errors. Electronically signed by: Clarence Kent M.D. 12/03/2019 7:07 PM MDM Narrative Patient was seen and evaluated as above in room A11. Review was performed of nursing notes and vital signs. After obtaining a thorough history and physical examination the above work up was performed. He presents to us today with atraumatic chest, abdomen, back pain. He also notes that his urine is green and foam-like. He also notes blood when he moves his bowels. He also notes vomiting. He also has right arm pain. I thoroughly reviewed his previous visits. The patient underwent EGD and colonoscopy in mid October. I reviewed these results. The patient notes increased pain since that time. He is exquisitely tender on my exam, specifically even with placing the stethoscope on of the abdomen to auscultate he winced in pain. Rectal exam was deferred noting that his hemoglobin is essentially unchanged. I did not add IV Protonix again as the patient's hemoglobin is essentially unchanged and his recent EGD/colonoscopy were reassuring. Although his vital signs are stable, given the patient's presentation it was felt that a CTA of the chest abdomen and pelvis would be warranted. Patient asked for something for pain and was given IV Dila udid. He was ordered Zofran for any potential nausea from this. A CT scan of the chest abdomen and pelvis are resolved as above. These are essentially negative. Upon returning from CAT scan around 515 he began with complaining of some weakness to the extremities. I was called at 5:18 PM by the RN informing me upon this. I then went to bedside. Patient then was not moving the arms and legs much at all. Patient notes that this is new. Stroke alert was then called. I spoke to Dr. Osorio. The tele-stroke evaluation was initiated. At this time he indicated that the symptoms were ongoing for about 2 days now, and it was felt that he was not a TPA candidate based upon this time window as well as he also had a recent GI bleed. Furthermore, we discussed how it would be important to obtain an MRI of the brain. This was obtained. Results as above. This was negative. We also discussed the importance of a thorough neuro exam at bedside and this was also unrevealing but I will note that the patient does appear to have inconsistent examination noting that at times he will move the extremities without difficulty but when asked to isolate and use them there appears to be deficits but these then seem to go away when discussing other things. Given his presentation I do believe that further evaluation and management in the inpatient setting would be warranted. At this time it is felt this is likely not CVA. Case discussed with the attending physician as well as the hospitalist. Please refer to further documentation regarding his stay. GCS: 15 In the evaluation and treatment of this patient the following differential diagnoses were entertained: CVA, TIA, tumor, mass, psychiatric illness, dissection, MT, PE, pericarditis, costochondritis, bowel perforation, peritoni tis, GI bleed, among others. Impression & Plan Abdominal pain, Weakness, Chest pain, BRBPR (bright red blood per rectum) Discharge Plan Visit Data *Final* Discharge Date/Time: 12/03/19 20:26 Chief Complaint: Abdominal Pain Stated Complaint: ABD & LWR BACK PAIN, GREENISH COLOR URINE ED Provider: Guy Beebe ED Midlevel Provider: Faraz Babb Discharge Problem: Abdominal pain, Weakness, Chest pain, BRBPR (bright red blood per rectum) Patient Disposition: Admitted As Inpatient Condition: Good Discharge Instructions Interventions: ED Discharge Assessment Last Done: 12/03/19 20:26
[2019-12-03 16:08] LABS: Basophils # (auto) 0.03 K/uL (0-0.2); Basophils % (auto) 0.6 %; Eosinophils # (auto) 0.07 K/uL (0-0.5); Eosinophils % (auto) 1.5 %; Hematocrit (blood only) 39.1 % (42-52); Hemoglobin 14.2 g/dL (14.0-18.0); Immature Granulocytes # (auto) 0.01 K/uL (0.00-0.02); Immature Granulocytes % (auto) 0.2 %; Lymphocytes # (auto) 2.08 K/uL (1.2-3.4); Lymphocytes % (auto) 44.4 %; Mean Corpuscular Hemoglobin 30.2 pg (25-34); Mean Corpuscular Hgb Conc 36.3 g/dL (32-36); Mean Corpuscular Volume 83.2 fL (80-100); Mean Platelet Volume 9.3 fL (7.4-10.4); Monocytes # (auto) 0.39 K/uL (0.11-0.59); Monocytes % (auto) 8.3 %; Platelet Count 146 K/uL (130-400); RDW Coefficient of Variation 13.5 % (11.5-14.5); RDW Standard Deviation 40.9 fL (36.4-46.3); White Blood Count 4.68 K/uL (4.8-10.8)
[2019-12-03 16:19] LABS: Partial Thromboplastin Time 26.7 Seconds (21.0-31.0); Prothrombin Time 10.4 Seconds (9.0-12.0)
[2019-12-03 16:36] LABS: Alanine Aminotransferase 37 U/L (12-78); Albumin Level 3.6 gm/dl (3.4-5.0); Aspartate Aminotransferase 21 U/L (15-37); BUN Creatinine Ratio 12.9 (10-20); Blood Urea Nitrogen 15 mg/dl (7-18); Carbon Dioxide 24 mmol/L (21-32); Chloride 103 mmol/L (98-107); Creatinine Clr Calc Pharmacy 95.4 ml/min; Est GFR (African American) 81.2; Glucose 387 mg/dl (70-99); Lipase 150 U/L (73-393); Magnesium 1.6 mg/dl (1.8-2.4); Potassium 3.9 mmol/L (3.5-5.1); Sodium 135 mmol/L (136-145)
[2019-12-03 16:40] LABS: Alkaline Phosphatase 128 U/L (45-117); Bilirubin,Total 0.6 mg/dl (0.2-1); Globulin 3.6 gm/dl (2.5-4.0); Total Protein 7.2 gm/dl (6.4-8.2); Troponin I < 0.015 ng/ml (0-0.045)
[2019-12-03 16:53] LABS: Acetaminophen < 2 ug/ml (10-30)
[2019-12-03 16:54] LABS: Beta-Hydroxybutyrate 0.83 mg/dl (0.2-2.81); Salicylate < 1.7 mg/dl (2.8-20)
[2019-12-03] MEDS ORDERED: OPTIRAY 320 125ml IV PRN (17:06)
--- NOTE | 2019-12-03 17:46 | CT Scan Report ---
CT ANGIOGRAM OF THE CHEST; CT SCAN OF THE ABDOMEN AND PELVIS WITH IV CONTRAST CLINICAL HISTORY: Atypical chest pain. Generalized abdominal pain. COMPARISON STUDY: Chest CT scans dated 11/08/2019 and 03/23/2019. Abdominal CT dated 11/05/2019. TECHNIQUE: Following the IV administration of 117 of Optiray 320, CT angiogram of the chest is perfor med from the upper abdomen to the thoracic inlet utilizing the pulmonary embolus protocol. Images are reviewed in the axial, sagittal, coronal planes. 3-D MIPS images are created and assessed. Subsequen tly, CT scan of the abdomen and pelvis was performed from the lung bases to the proximal femora. Imag es are reviewed in the axial, sagittal, and coronal planes. IV contrast was administered without comp lication. A dose lowering technique was utilized adhering to the principles of ALARA. CT DOSE: 1512.55 mGy.cm FINDINGS: CHEST: Thyroid: The right lobe of the thyroid gland is atrophic versus surgically absent. The left lobe is e nlarged and heterogeneous. Subcentimeter nodules are noted. Thoracic aorta: The thoracic aorta is normal in caliber and demonstrates bovine variant arch anatomy. No dissection is seen. Pulmonary vasculature: The main pulmonary arteries are dilated suggesting pulmonary artery hypertensi on. There are no filling defects identified in the main, lobar, or proximal segmental pulmonary arter ies to indicate pulmonary embolus. Evaluation of the peripheral branches is compromised by motion art ifact. Heart: The heart is top normal in size and without pericardial effusion. There are coronary artery ca lcifications. A stent is suggested in the left coronary artery. Lungs and pleural spaces: Evaluation of the lung parenchyma is degraded by motion artifact. Atelectas is is noted at the lung bases. No airspace consolidation or pleural effusion is identified. The trach ea and central airways are patent. Mediastinum: A 2.1 cm nodule in the anterior mediastinum is unchanged from prior studies. There is no mediastinal lymphadenopathy. Chelo: Clear. Axillae: There is no axillary lymphadenopathy. Bony thorax: No lytic or blastic lesions are identified. Degenerative change is noted in the thoracic spine and shoulders. ABDOMEN AND PELVIS: Liver: The contrast-enhanced liver is normal in size, contour, and attenuation. There is no intrahepa tic or ductal dilatation. The hepatic veins and portal veins are patent. There are 2 hepatic cysts wh ich measure up to 1.5 cm. Gallbladder: Unremarkable. Spleen: Normal in size and attenuation. Pancreas: Unremarkable. Adrenal glands: Low-attenuation left adrenal nodules measuring up to 2.9 cm are unchanged and consist ent with small adenomas. The right adrenal gland is normal as imaged. Kidneys: The contrast enhanced kidneys are normal in size and without hydronephrosis. The kidneys enh ance symmetrically. Scattered subcentimeter cortical hypodensities likely represent cysts but are too small for definitive characterization. Abdominal vasculature: The abdominal aorta is normal in course and caliber noting moderate atheroscle rotic calcification. Bowel: There is mild colonic diverticulosis without CT evidence of acute diverticulitis. No bowel obs truction is seen. The appendix is well-visualized and normal. Peritoneum: There is no intraperitoneal free air or abdominal ascites. Lymphadenopathy: None. Pelvic viscera: The prostate gland is enlarged and heterogeneous, measuring 6.3 cm in transverse diam eter. There is median lobe hypertrophy. The bladder wall is mildly thickened and trabeculated indicat ing chronic outlet obstruction. Skeletal structures: There is mild lumbosacral spondylosis. Degenerative change is noted in the left sacroiliac joint. No lytic or blastic lesions are seen. IMPRESSION: 1. Motion compromised examination. 2. There is no evidence of central pulmonary embolus in the main, lobar, or proximal segmental pulmon tommy arteries. 3. There is no airspace consolidation or pleural effusion. 4. There are no acute infectious or inflammatory findings in the abdomen or pelvis. 5. Mild colonic diverticulosis without CT evidence of acute diverticulitis. 6. Additional findings as above. ACT 112: Negative or not required by law. Electronically signed by: Miguel Amaya M.D. 12/03/2019 5:45 PM
--- NOTE | 2019-12-03 17:52 | CT Scan Report ---
CT head/brain wo con CLINICAL HISTORY: 64 years-old Male with extremity weakness, hx TIA/CVA. Acute strokelike symptoms TECHNIQUE: Multiple axial CT images of the head were obtained without contrast. A dose lowering tech nique was utilized adhering to the principles of ALARA. CT DOSE: 614.27 mGy.cm COMPARISON: None. FINDINGS: No acute intracranial hemorrhage, midline shift, intracranial mass, hydrocephalus, territorial ischem ia or abnormal extra-axial collection. Cerebral vascular calcifications are noted. Increased density of the vascular structures secondary to recent enhanced exams. The calvarium is intact. Mastoid air cells are clear. Mild mucoperiosteal thickening of the maxillar y sinuses. Partially imaged periapical cysts of the bilateral maxillary teeth. Soft tissues and orbit s are unremarkable. IMPRESSION: No acute intracranial abnormality. ACT 112: Negative or not required by law. The above report was generated using voice recognition software. It may contain grammatical, syntax o r spelling errors. Electronically signed by: Clarence Kent M.D. 12/03/2019 5:50 PM
[2019-12-03] MEDS ORDERED: LORazepam 1 MG/2 ML VIAL IV STA (18:21)
[2019-12-03] MEDS ORDERED: LORazepam 1 MG/2 ML VIAL IV PRN (18:21)
[2019-12-03 18:50] LABS: Appearance Urine Clear (Clear); Bilirubin Urine Negative (Negative); Blood Urine Negative (Negative); Color Urine Yellow; Glucose Urine UA 3+ (Negative); Ketones Urine Negative (Negative); Leukocyte Esterase Urine Negative (Negative); Nitrite Urine Negative (Negative); Protein Urine Negative (Negative); Specific Gravity Urine > 1.045 (1.000-1.030); Urobilinogen Urine Negative (Negative)
--- NOTE | 2019-12-03 19:08 | Magnetic Resonance Report ---
MR brain wo con HISTORY: 64 years-old Male bilateral weakness acute strokelike symptoms COMPARISON: Head CT of same day TECHNIQUE: Multiplanar multisequence MRI of the brain was obtained without the use of IV contrast FINDINGS: There is no restricted diffusion to suggest acute or subacute infarct. Midline structures including t he corpus callosum, brainstem, optic chiasm, pituitary and pineal gland appear unremarkable on the sa gittal T1 series. There is no cerebellar tonsillar herniation. Degenerative changes are noted about t he imaged cervical spine. No acute intracranial hemorrhage, midline shift, abnormal extra-axial collection, hydrocephalus or in tracranial mass. Minimal patchy T2/FLAIR hyperintensities about the white matter are suggestive of pr obable chronic microvascular ischemic disease. Study is mildly motion degraded. Major vascular flow v oids appear patent and unremarkable. Mastoid air cells are clear. Mild mucosal thickening of the maxi llary, ethmoid and frontal sinuses. Indeterminate 9 mm T1 and T2 hypointense focus of the parietal sc alp on image 21 series 6 suggests probable area of scarring. Orbits, skull and soft tissues are other shaw unremarkable. IMPRESSION: No acute intracranial abnormality identified, specifically there is no acute or subacute infarct. ACT 112: Negative or not required by law. The above report was generated using voice recognition software. It may contain grammatical, syntax o r spelling errors. Electronically signed by: Clarence Kent M.D. 12/03/2019 7:07 PM
[2019-12-03 19:11] LABS: Amphetamines+Metham, Urine Neg (Neg); Barbiturates, Urine Neg (Neg); Benzodiazepine, Urine Neg (Neg); Cocaine, Urine Neg (Neg); MDMA (Ecstacy), Urine Neg (Neg); Methadone, Urine Neg (Neg); Opiate, Urine Pos (Neg); Phencyclidine, Urine Neg (Neg)
[2019-12-03] MEDS ORDERED: HYDROmorphone INJ 0.5 MG/0.5 ML SYR IV STA (19:29)
--- NOTE | 2019-12-03 20:25 | History & Physical Report ---
Date of Service December 03, 2019 Assessment & Plan (1) Abdominal pain: -Admit to [facility] with telemetry -Patient presenting from home with multiple complaints, one being persistent, intractable abdominal pain -Recent admission to [facility] 11/05 through 11/09 for evaluation and management of abdominal pain, possible GI bleeding. EGD unremarkable, colonoscopy s/p polypectomy and showed internal hemorrhoids and diverticulosis. -CT ABD/pelvis in the ED today unremarkable -Patient reporting bright red bleeding per rectum and hematemesis; Hgb stable at 14.2 -Clear liquids, n.p.o. after midnight -Continue PPI and Carafate for history of PUD and duodenitis (diagnosed at outside hospital 08/2019) -GI consult, input appreciated (2) Weakness: -After patient returned from CT scan in the ED, reported left-sided weakness and numbness -Stroke alert was called however patient seemed to be inconsistent with previously reported symptoms -On exam, patient has weakness of the bilateral upper and lower extremities however when distracted, patient appears to be moving extremities with more ease -Head CT and brain MRI negative for acute findings -?? Conversion disorder, will consult mental health (3) CAD (coronary artery disease): -Patient reported chest pain -Initial troponin negative, EKG without acute ST changes -Continue to cycle cardiac enzymes -Has been off antiplatelet therapy due to history of PUD and duodenitis -Continue statin, beta-bernardo, TIGRE inhibitor (4) Diabetes: -Hgb A1c 8.9 10/2019 -Hold metformin and home 70/30 -Glycemic pharmacy consulted (5) Depression: -History of inpatient psychiatric hospitalization 03/2019 due to suicidal ideation -Patient denies any suicidal ideations at this time -Continue sertraline -Mental health consult as above (6) DVT prophylaxis: -SCDs due to history of PUD/gastritis and possible GI bleeding History of Present Illness Chief Complaint: Abdominal pain Primary Care Provider: Razia Chávez DO 64-year-old male who presents the ED for evaluation of abdominal pain. Patient recently admitted to [facility] 11/05 through 11/09 for evaluation and management of abdominal pain and chest pain. Underwent EGD that was unremarkable, biopsies negative. Had colonoscopy as well with polypectomy, biopsy showing tubular adenoma. Colonoscopy also showed internal hemorrhoids and diverticulosis within the ascending colon. Patient was discharged home and reports he had been feeling well until a few days ago. Noted the patient's history is inconsistent with what he reported to ED providers. Patient reports a generalized chest and abdominal pain. Reports he has noted some bright red blood in his stools and with wiping. Also reports vomiting with dark red blood. No diarrhea. Symptoms not affected by intake of food. Chest pain seems to be persistent, nonexertional. Has had associated shortness of breath. Reports lightheadedness and dizziness however no syncopal event. He denies fevers and chills. Patient reports that yesterday, he developed upper and lower extremity weakness and numbness, left side greater than right. In the ED, patient initially did not report the symptoms. When he returned back from CT scan, patient then reported left-sided weakness and numbness. Stroke alert was called, patient was not deemed to be a TPA candidate. Head CT and brain MRI are negative for acute findings. Patient has remained hemodynamically stable. Labs are unremarkable with the exception of hyperglycemia, glucose 387, and hypomagnesemia, MG +1.6. Patient was given 2 doses of IV Dilaudid, IV lorazepam, IV Zofran. Allergies Allergy/AdvReac Type Severity Reaction Status Date / Time diphenhydramine Allergy Intermediate Unknown Verified 12/03/19 15:46 [From Benadryl] Home Medications Home Medications Medication Instructions Recorded Confirmed Type amlodipine [Norvasc] 10 mg PO QAM 30 Days #60 tab 11/09/19 12/03/19 Rx atorvastatin 80 mg PO HS 30 Days #30 tab 11/09/19 12/03/19 Rx carvedilol 3.125 mg PO BID 30 Days #60 tab 11/09/19 12/03/19 Rx cyclobenzaprine 5 mg PO BID PRN #10 tab 11/09/19 12/03/19 Rx insulin NPH and regular human 15 units SQ BID 30 Days #9 ml 11/09/19 12/03/19 Rx lisinopril 40 mg PO DAILY 30 Days #30 tab 11/09/19 12/03/19 Rx metformin 1,000 mg PO BIDM 30 Days #120 tab 11/09/19 12/03/19 Rx omeprazole 40 mg PO BID #60 cap 11/09/19 12/03/19 Rx sertraline 25 mg PO DAILY 30 Days #30 tab 11/09/19 12/03/19 Rx sucralfate [Carafate] 1 g PO ACHS 30 Days #30 tab 11/09/19 12/03/19 Rx Past Med/Surg History Medical History Bleeding ulcer CAD (coronary artery disease) 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 Depression Diabetes Esophageal stricture History of laryngeal cancer Status post radiation HTN (hypertension) PTSD (post-traumatic stress disorder) Suicidal ideation (Acute) Surgical History History of coronary artery stent placement (Acute) History of endoscopy 08/2019 revealed esophageal strictures, gastric ulcerations and hemorrhagic duodenitis History of heart artery stent History of partial thyroidectomy Family History Father Cancer Lung Social History Preferred Language: Greenlandic Communication Ability: Effective 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 Beliefs That Will Affect Care: None Current Living Situation: Alone Other Information That Helps Us Care for You: No Feels Safe at Home: Yes Safety Concerns: Feels Safe At This Time Smoking Status: Never smoker Tobacco Type: cigars ; Hx Alcohol Use: No Hx Substance Use: No Review of Systems Review of Systems: ROS per HPI, all other systems reviewed and negative Physical Exam Constitutional: WD/WN, vitals as above Eyes: PERRL, conjunctivae normal, anicteric sclerae ENMT: external ear and nose normal, oropharynx normal Respiratory: normal respiratory effort, lungs clear to auscultation Cardiovascular: Rate/Rhythm: regular rate and regular rhythm Vessels: normal peripheral pulses Extremities: no edema Gastrointestinal (Abdomen): Inspection/Auscultation: normal bowel sounds; abdomen not distended Percussion/Palpation: + abdomen tender (Generalized tenderness with mild palpation) and abdomen soft; no hepatosplenomegaly Musculoskeletal: Extremities: no cyanosis and no clubbing Bilateral upper and lower extremity strength 2/5 when tested however while distracted, patient appears to be moving extremities with more ease Skin: no rashes, warm and dry Neurologic: PERRL, EOMI, accommodation nl, no face palsy, no dysarthria Psychiatric: Orientation: alert, oriented to person and oriented to place; + not oriented to time (Reports month is October) Affect: euthymic affect Results & Data Vital Signs (Past 12 Hours) Vital Signs Temp Pulse Pulse Resp BP BP Pulse Ox 12/03/19 19:00 88 18 133/77 96 12/03/19 18:58 100 12/03/19 18:00 79 19 142/77 H 100 12/03/19 17:48 71 16 12/03/19 17:30 20 100 12/03/19 17:17 83 18 146/75 H 146/75 H 95 12/03/19 16:45 80 18 12/03/19 16:30 82 17 12/03/19 16:15 91 H 18 12/03/19 16:00 95 H 17 12/03/19 15:02 36.8 C 92 H 20 163/97 H 97 Laboratory Results Short CBC 12/03/19 Range/Units 15:50 WBC 4.68 L (4.8-10.8) K/uL Hgb 14.2 (14.0-18.0) g/dL Hct 39.1 L (42-52) % Plt Count 146 (130-400) K/uL BMP 12/03/19 15:50 Sodium 135 L Potassium 3.9 Chloride 103 Carbon Dioxide 24 BUN 15 Creatinine 1.12 Glucose 387 H* Calcium 9.0 Cardiac Enzymes 12/03/19 Range/Units 15:50 Troponin I < 0.015 (0-0.045) ng/ml Liver Function 12/03/19 Range/Units 15:50 Total Bilirubin 0.6 (0.2-1) mg/dl AST 21 (15-37) U/L ALT 37 (12-78) U/L Alkaline Phosphatase 128 H (45-117) U/L Albumin 3.6 (3.4-5.0) gm/dl Urine 12/03/19 Range/Units 15:37 Urine Color Yellow Urine Appearance Clear (Clear) Urine pH 5.0 (4.5-7.5) Ur Specific Deshler > 1.045 H (1.000-1.030) Urine Protein Negative (Negative) Urine Glucose (UA) 3+ H (Negative) Diagnostic Findings CTA CHEST, CT ABD/PELVIS IMPRESSION: 1. Motion compromised examination. 2. There is no evidence of central pulmonary embolus in the main, lobar, or proximal segmental pulmonary arteries. 3. There is no airspace consolidation or pleural effusion. 4. There are no acute infectious or inflammatory findings in the abdomen or pelvis. 5. Mild colonic diverticulosis without CT evidence of acute diverticulitis. 6. Additional findings as above. HEAD CT IMPRESSION: No acute intracranial abnormality. BRAIN MRI IMPRESSION: No acute intracranial abnormality identified, specifically there is no acute or subacute infarct. Code Status & VTE Plan Code Status Patient is a full code as per my discussion with him. VTE Prophylaxis Plan VTE Prophylaxis will be ordered: Yes Supervising Physician Co-Signing Physician Notes Care coordinated with TIM Aldrich. Agree with above note. Patient seen and examined. Please refer to her notes for full details. Vital signs reviewed. Physical exam: General exam: Alert and oriented. Not in acute distress. CVS: S1 and S2 heard, regular rate and rhythm, no murmurs. RS: Clear to auscultation, no wheezing or crackles. ABD: Soft, bowel sounds present, nontender, no distention. [employer] ATTENDANT: left sided weakness EXT: No edema, no erythema. Labs: Reviewed. Assessment and plan:64M complains of chest pain, abdominal pain, back pain, says he is having hematuria, blood in stools, and dysphagia. recent Egd and colonoscopy were unremarkable except for tubular adenoma in colon. In Er after coming from ct abd/plevis complained of weakness on left side. Stroke alert was called and MRI was done which was unremarkable. Patient seems to moving his extremities ok when distracted but on asking or examining seems to have weakness on left extremities. Will Admit to med/tele. Continue home meds, GI consult in am. Psychiatry consult for possible somatic/conversion disorder. Other diagnosis and plan of care as per TIM Aldrich. Phillip lackey MD. (1) Abdominal pain Abdominal location: unspecified location Qualified Code(s): R10.9 - Unspecified abdominal pain
[2019-12-03] MEDS ORDERED: ACETAMINOPHEN 325 MG TAB PO PRN (20:37)
[2019-12-03] MEDS ORDERED: PHARMACY GLYCEMIC MGMT CONSULT PRN (20:39)
[2019-12-03] MEDS ORDERED: GLUCOSE 10 TABS/TUBE PO PRN (21:00)
[2019-12-03] MEDS ORDERED: GLUCOSE 40% GEL 15 GM TUBE PO PRN (21:00)
[2019-12-03] MEDS ORDERED: DEXTROSE 50% 50 ML SYRINGE IV PRN (21:00)
[2019-12-03] MEDS ORDERED: GLUCAGON FOR INJ 1 MG VIAL IM PRN (21:00)
[2019-12-03] MEDS ORDERED: CARBOHYDRATES FOR HYPOGLYCEMIA PO PRN (21:00)
[2019-12-03] MEDS ORDERED: INSULIN ASPART 100 UNITS/ML 3 ML PEN SC ONE (21:15)
[2019-12-03] MEDS ORDERED: INSULIN HUMAN NPH SC ONE (21:15)
[2019-12-03] MEDS: carvediloL 3.125 MG TAB PO SCH (21:24)
[2019-12-03] MEDS: MAGNESIUM SULFATE / D5W 1 GM/100 ML BAG IV SCH ×2 (21:24→22:42)
[2019-12-03] MEDS: ATORVASTATIN 40 MG TAB PO SCH (21:24)
[2019-12-03] MEDS: SUCRALFATE 1 GM TAB PO SCH (21:25)
[2019-12-03] MEDS: PANTOprazole 40 MG TAB PO SCH (21:25)
[2019-12-03] MEDS: NICOTINE 21 MG/24 HR TDSY TD SCH (23:45)
[2019-12-03] MEDS: INSULIN ASPART 100 UNITS/ML 3 ML PEN SC SCH (23:53)
[2019-12-04] MEDS: INSULIN ASPART 100 UNITS/ML 3 ML PEN SC SCH ×5 (04:23→23:23)
--- NOTE | 2019-12-04 06:46 | Gastrointestinal Consultation ---
Date of Consultation December 04, 2019 Assessment & Plan (1) Abdominal pain: 64 year old male with complex past cardiac/gastrointestinal history admitted w/ abdominal pain. He endorses EGD at OSH in August w/ gastric ulcer, duodenitis and esophageal stricture, dilated and recent admission at [facility] at which time he underwent repeat EGD/Colonoscopy for his symptoms which showed mild duodenitis w/ negative biopsies and a colonic polyp (TA). He endorses ongoing intermittent episodes of coffee ground emesis and rectal bleeding prior to admission but states that generalized abdominal pain which started three days ago brought him to the ED. CTAP unremarkable, lipase WNL, mild intermittent elevation of ALKP. He is awake, alert, oriented, hemodynamically stable w/ HGB improved from baseline w/o BUN elevation Trend H&H Monitor and document all GI output No current indication for repeat endoscopic evaluation Would let the IV PPI run dry Continue PPI twice daily for full 8 weeks then PPI once daily Bentyl 10 mg TID for abdominal pain Dedicated RUQ US given intermittent elevated ALKP Gastric emptying scan in house or as an OP if not able to complete during admission Thank you for allowing us to participate in the care of this patient. Please call with any acute changes, questions or concerns. Please see addendum below with additional recommendation from my supervising physician. Supervising Physician Co-Signing Physician Notes I performed a history and physical examination of the patient today, including specifically on physical exam - soft abdomen. I have discussed the patient's management with the advanced practitioner. Please refer to the nurse practitioner's note for the documented findings and plan of care. Admitted with abdominal pain, unremarkable imaging, prior recent endoscopy with no etiology. Agree with GES as OP. Follow up in GI office. Meanwhile, PPI and Bentyl. Recall us as needed. History of Present Illness Reason for Consultation: abd pain, GI bleed reportred prior to arrival Requesting Physician: Eli Attending Physician: Phillip Benitez MD History of Present Illness 64 year old male with complex past medical history CAD with PCI to LAD, T2DM, dyslipidemia, HTN, depression/anxiety, compartment syndrome RUE s/p cardiac cath, esophageal stricture, history of laryngeal CA s/p XRT, history of PUD admitted through the ED for evaluation of abdominal pain, coffee ground emesis and rectal bleeding. GI asked to evaluate. Pt was seen and evaluated, chart reviewed. Known to me from previous admission. He is a vague historian. Upon entering his room this AM he was resting comfortable. Endorses he was feeling well from a GI standpoint up until 3/4 days ago. At that point in time he developed lower and mid abdominal pain. "Feels like I was punched." Pain is constant, sharp. No associated GI symptoms. He does report chronic nausea/vomiting. He suggests he saw some "coffee ground" appearing emesis prior to arrival but none since admission. Emesis has not changed in frequency since onset of his pain. He denies any change in his bowel habits. Has been moving stools 1-2 times daily. Semi formed, brown stool. He does note some BRB streaking on the toilet tissue but no blood mixed with stool. Recent admission in August in [place] at which time he underwent EGD w/ report of eso stricture which was dilated, gastric ulcers and duodenitis. He was subsequently admitted at [facility] in October at which time he underwent EGD/Colonoscopy less than a month ago which showed mild duodenitis and a colon polyp. Today, he is awake, alert and oriented answering questions appropriately. He is hemodynamically stable w/ BP 121/79, pulse 65, HGB 14.2 without BUN elevation which is improved from prior admission. His lipase is unremarkable, he has had intermittently elevated ALKP otherwise liver panel is WNL. He denies NSAIDs He denies AC/antiplatelet use despite his reported cardiac stent history He denies ETOH use x 30 years He denies any illicit drug use CT ABD 2020: Motion compromised examination. There is no evidence of central pulmonary embolus in the main, lobar, or proximal segmental pulmonary arteries. There is no airspace consolidation or pleural effusion. There are no acute infectious or inflammatory findings in the abdomen or pelvis. Mild colonic diverticulosis without CT evidence of acute diverticulitis. Colonoscopy 2020: The examined portion of the terminal ileum appeared normal. The examined colon appeared normal. One 4 mm polyp in the ascending colon, removed with a cold biopsy forceps. Resected and retrieved.Scattered ascending diverticulosis in the ascending colon. Internal hemorrhoids EGD 2020: Normal esophagus. Normal stomach.Mild duodenitis. CTA 2020: No acute aortic injury. Mild ectasia of the aortic bifurcation and bilateral common iliac arteries, the larger on the right measuring 1.7 cm.No acute intra-abdominal pathology.Multiple left adrenal gland nodules, which are indeterminate though statistically most likely represent benign adenomas. This could be confirmed with dedicated adrenal CT or MR. The largest measures 3 cm. Chronic bladder outlet obstruction secondary to prostatomegaly. Allergies Allergy/AdvReac Type Severity Reaction Status Date / Time diphenhydramine Allergy Intermediate Unknown Verified 12/03/19 15:46 [From Benadryl] Home Medications Home Medications Medication Instructions Recorded Confirmed Type amlodipine [Norvasc] 10 mg PO QAM 30 Days #60 tab 11/09/19 12/03/19 Rx atorvastatin 80 mg PO HS 30 Days #30 tab 11/09/19 12/03/19 Rx carvedilol 3.125 mg PO BID 30 Days #60 tab 11/09/19 12/03/19 Rx cyclobenzaprine 5 mg PO BID PRN #10 tab 11/09/19 12/03/19 Rx insulin NPH and regular human 15 units SQ BID 30 Days #9 ml 11/09/19 12/03/19 Rx lisinopril 40 mg PO DAILY 30 Days #30 tab 11/09/19 12/03/19 Rx metformin 1,000 mg PO BIDM 30 Days #120 tab 11/09/19 12/03/19 Rx omeprazole 40 mg PO BID #60 cap 11/09/19 12/03/19 Rx sertraline 25 mg PO DAILY 30 Days #30 tab 11/09/19 12/03/19 Rx sucralfate [Carafate] 1 g PO ACHS 30 Days #30 tab 11/09/19 12/03/19 Rx Patient History Medical History Bleeding ulcer CAD (coronary artery disease) 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 Depression Diabetes Esophageal stricture History of laryngeal cancer Status post radiation HTN (hypertension) PTSD (post-traumatic stress disorder) Suicidal ideation (Acute) Surgical History History of coronary artery stent placement (Acute) History of endoscopy 08/2019 revealed esophageal strictures, gastric ulcerations and hemorrhagic duodenitis History of heart artery stent History of partial thyroidectomy Family History Father Cancer Lung Social History Preferred Language: Maltese Communication Ability: Effective 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: No Beliefs That Will Affect Care: None marital status: Current Living Situation: Alone Other Information That Helps Us Care for You: No Feels Safe at Home: Yes Safety Concerns: Feels Safe At This Time Smoking Status: Never smoker Tobacco Type: cigars ; Hx Alcohol Use: No Hx Substance Use: No Review of Systems Constitutional: no fever, no chills and no body aches Respiratory: no cough and no dyspnea Cardiovascular: no chest pain Gastrointestinal: + abdominal pain, + bloating, + early satiety, + nausea and + vomiting; no blood in stools Physical Exam Constitutional: WD/WN, vitals as above no acute distress Neck: trachea midline Respiratory: normal respiratory effort Cardiovascular: Rate/Rhythm: regular rhythm Gastrointestinal (Abdomen): Inspection/Auscultation: abdomen normal to inspection and normal bowel sounds Percussion/Palpation: + abdomen tender (generalized) and abdomen soft; abdomen not rigid, no abdominal mass and no ascites Skin: no rashes, warm and dry Results & Data ([facility]) Vital Signs (Past 12 Hours) Vital Signs Temp Pulse Pulse Resp BP Pulse Ox 12/04/19 04:20 36.3 C L 65 18 121/79 95 12/03/19 23:10 36.3 C L 75 18 127/64 96 12/03/19 22:20 76 12/03/19 22:15 70 12/03/19 20:37 36.6 C 70 18 134/86 95 12/03/19 19:00 88 18 133/77 96 12/03/19 18:58 100 Laboratory Results 12/04/19 12/04/19 12/04/19 Range/Units 06:20 06:20 06:20 WBC Pending (4.8-10.8) K/uL RBC Pending (4.7-6.1) M/uL Hgb Pending (14.0-18.0) g/dL Hct Pending (42-52) % MCV Pending (80-100) fL MCH Pending (25-34) pg MCHC Pending (32-36) g/dL RDW Std Deviation (36.4-46.3) fL RDW Coeff of Bernarda (11.5-14.5) % Plt Count Pending (130-400) K/uL MPV (7.4-10.4) fL Immature Gran % (Auto) % Neut % (Auto) % Lymph % (Auto) % [place] % (Auto) % Eos % (Auto) % Baso % (Auto) % Immature Gran # (Auto) (0.00-0.02) K/uL Neut # (Auto) (1.4-6.5) K/uL Lymph # (Auto) (1.2-3.4) K/uL [place] # (Auto) (0.11-0.59) K/uL Eos # (Auto) (0-0.5) K/uL Baso # (Auto) (0-0.2) K/uL PT (9.0-12.0) Seconds INR (0.9-1.1) APTT (21.0-31.0) Seconds PTT Ratio Sodium Pending (136-145) mmol/L Potassium Pending (3.5-5.1) mmol/L Chloride Pending (98-107) mmol/L Carbon Dioxide Pending (21-32) mmol/L Anion Gap Pending (3-11) BUN Pending (7-18) mg/dl Creatinine Pending (0.6-1.4) mg/dl Est Cr Clr Drug Dosing Pending ml/min Est GFR ( Amer) Pending Est GFR (Non-Af Amer) Pending BUN/Creatinine Ratio Pending (10-20) Glucose Pending (70-99) mg/dl POC Glucose (70-99) mg/dl Estimat Average Glucose Pending Hemoglobin A1c Pending Calcium Pending (8.5-10.1) mg/dl Magnesium Pending (1.8-2.4) mg/dl Total Bilirubin (0.2-1) mg/dl AST (15-37) U/L ALT (12-78) U/L Alkaline Phosphatase (45-117) U/L Troponin I (0-0.045) ng/ml Total Protein (6.4-8.2) gm/dl Albumin (3.4-5.0) gm/dl Globulin (2.5-4.0) gm/dl Albumin/Globulin Ratio (0.9-2) Lipase (73-393) U/L Beta-Hydroxybutyric Acd (0.2-2.81) mg/dl Urine Color Urine Appearance (Clear) Urine pH (4.5-7.5) Ur Specific [place] (1.000-1.030) Urine Protein (Negative) Urine Glucose (UA) (Negative) Urine Ketones (Negative) Urine Blood (Negative) Urine Nitrite (Negative) Urine Bilirubin (Negative) Urine Urobilinogen (Negative) Ur Leukocyte Esterase (Negative) Salicylates (2.8-20) mg/dl Urine Opiates Screen (Neg) U Codeine Confrm GC/MS Ur Morphine (GC/MS) Ur Hydrocodone (GC/MS) Ur Norhydrocodone Ur Noroxycodone Urine Oxycodone (GC/MS) U Oxymorphone GC/MS Ur Methadone, Qual (Neg) Ur Hydromorphone (GC/MS) Acetaminophen (10-30) ug/ml Urine Barbiturates (Neg) Ur Phencyclidine (PCP) (Neg) U Amphetamin/Meth Scrn (Neg) MDMA (Ecstasy) Screen (Neg) U Benzodiazepines Scrn (Neg) Ur Cocaine Metabolite (Neg) U Marijuana (THC) Screen (Neg) Drug Screen Comment Blood Type Antibody Screen 12/04/19 12/03/19 12/03/19 Range/Units 04:12 23:52 20:53 WBC (4.8-10.8) K/uL RBC (4.7-6.1) M/uL Hgb (14.0-18.0) g/dL Hct (42-52) % MCV (80-100) fL MCH (25-34) pg MCHC (32-36) g/dL RDW Std Deviation (36.4-46.3) fL RDW Coeff of Bernarda (11.5-14.5) % Plt Count (130-400) K/uL MPV (7.4-10.4) fL Immature Gran % (Auto) % Neut % (Auto) % Lymph % (Auto) % [place] % (Auto) % Eos % (Auto) % Baso % (Auto) % Immature Gran # (Auto) (0.00-0.02) K/uL Neut # (Auto) (1.4-6.5) K/uL Lymph # (Auto) (1.2-3.4) K/uL [place] # (Auto) (0.11-0.59) K/uL Eos # (Auto) (0-0.5) K/uL Baso # (Auto) (0-0.2) K/uL PT (9.0-12.0) Seconds INR (0.9-1.1) APTT (21.0-31.0) Seconds PTT Ratio Sodium (136-145) mmol/L Potassium (3.5-5.1) mmol/L Chloride (98-107) mmol/L Carbon Dioxide (21-32) mmol/L Anion Gap (3-11) BUN (7-18) mg/dl Creatinine (0.6-1.4) mg/dl Est Cr Clr Drug Dosing ml/min Est GFR ( Amer) Est GFR (Non-Af Amer) BUN/Creatinine Ratio (10-20) Glucose (70-99) mg/dl POC Glucose 162 H 271 H 338 H* (70-99) mg/dl Estimat Average Glucose Hemoglobin A1c Calcium (8.5-10.1) mg/dl Magnesium (1.8-2.4) mg/dl Total Bilirubin (0.2-1) mg/dl AST (15-37) U/L ALT (12-78) U/L Alkaline Phosphatase (45-117) U/L Troponin I (0-0.045) ng/ml Total Protein (6.4-8.2) gm/dl Albumin (3.4-5.0) gm/dl Globulin (2.5-4.0) gm/dl Albumin/Globulin Ratio (0.9-2) Lipase (73-393) U/L Beta-Hydroxybutyric Acd (0.2-2.81) mg/dl Urine Color Urine Appearance (Clear) Urine pH (4.5-7.5) Ur Specific [place] (1.000-1.030) Urine Protein (Negative) Urine Glucose (UA) (Negative) Urine Ketones (Negative) Urine Blood (Negative) Urine Nitrite (Negative) Urine Bilirubin (Negative) Urine Urobilinogen (Negative) Ur Leukocyte Esterase (Negative) Salicylates (2.8-20) mg/dl Urine Opiates Screen (Neg) U Codeine Confrm GC/MS Ur Morphine (GC/MS) Ur Hydrocodone (GC/MS) Ur Norhydrocodone Ur Noroxycodone Urine Oxycodone (GC/MS) U Oxymorphone GC/MS Ur Methadone, Qual (Neg) Ur Hydromorphone (GC/MS) Acetaminophen (10-30) ug/ml Urine Barbiturates (Neg) Ur Phencyclidine (PCP) (Neg) U Amphetamin/Meth Scrn (Neg) MDMA (Ecstasy) Screen (Neg) U Benzodiazepines Scrn (Neg) Ur Cocaine Metabolite (Neg) U Marijuana (THC) Screen (Neg) Drug Screen Comment Blood Type Antibody Screen 12/03/19 12/03/19 12/03/19 Range/Units 17:34 15:57 15:50 WBC (4.8-10.8) K/uL RBC (4.7-6.1) M/uL Hgb (14.0-18.0) g/dL Hct (42-52) % MCV (80-100) fL MCH (25-34) pg MCHC (32-36) g/dL RDW Std Deviation (36.4-46.3) fL RDW Coeff of Bernarda (11.5-14.5) % Plt Count (130-400) K/uL MPV (7.4-10.4) fL Immature Gran % (Auto) % Neut % (Auto) % Lymph % (Auto) % [place] % (Auto) % Eos % (Auto) % Baso % (Auto) % Immature Gran # (Auto) (0.00-0.02) K/uL Neut # (Auto) (1.4-6.5) K/uL Lymph # (Auto) (1.2-3.4) K/uL [place] # (Auto) (0.11-0.59) K/uL Eos # (Auto) (0-0.5) K/uL Baso # (Auto) (0-0.2) K/uL PT (9.0-12.0) Seconds INR (0.9-1.1) APTT (21.0-31.0) Seconds PTT Ratio Sodium 135 L (136-145) mmol/L Potassium 3.9 (3.5-5.1) mmol/L Chloride 103 (98-107) mmol/L Carbon Dioxide 24 (21-32) mmol/L Anion Gap 8.0 (3-11) BUN 15 (7-18) mg/dl Creatinine 1.12 (0.6-1.4) mg/dl Est Cr Clr Drug Dosing 95.4 ml/min Est GFR ( Amer) 81.2 Est GFR (Non-Af Amer) 70.0 BUN/Creatinine Ratio 12.9 (10-20) Glucose 387 H* (70-99) mg/dl POC Glucose 363 H* (70-99) mg/dl Estimat Average Glucose Hemoglobin A1c Calcium 9.0 (8.5-10.1) mg/dl Magnesium 1.6 L (1.8-2.4) mg/dl Total Bilirubin 0.6 (0.2-1) mg/dl AST 21 (15-37) U/L ALT 37 (12-78) U/L Alkaline Phosphatase 128 H (45-117) U/L Troponin I < 0.015 (0-0.045) ng/ml Total Protein 7.2 (6.4-8.2) gm/dl Albumin 3.6 (3.4-5.0) gm/dl Globulin 3.6 (2.5-4.0) gm/dl Albumin/Globulin Ratio 1.0 (0.9-2) Lipase 150 (73-393) U/L Beta-Hydroxybutyric Acd 0.83 (0.2-2.81) mg/dl Urine Color Urine Appearance (Clear) Urine pH (4.5-7.5) Ur Specific [place] (1.000-1.030) Urine Protein (Negative) Urine Glucose (UA) (Negative) Urine Ketones (Negative) Urine Blood (Negative) Urine Nitrite (Negative) Urine Bilirubin (Negative) Urine Urobilinogen (Negative) Ur Leukocyte Esterase (Negative) Salicylates (2.8-20) mg/dl Urine Opiates Screen (Neg) U Codeine Confrm GC/MS Ur Morphine (GC/MS) Ur Hydrocodone (GC/MS) Ur Norhydrocodone Ur Noroxycodone Urine Oxycodone (GC/MS) U Oxymorphone GC/MS Ur Methadone, Qual (Neg) Ur Hydromorphone (GC/MS) Acetaminophen (10-30) ug/ml Urine Barbiturates (Neg) Ur Phencyclidine (PCP) (Neg) U Amphetamin/Meth Scrn (Neg) MDMA (Ecstasy) Screen (Neg) U Benzodiazepines Scrn (Neg) Ur Cocaine Metabolite (Neg) U Marijuana (THC) Screen (Neg) Drug Screen Comment Blood Type O Positive Antibody Screen NEGATIVE 12/03/19 12/03/19 12/03/19 Range/Units 15:50 15:50 15:50 WBC 4.68 L (4.8-10.8) K/uL RBC 4.70 (4.7-6.1) M/uL Hgb 14.2 (14.0-18.0) g/dL Hct 39.1 L (42-52) % MCV 83.2 (80-100) fL MCH 30.2 (25-34) pg MCHC 36.3 H (32-36) g/dL RDW Std Deviation 40.9 (36.4-46.3) fL RDW Coeff of Bernarda 13.5 (11.5-14.5) % Plt Count 146 (130-400) K/uL MPV 9.3 (7.4-10.4) fL Immature Gran % (Auto) 0.2 % Neut % (Auto) 45.0 % Lymph % (Auto) 44.4 % [place] % (Auto) 8.3 % Eos % (Auto) 1.5 % Baso % (Auto) 0.6 % Immature Gran # (Auto) 0.01 (0.00-0.02) K/uL Neut # (Auto) 2.10 (1.4-6.5) K/uL Lymph # (Auto) 2.08 (1.2-3.4) K/uL [place] # (Auto) 0.39 (0.11-0.59) K/uL Eos # (Auto) 0.07 (0-0.5) K/uL Baso # (Auto) 0.03 (0-0.2) K/uL PT 10.4 (9.0-12.0) Seconds INR 1.0 (0.9-1.1) APTT 26.7 (21.0-31.0) Seconds PTT Ratio 1.0 Sodium (136-145) mmol/L Potassium (3.5-5.1) mmol/L Chloride (98-107) mmol/L Carbon Dioxide (21-32) mmol/L Anion Gap (3-11) BUN (7-18) mg/dl Creatinine (0.6-1.4) mg/dl Est Cr Clr Drug Dosing ml/min Est GFR ( Amer) Est GFR (Non-Af Amer) BUN/Creatinine Ratio (10-20) Glucose (70-99) mg/dl POC Glucose (70-99) mg/dl Estimat Average Glucose Hemoglobin A1c Calcium (8.5-10.1) mg/dl Magnesium (1.8-2.4) mg/dl Total Bilirubin (0.2-1) mg/dl AST (15-37) U/L ALT (12-78) U/L Alkaline Phosphatase (45-117) U/L Troponin I (0-0.045) ng/ml Total Protein (6.4-8.2) gm/dl Albumin (3.4-5.0) gm/dl Globulin (2.5-4.0) gm/dl Albumin/Globulin Ratio (0.9-2) Lipase (73-393) U/L Beta-Hydroxybutyric Acd (0.2-2.81) mg/dl Urine Color Urine Appearance (Clear) Urine pH (4.5-7.5) Ur Specific [place] (1.000-1.030) Urine Protein (Negative) Urine Glucose (UA) (Negative) Urine Ketones (Negative) Urine Blood (Negative) Urine Nitrite (Negative) Urine Bilirubin (Negative) Urine Urobilinogen (Negative) Ur Leukocyte Esterase (Negative) Salicylates < 1.7 L (2.8-20) mg/dl Urine Opiates Screen (Neg) U Codeine Confrm GC/MS Ur Morphine (GC/MS) Ur Hydrocodone (GC/MS) Ur Norhydrocodone Ur Noroxycodone Urine Oxycodone (GC/MS) U Oxymorphone GC/MS Ur Methadone, Qual (Neg) Ur Hydromorphone (GC/MS) Acetaminophen < 2 L (10-30) ug/ml Urine Barbiturates (Neg) Ur Phencyclidine (PCP) (Neg) U Amphetamin/Meth Scrn (Neg) MDMA (Ecstasy) Screen (Neg) U Benzodiazepines Scrn (Neg) Ur Cocaine Metabolite (Neg) U Marijuana (THC) Screen (Neg) Drug Screen Comment Blood Type Antibody Screen 03/06/1512/03/19 12/03/19 Range/Units 15:37 15:37 15:37 WBC (4.8-10.8) K/uL RBC (4.7-6.1) M/uL Hgb (14.0-18.0) g/dL Hct (42-52) % MCV (80-100) fL MCH (25-34) pg MCHC (32-36) g/dL RDW Std Deviation (36.4-46.3) fL RDW Coeff of Bernarda (11.5-14.5) % Plt Count (130-400) K/uL MPV (7.4-10.4) fL Immature Gran % (Auto) % Neut % (Auto) % Lymph % (Auto) % [place] % (Auto) % Eos % (Auto) % Baso % (Auto) % Immature Gran # (Auto) (0.00-0.02) K/uL Neut # (Auto) (1.4-6.5) K/uL Lymph # (Auto) (1.2-3.4) K/uL [place] # (Auto) (0.11-0.59) K/uL Eos # (Auto) (0-0.5) K/uL Baso # (Auto) (0-0.2) K/uL PT (9.0-12.0) Seconds INR (0.9-1.1) APTT (21.0-31.0) Seconds PTT Ratio Sodium (136-145) mmol/L Potassium (3.5-5.1) mmol/L Chloride (98-107) mmol/L Carbon Dioxide (21-32) mmol/L Anion Gap (3-11) BUN (7-18) mg/dl Creatinine (0.6-1.4) mg/dl Est Cr Clr Drug Dosing ml/min Est GFR ( Amer) Est GFR (Non-Af Amer) BUN/Creatinine Ratio (10-20) Glucose (70-99) mg/dl POC Glucose (70-99) mg/dl Estimat Average Glucose Hemoglobin A1c Calcium (8.5-10.1) mg/dl Magnesium (1.8-2.4) mg/dl Total Bilirubin (0.2-1) mg/dl AST (15-37) U/L ALT (12-78) U/L Alkaline Phosphatase (45-117) U/L Troponin I (0-0.045) ng/ml Total Protein (6.4-8.2) gm/dl Albumin (3.4-5.0) gm/dl Globulin (2.5-4.0) gm/dl Albumin/Globulin Ratio (0.9-2) Lipase (73-393) U/L Beta-Hydroxybutyric Acd (0.2-2.81) mg/dl Urine Color Yellow Urine Appearance Clear (Clear) Urine pH 5.0 (4.5-7.5) Ur Specific [place] > 1.045 H (1.000-1.030) Urine Protein Negative (Negative) Urine Glucose (UA) 3+ H (Negative) Urine Ketones Negative (Negative) Urine Blood Negative (Negative) Urine Nitrite Negative (Negative) Urine Bilirubin Negative (Negative) Urine Urobilinogen Negative (Negative) Ur Leukocyte Esterase Negative (Negative) Salicylates (2.8-20) mg/dl Urine Opiates Screen Pos H (Neg) U Codeine Confrm GC/MS Pending Ur Morphine (GC/MS) Pending Ur Hydrocodone (GC/MS) Pending Ur Norhydrocodone Pending Ur Noroxycodone Pending Urine Oxycodone (GC/MS) Pending U Oxymorphone GC/MS Pending Ur Methadone, Qual Neg (Neg) Ur Hydromorphone (GC/MS) Pending Acetaminophen (10-30) ug/ml Urine Barbiturates Neg (Neg) Ur Phencyclidine (PCP) Neg (Neg) U Amphetamin/Meth Scrn Neg (Neg) MDMA (Ecstasy) Screen Neg (Neg) U Benzodiazepines Scrn Neg (Neg) Ur Cocaine Metabolite Neg (Neg) U Marijuana (THC) Screen Neg (Neg) Drug Screen Comment Pending Blood Type Antibody Screen
[2019-12-04 06:53] LABS: Hemoglobin 14.1 g/dL (14.0-18.0); Mean Corpuscular Hemoglobin 29.6 pg (25-34); Mean Corpuscular Hgb Conc 36.2 g/dL (32-36); Mean Corpuscular Volume 81.9 fL (80-100); Mean Platelet Volume 9.1 fL (7.4-10.4); Platelet Count 119 K/uL (130-400); RDW Coefficient of Variation 13.5 % (11.5-14.5); RDW Standard Deviation 40.5 fL (36.4-46.3); Red Blood Count 4.76 M/uL (4.7-6.1); White Blood Count 3.48 K/uL (4.8-10.8)
[2019-12-04 07:33] LABS: BUN Creatinine Ratio 12.8 (10-20); Calcium 8.3 mg/dl (8.5-10.1); Creatinine Clr Calc Pharmacy 128.8 ml/min; Est GFR (African American) 109.8; Est GFR (Non-African American) 94.8; Magnesium 1.8 mg/dl (1.8-2.4); Potassium 3.6 mmol/L (3.5-5.1)
[2019-12-04 07:52] LABS: Estimated Average Glucose 220 mg/dl; Hemoglobin A1C 9.3 % (4.5-5.6)
--- NOTE | 2019-12-04 07:54 | Hospitalist Progress Note ---
Date of Service December 04, 2019 Assessment & Plan (1) Abdominal pain: -Patient presenting from home with multiple complaints, one being persistent, intractable abdominal pain -DC Glucophage -Recent admission to [facility] 11/05 through 11/09 for evaluation and management of abdominal pain, possible GI bleeding. EGD unremarkable, colonoscopy s/p polypectomy and showed internal hemorrhoids and diverticulosis. -CT ABD/pelvis in the ED unremarkable -Patient reporting bright red bleeding per rectum and hematemesis; Hgb stable at 14.2 -Clear liquids, n.p.o. after midnight -Continue PPI and Carafate for history of PUD and duodenitis (diagnosed at outside hospital 08/2019) -GI - Continue PPI twice daily for full 8 weeks then PPI once daily Bentyl 10 mg TID for abdominal pain Dedicated RUQ US Ordered given intermittent elevated ALKP Gastric emptying scan-Ordered (2) Weakness: -After patient returned from CT scan in the ED, reported left-sided weakness and numbness -Stroke alert was called however patient seemed to be inconsistent with previously reported symptoms -On exam, patient has weakness of the bilateral upper and lower extremities however when distracted, patient appears to be moving extremities with more ease -Head CT and brain MRI negative for acute findings -?? Conversion disorder, will consult mental health (3) CAD (coronary artery disease): -Patient reported chest pain -Initial troponin negative, EKG without acute ST changes -Continue to cycle cardiac enzymes -Has been off antiplatelet therapy due to history of PUD and duodenitis -Continue statin, beta-bernardo, TIGRE inhibitor (4) Diabetes: -Hgb A1c 8.9 10/2019 -Hold metformin and home /30 -Glycemic pharmacy consulted (5) Depression: -History of inpatient psychiatric hospitalization 03/2019 due to suicidal ideation -Patient denies any suicidal ideations at this time -Continue sertraline -Mental health consult as above (6) DVT prophylaxis: -SCDs due to history of PUD/gastritis and possible GI bleeding ROS-No Headache, No Visual Changes, No Nausea, No Vomiting, No Fever, No Chills, No Neck Pain or Stiffness, No Chest Pain, No Palpitations, No SOB, No IBRAHIM, No Cough, No Sputum, No Wheezing, No Abdominal Pain, No Diarrhea, No Hematemesis, No Hemoptysis, No Unexpected Weight Loss, No Flank pain, No Melena, No Hematochezia, No Frequency, No Urgency, No Burning, No Hematuria, No Rashes, No Diaphoresis. Appetite is Normal Physical Exam Gen-AAO x 3, NAD, Afebrile Head-NCAT, EOMI, PERRLA, Anicteric Sclera, No Posterior Pharyngeal Erythema Neck-Supple, No JVD, No Thyromegaly, No Masses, No LAD, No Bruits Lungs-Clear to Auscultation Bilaterally, No Rales, No Rhonchi, No Wheezing, No Crepitus Chest-No S4, +S1, +S2, No S3, No Murmurs, No Rubs, No Gallops, No Ectopy Abdomen-Soft, Bowel Sounds Present, Tender, Non Distended, No Hepatomegaly, No Splenomegaly, No Palpable Masses, No Rebound, No Rigidity, No Guarding Musculoskeletal-Full Range of Motion Bilaterally, No CVAT Extremities-No Cyanosis, No Clubbing, No Edema Nuero-Cranial Nerves II-XII grossly intact, Motor WNL, DTRs WNL, Strength WNL, Non Focal Psych-Odd Affect Admission and Anticipated Discharge Date Admission Date: December 03, 2019 Anticipated date of discharge: 12/04/19 Results & Data ([facility]) Vital Signs (Past 12 Hours) Vital Signs Temp Pulse Pulse Resp BP Pulse Ox 12/04/19 07:46 36.4 C L 68 18 117/71 95 12/04/19 07:09 74 12/04/19 04:20 36.3 C L 65 18 121/79 95 12/03/19 23:10 36.3 C L 75 18 127/64 96 12/03/19 22:20 76 12/03/19 22:15 70 12/03/19 20:37 36.6 C 70 18 134/86 95
[2019-12-04] MEDS ORDERED: INSULIN HUMAN NPH SC ONE (08:00)
[2019-12-04] MEDS: AMLODIPINE BESYLATE 5 MG TAB PO SCH (08:11)
[2019-12-04] MEDS: lisinopriL 40 MG TAB PO SCH (08:11)
[2019-12-04] MEDS: SUCRALFATE 1 GM TAB PO SCH ×4 (08:11→20:05)
[2019-12-04] MEDS: PANTOprazole 40 MG TAB PO SCH ×2 (08:12→20:05)
[2019-12-04] MEDS: SERTRALINE HCL 50 MG TABLET PO SCH (08:12)
[2019-12-04] MEDS: carvediloL 3.125 MG TAB PO SCH ×2 (08:12→20:05)
[2019-12-04] MEDS: NICOTINE 21 MG/24 HR TDSY TD SCH (08:13)
--- NOTE | 2019-12-04 09:10 | Ultrasound Report ---
ULTRASOUND RIGHT UPPER QUADRANT ABDOMEN CLINICAL HISTORY: Right upper quadrant abdominal pain. COMPARISON STUDY: Abdominal CT dated 12/03/2019. TECHNIQUE: Real-time, grayscale, and color flow sonography of the right upper quadrant of the abdomen was performed. Images are reviewed in the transverse and longitudinal planes. FINDINGS: Liver: The liver is normal in size and echotexture. There is no intrahepatic biliary ductal dilatatio n. The main portal vein is patent. Gallbladder: The gallbladder is normal in appearance. No gallstones are identified. There is no gallb ladder wall thickening or pericholecystic fluid. A sonographic Harding's sign is reportedly absent. Th e common bile duct measures up to 0.4 cm in diameter. Pancreas: Not visualized due to overlying bowel gas. Right kidney: Survey images of the right kidney demonstrate normal size and echotexture. There is no hydronephrosis. Ascites: None. IMPRESSION: Unremarkable sonographic assessment of the right upper quadrant. No gallstones are identi fied. ACT 112: Negative or not required by law. Electronically signed by: Miguel Amaya M.D. 12/04/2019 9:09 AM
--- NOTE | 2019-12-04 12:48 | Psychiatric Consultation ---
Date of Consultation December 04, 2019 Impression / Recommendations Impression 64 yo male with history of depression in the context of chronic pain, currently denies psychiatric issues and refusing assessment. 1 time consultation with ongoing medical problems and work up is not best time to dx conversion. Has hx of multiple concussions per old chart so if unexplained neurologic symptoms would suggest EEG to r/o focal seizure. I cannot comment on Zoloft given he is refusing assessment. Would need to meet criteria for a 302 warrant to be assessed against wishes, don't see current indication/hx to proceed with that at this time. Psych History Identifying Data 64 yo male, hx of 3S admission 04/20/2019, admit from ED for abdominal pain, had a stroke alert for unexplained event, consult is by Dr. Benitez for opinion on conversion disorder Chief Complaint "I don't need a psychiatrist, leave" History of Present Illness per prior H&P he had a history of depression in the context of compartment syndrome and c/o chronic pain. At that time he was treated with cymbalta and discharged to outpatient care. The patient is currently uncooperative with updating interim history. He states he has no idea why he takes low dose Zoloft and does not want to discuss further. Past Psychiatric History Previous Psych Admissions: 04/13 for SI, also [facility] >20 years ago. Allergies Allergy/AdvReac Type Severity Reaction Status Date / Time diphenhydramine Allergy Intermediate Unknown Verified 12/03/19 15:46 [From Benadryl] Home Medications Home Medications Medication Instructions Recorded Confirmed Type amlodipine [Norvasc] 10 mg PO QAM 30 Days #60 tab 11/09/19 12/03/19 Rx atorvastatin 80 mg PO HS 30 Days #30 tab 11/09/19 12/03/19 Rx carvedilol 3.125 mg PO BID 30 Days #60 tab 11/09/19 12/03/19 Rx cyclobenzaprine 5 mg PO BID PRN #10 tab 11/09/19 12/03/19 Rx insulin NPH and regular human 15 units SQ BID 30 Days #9 ml 11/09/19 12/03/19 Rx lisinopril 40 mg PO DAILY 30 Days #30 tab 11/09/19 12/03/19 Rx metformin 1,000 mg PO BIDM 30 Days #120 tab 11/09/19 12/03/19 Rx omeprazole 40 mg PO BID #60 cap 11/09/19 12/03/19 Rx sertraline 25 mg PO DAILY 30 Days #30 tab 11/09/19 12/03/19 Rx sucralfate [Carafate] 1 g PO ACHS 30 Days #30 tab 11/09/19 12/03/19 Rx Family History denied previously Substance Abuse History previously denied Personal History Living Arrangements: Apartment Highest Grade Completed: Graduate School (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 and behavioral health) Marital Status: Number Of Children: 5 Beliefs That Will Affect Care: None Patient History Medical History Bleeding ulcer CAD (coronary artery disease) 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 Depression Diabetes Esophageal stricture History of laryngeal cancer Status post radiation HTN (hypertension) PTSD (post-traumatic stress disorder) Suicidal ideation (Acute) Surgical History History of coronary artery stent placement (Acute) History of endoscopy 08/2019 revealed esophageal strictures, gastric ulcerations and hemorrhagic duodenitis History of heart artery stent History of partial thyroidectomy Family History Father Cancer Lung Social History Preferred Language: Occitan Communication Ability: Effective 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 Vital Signs (Past 24 Hours): Last Vital Signs Temp 36.6 C 12/04/19 11:41 Pulse 63 12/04/19 11:41 Resp 18 12/04/19 11:41 BP 122/75 12/04/19 11:41 Pulse Ox 96 12/04/19 11:41 Review of Systems Other (uncooperative) Results & Data (PSY) Medications Administered Acetaminophen (Tylenol) 650 mg PO Q4H PRN PRN Reason: Pain or Fever Stop: 01/02/20 20:36 Last Admin: 12/03/19 23:47 Dose: 650 mg Documented by: [id number] Amlodipine Besylate (Norvasc) 10 mg PO QAM [facility] Stop: 01/03/20 08:59 Last Admin: 12/04/19 08:11 Dose: 10 mg Documented by: [id number] Atorvastatin Calcium (Lipitor) 80 mg PO HS [facility] Stop: 01/02/20 20:59 Last Admin: 12/03/19 21:24 Dose: 80 mg Documented by: [id number] Carvedilol (Coreg) 3.125 mg PO BID [facility] Stop: 01/02/20 20:59 Last Admin: 12/04/19 08:12 Dose: 3.125 mg Documented by: [id number] Admin: 12/03/19 21:24 Dose: 3.125 mg Documented by: [id number] Insulin Aspart (Novolog Flexpen) 0 units SC Q6 [facility]; Protocol Stop: 01/03/20 11:59 Last Admin: 12/04/19 11:52 Dose: 1 units Documented by: [id number] Cosigned by: [id number] Lisinopril (Zestril) 40 mg PO DAILY [facility] Stop: 01/03/20 08:59 Last Admin: 12/04/19 08:11 Dose: 40 mg Documented by: [id number] Miscellaneous (Remove Nicoderm Patch) 1 ea N/A DAILY@0859 [facility] Stop: 01/03/20 08:58 Last Admin: 12/04/19 08:14 Dose: 1 ea Documented by: [id number] Nicotine (Nicoderm Cq) 21 mg TD DAILY [facility] Stop: 01/02/20 23:19 Last Admin: 12/04/19 08:13 Dose: 21 mg Documented by: [id number] Admin: 12/03/19 23:45 Dose: 21 mg Documented by: [id number] Pantoprazole Sodium (Protonix) 40 mg PO BID [facility] Stop: 01/02/20 20:59 Last Admin: 12/04/19 08:12 Dose: 40 mg Documented by: [id number] Admin: 12/03/19 21:25 Dose: 40 mg Documented by: [id number] Sertraline HCl (Zoloft) 25 mg PO DAILY [facility] Stop: 01/03/20 08:59 Last Admin: 12/04/19 08:12 Dose: 25 mg Documented by: [id number] Sucralfate (Carafate Tab) 1 gm PO ACHS [facility] Stop: 01/02/20 20:59 Last Admin: 12/04/19 11:54 Dose: 1 gm Documented by: [id number] Cosigned by: [id number] Admin: 12/04/19 08:11 Dose: 1 gm Documented by: [id number] Admin: 12/03/19 21:25 Dose: 1 gm Documented by: [id number] Coding Level of Care Code 00396 [facility] Int[facility] Hosp Care Lvl 1
--- NOTE | 2019-12-04 14:43 | Electrocardiogram Report ---
Test Reason : Blood Pressure : / mmHG Vent. Rate : 080 BPM Atrial Rate : 080 BPM P-R Int : 162 ms QRS Dur : 084 ms QT Int : 386 ms P-R-T Axes : 075 047 030 degrees QTc Int : 445 ms Normal sinus rhythm Possible Left atrial enlargement Borderline ECG When compared with ECG of 08-NOV-2019 18:26, Vent. rate has increased BY 28 BPM Confirmed by Lefty Whitmore ([id number]) on 12/04/2019 2:42:45 PM Referred By: Confirmed By:Lefty Whitmore
--- NOTE | 2019-12-04 15:05 | Electrocardiogram Report ---
Test Reason : Blood Pressure : / mmHG Vent. Rate : 062 BPM Atrial Rate : 062 BPM P-R Int : 176 ms QRS Dur : 084 ms QT Int : 414 ms P-R-T Axes : 071 037 035 degrees QTc Int : 420 ms Normal sinus rhythm Normal ECG When compared with ECG of 03-DEC-2019 15:08, (unconfirmed) No significant change was found Confirmed by Lefty Whitmore ([id number]) on 12/04/2019 3:05:15 PM Referred By: REFERRED SELF Confirmed By:Lefty Whitmore
[2019-12-04] MEDS: INSULIN HUMAN NPH SC SCH (17:15)
[2019-12-04] MEDS: ATORVASTATIN 40 MG TAB PO SCH (20:06)
[2019-12-04] MEDS ORDERED: ZOLPIDEM TARTRATE 5 MG TAB PO PRN (23:36)
[2019-12-05] MEDS: INSULIN ASPART 100 UNITS/ML 3 ML PEN SC SCH ×3 (05:49→20:58)
[2019-12-05 06:34] LABS: Hematocrit (blood only) 40.5 % (42-52); Hemoglobin 14.3 g/dL (14.0-18.0); Mean Corpuscular Hemoglobin 29.2 pg (25-34); Mean Corpuscular Hgb Conc 35.3 g/dL (32-36); Mean Corpuscular Volume 82.8 fL (80-100); Mean Platelet Volume 9.1 fL (7.4-10.4); Platelet Count 132 K/uL (130-400); RDW Coefficient of Variation 13.7 % (11.5-14.5); RDW Standard Deviation 40.9 fL (36.4-46.3); Red Blood Count 4.89 M/uL (4.7-6.1); White Blood Count 4.15 K/uL (4.8-10.8)
[2019-12-05 07:05] LABS: Albumin Level 3.2 gm/dl (3.4-5.0); BUN Creatinine Ratio 9.8 (10-20); Calcium 8.4 mg/dl (8.5-10.1); Creatinine Clr Calc Pharmacy 117.1 ml/min; Est GFR (African American) 105.7; Est GFR (Non-African American) 91.2; Potassium 3.5 mmol/L (3.5-5.1)
[2019-12-05 07:09] LABS: Albumin Globulin Ratio 0.9 (0.9-2); Bilirubin,Total 1.7 mg/dl (0.2-1); Globulin 3.4 gm/dl (2.5-4.0); Total Protein 6.6 gm/dl (6.4-8.2)
--- NOTE | 2019-12-05 09:07 | Pharmacy Report ---
Pharmacy Glycemic Short Note 2 - Date of Service December 05, 2019 - Glycemic Short BSG Results (Last 24 hours): 12/04/19 12/04/19 12/04/19 11:17 16:56 23:20 Glucose POC Glucose 145 H 152 H 145 H 12/05/19 12/05/19 12/05/19 05:48 06:07 07:33 Glucose 149 H POC Glucose 156 H 200 H OUTPATIENT ANTIDIABETIC REGIMEN: * NPH 15 units SQ BID * Metformin ER 1000mg PO BID * HbA1c: 9.3% (12/04/19) ASSESSMENT: 12/05/19: * BSGs have been generally well-controlled on current regimen. * Pre-lunch BSG was elevated, but this is likely d/t pt refusing his AM insulin. * Patient's diet has been advanced from NPO to clear liquids. * No changes required at this time. Will continue to follow. 12/04/19 * Mr Ruiz is a 64yo diabetic male, admitted for possible GI bleed. * Patient is currently NPO. * NPH initiated at a reduced dose, with Novolog added for correction. PLAN FOR INPATIENT GLYCEMIC CONTROL: * Hold outpatient oral diabetes medications * Basal insulin * NPH 8 units SQ BID * expect to increase this dose as diet advances * Bolus insulin * NovoLog per scale ACHS or Q6hrs while NPO * Goal Range: Low 110 mg/dL - High 140 mg/dL * Correction Factor: 35 mg/dL/unit * Nutritional / Prandial insulin per carb ratio of 1 unit per 12 grams CHO consumed PLAN FOR DISCHARGE: * Patient's current A1c (9.3%) indicates sub-optimal glycemic control as an outpatient. * Expect that patient may require an increase in his insulin dosing at discharge, as long as he does not report having episodes of hypoglycemia. * May consider increasing AM NPH dose? * If patient continues to experience GI issues, may need to D/C Metformin moving forward. This would also support the need for an adjustment in insulin barry men. * Recommend f/u with outpatient provider as soon as possible after discharge to work toward optimizing A1c.
[2019-12-05] MEDS: lisinopriL 40 MG TAB PO SCH ×2 (10:15→14:23)
[2019-12-05] MEDS: AMLODIPINE BESYLATE 5 MG TAB PO SCH ×2 (10:15→14:22)
[2019-12-05] MEDS: PANTOprazole 40 MG TAB PO SCH ×3 (10:15→20:37)
[2019-12-05] MEDS: carvediloL 3.125 MG TAB PO SCH ×2 (10:15→20:36)
[2019-12-05] MEDS: NICOTINE 21 MG/24 HR TDSY TD SCH ×2 (10:15→14:21)
[2019-12-05] MEDS: INSULIN HUMAN NPH SC SCH ×2 (10:15→11:13)
[2019-12-05] MEDS: SUCRALFATE 1 GM TAB PO SCH ×3 (10:15→15:51)
[2019-12-05] MEDS: SERTRALINE HCL 50 MG TABLET PO SCH ×2 (10:16→14:20)
[2019-12-05] MEDS ORDERED: Nursing to Pharmacy Communication ONE ×2 (10:16→10:58)
[2019-12-05] MEDS ORDERED: HYDROmorphone INJ 0.5 MG/0.5 ML SYR IV PRN (10:28)
[2019-12-05] MEDS ORDERED: HYDROmorphone INJ 0.5 MG/0.5 ML SYR ONE (10:30)
[2019-12-05] MEDS ORDERED: INSULIN ASPART 100 UNITS/ML 3 ML PEN SC SCH ×2 (11:30→12:00)
--- NOTE | 2019-12-05 12:10 | Nuclear Medicine Report ---
NUCLEAR GASTRIC EMPTYING STUDY: CLINICAL HISTORY: Abd Pain COMPARISON STUDY: None TECHNIQUE: Following the oral administration of 1 mCi of technetium 99m sulfur colloid in egg sandwic h and 8 ounces of water, static abdominal images are performed anteriorly and posteriorly at 0 minute s, 1 hour, 2 hours, and 4 hour time intervals. Gastric emptying was calculated utilizing the geometri c mean method. FINDINGS: There is approximately 82 % gastric activity remaining at the 1 hour time interval, 42 % at the 2 hour time interval (normal is less than 60%), and 1 % remaining at the 4 hour time interval (n ormal is less than 10%). These findings are consistent with a normal study IMPRESSION: Normal study. ACT 112: Negative or not required by law. Electronically signed by: Richard Trujillo M.D. 12/05/2019 12:09 PM
--- NOTE | 2019-12-05 16:34 | Electrocardiogram Report ---
Test Reason : Blood Pressure : / mmHG Vent. Rate : 065 BPM Atrial Rate : 065 BPM P-R Int : 166 ms QRS Dur : 084 ms QT Int : 416 ms P-R-T Axes : 074 039 027 degrees QTc Int : 432 ms Normal sinus rhythm Normal ECG When compared with ECG of 04-DEC-2019 06:28, No significant change was found Confirmed by Lefty Whitmore ([id number]) on 12/05/2019 4:34:18 PM Referred By: REFERRED SELF Confirmed By:Lefty Whitmore
[2019-12-05] MEDS ORDERED: INSULIN GLARGINE SOLOSTAR 100 UNITS/ML 3 ML PEN SC ONE (18:30)
[2019-12-05] MEDS: ACETAMINOPHEN 500 MG TAB PO SCH (18:41)
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
[2019-12-05] MEDS: ATORVASTATIN 40 MG TAB PO SCH (20:36)
[2019-12-05] MEDS: OXYCODONE HCL IR 5 MG TAB (IMMEDIATE RELEASE) PO PRN (20:37)
[2019-12-06] MEDS ORDERED: TRAZODONE HCL 50 MG TAB PO ONE ×2 (00:28→22:46)
[2019-12-06] MEDS ORDERED: INSULIN ASPART 100 UNITS/ML 3 ML PEN SC ONE (02:00)
[2019-12-06] MEDS: ACETAMINOPHEN 500 MG TAB PO SCH ×3 (05:18→21:44)
[2019-12-06 06:24] LABS: Albumin Level 3.1 gm/dl (3.4-5.0); BUN Creatinine Ratio 16.1 (10-20); Calcium 8.2 mg/dl (8.5-10.1); Creatinine Clr Calc Pharmacy 105.4 ml/min; Est GFR (African American) 93.1; Est GFR (Non-African American) 80.3; Magnesium 1.8 mg/dl (1.8-2.4); Potassium 3.7 mmol/L (3.5-5.1)
[2019-12-06 06:31] LABS: Albumin Globulin Ratio 0.9 (0.9-2); Globulin 3.5 gm/dl (2.5-4.0); Total Protein 6.6 gm/dl (6.4-8.2)
[2019-12-06] MEDS: carvediloL 3.125 MG TAB PO SCH ×2 (08:39→20:23)
[2019-12-06] MEDS: ASPIRIN 81 MG ECTAB PO SCH (08:40)
[2019-12-06] MEDS: PANTOprazole 40 MG TAB PO SCH ×2 (08:40→20:23)
[2019-12-06] MEDS: NICOTINE 21 MG/24 HR TDSY TD SCH (08:41)
[2019-12-06] MEDS: AMLODIPINE BESYLATE 5 MG TAB PO SCH (08:41)
[2019-12-06] MEDS: lisinopriL 40 MG TAB PO SCH (08:41)
[2019-12-06] MEDS: SERTRALINE HCL 50 MG TABLET PO SCH (08:42)
[2019-12-06] MEDS: INSULIN ASPART 100 UNITS/ML 3 ML PEN SC SCH ×4 (08:43→21:42)
[2019-12-06] MEDS: OXYCODONE HCL IR 5 MG TAB (IMMEDIATE RELEASE) PO PRN ×2 (08:48→14:25)
[2019-12-06] MEDS ORDERED: INSULIN GLARGINE SOLOSTAR 100 UNITS/ML 3 ML PEN SC SCH (09:00)
[2019-12-06 10:59] LABS: Codeine Urine NEGATIVE ng/mL (<50); Hydrocodone Urine NEGATIVE ng/mL (<50); Hydromor Urine 373 ng/mL (<50); Morphine Urine NEGATIVE ng/mL (<50); Norhydrocodone Conf Ur NEGATIVE ng/mL (<50); Noroxycodone Urine NEGATIVE ng/mL (<50); Oxycodone Urine NEGATIVE ng/mL (<50); Oxymorph Urine NEGATIVE ng/mL (<50)
--- NOTE | 2019-12-06 14:27 | Psychiatric Progress Note ---
Date of Service December 06, 2019 Impression / Recommendations Impression impression from first contact. 64 yo male with history of depression in the context of chronic pain, currently denies psychiatric issues and refusing assessment. 1 time consultation with on going medical problems and work up is not best time to dx conversion. Has hx of multiple concussions per old chart so if unexplained neurologic symptoms would suggest EEG to r/o focal seizure. I cannot comment on Zoloft given he is refusing assessment. Would need to meet criteria for a 302 warrant to be assessed against wishes, don't see current indication/hx to proceed with that at this time. 12/06/2019--unspecified depressive disorder. States he may consider therapy so liaison updated but limited options given MA. No evidence of psychosis or paranoia. Given partial trial of Zoloft, would recommend titrate to 50 mg then 100 mg as necessary/tolerated as outpatient. I will defer order to primary team as consult was for conversion. Interval History Chief Complaint "I don't think that med does anything". Review of Systems Notes states sleep is fine, feels harder to keep his left eye open Subjective Subjective Patient reported he was willing to speak with psych today, rather short in answers. Led liaison to believe one of his main concerns was ability to get disability given ongoing issue with his compartment syndrome and other medical issues more recently. He reported to [employer] student Prince Rodgers RN that his mother recently (1 week ago due to complications from colon CA) and he confirms this to me. He led student to believe mainly upset as other family members will be interfering with his inheritance. He states that he has been isolating more and irritable around this time. Started on Zoloft 11/09/19. States he stopped taking his Cymbalta and trazodone after March 2019 stay as they "did nothing". He denies all recollection of his stroke like event earlier this hospitalization. He does not feel that stress affects his abdominal pain. Physical Exam Psychiatric Orientation: alert Apperance: + disheveled Eye Contact: + fair eye contact Motor Behavior: no abnormal motor movements Speech: normal rate/rhythm/volume of speech Affect: + depressed affect Mood: + depressed mood Thought Process: + concrete thought process Thought Content: reality based without delusions Suicidal Thoughts: denies suicidal thoughts Homicidal Thoughts: denies homicidal thoughts Hallucinations: no auditory hallucinations and no visual hallucinations Cognition: attention grossly intact and language grossly intact Insight: + limited insight (due to condition, very concrete) Judgement: + limited judgement Vital Signs (Past 24 Hours) Last Vital Signs Temp 36.7 C 12/06/19 08:00 Pulse 67 12/06/19 08:00 Resp 18 12/06/19 08:00 BP 107/70 12/06/19 08:00 Pulse Ox 97 12/06/19 08:00 Results & Data ([facility]) Laboratory Results Laboratory Results - last 24 hr 12/03/19 12/05/19 12/05/19 15:37 16:47 19:23 Sodium Potassium Chloride Carbon Dioxide Anion Gap BUN Creatinine Est Cr Clr Drug Dosing Est GFR ( Amer) Est GFR (Non-Af Amer) BUN/Creatinine Ratio Glucose POC Glucose 267 H Calcium Magnesium Total Bilirubin AST ALT Alkaline Phosphatase Total Creatine Kinase Total Protein Albumin Globulin Albumin/Globulin Ratio Ur [place] Porphobilinogen Pending U Porphobilinogen Intrp Pending Stl C. diff Tox B Gene U Codeine Confrm GC/MS NEGATIVE Ur Morphine (GC/MS) NEGATIVE Ur Hydrocodone (GC/MS) NEGATIVE Ur Norhydrocodone NEGATIVE Ur Noroxycodone NEGATIVE Urine Oxycodone (GC/MS) NEGATIVE U Oxymorphone GC/MS NEGATIVE Ur Hydromorphone (GC/MS) 373 H Drug Screen Comment SEE NOTE 12/05/19 12/05/19 12/06/19 20:49 21:07 01:03 Sodium Potassium Chloride Carbon Dioxide Anion Gap BUN Creatinine Est Cr Clr Drug Dosing Est GFR ( Amer) Est GFR (Non-Af Amer) BUN/Creatinine Ratio Glucose POC Glucose 145 H 139 H Calcium Magnesium Total Bilirubin AST ALT Alkaline Phosphatase Total Creatine Kinase Total Protein Albumin Globulin Albumin/Globulin Ratio Ur [place] Porphobilinogen U Porphobilinogen Intrp Stl C. diff Tox B Gene Negative Cdiff Gene U Codeine Confrm GC/MS Ur Morphine (GC/MS) Ur Hydrocodone (GC/MS) Ur Norhydrocodone Ur Noroxycodone Urine Oxycodone (GC/MS) U Oxymorphone GC/MS Ur Hydromorphone (GC/MS) Drug Screen Comment 12/06/19 12/06/19 12/06/19 05:29 07:30 11:48 Sodium 138 Potassium 3.7 Chloride 108 H Carbon Dioxide 25 Anion Gap 5.0 BUN 16 D Creatinine 1.00 Est Cr Clr Drug Dosing 105.4 Est GFR ( Amer) 93.1 Est GFR (Non-Af Amer) 80.3 BUN/Creatinine Ratio 16.1 Glucose 169 H POC Glucose 176 H 194 H Calcium 8.2 L Magnesium 1.8 Total Bilirubin 1.0 D AST 17 ALT 29 Alkaline Phosphatase 103 Total Creatine Kinase 240 Total Protein 6.6 Albumin 3.1 L Globulin 3.5 Albumin/Globulin Ratio 0.9 Ur [place] Porphobilinogen U Porphobilinogen Intrp Stl C. diff Tox B Gene U Codeine Confrm GC/MS Ur Morphine (GC/MS) Ur Hydrocodone (GC/MS) Ur Norhydrocodone Ur Noroxycodone Urine Oxycodone (GC/MS) U Oxymorphone GC/MS Ur Hydromorphone (GC/MS) Drug Screen Comment Current Inpatient Medications Current Inpatient Medications: Current Inpatient Medications Acetaminophen (Tylenol) 1,000 mg PO Q8 [facility] Stop: 01/04/20 17:59 Last Admin: 12/06/19 05:18 Dose: Not Given Documented by: Amlodipine Besylate (Norvasc) 10 mg PO QAM [facility] Stop: 01/03/20 08:59 Last Admin: 12/06/19 08:41 Dose: 10 mg Documented by: Aspirin (Ecotrin Ectab) 81 mg PO QAM [facility] Stop: 01/05/20 08:59 Last Admin: 12/06/19 08:40 Dose: 81 mg Documented by: Atorvastatin Calcium (Lipitor) 80 mg PO HS [facility] Stop: 01/02/20 20:59 Last Admin: 12/05/19 20:36 Dose: 80 mg Documented by: Carvedilol (Coreg) 3.125 mg PO BID [facility] Stop: 01/02/20 20:59 Last Admin: 12/06/19 08:39 Dose: 3.125 mg Documented by: Dextrose (Dextrose 50%) 25 - 50 ml IV UD PRN; Protocol PRN Reason: Hypoglycemia Protocol Stop: 01/02/20 20:59 Glucagon (Glucagen) 1 mg IM UD PRN; Protocol PRN Reason: Hypoglycemia Protocol Stop: 01/02/20 20:59 Glucose (Glucose 40%) 15 - 30 gm PO UD PRN; Protocol PRN Reason: Hypoglycemia Protocol Stop: 01/02/20 20:59 Glucose (Dex4 Glucose) 4 - 8 tabs PO UD PRN; Protocol PRN Reason: Hypoglycemia Protocol Stop: 01/02/20 20:59 Insulin Aspart (Novolog Flexpen) 0 units SC ACHS [facility]; Protocol Stop: 01/04/20 17:59 Last Admin: 12/06/19 12:32 Dose: 7 units Documented by: Insulin Glargine (Lantus Solostar Pen) 25 units SC [facility]; Protocol Stop: 01/05/20 08:59 Last Admin: 12/06/19 08:42 Dose: 25 units Documented by: Lisinopril (Zestril) 40 mg PO DAILY [facility] Stop: 01/03/20 08:59 Last Admin: 12/06/19 08:41 Dose: 40 mg Documented by: Miscellaneous (Carbohydrates For Hypoglycemia) 15 - 30 gm PO UD PRN PRN Reason: Hypoglycemia Treatment Stop: 01/02/20 20:59 Miscellaneous (Remove Nicoderm Patch) 1 ea N/A DAILY@0859 [facility] Stop: 01/03/20 08:58 Last Admin: 12/06/19 08:43 Dose: 1 ea Documented by: Miscellaneous Information (Consult Glycemic Management Pharmacy) 1 ea N/A UD PRN PRN Reason: Consult Stop: 01/02/20 20:38 Nicotine (Nicoderm Cq) 21 mg TD DAILY [facility] Stop: 01/02/20 23:19 Last Admin: 12/06/19 08:41 Dose: 21 mg Documented by: Oxycodone HCl (Roxicodone Immediate Rel) 5 mg PO Q6H PRN PRN Reason: severe pain Stop: 12/19/19 17:59 Last Admin: 12/06/19 08:48 Dose: 5 mg Documented by: Pantoprazole Sodium (Protonix) 40 mg PO BID [facility] Stop: 01/02/20 20:59 Last Admin: 12/06/19 08:40 Dose: 40 mg Documented by: Sertraline HCl (Zoloft) 50 mg PO DAILY [facility] Stop: 01/05/20 08:59 Last Admin: 12/06/19 08:42 Dose: 50 mg Documented by:
--- NOTE | 2019-12-06 15:22 | Pharmacy Report ---
Pharmacy Glycemic Short Note 2 - Date of Service December 06, 2019 - Glycemic Short BSG Results (Last 24 hours): 12/05/19 12/05/19 12/06/19 16:47 20:49 01:03 Glucose POC Glucose 267 H 145 H 139 H 12/06/19 12/06/19 12/06/19 05:29 07:30 11:48 Glucose 169 H POC Glucose 176 H 194 H OUTPATIENT ANTIDIABETIC REGIMEN: * NPH 15 units SQ BID * Metformin ER 1000mg PO BID * HbA1c: 9.3% (12/04/19) ASSESSMENT: 12/06/19: * Patient transitioning to Lantus/Novolog, as insurance has changed and this regimen will be reasonable for patient moving forward. * Lantus dose provided this morning, but will work on transitioning to PM Lantus. * Diet has been advanced to a diabetic diet. 12/05/19 * BSGs have been generally well-controlled on current regimen. * Pre-lunch BSG was elevated, but this is likely d/t pt refusing his AM insulin. * Patient's diet has been advanced from NPO to clear liquids. * No changes required at this time. Will continue to follow. 12/04/19 * Mr Ruiz is a 64yo diabetic male, admitted for possible GI bleed. * Patient is currently NPO. * NPH initiated at a reduced dose, with Novolog added for correction. PLAN FOR INPATIENT GLYCEMIC CONTROL: * Hold outpatient oral diabetes medications * Basal insulin * Lantus 20 units x1 dose at dinner yesterday, then * Lantus 25 units x1 dose this morning * Will provide a supplemental dose of Lantus this evening, if appropriate, with goal of transitioning to evening Lantus moving forward. * Bolus insulin * NovoLog per scale ACHS or Q6hrs while NPO * Goal Range: Low 110 mg/dL - High 140 mg/dL * Correction Factor: 25 mg/dL/unit * Nutritional / Prandial insulin per carb ratio of 1 unit per 8 grams CHO consumed PLAN FOR DISCHARGE: * Patient's current A1c (9.3%) indicates sub-optimal glycemic control as an outpatient. * Patient would like to transition to Lantus/Novolog at discharge. * Anticipate that patient will require ~30 units of Lantus daily? * Anticipate that patient will require ~5 units of Novolog with meals? * Will continue to update recommendations until discharge, as patient's requirements on this new regimen become more clear. * Due to GI issues, plan is to D/C Metformin moving forward. * Recommend f/u with outpatient provider as soon as possible after discharge to work toward optimizing A1c.
--- NOTE | 2019-12-06 17:26 | Electrocardiogram Report ---
Test Reason : Blood Pressure : / mmHG Vent. Rate : 059 BPM Atrial Rate : 059 BPM P-R Int : 176 ms QRS Dur : 084 ms QT Int : 432 ms P-R-T Axes : 076 054 041 degrees QTc Int : 427 ms Sinus bradycardia Otherwise normal ECG When compared with ECG of 05-DEC-2019 07:01, No significant change was found Confirmed by Lefty Whitmore ([id number]) on 12/06/2019 5:25:33 PM Referred By: REFERRED SELF Confirmed By:Lefty Whitmore
[2019-12-06] MEDS ORDERED: HYDROmorphone INJ 1 MG/ML SYRINGE IV STA (18:21)
[2019-12-06] MEDS ORDERED: ONDANSETRON INJ 2 MG/ML 2 ML VIAL IV PRN (18:22)
[2019-12-06] MEDS ORDERED: SODIUM CHLORIDE 0.9% 1000ML 1,000 ML IV ONE (19:19)
[2019-12-06] MEDS: ACETAMINOPHEN W/CODEINE #3 1 TAB PO SCH (20:23)
[2019-12-06] MEDS: ATORVASTATIN 40 MG TAB PO SCH (20:23)
[2019-12-06] MEDS ORDERED: INSULIN GLARGINE SOLOSTAR 100 UNITS/ML 3 ML PEN SC ONE (21:30)
--- NOTE | 2019-12-06 22:27 | Hospitalist Progress Note ---
Date of Service December 06, 2019 Assessment & Plan (1) Abdominal pain: Longstanding insulin-dependent diabetes that is uncontrolled with an A1c of 9.3. He reports a change in his insurance and is able to take basal and bolus insulin as he did in the past in an effort to get his sugar more con trolled. Gastric emptying study was performed and was normal. The patient does not report symptoms of gastroparesis at this time. He does report IBS type symptoms with alternating diarrhea constipation. Stool culture pending despite multiple episodes of loose stool reported yesterday. No BM today. Continues to report to me that his urine is dark steve in color. NSS 1L ordered. Cont dairy-free diet. We spoke at length about sticking to a dairy free diet and he was willing to try this as a treatment moving forward. He has had extensive work-ups on his abdominal pain in the past with his multiple ER visits and admissions to the hospital in the last year. Will ensure no evidence of porphyria with neurologic complaints in addition to chronic abdominal pain with no improvement however, this is low probability. Urine porphobilinogen pending. For now stick to lactose free diet and work on getting blood sugar controlled. Other diet changes can be considered if dairy free does not work in the short- term. These diets include a wheat free or gluten-free diet. Although he has history of stress ulcer, per EGD performed in October this was not present. Carafate discontinued. Continue Protonix. Bentyl as needed per GI team. Tolerating PO. Encouraged to use narcotics sparingly as these may cause addition issues with constipation. (2) Chronic pain of right upper extremity: Major factor for insomnia and poor QOL. Oxycodone is "not doing anything." Declines doubling dose. OK wtih Dilaudid to try now and switch to trial of T3 which he has tried in the past. Avoid mixing Ambien with this combination. Feel effective pain control will get him some sleep. Pain management referral strongly recommended as outpatient. (3) CAD (coronary artery disease): chronic, stable. Known h/o chest pain in the past. Cont plan as above. Cont statin, BB and ACEI. Added back baby aspirin daily. Cont Protonix to protect his stomach. (4) Diabetes: A1C reflects poor control. Hs regimen is suboptimal and metformin may be adding to GI issues. He also gets many studies with contrast and this can cause problems with his kidneys. He was on basal bolus insulin in the past and has recently gotten a new insurance which would support this. Switch to NovoLog/glargine at this time. Recommend repeat A1c in 3 months with close follow-up with primary care at discharge. Recommend discontinuing metformin at discharge. Discussed this plan with glycemic pharmacist (5) Depression: Sertraline 50mg daily. Appreciate mental health recontacting patient today, (6) Insomnia: 2/2 uncontrolled pain and multiple factors including probable PTSD. Continue pain control efforts and defer outpatient PTSD work-up to mental health. (7) DVT prophylaxis: SCDs/ambulation Full Code Dispo-to home when medications appropriately titrated to effect. Recommend close follow-up with PCP for close monitoring of blood sugars on new regimen, continuation of oxycodone with referral to outpatient pain management, referral to outpatient PT and OT programs and referral to a mental health counselor for weekly talk therapy. Chandni Swartz DO [place] [facility] Admission and Anticipated Discharge Date Admission Date: December 05, 2019 Anticipated date of discharge: 12/04/19 Physical Exam Physical Exam: CONSTITUTIONAL: WNWD, vitals as above, generally well- appearing EYES: normal conjunctivae, no scleral icterus ENT: external ear and nose normal, oropharynx clear, MMM RESPIRATORY: clear to auscultation bilaterally, no crackles, rales or wheezes, normal respiratory effort CARDIOVASCULAR: regular rate and rhythm, S1 and 2 heard without murmurs, gallops or rubs, no JVD, no peripheral edema GASTROINTESTINAL: normal bowel sounds, soft, nontender, nondistended MUSCULOSKELETAL: strength 5/5 throughout, head is normocephalic and atraumatic, well healed extensive scarring on his RUE. SKIN: warm and dry NEUROLOGIC: CN 2-12 grossly intact, normal cognition, normal speech, no tremor, ambulatory. No gross focal deficits. PSYCHIATRIC: alert cooperative and oriented to person, place and time. Results & Data ([facility]) Vital Signs (Past 12 Hours) Vital Signs Temp Pulse Resp BP Pulse Ox 12/06/19 19:48 36.3 C L 80 20 108/60 91 12/06/19 15:00 36.8 C 59 L 20 119/76 96 Laboratory Results [facility] 12/06/19 05:29 Sodium 138 Potassium 3.7 Chloride 108 H Carbon Dioxide 25 BUN 16 D Creatinine 1.00 Glucose 169 H Calcium 8.2 L Cardiac Enzymes 12/06/19 Range/Units 05:29 Total Creatine Kinase 240 (39-308) U/L Liver Function 12/06/19 Range/Units 05:29 Total Bilirubin 1.0 D (0.2-1) mg/dl AST 17 (15-37) U/L ALT 29 (12-78) U/L Alkaline Phosphatase 103 (45-117) U/L Albumin 3.1 L (3.4-5.0) gm/dl Medications Administered Current Inpatient Medications Acetaminophen (Tylenol) 1,000 mg PO Q8 [facility] Stop: 01/04/20 17:59 Last Admin: 12/06/19 21:44 Dose: Not Given Documented by: Acetaminophen/Codeine Phosphate (Tylenol W/Codeine #3) 1 tab PO Q6H [facility] Stop: 01/05/20 20:59 Last Admin: 12/06/19 20:23 Dose: 1 tab Documented by: Amlodipine Besylate (Norvasc) 10 mg PO QAM [facility] Stop: 01/03/20 08:59 Last Admin: 12/06/19 08:41 Dose: 10 mg Documented by: Aspirin (Ecotrin Ectab) 81 mg PO QAM [facility] Stop: 01/05/20 08:59 Last Admin: 12/06/19 08:40 Dose: 81 mg Documented by: Atorvastatin Calcium (Lipitor) 80 mg PO HS [facility] Stop: 01/02/20 20:59 Last Admin: 12/06/19 20:23 Dose: 80 mg Documented by: Carvedilol (Coreg) 3.125 mg PO BID [facility] Stop: 01/02/20 20:59 Last Admin: 12/06/19 20:23 Dose: 3.125 mg Documented by: Dextrose (Dextrose 50%) 25 - 50 ml IV UD PRN; Protocol PRN Reason: Hypoglycemia Protocol Stop: 01/02/20 20:59 Glucagon (Glucagen) 1 mg IM UD PRN; Protocol PRN Reason: Hypoglycemia Protocol Stop: 01/02/20 20:59 Glucose (Glucose 40%) 15 - 30 gm PO UD PRN; Protocol PRN Reason: Hypoglycemia Protocol Stop: 01/02/20 20:59 Glucose (Dex4 Glucose) 4 - 8 tabs PO UD PRN; Protocol PRN Reason: Hypoglycemia Protocol Stop: 01/02/20 20:59 Insulin Aspart (Novolog Flexpen) 0 units SC ACHS [facility]; Protocol Stop: 01/04/20 17:59 Last Admin: 12/06/19 21:42 Dose: 1 units Documented by: Insulin Glargine (Lantus Solostar Pen) 25 units SC QAM [facility]; Protocol Stop: 01/05/20 08:59 Last Admin: 12/06/19 08:42 Dose: 25 units Documented by: Lisinopril (Zestril) 40 mg PO DAILY [facility] Stop: 01/03/20 08:59 Last Admin: 12/06/19 08:41 Dose: 40 mg Documented by: Miscellaneous (Carbohydrates For Hypoglycemia) 15 - 30 gm PO UD PRN PRN Reason: Hypoglycemia Treatment Stop: 01/02/20 20:59 Miscellaneous (Remove Nicoderm Patch) 1 ea N/A DAILY@0859 [facility] Stop: 01/03/20 08:58 Last Admin: 12/06/19 08:43 Dose: 1 ea Documented by: Miscellaneous Information (Consult Glycemic Management Pharmacy) 1 ea N/A UD PRN PRN Reason: Consult Stop: 01/02/20 20:38 Nicotine (Nicoderm Cq) 21 mg TD DAILY [facility] Stop: 01/02/20 23:19 Last Admin: 12/06/19 08:41 Dose: 21 mg Documented by: Ondansetron HCl (Zofran) 4 mg IV Q6H PRN PRN Reason: Nausea Stop: 01/05/20 18:21 Pantoprazole Sodium (Protonix) 40 mg PO BID [facility] Stop: 01/02/20 20:59 Last Admin: 12/06/19 20:23 Dose: 40 mg Documented by: Sertraline HCl (Zoloft) 50 mg PO DAILY [facility] Stop: 01/05/20 08:59 Last Admin: 12/06/19 08:42 Dose: 50 mg Documented by:
[2019-12-07] MEDS: ACETAMINOPHEN W/CODEINE #3 1 TAB PO SCH ×3 (02:46→15:05)
[2019-12-07] MEDS: ACETAMINOPHEN 500 MG TAB PO SCH ×2 (05:26→15:04)
[2019-12-07] MEDS: INSULIN ASPART 100 UNITS/ML 3 ML PEN SC SCH ×2 (08:54→12:34)
[2019-12-07] MEDS: SERTRALINE HCL 50 MG TABLET PO SCH (08:57)
[2019-12-07] MEDS: lisinopriL 40 MG TAB PO SCH (08:58)
[2019-12-07] MEDS: NICOTINE 21 MG/24 HR TDSY TD SCH (08:58)
[2019-12-07] MEDS: ASPIRIN 81 MG ECTAB PO SCH (08:59)
[2019-12-07] MEDS: AMLODIPINE BESYLATE 5 MG TAB PO SCH (09:00)
[2019-12-07] MEDS: PANTOprazole 40 MG TAB PO SCH (09:00)
[2019-12-07] MEDS: carvediloL 3.125 MG TAB PO SCH (09:26)
[2019-12-07] MEDS ORDERED: HYDROmorphone INJ 1 MG/ML SYRINGE IV STA (10:51)
[2019-12-07] MEDS ORDERED: POLYETHYLENE (MIRALAX) 17 GM PACK ONE (10:58)
--- NOTE | 2019-12-07 11:11 | Pharmacy Report ---
Glycemic Control Progress Note - Date of Service December 07, 2019 - Scope Glycemic Pharmacist consulted for glycemic control to write orders per [facility] inpatient glycemic control protocol. - Objective Accuchecks BSG(last 24 hours):: 12/06/19 12/06/19 12/06/19 11:48 16:43 20:48 POC Glucose 194 H 143 H 163 H 12/07/19 07:24 POC Glucose 126 H HbA1c:: Hemoglobin A1c 9.3 % (4.5-5.6) H 12/04/19 06:20 - Recent Pertinent Medications The patient is currently receiving: * Basal insulin: Lantus 25 units SQ x 1 in the morning and 15 units SQ x 1 in the evening * Correctional Insulin: Novolog Correction per scale ACHS Goal Range: Low 110 mg/dL - High 140 mg/dL Correction Factor: 25 mg/dL/unit * Prandial insulin: Per carb ratio of 1 unit per 10 grams CHO consumed - Outpatient Anti-Diabetic Meds NPH 10 units BID Metformin ER 1000 mg PO BID - Assessment & Plan ASSESSMENT: * See progress note from 12/05/2019 for more background info, in short: * Pt receiving SQ basal bolus insulin regimen for hyperglycemia secondary to baseline DM (outpatient regimen on hold). * Patient is currently receiving an average of 61 units of insulin per day * 40 units of basal insulin * 21 units of prandial/correctional insulin * BSGs ranging 143 - 194 mg/dl over the past 24hrs * Changes needed to insulin regimen: * AM Fasting BSG = 126 mg/dl. This is in goal range for patient based on inpatient targets and co-morbidities; HOWEVER, it is significantly lower than yesterday's. Per physician's request, planned to switch to HS Lantus. Gave additional insulin yesterday so that Lantus may be pushed to dinner tonight. Tomorrow, plan for Lantus HS. * Post-prandial BSGs are in range therefore no changes needed to CF/CR. May need more carbohydrate coverage but will hold off with additional Lantus dosing. * Total daily dose = 40-50 units. PLAN FOR INPATIENT GLYCEMIC CONTROL: * CHANGING Lantus to 25 units SQ HS * Continuing correction factor of 25 mg/dl/unit * Continuing carb ratio of 1 unit per 10 grams CHO consumed * Continuing goal range of Low 110 mg/dL - High 140 mg/dL RECOMMENDATIONS FOR DISCHARGE: * Patient's current A1c (9.3%) indicates sub-optimal glycemic control as an outpatient. * Patient would like to transition to Lantus/Novolog at discharge. * Anticipate that patient will require ~30 units of Lantus daily? * Anticipate that patient will require ~5 units of Novolog with meals? * Will continue to update recommendations until discharge, as patient's requirements on this new regimen become more clear. * Due to GI issues, plan is to D/C Metformin moving forward. * Recommend f/u with outpatient provider as soon as possible after discharge to work toward optimizing A1c. Thank you.
--- NOTE | 2019-12-07 11:15 | Discharge Summary ---
Date of Service December 07, 2019 Admission HPI Per Admitting Provider 64-year-old male who presents the ED for evaluation of abdominal pain. Patient recently admitted to [facility] 11/05 through 11/09 for evaluation and management of abdominal pain and chest pain. Underwent EGD that was unremarkable, biopsies negative. Had colonoscopy as well with polypectomy, biopsy showing tubular adenoma. Colonoscopy also showed internal hemorrhoids and diverticulosis within the ascending colon. Patient was discharged home and reports he had been feeling well until a few days ago. Noted the patient's history is inconsistent with what he reported to ED providers. Patient reports a generalized chest and abdominal pain. Reports he has noted some bright red blood in his stools and with wiping. Also reports vomiting with dark red blood. No diarrhea. Symptoms not affected by intake of food. Chest pain seems to be persistent, nonexertional. Has had associated shortness of breath. Reports lightheadedness and dizziness however no syncopal event. He denies fevers and chills. Patient reports that yesterday, he developed upper and lower extremity weakness and numbness, left side greater than right. In the ED, patient initially did not report the symptoms. When he returned back from CT scan, patient then reported left-sided weakness and numbness. Stroke alert was called, patient was not deemed to be a TPA candidate. Head CT and brain MRI are negative for acute findings. Patient has remained hemodynamically stable. Labs are unremarkable with the exception of hyperglycemia, glucose 387, and hypomagnesemia, MG +1.6. Patient was given 2 doses of IV Dilaudid, IV lorazepam, IV Zofran. Admission Exam Per Admitting Provider Constitutional: WD/WN, vitals as above Eyes: PERRL, conjunctivae normal, anicteric sclerae ENMT: external ear and nose normal, oropharynx normal Respiratory: normal respiratory effort, lungs clear to auscultation Cardiovascular: Rate/Rhythm: regular rate and regular rhythm Vessels: normal peripheral pulses Extremities: no edema Gastrointestinal (Abdomen): Inspection/Auscultation: normal bowel sounds; abdomen not distended Percussion/Palpation: + abdomen tender (Generalized tenderness with mild palpation) and abdomen soft; no hepatosplenomegaly Musculoskeletal: Extremities: no cyanosis and no clubbing Bilateral upper and lower extremity strength 2/5 when tested however while distracted, patient appears to be moving extremities with more ease Skin: no rashes, warm and dry Neurologic: PERRL, EOMI, accommodation nl, no face palsy, no dysarthria Psychiatric: Orientation: alert, oriented to person and oriented to place; + not oriented to time (Reports month is October) Affect: euthymic affect Principal Diagnosis Chronic abdominal pain Chronic pain of upper right extremity CAD Uncontrolled diabetes type 2 Depression/PTSD Insomnia Discharge Data Allergies Allergy/AdvReac Type Severity Reaction Status Date / Time diphenhydramine Allergy Intermediate Unknown Verified 12/03/19 15:46 [From Benadryl] Consultations 12/03/19 19:42 ED Decision to Admit Stat 12/03/19 20:37 Consult Case Management - Discharge Planning Routine Consult Gastroenterology Routine Consult Psychiatry Routine Ordered Studies 12/03/19 15:23 CT abd pelvis IV con only Stat CT angio chest PE protocol Stat 12/03/19 17:29 CT head/brain wo con Stat 12/03/19 18:14 MR brain wo con Stat 12/04/19 07:58 US liver Routine Hospital Course (1) Abdominal pain: (2) Chronic pain of right upper extremity: (3) CAD (coronary artery disease): (4) Diabetes: (5) Depression: (6) Insomnia: 64-year-old man presented for chronic abdominal pain and chronic pain of the right upper extremity. Abdominal pain was intractable and the patient was concerned about some bright red blood per rectum he had seen at home. He was recently admitted to [facility] in October 2019 and had an unremarkable EGD with a colonoscopy status post polypectomy revealing internal hemorrhoids and diverticulosis. CT of the abdomen and pelvis was ordered. CT chest abdomen pelvis revealed no evidence of central pulmonary embolus, no airspace consolidation or pleural effusion, no acute infectious or inflammatory findings in the abdomen or pelvis and mild colonic diverticulosis without evidence of acute diverticulitis. He developed some left upper extremity weakness and a head CT was normal with no acute intracranial abnormality. Furthermore a brain MRI revealed no acute intracranial abnormality identified. His left upper extremity numbness resolved. Regarding his abdominal pain a liver ultrasound revealed no evidence of gallstones with an unremarkable assessment of the right upper quadrant. As he was an uncontrolled diabetic gastroenterology ordered a gastric emptying study which was normal. He was notably admitted twice per month at various facilities around the [place] over the past year, and non of the workups revealed an apparent cause of his longstanding abdominal pain. He was screened for porphyria with his abdominal pain and neurologic symptoms, and this was still pending at discharge. His hemoglobin A1c reflected poor control on current insulin regimen with an HbA1c of 9.3. He reported having a change in insurance and was able to use basal bolus insulin now where he had not been able to use this before. This was given at time of discharge and close primary care follow-up was recommended to continue titrating this regimen for goal A1c less than 7. Long-term side effects of uncontrolled diabetes were reviewed with the patient who verbalized understanding. Stool studies were negative for infection. No further hematochezia was noted and his H/H remained stable throughout his hospitalization. Mental health was asked to see him initially, however he declined evaluation. Later during the hospitalization he agreed to talk to somebody about some of the stress he was under. An unspecified depressive disorder was diagnosed without psychosis or paranoia. Psychiatry agreed with Zoloft and recommended further outpatient therapy as able. Recommended continued outpatient mental health evaluation and treatment. Zoloft was increased to 50mg daily. With his known history of cardiac disease he was continued on statin, beta-bernardo and TIGRE inhibitor. Symptoms were thought possibly secondary to statin however his CK was in the normal range. Baby aspirin was added back to his regimen. Regarding his chronic right upper extremity pain this was a major factor for insomnia and poor quality of life for him. He was given Tylenol with codeine and oxycodone to trial in the hospital. He found relief only with Dilaudid IV but was wanting to have oxycodone going home in case of severe pain. He was counseled not to mix this with Ambien to avoid interaction and verbalized understanding with intent to comply. Pain management referral was strongly recommended as outpatient. Reported episodes of loose stool or likely consistent with a diarrhea predominant IBS. He was continued on a dairy free diet and patient and avoiding dairy was recommended as a trial going home. As the EGD performed in 31 October did not reveal the presence of a stress ulcer ulcer Carafate was discontinued. He was continued on Protonix and Bentyl as needed per GI team. Narcotics were encouraged only sparingly as this may cause additional issues with constipation moving forward. At time of discharge she was hemodynamically stable and afebrile and tolerating p.o. He was mentating and ambulating at baseline and was sent home in stable condition with close primary care follow-up recommended. Physical exam was unremarkable. Total Time Total Time Spent Total Time Spent (In Minutes): 60 Total Time Includes: Examination of the Patient, Discharge Planning, Medication Reconciliation and Communication With Other Providers Discharge Plan Discharge Items Patient Disposition: Home - Self-Care Reason For Visit: ABDOMINAL PAIN,WEAKNESS Discharge Diagnosis: Chronic abdominal pain Chronic pain of upper right extremity CAD Uncontrolled diabetes type 2 Depression/PTSD Insomnia Condition on Discharge: Good Activity: Resume your previous activity Non-emergency contact: Primary Care Provider Call non-emergency contact if: you have any medication questions, your symptoms worsen and your pain is not controlled Follow-up/Referrals: Razia Chávez DO [Primary Care Provider] - 12/10/19 11:20 am Diet: Carb Consistent or DM2 and Lactose Intolerant Addtl Attending Provider Instructions: Please take all medications as instructed on discharge list below. It is recommended that you follow-up with your primary care doctor within 1 week of discharge to discuss/review multiple medical issues. It was a pleasure taking care of you! Please call if you have any questions or problems. You can reach a [facility] hospitalist on duty at [facility] 24 hours a day by calling [phone]. Take care of yourself. Chandni Swartz DO [facility] Hospitalist Pending Studies at Discharge: Yes Studies:: urine porphorobilinogen screening Stand-Alone Forms: My [facility], Opioid Pain Management, Work/School Release (Inpt), Smoking Cessation Medications and DC Order Prescriptions: New nicotine [Nicoderm CQ] 21 mg/24 hr Patch 24 Hour 21 mg transdermal DAILY Qty: 14 RF: 0 sertraline 50 mg Tablet 50 mg PO DAILY Qty: 30 RF: 0 aspirin 81 mg Tablet,Delayed Release (Dr/Ec) 81 mg PO QAM Qty: 90 RF: 1 insulin aspart U-100 [Novolog Flexpen U-100 Insulin] 100 unit/mL (3 mL) Insulin Pen 5 units SC ACHS 30 Days Qty: 1.5 RF: 1 Lantus Solostar U-100 Insulin 100 unit/mL (3 mL) Insulin Pen 25 unit SC HS 30 Days Qty: 7.5 RF: 1 oxycodone 5 mg tablet 5 mg PO Q4H PRN (Reason: severe pain) Qty: 20 RF: 0 Continued amlodipine [Norvasc] 5 mg Tablet 10 mg PO QAM 30 Days Qty: 60 RF: 2 cyclobenzaprine 5 mg tablet 5 mg PO BID PRN (Reason: muscle spasm) Qty: 10 RF: 0 omeprazole 40 mg capsule,delayed release(DR/EC) 40 mg PO BID Qty: 60 RF: 2 atorvastatin 80 mg Tablet 80 mg PO HS 30 Days Qty: 30 RF: 1 carvedilol 3.125 mg Tablet 3.125 mg PO BID 30 Days Qty: 60 RF: 1 lisinopril 40 mg Tablet 40 mg PO DAILY 30 Days Qty: 30 RF: 1 Discontinued insulin NPH and regular human 100 unit/mL (70-30) insulin pen 15 units SQ BID 30 Days Qty: 9 RF: 2 sucralfate [Carafate] 1 gram Tablet 1 g PO ACHS 30 Days Qty: 30 RF: 1 sertraline 25 mg Tablet 25 mg PO DAILY 30 Days Qty: 30 RF: 0 metformin 500 mg tablet extended release 24 hr 1,000 mg PO BIDM 30 Days Qty: 120 RF: 1 Discharge Orders: Discharge Order (Routine); Ordered 12/07/19 Ordered By: Chandni French/Other Patient Handouts: Diabetes Tray Server Complications, Diabetes Healthy Meals, Diabetes Exercise Benefits, Diabetes Living Life, Diabetes Manage A1C Test Admission Data Admit Date/Time: 12/05/19 17:36 Attending Provider: Chandni Swartz Admit Provider: Phillip Benitez Primary Care Provider: Razia Chávez Other Providers: Phillip Benitez ; Shawn Monterroso ; Lenin Kam I. Other Interventions: Discharge Summary Assessment (RN) Last Done: 12/07/19 15:43 PSY Interdisciplinary Discharge Planning Last Done: 12/07/19 12:28 DC Date/Time DO NOT enter until pt leaves facility: 12/07/19 17:00
[2019-12-07] MEDS ORDERED: POLYETHYLENE (MIRALAX) 17 GM PACK PO SCH (12:00)
[2019-12-07] MEDS ORDERED: INSULIN GLARGINE SOLOSTAR 100 UNITS/ML 3 ML PEN SC SCH (17:00)
--- NOTE | 2019-12-12 07:42 | Coding Query ---
CODING QUERY To promote full compliance with coding requirements relating to patient care, provider participation is requested in all cases of carton forming machine tender uncertainty. Please assist us with the question(s) below: Coding Question(s): Patient admitted with multiple complaints - abdominal pain, extremity weakness (stroke ruled out) , melena, hematemesis. 12/05 progress note mentions symptoms of IBS with alternating diarrhea/constipation. Please document, if known or suspected- the etiology of the abdominal pain. Thanks for your help! Reilly Miramontes [facility] Physician's Response(s): There are many possible etiologies with no clear cause. He does have chronic uncontrolled diabetes, so this may be contributing, but I don't think it is the only thing going on. He had recent upper and lower scopes negative in Oct and has had multiple imaging studies that do not point to a cause. He had a comprehensive workup including imaging, bloodwork and urine studies which were all unremarkable. He had no issues with tolerating food, and therefore, was acceptable for discharge and continued workup of his pain as outpatient. Principal Diagnosis: "that condition established after study, to be chiefly responsible for occasioning the admission of the patient to the hospital for care." Co-Existing Principal Diagnosis: "when two or more diagnoses equally meet the criteria for principal diagnosis as determined by the circumstances of admission, diagnostic work up, and/or therapy provided, and the Alphabetic Index, Tabular List, or another coding guideline does not provide sequencing direction, any one of the diagnoses may be sequenced first." "When the physician has documented what appears to be a current diagnosis in the body of the record, but has not included the diagnosis in the final diagnostic statement, the physician should be asked whether the diagnosis should be added." (Source Coding [facility] 2 QTR90. p3-4) RUTH
== END 2019-12-07 17:00 | disposition home or self-care (01) | DRG 392 ==
LOC: 2N 14:58 → ED 14:58 → SUATTDRO 19:56 → 2N 20:26

== ENCOUNTER 2019-12-14 16:59 | Observation (INO) ==
[2019-12-14] MEDS ORDERED: SODIUM CHLORIDE 0.9% 1000ML 1,000 ML IV STA (17:32)
[2019-12-14] MEDS ORDERED: ONDANSETRON INJ 2 MG/ML 2 ML VIAL IV STA (17:32)
--- NOTE | 2019-12-14 17:53 | Emergency Department Note ---
ED Provider Note NAME: ANIA HANSEN AGE: 64 SEX: M ARRIVES VIA: Walk-In INFORMANT: [Patient] ED PROVIDER(S): Adair Yepez MD CHIEF COMPLAINT: Chest pain, shortness of breath, dizziness IMPRESSION: Left-sided chest pain Lower abdominal pain Dizziness Shortness of breath PLAN: Disposition: Admitted Condition: [Good] MEDICAL DECISION MAKING: The patient is a 64-year-old male. 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 The patient notes his chest pain is similar to that that he had experienced around the time of his PR. He had a large work-up performed last week for GI symptoms, chest pain, as well as left-sided numbness. The patient noted worsening lower abdominal pain. He was treated with IV Dilaudid and Zofran. He did feel better with this. His diagnostic work-up was unremarkable. ECG and troponin negative. The patient has a significant cardiac history. He had chest pain radiating to the jaw which felt similar to his angina. His diesel dragline operator office referred him to the emergency department. [facility] The pat ient was evaluated in the ER for further management. Triage Nursing notes reviewed and agree them. [Prior medical records reviewed] summarized above in the MDM. Vital Signs: reviewed and remarkable for [no significant abnormalities] Differential diagnosis: ACS, pneumonia, pneumothorax, appendicitis, testicular torsion, infections, div erticulitis, UTI, obstruction, mesenteric ischemia, aortic pathology, inflammatory bowel disease, renal colic, PUD, pancreatitis, biliary pathology, hernia, volvulus, constipation, as well as other pathologies. ER treatment provided: IV Dilaudid IV Zofran Normal saline hydration Diagnostics interpreted by me: ECG: Rate: 93 Rhythm: Sinus rhythm [place]:normal QRS:normal ST segements: No elevation or depression Other: Very frequent PVCs. No PACs. Cardiac Monitoring: Cardiac monitoring ordered: The patient was placed on continuous cardiac monitoring and observed. It revealed a normal sinus rhythm at 82 bpm with frequent PVCs but no evidence of dysrhythmia. Laboratory studies: [See below] an unremarkable CBC and chemistry panel. Imaging studies: CT scan of the abdomen pelvis was negative for acute process. Chest x-ray was negative for acute process. Consultation(s): Consultation with Dr. Munir Mueller HPI: The patient is a 64 year old male who presents to the Emergency Room with complaints of left-sided chest pain. He also notes that radiates into the right arm.. This started intermittently last week and is worsening. The patient also notes the following associated symptoms, shortness of breath, dizziness, lower abdominal pain, vomiting, difficulty urinating, and generalized weakness. The patient has found no relieving factors. Current pain is rated as 6/10. The patient contacted his diesel dragline operator office because the chest pain felt similar to episodes he experienced prior to his PR. He did note some pain radiating to his jaw. His diesel dragline operator wanted him to call an ambulance however the patient did not want to and brought himself to the ER. Pt denies LOC, headache, fevers, chills, diaphoresis, visual changes, current nausea, back pain, melena, hematochezia, numbness, focal weakness, lymphadenopathy, rash, or other complaints. ROS: See above HPI for pertinent positives & negatives. A total of [10] systems reviewed and were otherwise negative. PAST MEDICAL HISTORY:[See Below] CAD, PR PAST SURGICAL HISTORY:[See Below]catheterization, fasciotomy FAMILY HISTORY:Cancer, see below. SOCIAL HISTORY:Smoker HOME MEDICATIONS:[See Below] ALLERGIES:[See Below] VITALS:[See Below] PHYSICAL EXAMINATION: GENERAL: Awake, alert, uncomfortable-appearing, in no distress HENT: Normocephalic, atraumatic. Oropharynx unremarkable. EYES: Normal conjunctiva. Sclera non-icteric. NECK: Inspection normal. Non-tender. Supple. No nuchal rigidity. FROM. No masses. RESPIRATORY: Clear to auscultation. No wheezes. No rales. Normal respiratory effort. CARDIAC: Normal rate. Normal rhythm. No murmurs. No rubs. Extremities warm and well perfused. Pulses equal. No JVD. GI: Soft, non-distended. No tenderness to palpation. No rebound or guarding. No masses. RECTAL: Deferred. MUSCULOSKELETAL: Atraumatic. Chest examination reveals no tenderness. The back is symmetrical on inspection without obvious abnormality. There is no CVA ten derness to palpation. No joint edema. Healed surgical scars in the right upper extremity consistent with his fasciotomy. LOWER EXTREMITIES: Calves are equal size bilaterally and non-tender. No edema. No discoloration. NEURO: Normal sensorium. No sensory or motor deficits noted. SKIN: No rash or jaundice noted. 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 Depression Diabetes Esophageal stricture History of laryngeal cancer Status post radiation HTN (hypertension) PTSD (post-traumatic stress disorder) Suicidal ideation (Acute) Surgical History History of coronary artery stent placement (Acute) History of endoscopy 08/2019 revealed esophageal strictures, gastric ulcerations and hemorrhagic duodenitis History of heart artery stent History of partial thyroidectomy Family History Father Cancer Lung Social History Preferred Language: Malaysian Communication Ability: Effective 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 Beliefs That Will Affect Care: None marital status: Current Living Situation: Alone Other Information That Helps Us Care for You: No Feels Safe at Home: Yes Safety Concerns: Feels Safe At This Time Smoking Status: Current some day smoker Tobacco Type: cigarettes ; Cigarettes Per Day: 3-4 ; Do You Dip or Chew Tobacco: No ; Hx Alcohol Use: No Hx Substance Use: No Results & Data Vital Signs Vital Signs - 24 hr 12/14/19 17:03 12/14/19 17:17 12/14/19 18:05 Temperature 36.8 C Temperature Source Oral Pulse Rate 84 Pulse Rate [Apical] 76 Pulse Rate from SpO2 Sensor Pulse Rhythm Regular Pulse Strength Normal Respiratory Rate 20 18 Respiratory Effort / Characteristics Non-Labored Spontaneous Respiratory Depth Normal Respiratory Pattern Regular Blood Pressure 137/75 Blood Pressure [Left Arm] 124/81 Blood Pressure Mean 95 Blood Pressure Mean [Left Arm] 95 Blood Pressure Position Sitting Pulse Oximetry 95 97 97 Oxygen Delivery Method Room Air Room Air Room Air Sepsis Recent Fever Within 48 Hours No Sepsis Action Taken by Nursing No Action Required 12/14/19 19:21 12/14/19 20:02 Temperature Temperature Source Pulse Rate 62 Pulse Rate [Apical] 65 Pulse Rate from SpO2 Sensor 60 Pulse Rhythm Pulse Strength Respiratory Rate 13 15 Respiratory Effort / Characteristics Respiratory Depth Respiratory Pattern Blood Pressure 137/80 Blood Pressure [Left Arm] 142/87 H Blood Pressure Mean 96 Blood Pressure Mean [Left Arm] 105 Blood Pressure Position Pulse Oximetry 99 98 Oxygen Delivery Method Room Air Room Air Sepsis Recent Fever Within 48 Hours Sepsis Action Taken by Nursing Laboratory Data Result diagrams: 12/14/19 18:25 12/14/19 18:25 Lab Results 12/14/19 12/14/19 12/14/19 Range/Units 18:25 18:25 18:25 WBC 5.24 (4.8-10.8) K/uL RBC 4.66 L (4.7-6.1) M/uL Hgb 14.2 (14.0-18.0) g/dL Hct 38.2 L (42-52) % MCV 82.0 (80-100) fL MCH 30.5 (25-34) pg MCHC 37.2 H (32-36) g/dL RDW Std Deviation 40.6 (36.4-46.3) fL RDW Coeff of Bernarda 13.6 (11.5-14.5) % Plt Count 160 (130-400) K/uL MPV 9.4 (7.4-10.4) fL Immature Gran % (Auto) 0.4 % Neut % (Auto) 60.1 % Lymph % (Auto) 30.3 % [place] % (Auto) 8.2 % Eos % (Auto) 0.6 % Baso % (Auto) 0.4 % Immature Gran # (Auto) 0.02 (0.00-0.02) K/uL Neut # (Auto) 3.15 (1.4-6.5) K/uL Lymph # (Auto) 1.59 (1.2-3.4) K/uL [place] # (Auto) 0.43 (0.11-0.59) K/uL Eos # (Auto) 0.03 (0-0.5) K/uL Baso # (Auto) 0.02 (0-0.2) K/uL PT 10.6 (9.0-12.0) Seconds INR 1.0 (0.9-1.1) APTT 27.9 (21.0-31.0) Seconds PTT Ratio 1.0 D-Dimer (0-500) ug/L FEU Sodium 137 (136-145) mmol/L Potassium 4.4 (3.5-5.1) mmol/L Chloride 106 (98-107) mmol/L Carbon Dioxide 27 (21-32) mmol/L Anion Gap 4.0 (3-11) BUN 14 (7-18) mg/dl Creatinine 1.03 (0.6-1.4) mg/dl Est Cr Clr Drug Dosing 88.9 ml/min Est GFR ( Amer) 89.8 Est GFR (Non-Af Amer) 77.5 BUN/Creatinine Ratio 13.9 (10-20) Glucose 165 H (70-99) mg/dl Calcium 9.2 (8.5-10.1) mg/dl Magnesium 1.7 L (1.8-2.4) mg/dl Total Bilirubin 0.5 (0.2-1) mg/dl AST 23 (15-37) U/L ALT 34 (12-78) U/L Alkaline Phosphatase 107 (45-117) U/L Troponin I < 0.015 (0-0.045) ng/ml Total Protein 7.6 (6.4-8.2) gm/dl Albumin 3.6 (3.4-5.0) gm/dl Globulin 4.0 (2.5-4.0) gm/dl Albumin/Globulin Ratio 0.9 (0.9-2) Lipase 111 (73-393) U/L 03/20/20 Range/Units 18:25 WBC (4.8-10.8) K/uL RBC (4.7-6.1) M/uL Hgb (14.0-18.0) g/dL Hct (42-52) % MCV (80-100) fL MCH (25-34) pg MCHC (32-36) g/dL RDW Std Deviation (36.4-46.3) fL RDW Coeff of Bernarda (11.5-14.5) % Plt Count (130-400) K/uL MPV (7.4-10.4) fL Immature Gran % (Auto) % Neut % (Auto) % Lymph % (Auto) % [place] % (Auto) % Eos % (Auto) % Baso % (Auto) % Immature Gran # (Auto) (0.00-0.02) K/uL Neut # (Auto) (1.4-6.5) K/uL Lymph # (Auto) (1.2-3.4) K/uL [place] # (Auto) (0.11-0.59) K/uL Eos # (Auto) (0-0.5) K/uL Baso # (Auto) (0-0.2) K/uL PT (9.0-12.0) Seconds INR (0.9-1.1) APTT (21.0-31.0) Seconds PTT Ratio D-Dimer 580 H* (0-500) ug/L FEU Sodium (136-145) mmol/L Potassium (3.5-5.1) mmol/L Chloride (98-107) mmol/L Carbon Dioxide (21-32) mmol/L Anion Gap (3-11) BUN (7-18) mg/dl Creatinine (0.6-1.4) mg/dl Est Cr Clr Drug Dosing ml/min Est GFR ( Amer) Est GFR (Non-Af Amer) BUN/Creatinine Ratio (10-20) Glucose (70-99) mg/dl Calcium (8.5-10.1) mg/dl Magnesium (1.8-2.4) mg/dl Total Bilirubin (0.2-1) mg/dl AST (15-37) U/L ALT (12-78) U/L Alkaline Phosphatase (45-117) U/L Troponin I (0-0.045) ng/ml Total Protein (6.4-8.2) gm/dl Albumin (3.4-5.0) gm/dl Globulin (2.5-4.0) gm/dl Albumin/Globulin Ratio (0.9-2) Lipase (73-393) U/L Administered Medications Atorvastatin Calcium (Lipitor) 80 mg PO HS [facility] Stop: 01/13/20 21:48 Last Admin: 12/14/19 22:44 Dose: 80 mg Documented by: [id number] Carvedilol (Coreg) 3.125 mg PO BID MARCOS Stop: 01/13/20 21:48 Last Admin: 12/14/19 22:43 Dose: 3.125 mg Documented by: [id number] Sodium Chloride (Nss 1000ml) 1,000 mls @ 50 mls/hr IV .Q20H ONE Stop: 12/15/19 17:48 Last Admin: 12/14/19 22:43 Dose: 50 mls/hr Documented by: [id number] Magnesium Sulfate/Dextrose (Magnesium Sulfate / D5w) 1 gm in 100 mls @ 100 mls/hr IV Q1H MARCOS Stop: 12/15/19 00:08 Last Admin: 12/14/19 22:42 Dose: 100 mls/hr Documented by: [id number] Insulin Aspart (Novolog Flexpen) 0 units SC ACHS MARCOS Stop: 01/13/20 21:48 Last Admin: 12/14/19 22:42 Dose: Not Given Documented by: [id number] Cosigned by: [id number] Insulin Glargine (Lantus Solostar Pen) 5 units SC BID MARCOS Stop: 01/13/20 21:48 Last Admin: 12/14/19 22:41 Dose: 5 units Documented by: [id number] Cosigned by: [id number] Ioversol (Optiray 320 125ml) 114 ml IV ONCE PRN PRN Reason: Interaction Checking Stop: 12/18/19 21:32 Last Admin: 12/14/19 21:34 Dose: 114 ml Documented by: [id number] Pantoprazole Sodium (Protonix) 40 mg PO BID MARCOS Stop: 01/13/20 21:59 Last Admin: 12/14/19 22:43 Dose: 40 mg Documented by: [id number] Sertraline HCl (Zoloft) 50 mg PO HS MARCOS Stop: 01/13/20 21:48 Last Admin: 12/14/19 22:44 Dose: 50 mg Documented by: [id number] Tamsulosin HCl (Flomax) 0.4 mg PO HS MARCOS Stop: 01/13/20 21:59 Last Admin: 12/14/19 22:43 Dose: 0.4 mg Documented by: [id number] Discontinued Medications Albuterol (Duoneb) 3 ml NEB NOW STA Stop: 12/14/19 21:50 Last Admin: 12/14/19 22:10 Dose: 3 ml Documented by: [id number] Doxycycline Hyclate (Vibramycin) 100 mg PO NOW STA Stop: 12/14/19 20:36 Last Admin: 03/20/20 20:53 Dose: 100 mg Documented by: [id number] Hydromorphone HCl (Dilaudid) 0.5 mg IV Q15M PRN PRN Reason: Pain Stop: 12/28/19 17:31 Last Admin: 12/14/19 19:24 Dose: 0.5 mg Documented by: [id number] Admin: 12/14/19 18:36 Dose: 0.5 mg Documented by: [id number] Sodium Chloride (Nss 1000ml) 1,000 mls @ 125 mls/hr IV .Q8H STA Stop: 12/15/19 01:31 Last Infusion: 12/14/19 22:28 Dose: 0 mls/hr Documented by: [id number] Infusion: 12/14/19 21:27 Dose: 0 mls/hr Documented by: [id number] Admin: 12/14/19 18:35 Dose: 125 mls/hr Documented by: [id number] Ketorolac Tromethamine (Toradol) 15 mg IV NOW ONE Stop: 12/14/19 22:02 Last Admin: 12/14/19 22:40 Dose: 15 mg Documented by: [id number] Nitroglycerin (Nitrostat) 0.4 mg SL NOW STA Stop: 12/14/19 20:35 Last Admin: 12/14/19 20:53 Dose: 0.4 mg Documented by: [id number] Ondansetron HCl (Zofran) 4 mg IV NOW STA Stop: 12/14/19 17:33 Last Admin: 12/14/19 18:36 Dose: Not Given Documented by: [id number] Discharge Plan Visit Data *Final* Discharge Date/Time: 12/14/19 21:30 Chief Complaint: Shortness of Breath/Dyspnea Stated Complaint: SOB/DIZZINESS ED Provider: Adair Yepez Discharge Problem: Chest pain, Abdominal pain, History of heart artery stent, SOB (shortness of breath), Dizziness Patient Disposition: Admitted As Inpatient Discharge Instructions Interventions: ED Discharge Assessment Last Done: 12/14/19 21:30
--- NOTE | 2019-12-14 18:00 | XRay Report ---
XR chest 1V portable HISTORY: 64 years-old Male Chest Pain acute atypical chest pain COMPARISON: CTA of the chest 12/03/2019, chest radiograph 11/05/2019 TECHNIQUE: Portable AP view of the chest FINDINGS: Cardiomediastinal and hilar silhouettes are within normal limits. No pneumothorax, pleural effusion, airspace consolidation or overt pulmonary edema. Bones of the chest appear grossly intact. IMPRESSION: No acute process. ACT 112: Negative or not required by law. The above report was generated using voice recognition software. It may contain grammatical, syntax o r spelling errors. Electronically signed by: Clarence Kent M.D. 12/14/2019 5:59 PM
[2019-12-14] MEDS: HYDROmorphone INJ 0.5 MG/0.5 ML SYR IV PRN ×2 (18:36→19:24)
[2019-12-14 18:51] LABS: Basophils # (auto) 0.02 K/uL (0-0.2); Basophils % (auto) 0.4 %; Eosinophils # (auto) 0.03 K/uL (0-0.5); Eosinophils % (auto) 0.6 %; Hematocrit (blood only) 38.2 % (42-52); Hemoglobin 14.2 g/dL (14.0-18.0); Immature Granulocytes # (auto) 0.02 K/uL (0.00-0.02); Immature Granulocytes % (auto) 0.4 %; Lymphocytes # (auto) 1.59 K/uL (1.2-3.4); Lymphocytes % (auto) 30.3 %; Mean Corpuscular Hemoglobin 30.5 pg (25-34); Mean Corpuscular Hgb Conc 37.2 g/dL (32-36); Mean Platelet Volume 9.4 fL (7.4-10.4); Monocytes # (auto) 0.43 K/uL (0.11-0.59); Monocytes % (auto) 8.2 %; Neutrophils # (auto) 3.15 K/uL (1.4-6.5); Neutrophils % (auto) 60.1 %; Platelet Count 160 K/uL (130-400); RDW Coefficient of Variation 13.6 % (11.5-14.5); RDW Standard Deviation 40.6 fL (36.4-46.3); Red Blood Count 4.66 M/uL (4.7-6.1); White Blood Count 5.24 K/uL (4.8-10.8)
[2019-12-14 19:02] LABS: Partial Thromboplastin Time 27.9 Seconds (21.0-31.0); Prothrombin Time 10.6 Seconds (9.0-12.0)
[2019-12-14 19:08] LABS: Alanine Aminotransferase 34 U/L (12-78); Albumin Level 3.6 gm/dl (3.4-5.0); Aspartate Aminotransferase 23 U/L (15-37); BUN Creatinine Ratio 13.9 (10-20); Blood Urea Nitrogen 14 mg/dl (7-18); Calcium 9.2 mg/dl (8.5-10.1); Carbon Dioxide 27 mmol/L (21-32); Chloride 106 mmol/L (98-107); Creatinine Clr Calc Pharmacy 88.9 ml/min; Est GFR (African American) 89.8; Est GFR (Non-African American) 77.5; Glucose 165 mg/dl (70-99); Lipase 111 U/L (73-393); Potassium 4.4 mmol/L (3.5-5.1); Sodium 137 mmol/L (136-145)
[2019-12-14 19:13] LABS: Albumin Globulin Ratio 0.9 (0.9-2); Alkaline Phosphatase 107 U/L (45-117); Bilirubin,Total 0.5 mg/dl (0.2-1); Total Protein 7.6 gm/dl (6.4-8.2); Troponin I < 0.015 ng/ml (0-0.045)
--- NOTE | 2019-12-14 19:22 | CT Scan Report ---
ABDOMEN AND PELVIS CT WITHOUT CONTRAST CT DOSE: 726.86 mGy.cm HISTORY: Acute lower abdominal pain Lower abd pain TECHNIQUE: Multiaxial CT images of the abdomen and pelvis were performed without contrast. A dose lo wering technique was utilized adhering to the principles of ALARA. COMPARISON STUDY: CT abdomen and pelvis 12/03/2019 FINDINGS: Minimal subsegmental bibasilar atelectasis. No pneumatosis or pneumoperitoneum. Coronary artery calci fications. Limited evaluation of the solid abdominal organs without the use of IV contrast. The limit ations of the exam, the spleen, pancreas and right adrenal gland are unremarkable. Hyperplasia of the left adrenal gland with unchanged hypodense lesions measuring up to 3.0 cm compatible with adenomata . Mildly contracted gallbladder. There are 2 hypodense lesions of the liver redemonstrated measuring up to 1.5 cm suggestive of probable cysts. No renal or ureteral calculi. Kidneys are unremarkable. Prostamegaly. Partial distention of the bladd er with mild wall thickening. Moderate calcified plaque of the abdominal aorta without aneurysm. Fusi form dilation of the right common iliac artery, 2.1 cm. No adenopathy. Small duodenal diverticulum. No bowel obstruction or bowel wall thickening. Colonic diverticulosis wi thout acute diverticulitis. Noninflamed appendix. Multiple nondilated stool-filled loops of small bow el suggestive of decreased small bowel transit. No ascites or mesenteric stranding. Soft tissues are unremarkable. Bones appear intact. Multilevel spondylitic spurring and facet arthrosis. Partial bony fusion of the left SI joint. Severe disc space narrowing at L5-S1 with posterior disc osteophyte comp anne marie. Minimal lumbar levoscoliosis. IMPRESSION: 1. No bowel obstruction or bowel wall thickening. Normal appendix. 2. Colonic diverticulosis without acute diverticulitis. 3. Prostamegaly. 4. Additional findings as above. ACT 112: Negative or not required by law. The above report was generated using voice recognition software. It may contain grammatical, syntax o r spelling errors. Electronically signed by: Clarence Kent M.D. 12/14/2019 7:21 PM
[2019-12-14 20:24] LABS: Magnesium 1.7 mg/dl (1.8-2.4)
[2019-12-14] MEDS ORDERED: NITROGLYCERIN SL 0.4 MG/TAB TAB SL STA (20:34)
[2019-12-14] MEDS ORDERED: DOXYCYCLINE HYCLATE 100 MG CAP PO STA (20:35)
--- NOTE | 2019-12-14 20:39 | History & Physical Report ---
Date of Service December 14, 2019 Assessment & Plan (1) Chest pain: Secondary to complicated bronchitis rule out flu Differentials include unstable angina given hx CAD status post stent, PE, Pericarditis hypertension, stable hyperlipidemia on statin Rx chronic right arm pain secondary to hx compartment syndrome DM2 insulin requiring, suboptimal control as well recent hemoglobin A1c of 9.27 November 2019 history of laryngeal cancer status post surgery Intermittent hematochezia likely secondary to diverticular bleed, hemoglobin stable Symptomatic BPH, rule out UTI past tobacco abuse OBS PCU Doxycycline, nebs PRN Flu PCR CT chest PE study Baseline ESR, CRP Follow troponin TTE RE chest pain Cardiology consult if PE work-up unremarkable Basal insulin, ISS BG goal [id number], carb count coverage Initiate Flomax DVT prophylaxis. SCDs RE intermittent hematochezia Full code Text document was generated using [employer] voice recognition software. It may contain grammatical or spelling errors. Kindly contact undersigned for clarification of any documentation item in question. History of Present Illness Some urinary retention retention Chief Complaint: Chest pain, S OB Primary Care Provider: Razia Chávez, History obtained from patient and records. Medical history significant for CAD status post stent, hypertension, hype rlipidemia, chronic right arm pain secondary to hx compartment syndrome, DM2 insulin requiring, history of laryngeal cancer status post surgery, past tobacco abuse, PTSD as per records, diverticulosis/colonic polyposis as per records. Recent confinement last week for abdominal pain with some hematochezia. Few days history of achy pleuritic substernal pain going to the neck with some shortness of breath, junky cough symptoms and chills. No known sick contacts or recent travel. Achy abdominal pain with some urinary retention with burning, occasional rectal bleed as per patient. Minimal relief of chest pain with nitro intake. Patient sent by PCPs office to the ER. Patient still complaining of substernal discomfort. 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 Allergies Allergy/AdvReac Type Severity Reaction Status Date / Time diphenhydramine Allergy Intermediate Unknown Verified 12/14/19 18:27 [From Benadryl] Home Medications Home Medications Medication Instructions Recorded Confirmed Type amlodipine [Norvasc] 10 mg PO QAM 30 Days #60 tab 11/09/19 12/14/19 Rx cyclobenzaprine 5 mg PO BID PRN #10 tab 11/09/19 12/14/19 Rx omeprazole 40 mg PO BID #60 cap 11/09/19 12/14/19 Rx aspirin 81 mg PO QAM #90 tab 12/07/19 12/14/19 Rx insulin aspart U-100 [Novolog 5 units SC ACHS 30 Days #1.5 ml 12/07/19 12/14/19 Rx Flexpen U-100 Insulin] insulin glargine [Lantus Solostar 25 unit SC HS 30 Days #7.5 ml 12/07/19 12/14/19 Rx U-100 Insulin] nicotine [Nicoderm CQ] 21 mg TRANSDERMAL DAILY #14 ea 12/07/19 12/14/19 Rx atorvastatin [Lipitor] 80 mg PO HS 12/14/19 12/14/19 History carvedilol [Coreg] 3.125 mg PO BID 12/14/19 12/14/19 History lisinopril [Zestril] 40 mg PO QAM 12/14/19 12/14/19 History oxycodone [Roxicodone] 5 mg PO Q4H PRN 12/14/19 12/14/19 History sertraline [Zoloft] 50 mg PO HS 12/14/19 12/14/19 History Past Med/Surg History Medical History Bleeding ulcer CAD (coronary artery disease) 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 Depression Diabetes Esophageal stricture History of laryngeal cancer Status post radiation HTN (hypertension) PTSD (post-traumatic stress disorder) Suicidal ideation (Acute) Surgical History History of coronary artery stent placement (Acute) History of endoscopy 08/2019 revealed esophageal strictures, gastric ulcerations and hemorrhagic duodenitis History of heart artery stent History of partial thyroidectomy Family History Father Cancer Lung Social History Preferred Language: Malawian Communication Ability: Effective 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 Beliefs That Will Affect Care: None marital status: Current Living Situation: Alone Other Information That Helps Us Care for You: No Feels Safe at Home: Yes Safety Concerns: Feels Safe At This Time Smoking Status: Current some day smoker Tobacco Type: cigarettes ; Cigarettes Per Day: 3-4 ; Do You Dip or Chew Tobacco: No ; Hx Alcohol Use: No Hx Substance Use: No Review of Systems Review of Systems: As per HPI, all 10 systems reviewed, all other ROS negative Physical Exam Physical Exam: GENERAL: Comfortable, no respiratory distress SKIN: Normal color, warm HEENT: [place] palpebral conjunctivae, no ptosis, dry buccal mucosa NECK : Supple, no tenderness CHEST : CTA, no tenderness HEART : RRR, no obvious murmurs ABDOMEN: Some distention, nontender EXTREMITIES : No LE swelling/tenderness, no other conspicuous deformities noted NEUROLOGIC : Coherent, no facial asymmetry, no other gross focality Results & Data Vital Signs (Past 12 Hours) Vital Signs Temp Pulse Pulse Resp BP BP Pulse Ox 12/14/19 20:02 62 15 137/80 98 12/14/19 19:21 65 13 142/87 H 99 12/14/19 18:05 76 18 124/81 97 12/14/19 17:17 97 12/14/19 17:03 36.8 C 84 20 137/75 95 Laboratory Results Laboratory Results WBC 5.24 K/uL (4.8-10.8) 12/14/19 18:25 RBC 4.66 M/uL (4.7-6.1) L 12/14/19 18:25 Hgb 14.2 g/dL (14.0-18.0) 12/14/19 18:25 Hct 38.2 % (42-52) L 12/14/19 18:25 MCV 82.0 fL (80-100) 12/14/19 18:25 MCH 30.5 pg (25-34) 12/14/19 18:25 MCHC 37.2 g/dL (32-36) H 12/14/19 18:25 RDW Std Deviation 40.6 fL (36.4-46.3) 12/14/19 18:25 RDW Coeff of Bernarda 13.6 % (11.5-14.5) 12/14/19 18:25 Plt Count 160 K/uL (130-400) 12/14/19 18:25 MPV 9.4 fL (7.4-10.4) 12/14/19 18:25 Immature Gran % (Auto) 0.4 % 12/14/19 18:25 Neut % (Auto) 60.1 % 12/14/19 18:25 Lymph % (Auto) 30.3 % 12/14/19 18:25 [place] % (Auto) 8.2 % 12/14/19 18:25 Eos % (Auto) 0.6 % 12/14/19 18:25 Baso % (Auto) 0.4 % 12/14/19 18:25 Immature Gran # (Auto) 0.02 K/uL (0.00-0.02) 12/14/19 18: Neut # (Auto) 3.15 K/uL (1.4-6.5) 12/14/19 18: Lymph # (Auto) 1.59 K/uL (1.2-3.4) 12/14/19 18:25 [place] # (Auto) 0.43 K/uL (0.11-0.59) 12/14/19 18:25 Eos # (Auto) 0.03 K/uL (0-0.5) 12/14/19 18:25 Baso # (Auto) 0.02 K/uL (0-0.2) 12/14/19 18:25 PT 10.6 Seconds (9.0-12.0) 12/14/19 18:25 INR 1.0 (0.9-1.1) 12/14/19 18:25 APTT 27.9 Seconds (21.0-31.0) 12/14/19 18:25 PTT Ratio 1.0 12/14/19 18:25 Sodium 137 mmol/L (136-145) 12/14/19 18:25 Potassium 4.4 mmol/L (3.5-5.1) 12/14/19 18:25 Chloride 106 mmol/L (98-107) 12/14/19 18:25 Carbon Dioxide 27 mmol/L (21-32) 12/14/19 18:25 Anion Gap 4.0 (3-11) 12/14/19 18:25 BUN 14 mg/dl (7-18) 12/14/19 18:25 Creatinine 1.03 mg/dl (0.6-1.4) 12/14/19 18:25 Est Cr Clr Drug Dosing 88.9 ml/min 12/14/19 18:25 Est GFR ( Amer) 89.8 12/14/19 18:25 Est GFR (Non-Af Amer) 77.5 12/14/19 18:25 BUN/Creatinine Ratio 13.9 (10-20) 12/14/19 18:25 Glucose 165 mg/dl (70-99) H 12/14/19 18:25 Calcium 9.2 mg/dl (8.5-10.1) 12/14/19 18:25 Magnesium 1.7 mg/dl (1.8-2.4) L 12/14/19 18:25 Total Bilirubin 0.5 mg/dl (0.2-1) 12/14/19 18:25 AST 23 U/L (15-37) 12/14/19 18:25 ALT 34 U/L (12-78) 12/14/19 18:25 Alkaline Phosphatase 107 U/L (45-117) 12/14/19 18:25 Troponin I < 0.015 ng/ml (0-0.045) 12/14/19 18:25 Total Protein 7.6 gm/dl (6.4-8.2) 12/14/19 18:25 Albumin 3.6 gm/dl (3.4-5.0) 12/14/19 18:25 Globulin 4.0 gm/dl (2.5-4.0) 12/14/19 18:25 Albumin/Globulin Ratio 0.9 (0.9-2) 12/14/19 18:25 Lipase 111 U/L (73-393) 12/14/19 18:25 Diagnostic Findings Chest x-ray : No acute process CT abdomen pelvis: 1. No bowel obstruction or bowel wall thickening. Normal appendix. 2. Colonic diverticulosis without acute diverticulitis. 3. Prostamegaly. 4. Additional findings as above. EKG as per my interpretation : Rate 95, NSR, normal axis, PVCs
[2019-12-14 21:09] LABS: Appearance Urine Clear (Clear); Bilirubin Urine Negative (Negative); Blood Urine Negative (Negative); Color Urine Yellow; Glucose Urine UA Trace (Negative); Ketones Urine Negative (Negative); Leukocyte Esterase Urine Negative (Negative); Nitrite Urine Negative (Negative); Protein Urine Negative (Negative); Specific Gravity Urine 1.019 (1.000-1.030); Urobilinogen Urine Negative (Negative)
[2019-12-14 21:10] LABS: D Dimer 580 ug/L FEU (0-500)
[2019-12-14] MEDS ORDERED: OPTIRAY 320 125ml IV PRN (21:33)
[2019-12-14 21:37] LABS: Influenza A virus by PCR Neg for Influ A (Neg); Influenza B virus by PCR Neg for Influ B (Neg)
[2019-12-14] MEDS ORDERED: LORazepam 0.25 MG/0.5 ML VIAL IV PRN (21:49)
[2019-12-14] MEDS ORDERED: NITROGLYCERIN SL 0.4 MG/TAB TAB SL PRN (21:49)
[2019-12-14] MEDS ORDERED: CARBOHYDRATES FOR HYPOGLYCEMIA PO PRN (21:49)
[2019-12-14] MEDS ORDERED: DEXTROSE 50% 50 ML SYRINGE IV PRN (21:49)
[2019-12-14] MEDS ORDERED: GLUCOSE 10 TABS/TUBE PO PRN (21:49)
[2019-12-14] MEDS ORDERED: IPRATROPIUM BROMIDE NEB SOLN 0.02% 2.5 ML VIAL INH PRN (21:49)
[2019-12-14] MEDS ORDERED: GLUCAGON FOR INJ 1 MG VIAL SQ PRN (21:49)
[2019-12-14] MEDS ORDERED: PROMETHAZINE HCL 12.5 MG in SODIUM CHLORIDE 0.9% 50 ML IV PRN (21:49)
[2019-12-14] MEDS ORDERED: XOPENEX/ATROVENT 1.25mg/0.5MG NEB COMBO NEB PRN (21:49)
[2019-12-14] MEDS ORDERED: ALBUT/IPRATROP 3MG/0.5MG NEB 3 ML VIAL NEB STA (21:49)
[2019-12-14] MEDS ORDERED: SODIUM CHLORIDE 0.9% 1000ML 1,000 ML IV ONE (21:49)
[2019-12-14] MEDS ORDERED: CYCLOBENZAPRINE HCL 5 MG TAB PO PRN (21:49)
[2019-12-14] MEDS ORDERED: LEVALBUTEROL 1.25MG/0.5ML NEB INH PRN (21:49)
[2019-12-14] MEDS ORDERED: GLUCOSE 40% GEL 15 GM TUBE PO PRN (21:49)
--- NOTE | 2019-12-14 21:56 | CT Scan Report ---
CT angio chest PE protocol CT DOSE: 732.12 mGy.cm HISTORY: 64 years-old Male with PE. Acute chest pain TECHNIQUE: Multiple CTA images of the chest were obtained after the intravenous administration of 114 ml Optiray 320. Coronal and sagittal MIPS were obtained from the axial data set and were submitted for review. All measurements were obtained according to NASCET criteria. A dose lowering technique w as utilized adhering to the principles of ALARA. COMPARISON: CT abdomen and pelvis of same day, CTA chest 12/03/2019 FINDINGS: CTA: Heart is normal in size without pericardial effusion. Coronary artery calcifications. Stent graft of the left anterior descending artery. No thoracic aortic aneurysm or dissection. Bovine morphology of aortic arch with patency of the imaged great vessels. Pulmonary arterial tree is opacified to the lev el of the subsegmental branches and demonstrates no filling defects to suggest pulmonary thromboembol ic disease. Respiratory motion artifact limits evaluation of the left lung base vessels. CT CHEST: Asymmetrically enlarged and heterogeneous left thyroid lobe with suggestion of multiple hypodense nod ules. Hyperdense soft tissue nodule of the anterior mediastinum, 1.6 x 0.9 cm is unchanged suggestive of ectopic thyroid tissue. No adenopathy by CT size criteria. Mild dependent bibasilar atelectasis. No pneumothorax, pleural effusion, overt pulmonary edema or airspace consolidation typical for pneumo tal. Mild bilateral bronchial wall thickening. There are no suspicious pulmonary nodules or masses. C entral airways are patent. No acute process of the imaged upper abdomen. Probable cyst of the liver. Left adrenal adenoma. Unrem arkable appearance of the soft tissues. Degenerative changes of the shoulders and spine. No acute fra cture or suspicious bone lesion. IMPRESSION: 1. No acute intrathoracic abnormality, specifically there is no evidence of acute aortic pathology or pulmonary thromboembolic disease. 2. No pleural effusion, airspace consolidation or adenopathy. 3. Coronary artery calcifications with stent of the left anterior descending artery. ACT 112: Negative or not required by law. The above report was generated using voice recognition software. It may contain grammatical, syntax o r spelling errors. Electronically signed by: Clarence Kent M.D. 12/14/2019 9:55 PM
[2019-12-14] MEDS ORDERED: KETOROLAC TROMETHAMINE 15 MG/ML VIAL IV ONE (22:01)
[2019-12-14] MEDS: INSULIN GLARGINE SOLOSTAR 100 UNITS/ML 3 ML PEN SC SCH (22:41)
[2019-12-14] MEDS: INSULIN ASPART 100 UNITS/ML 3 ML PEN SC SCH (22:42)
[2019-12-14] MEDS: MAGNESIUM SULFATE / D5W 1 GM/100 ML BAG IV SCH ×2 (22:42→23:49)
[2019-12-14] MEDS: PANTOprazole 40 MG TAB PO SCH (22:43)
[2019-12-14] MEDS: carvediloL 3.125 MG TAB PO SCH (22:43)
[2019-12-14] MEDS: TAMSULOSIN HCL 0.4 MG CAP PO SCH (22:43)
[2019-12-14] MEDS: SERTRALINE HCL 50 MG TABLET PO SCH (22:44)
[2019-12-14] MEDS: ATORVASTATIN 40 MG TAB PO SCH (22:44)
[2019-12-14] MEDS: OXYCODONE HCL IR 5 MG TAB (IMMEDIATE RELEASE) PO PRN (23:49)
[2019-12-15 05:58] LABS: Basophils # (auto) 0.03 K/uL (0-0.2); Basophils % (auto) 0.7 %; Eosinophils # (auto) 0.12 K/uL (0-0.5); Eosinophils % (auto) 2.7 %; Hematocrit (blood only) 37.6 % (42-52); Hemoglobin 13.5 g/dL (14.0-18.0); Immature Granulocytes # (auto) 0.01 K/uL (0.00-0.02); Immature Granulocytes % (auto) 0.2 %; Lymphocytes % (auto) 48.7 %; Mean Corpuscular Hemoglobin 29.9 pg (25-34); Mean Corpuscular Hgb Conc 35.9 g/dL (32-36); Mean Corpuscular Volume 83.2 fL (80-100); Mean Platelet Volume 8.8 fL (7.4-10.4); Monocytes % (auto) 8.8 %; Neutrophils # (auto) 1.76 K/uL (1.4-6.5); Neutrophils % (auto) 38.9 %; Platelet Count 144 K/uL (130-400); RDW Coefficient of Variation 13.5 % (11.5-14.5); RDW Standard Deviation 40.9 fL (36.4-46.3); Red Blood Count 4.52 M/uL (4.7-6.1); White Blood Count 4.52 K/uL (4.8-10.8)
[2019-12-15 06:09] LABS: Partial Thromboplastin Time 27.9 Seconds (21.0-31.0)
[2019-12-15 06:30] LABS: C Reactive Protein 0.72 mg/dl (0-0.29); Chol HDL Ratio 4; Cholesterol 146 mg/dl (0-200); HDL Cholesterol 39 mg/dl; LDL Cholesterol Calculated 84 mg/dl; Triglycerides 116 mg/dl (0-150); Troponin I < 0.015 ng/ml (0-0.045); VLDL Cholesterol 23 mg/dl
[2019-12-15] MEDS: INSULIN ASPART 100 UNITS/ML 3 ML PEN SC SCH ×4 (08:35→20:35)
[2019-12-15] MEDS: PANTOprazole 40 MG TAB PO SCH ×2 (08:41→20:38)
[2019-12-15] MEDS: carvediloL 3.125 MG TAB PO SCH ×2 (08:41→20:39)
[2019-12-15] MEDS: ASPIRIN 81 MG ECTAB PO SCH (08:41)
[2019-12-15] MEDS: DOXYCYCLINE HYCLATE 100 MG CAP PO SCH ×2 (08:41→20:38)
[2019-12-15] MEDS: AMLODIPINE BESYLATE 5 MG TAB PO SCH (08:41)
[2019-12-15] MEDS: INSULIN GLARGINE SOLOSTAR 100 UNITS/ML 3 ML PEN SC SCH ×2 (08:42→20:35)
[2019-12-15] MEDS: NICOTINE 21 MG/24 HR TDSY TD SCH (08:42)
[2019-12-15] MEDS: lisinopriL 40 MG TAB PO SCH (08:42)
[2019-12-15 09:02] LABS: BUN Creatinine Ratio 15.4 (10-20); Calcium 8.9 mg/dl (8.5-10.1); Creatinine Clr Calc Pharmacy 118.5 ml/min; Est GFR (African American) 107.2; Est GFR (Non-African American) 92.5; Magnesium 2.2 mg/dl (1.8-2.4); Potassium 3.9 mmol/L (3.5-5.1)
--- NOTE | 2019-12-15 10:09 | Cardiology Consultation ---
Date of Consultation December 15, 2019 Assessment & Plan (1) SOB (shortness of breath): (2) Chest pain: (3) Chronic pain of right upper extremity: (4) CAD (coronary artery disease): (5) URI (upper respiratory infection): 64-year-old patient with complex history noted below presents with key rtness of breath beginning 12/14/2019 in the a.m. Constant chest discomfort unchanged and appears similar to symptoms reported during recent hospitalizations as well as cardiology follow-up appointment. There is no sign of acute coronary syndrome with normal cardiac enzymes, normal resting 2D transthoracic echocardiogram left ventricular wall motion, and nonischemic ECG. Occasional PVCs noted in the setting of hypomagnesemia which have improved with magnesium supplementation intravenously. Continue current cardiovascular medications including aspirin, beta-bernardo, statin, TIGRE inhibitor, and calcium channel bernardo therapy. Patient with subjective chills, dyspnea, cough, sputum production, and poor appetite. I suspect he is suffering from viral syndrome. Influenza assay is negative. Further evaluation/management as per internal medicine. History of Present Illness Reason for Consultation: Chest pain Requesting Physician: Dr. Pinto Attending Physician: Yeimi Levy MD History of Present Illness 64-year-old male with a history of coronary disease, PCI to LAD, type 2 diabetes, hypertension, hyperlipidemia, and chronic right upper extremity compartment syndrome, laryngeal cancer status post x-ray therapy, esophageal stricture, and peptic ulcer disease. Recently hospitalized in October 2019 with coffee-ground emesis and bright red blood per rectum. Evaluated by Dr. Velasquez of the cardiology practice during that visit and deemed not a candidate for antiplatelet therapy at that time. Apparently underwent EGD in August at outside facility demonstrating gastric ulcer, duodenitis, and esophageal stricture which was dilated. EGD performed in October demonstrated duodenitis. Colonoscopy demonstrated a 4 mm polyp which was removed as well as scattered ascending diverticulosis and hemorrhoids. Patient evaluated by cardiology 11/30/2019 for hospital follow-up. During that visit he reported ongoing abdominal discomfort and significant episodes of bright red blood per rectum. Cardiology note reports most recent cardiac catheterization 08/14/2018 demonstrating a patent LAD stent and nonobstructive right coronary artery disease. Dobutamine stress echo performed 03/23/2019- for inducible ischemia. Patient rehospitalized 12/03/2019 with abdominal pain and weakness. During that hospitalization, low-dose aspirin, 81 mg restarted. Patient discharged home. Patient called the cardiology clinic yesterday to reschedule his office appointment. On the phone patient reported shortness of breath and chest pain to the nursing staff. He was directed to call 911 and proceed to the ER. Patient admitted through the ER with shortness of breath and chest pain. Patient describes becoming acutely short of breath yesterday in the morning. Feels short of breath at rest as well as with activity. Diffuse chest discomfort not reproducible with activity or palpation. The pain is not positional. Notes cough with scant sputum production and a generalized feeling of unwellness. No orthopnea or paroxysmal nocturnal dyspnea. Denies edema, weight gain, or claudication. Notes mild bright red blood per rectum when he has a bowel movement. Denies current hematemesis, coffee-ground emesis, or large-volume hematochezia. Currently resting comfortably. Reports subjective dyspnea however appears comfortable with normal respiratory rate. Reports subjective chills, however, no fevers recorded thus far. Complains of chronic right arm pain related to compartment syndrome. Cardiac enzymes are undetectable. ECG with occasional PVCs, no ischemic changes. Bedside 2D transthoracic echocardiogram demonstrates normal left ventricular wall motion. Elevated d-dimer noted. CT angiogram of the chest without evidence of pulmonary embolus, dissection, or aneurysm. Allergies Allergy/AdvReac Type Severity Reaction Status Date / Time diphenhydramine Allergy Intermediate Unknown Verified 12/14/19 18:27 [[facility] Home Medications Home Medications Medication Instructions Recorded Confirmed Type amlodipine [Norvasc] 10 mg PO QAM 30 Days #60 tab 11/09/19 12/14/19 Rx cyclobenzaprine 5 mg PO BID PRN #10 tab 11/09/19 12/14/19 Rx omeprazole 40 mg PO BID #60 cap 11/09/19 12/14/19 Rx aspirin 81 mg PO QAM #90 tab 12/07/19 12/14/19 Rx insulin aspart U-100 [Novolog 5 units SC ACHS 30 Days #1.5 ml 12/07/19 12/14/19 Rx Flexpen U-100 Insulin] insulin glargine [Lantus Solostar 25 unit SC HS 30 Days #7.5 ml 12/07/19 12/14/19 Rx U-100 Insulin] nicotine [Nicoderm CQ] 21 mg TRANSDERMAL DAILY #14 ea 12/07/19 12/14/19 Rx atorvastatin [Lipitor] 80 mg PO HS 12/14/19 12/14/19 History carvedilol [Coreg] 3.125 mg PO BID 12/14/19 12/14/19 History lisinopril [Zestril] 40 mg PO QAM 12/14/19 12/14/19 History oxycodone [Roxicodone] 5 mg PO Q4H PRN 12/14/19 12/14/19 History sertraline [Zoloft] 50 mg PO HS 12/14/19 12/14/19 History Patient History Medical History Bleeding ulcer CAD (coronary artery disease) 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 Depression Diabetes Esophageal stricture History of laryngeal cancer Status post radiation HTN (hypertension) PTSD (post-traumatic stress disorder) Suicidal ideation (Acute) Surgical History History of coronary artery stent placement (Acute) History of endoscopy 08/2019 revealed esophageal strictures, gastric ulcerations and hemorrhagic duodenitis History of heart artery stent History of partial thyroidectomy Family History Father Cancer Lung Social History Preferred Language: Swazi Communication Ability: Effective Resource Specialist Required: No Beliefs That Will Affect Care: None marital status: Current Living Situation: Alone Other Information That Helps Us Care for You: No Feels Safe at Home: Yes Safety Concerns: Feels Safe At This Time Smoking Status: Current some day smoker Tobacco Type: cigarettes ; Cigarettes Per Day: 3-4 ; Do You Dip or Chew Tobacco: No ; Hx Alcohol Use: No Hx Substance Use: No Review of Systems Review of Systems: All systems reviewed & are unremarkable except as noted in HPI & below Physical Exam Constitutional: well developed and well nourished; no acute distress Respiratory: normal respiratory effort; no respiratory distress, no labored breathing, no retractions and does not use accessory muscles Auscultation: no crackles, no rales, no rhonchi and no wheezes Cardiovascular: Rate/Rhythm: regular rate and regular rhythm Heart Sounds: normal S1 and normal S2; no murmur Vessels: radial pulses present; no JVD and no carotid bruit Extremities: no edema Gastrointestinal (Abdomen): Inspection/Auscultation: abdomen normal to inspection and normal bowel sounds; abdomen not distended Percussion/Palpation: abdomen soft; abdomen nontender, no guarding and abdomen not rigid Musculoskeletal: no cyanosis or clubbing, extremities motor strength 5/5 Right anterior forearm scar secondary to prior fasciotomy. Skin: no rashes, warm and dry Neurologic: moves all extremities; no focal motor deficits Results & Data ([facility]) Vital Signs (Past 12 Hours) Vital Signs Temp Pulse Pulse Pulse Resp BP Pulse Ox 12/15/19 07:26 36.4 C L 61 20 127/79 98 12/15/19 03:40 36.5 C 55 L 18 134/79 97 12/15/19 00:34 63 12/14/19 23:17 36.5 C 56 L 18 132/75 96 12/14/19 22:10 66 18 96 (1) URI (upper respiratory infection) URI type: unspecified viral URI Qualified Code(s): J06.9 - Acute upper respiratory infection, unspecified (2) CAD (coronary artery disease) Associated angina: angina presence unspecified Coronary Disease-Associated Artery/Lesion type: pala artery [place] vs. transplanted heart: pala heart Qualified Code(s): I25.10 - Atherosclerotic heart disease of pala coronary artery without angina pectoris (3) Chest pain Chest pain type: precordial pain Qualified Code(s): R07.2 - Precordial pain
--- NOTE | 2019-12-15 10:41 | Hospitalist Progress Note ---
Date of Service December 15, 2019 Assessment & Plan (1) Chest pain: Likely secondary to complicated bronchitis rule out flu Differentials include unstable angina given hx CAD status post stent, PE, Pericarditis Serial troponins, EKG and bedside echo did not show any significant change compared with prior CTA was negative for any pulmonary embolism Appreciate cardiology input and recommendationno further cardiac work-up at this time We will observe patient in telemetry unit today Likely go home tomorrow Nonspecific pain involving all over the body Seems to be secondary to viral type of illness Minimal cough without any wheezing Has been started with oral doxycycline for possible bronchitis Complains to have hematuria with urinary symptoms Symptomatic BPH, rule out UTI-we will send repeat UA and culture We will send repeat UA and culture No antibiotic as of yet Advised to drink plenty of fluid Order significant medical conditions remained stable as below Hypertension, stable hyperlipidemia on statin Rx 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 SCDs RE intermittent hematochezia Full code Discussed with the patient in detail We will continue current treatment for tonight Likely discharge tomorrow morning Admission and Anticipated Discharge Date Admission Date: December 14, 2019 Subjective The patient was seen and examined in the telemetry unit He was admitted with chest pain from home following a call to the nurse for an appointment with a program project analyst He has had quite a few admissions recently in the hospital with chest pain and relevant investigations came out to be unremarkable Complaints to have nonspecific symptoms this morning Complains to have some blood in the urine Review of Systems Review of Systems: All systems reviewed and are unremarkable except as noted below; very nonspecific generalized kind of symptoms Physical Exam Physical Exam: Lying in bed without any acute distress but looks depressed Constitutional: well developed, well nourished, + ill appearing and + obese; no acute distress Eyes: PERRL, conjunctivae normal, anicteric sclerae ENMT: external ear and nose normal, oropharynx normal Neck: trachea midline, no thyromegaly Respiratory: normal respiratory effort Auscultation: lungs clear to auscultation bilaterally Cardiovascular: Rate/Rhythm: regular rate and regular rhythm Heart Sounds: + murmur (2/6 ejection systolic murmur over precordium) Gastrointestinal (Abdomen): Inspection/Auscultation: abdomen normal to inspection; + abnormal bowel sounds Percussion/Palpation: abdomen soft; abdomen nontender Musculoskeletal: No acute arthritis in any joints Lymphatic: no cervical or axillary lymphadenopathy Results & Data ([facility]) Vital Signs (Past 12 Hours) Vital Signs Temp Pulse Pulse Resp BP Pulse Ox 12/15/19 10:31 68 12/15/19 07:26 36.4 C L 61 20 127/79 98 12/15/19 03:40 36.5 C 55 L 18 134/79 97 12/15/19 00:34 63 12/14/19 23:17 36.5 C 56 L 18 132/75 96 Laboratory Results Short CBC 12/14/19 12/15/19 Range/Units 18:25 05:42 WBC 5.24 4.52 L (4.8-10.8) K/uL Hgb 14.2 13.5 L (14.0-18.0) g/dL Hct 38.2 L 37.6 L (42-52) % Plt Count 160 144 (130-400) K/uL BMP 12/14/19 12/15/19 18:25 05:45 Sodium 137 139 Potassium 4.4 3.9 Chloride 106 108 H Carbon Dioxide 27 28 BUN 14 13 Creatinine 1.03 0.87 Glucose 165 H 129 H Calcium 9.2 8.9 Cardiac Enzymes 12/14/19 12/15/19 Range/Units 18:25 05:42 Troponin I < 0.015 < 0.015 (0-0.045) ng/ml Liver Function 12/14/19 Range/Units 18:25 Total Bilirubin 0.5 (0.2-1) mg/dl AST 23 (15-37) U/L ALT 34 (12-78) U/L Alkaline Phosphatase 107 (45-117) U/L Albumin 3.6 (3.4-5.0) gm/dl Urine 12/14/19 Range/Units 20:55 Urine Color Yellow Urine Appearance Clear (Clear) Urine pH 7.0 (4.5-7.5) Ur Specific [place] 1.019 (1.000-1.030) Urine Protein Negative (Negative) Urine Glucose (UA) Trace H (Negative) Medications Administered Current Inpatient Medications A[facility]) [facility] Stop: 01/14/20 08:59 Last Admin: 03/21/20 08:41 Dose: 10 mg Documented by: Aspirin (Ecotrin Ectab) 81 mg PO QAM [facility] Stop: 01/14/20 08:59 Last Admin: 12/15/19 08:41 Dose: 81 mg Documented by: Atorvastatin Calcium (Lipitor) 80 mg PO HS [facility] Stop: 01/13/20 21:48 Last Admin: 12/14/19 22:44 Dose: 80 mg Documented by: Carvedilol (Coreg) 3.125 mg PO BID [facility] Stop: 01/13/20 21:48 Last Admin: 12/15/19 08:41 Dose: 3.125 mg Documented by: Cyclobenzaprine HCl (Flexeril) 5 mg PO BID PRN PRN Reason: muscle spasm Stop: 01/13/20 21:48 Dextrose (Dextrose 50%) 25 - 50 ml IV UD PRN; Protocol PRN Reason: Hypoglycemia Protocol Stop: 01/13/20 21:48 Doxycycline Hyclate (Vibramycin) 100 mg PO BID [facility] Stop: 12/22/19 08:59 Last Admin: 12/15/19 08:41 Dose: 100 mg Documented by: Glucagon (Glucagen) 1 mg SQ UD PRN; Protocol PRN Reason: Hypoglycemia Protocol Stop: 01/13/20 21:48 Glucose (Dex4 Glucose) 4 - 8 tabs PO UD PRN; Protocol PRN Reason: Hypoglycemia Protocol Stop: 01/13/20 21:48 Glucose (Glucose 40%) 15 - 30 gm PO UD PRN; Protocol PRN Reason: Hypoglycemia Protocol Stop: 01/13/20 21:48 Lorazepam (Ativan) 0.25 mg in 0.5 mls @ 0.5 mls/min IV Q4H PRN PRN Reason: Anxiety Stop: 01/13/20 21:48 Sodium Chloride (Nss 1000ml) 1,000 mls @ 50 mls/hr IV .Q20H ONE Stop: 12/15/19 17:48 Last Admin: 12/14/19 22:43 Dose: 50 mls/hr Documented by: Promethazine HCl 12.5 mg/ (Sodium Chloride) 50.5 mls @ 202 mls/hr IV Q6H PRN PRN Reason: Nausea And Vomiting Stop: 01/13/20 21:48 Insulin Aspart (Novolog Flexpen) 0 units SC ACHS [facility] Stop: 01/13/20 21:48 Last Admin: 12/15/19 08:35 Dose: Not Given Documented by: Insulin Glargine (Lantus Solostar Pen) 5 units SC BID [facility] Stop: 01/13/20 21:48 Last Admin: 12/15/19 08:42 Dose: 5 units Documented by: Ioversol (Optiray 320 125ml) 114 ml IV ONCE PRN PRN Reason: Interaction Checking Stop: 12/18/19 21:32 Last Admin: 12/14/19 21:34 Dose: 114 ml Documented by: Ipratropium [place] (Atrovent 0.02% 0.5mg/2.5ml) 0.5 mg INH Q4H PRN PRN Reason: Shortness Of Breath Or Wheezing Stop: 01/13/20 21:48 Levalbuterol HCl (Xopenex 1.25mg/0.5ml Neb) 1.25 mg INH Q4H PRN PRN Reason: Shortness Of Breath Or Wheezing Stop: 01/13/20 21:48 Lisinopril (Zestril) 40 mg PO QAM [facility] Stop: 01/14/20 08:59 Last Admin: 12/15/19 08:42 Dose: 40 mg Documented by: Miscellaneous (Carbohydrates For Hypoglycemia) 15 - 30 gm PO UD PRN PRN Reason: Hypoglycemia Protocol Stop: 01/13/20 21:48 Miscellaneous (Remove Nicoderm Patch) 1 ea N/A DAILY@0859 [facility] Stop: 01/14/20 08:58 Last Admin: 12/15/19 08:42 Dose: 1 ea Documented by: Morphine Sulfate (Morphine Sulfate) 4 mg IV Q8H PRN PRN Reason: Pain Stop: 12/28/19 21:48 Last Admin: 12/15/19 10:50 Dose: 4 mg Documented by: Nicotine (Nicoderm Cq) 21 mg TD DAILY [facility] Stop: 01/14/20 08:59 Last Admin: 12/15/19 08:42 Dose: 21 mg Documented by: Nitroglycerin (Nitrostat) 0.4 mg SL UD PRN PRN Reason: Chest Pain Stop: 01/13/20 21:48 Oxycodone HCl (Roxicodone Immediate Rel) 5 mg PO Q4H PRN PRN Reason: Pain Stop: 04/03/20 21:57 Last Admin: 12/14/19 23:49 Dose: 5 mg Documented by: Pantoprazole Sodium (Protonix) 40 mg PO BID [facility] Stop: 01/13/20 21:59 Last Admin: 12/15/19 08:41 Dose: 40 mg Documented by: Sertraline HCl (Zoloft) 50 mg PO [facility] Stop: 01/13/20 21:48 Last Admin: 12/14/19 22:44 Dose: 50 mg Documented by: Tamsulosin HCl (Flomax) 0.4 mg PO [facility] Stop: 01/13/20 21:59 Last Admin: 12/14/19 22:43 Dose: 0.4 mg Documented by: (1) Chest pain Chest pain type: precordial pain Qualified Code(s): R07.2 - Precordial pain
--- NOTE | 2019-12-15 10:45 | Electrocardiogram Report ---
Test Reason : Blood Pressure : / mmHG Vent. Rate : 059 BPM Atrial Rate : 059 BPM P-R Int : 178 ms QRS Dur : 086 ms QT Int : 440 ms P-R-T Axes : 088 081 073 degrees QTc Int : 435 ms Sinus bradycardia with occasional Premature ventricular complexes Otherwise normal ECG When compared with ECG of 14-DEC-2019 17:17, (unconfirmed) Vent. rate has decreased BY 34 BPM Confirmed by Skinny Arango ([id number]) on 12/15/2019 10:45:21 AM Referred By: Jose Delgadillo Confirmed By:Roshan Arango
--- NOTE | 2019-12-15 10:48 | Electrocardiogram Report ---
Test Reason : Blood Pressure : / mmHG Vent. Rate : 093 BPM Atrial Rate : 093 BPM P-R Int : 146 ms QRS Dur : 082 ms QT Int : 364 ms P-R-T Axes : 078 040 045 degrees QTc Int : 452 ms Sinus rhythm with frequent Premature ventricular complexes Otherwise normal ECG When compared with ECG of 06-DEC-2019 14:08, Premature ventricular complexes are now Present Vent. rate has increased BY 34 BPM Confirmed by Skinny Arango ([id number]) on 12/15/2019 10:47:57 AM Referred By: Jose Delgadillo Confirmed By:Roshan Arango
[2019-12-15] MEDS: MoRPHine SULFATE 4 MG/ML 1 ML CARP\\VIAL IV PRN (10:50)
[2019-12-15] MEDS: OXYCODONE HCL IR 5 MG TAB (IMMEDIATE RELEASE) PO PRN ×2 (15:18→20:37)
--- NOTE | 2019-12-15 17:59 | Communication Note ---
Date of Service: December 15, 2019 The patient advised to have blurry vision involving the left eye and I was asked to evaluate by the caring nurse Patient was seen and examined in telemetry unit He complained to have questionable numbness adjoining the left eye with blurred vision which has been going on for about 15 to 20 minutes Denies any other significant neurological symptoms with it He uses reading glasses for eye problem On examination Hemodynamically stable No apparent distress at rest No facial asymmetry or facial droop Questionable blurred vision noted with left eye No eye deviation and no pupillary changes No focal neuro deficit noted on neurological examination except minimal deficiency with power in left sided extremities Impression Doubt any strokelike symptoms Plan We will observe for any developing neurological symptoms Dr Carolyne Levy
[2019-12-15] MEDS: SERTRALINE HCL 50 MG TABLET PO SCH (20:38)
[2019-12-15] MEDS: TAMSULOSIN HCL 0.4 MG CAP PO SCH (20:39)
[2019-12-15] MEDS: ATORVASTATIN 40 MG TAB PO SCH (20:39)
[2019-12-16 06:11] LABS: Basophils # (auto) 0.04 K/uL (0-0.2); Eosinophils # (auto) 0.07 K/uL (0-0.5); Eosinophils % (auto) 1.7 %; Hematocrit (blood only) 37.5 % (42-52); Hemoglobin 13.4 g/dL (14.0-18.0); Immature Granulocytes # (auto) 0.01 K/uL (0.00-0.02); Immature Granulocytes % (auto) 0.2 %; Lymphocytes # (auto) 1.35 K/uL (1.2-3.4); Lymphocytes % (auto) 32.8 %; Mean Corpuscular Hemoglobin 29.7 pg (25-34); Mean Corpuscular Hgb Conc 35.7 g/dL (32-36); Mean Corpuscular Volume 83.1 fL (80-100); Mean Platelet Volume 8.6 fL (7.4-10.4); Monocytes # (auto) 0.49 K/uL (0.11-0.59); Monocytes % (auto) 11.9 %; Neutrophils # (auto) 2.15 K/uL (1.4-6.5); Neutrophils % (auto) 52.4 %; Platelet Count 143 K/uL (130-400); RDW Coefficient of Variation 13.4 % (11.5-14.5); RDW Standard Deviation 40.8 fL (36.4-46.3); Red Blood Count 4.51 M/uL (4.7-6.1); White Blood Count 4.11 K/uL (4.8-10.8)
[2019-12-16 06:52] LABS: Albumin Level 3.1 gm/dl (3.4-5.0); Calcium 8.5 mg/dl (8.5-10.1); Creatinine Clr Calc Pharmacy 118.3 ml/min; Est GFR (African American) 107.2; Est GFR (Non-African American) 92.5; Magnesium 1.9 mg/dl (1.8-2.4); Potassium 3.9 mmol/L (3.5-5.1)
[2019-12-16 07:01] LABS: Albumin Globulin Ratio 0.9 (0.9-2); Bilirubin,Total 1.1 mg/dl (0.2-1); Globulin 3.4 gm/dl (2.5-4.0); Phosphorus 3.1 mg/dl (2.5-4.9); Total Protein 6.5 gm/dl (6.4-8.2)
[2019-12-16] MEDS: INSULIN ASPART 100 UNITS/ML 3 ML PEN SC SCH ×4 (09:17→21:07)
[2019-12-16] MEDS: INSULIN GLARGINE SOLOSTAR 100 UNITS/ML 3 ML PEN SC SCH ×2 (09:18→21:07)
[2019-12-16] MEDS: ASPIRIN 81 MG ECTAB PO SCH (09:20)
[2019-12-16] MEDS: DOXYCYCLINE HYCLATE 100 MG CAP PO SCH (09:20)
[2019-12-16] MEDS: carvediloL 3.125 MG TAB PO SCH ×2 (09:20→21:08)
[2019-12-16] MEDS: AMLODIPINE BESYLATE 5 MG TAB PO SCH (09:20)
[2019-12-16] MEDS: lisinopriL 40 MG TAB PO SCH (09:20)
[2019-12-16] MEDS: PANTOprazole 40 MG TAB PO SCH ×2 (09:21→21:08)
[2019-12-16] MEDS: NICOTINE 21 MG/24 HR TDSY TD SCH (09:21)
[2019-12-16] MEDS: MoRPHine SULFATE 4 MG/ML 1 ML CARP\\VIAL IV PRN ×2 (09:30→21:12)
--- NOTE | 2019-12-16 11:50 | Magnetic Resonance Report ---
MR brain wo con HISTORY: 64 years-old Male r/o stroke acute strokelike symptoms COMPARISON: Brain MRI 12/03/2019 TECHNIQUE: Multiplanar multisequence MRI of the brain was obtained without the use of IV contrast. FINDINGS: There is no restricted diffusion to suggest acute or subacute infarct. Midline structures including t he corpus callosum, brainstem, optic chiasm, pituitary and pineal gland appear unremarkable on the sa gittal T1 series. There is no cerebellar tonsillar herniation. Degenerative changes are noted about t he imaged cervical spine. No acute intracranial hemorrhage, midline shift, abnormal extra-axial collection, hydrocephalus or in tracranial mass. Minimal patchy T2/FLAIR hyperintensities about the white matter are suggestive of pr obable chronic microvascular ischemic disease. Mesial temporal lobes appear unremarkable. Major vascu lar flow voids appear patent and unremarkable. Mastoid air cells are clear. Mild mucosal thickening o f the maxillary, ethmoid and frontal sinuses. Indeterminate 9 mm T1 and T2 hypointense focus of the p arietal scalp suggests probable area of scarring. Orbits, skull and soft tissues are otherwise unrema rkable. IMPRESSION: 1. No acute intracranial abnormality, specifically no acute or subacute infarct. 2. Suggestion of minimal chronic microvascular ischemic disease. 3. Mild paranasal sinus disease. ACT 112: Negative or not required by law. The above report was generated using voice recognition software. It may contain grammatical, syntax o r spelling errors. Electronically signed by: Clarence Kent M.D. 12/16/2019 11:48 AM
--- NOTE | 2019-12-16 12:19 | Hospitalist Progress Note ---
Date of Service December 16, 2019 Assessment & Plan (1) Chest pain: Likely secondary to complicated bronchitis rule out flu Differentials include unstable angina given hx CAD status post stent, PE, Pericarditis Serial troponins, EKG and bedside echo did not show any significant change compared with prior CTA was negative for any pulmonary embolism Appreciate cardiology input and recommendationno further cardiac work-up at this time We will observe patient in telemetry unit today No more chest pain, palpitation and no arrhythmias on monitor Left eye blurred vision with adjoining numbness Complaint to have associated left-sided weakness since 12/15/2019 Similar complaints this morning Doubt any strokelike symptoms but given his comorbid conditions and MRI of the brain was ordered MRI did show no stroke but mild left paranasal sinus disease was noted We will change antibiotic from doxycycline to Augmentin Nonspecific pain involving all over the body Seems to be secondary to viral type of illness Minimal cough without any wheezing Has been started with oral doxycycline for possible bronchitis Doxycycline has been changed to Augmentin Complains to have hematuria with urinary symptoms Symptomatic BPH, rule out UTI-we will send repeat UA and culture We will send repeat UA and culture No antibiotic as of yet Advised to drink plenty of fluid No more hematuria hemoglobin stable Order significant medical conditions remained stable as below Hypertension, stable hyperlipidemia on statin Rx 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 SCDs RE intermittent hematochezia Full code PT and OT evaluation. If he does well with that he will be going home this afternoon Admission and Anticipated Discharge Date Admission Date: December 14, 2019 Subjective The patient was seen and examined in the telemetry unit He was admitted with chest pain from home following a call to the nurse for an appointment with a pricing director He has had quite a few admissions recently in the hospital with chest pain and relevant investigations came out to be unremarkable Complaints to have nonspecific symptoms this morning Complains to have some blood in the urine 12/16/2019 Patient is seen and examined in telemetry unit He still has some blurry vision involving the left eye with associated numbness Denies any other significant symptoms except questionable left-sided extremities weakness PT and OT have been water and if he does well with that he will be sent home this afternoon Review of Systems Review of Systems: All systems reviewed and are unremarkable except as noted below; very nonspecific generalized kind of symptoms Neurologic: Blurry vision involving the left eye and subjective left-sided weakness Physical Exam Physical Exam: Lying in bed without any acute distress but looks depressed Constitutional: well developed, well nourished, + ill appearing and + obese; no acute distress Eyes: PERRL, conjunctivae normal, anicteric sclerae ENMT: external ear and nose normal, oropharynx normal Neck: trachea midline, no thyromegaly Respiratory: normal respiratory effort Auscultation: lungs clear to auscultation bilaterally Cardiovascular: Rate/Rhythm: regular rate and regular rhythm Heart Sounds: + murmur (2/6 ejection systolic murmur over precordium) Gastrointestinal (Abdomen): Inspection/Auscultation: abdomen normal to inspection; + abnormal bowel sounds Percussion/Palpation: abdomen soft; abdomen nontender Musculoskeletal: No acute arthritis in any joints Neurologic: Alert, awake and oriented x3. No facial asymmetry and no cranial nerve palsy. Eye movements are symmetrical, no pupillary abnormalities, complains to have blurred vision with left eye. Weakness involving the left upper and lower extremities noted but very difficult to quantify. Lymphatic: no cervical or axillary lymphadenopathy Results & Data ([facility]) Vital Signs (Past 12 Hours) Vital Signs Temp Pulse Resp BP Pulse Ox 12/16/19 10:57 36.5 C 67 20 120/75 96 12/16/19 07:26 36.5 C 64 19 127/78 93 12/16/19 03:52 36.8 C 64 20 119/72 94 Laboratory Results Short CBC 12/16/19 Range/Units 05:56 WBC 4.11 L (4.8-10.8) K/uL Hgb 13.4 L (14.0-18.0) g/dL Hct 37.5 L (42-52) % Plt Count 143 (130-400) K/uL BMP 12/16/19 05:56 Sodium 139 Potassium 3.9 Chloride 109 H Carbon Dioxide 25 BUN 12 Creatinine 0.87 Calcium 8.5 Liver Function 12/16/19 Range/Units 05:56 Total Bilirubin 1.1 H D (0.2-1) mg/dl AST 18 (15-37) U/L ALT 27 (12-78) U/L Alkaline Phosphatase 91 (45-117) U/L Albumin 3.1 L (3.4-5.0) gm/dl Medications Administered Current Inpatient Medications Amlodipine Besylate (Norvasc) 10 mg PO QAM [facility] Stop: 01/14/20 08:59 Last Admin: 12/16/19 09:20 Dose: 10 mg Documented by: Aspirin (Ecotrin Ectab) 81 mg PO QAM [facility] Stop: 01/14/20 08:59 Last Admin: 12/16/19 09:20 Dose: 81 mg Documented by: Atorvastatin Calcium (Lipitor) 80 mg PO HS [facility] Stop: 01/13/20 21:48 Last Admin: 12/15/19 20:39 Dose: 80 mg Documented by: Carvedilol (Coreg) 3.125 mg PO BID [facility] Stop: 01/13/20 21:48 Last Admin: 12/16/19 09:20 Dose: 3.125 mg Documented by: Cyclobenzaprine HCl (Flexeril) 5 mg PO BID PRN PRN Reason: muscle spasm Stop: 01/13/20 21:48 Dextrose (Dextrose 50%) 25 - 50 ml IV UD PRN; Protocol PRN Reason: Hypoglycemia Protocol Stop: 01/13/20 21:48 Doxycycline Hyclate (Vibramycin) 100 mg PO BID [facility] Stop: 12/22/19 08:59 Last Admin: 12/16/19 09:20 Dose: 100 mg Documented by: Glucagon (Glucagen) 1 mg SQ UD PRN; Protocol PRN Reason: Hypoglycemia Protocol Stop: 01/13/20 21:48 Glucose (Dex4 Glucose) 4 - 8 tabs PO UD PRN; Protocol PRN Reason: Hypoglycemia Protocol Stop: 01/13/20 21:48 Glucose (Glucose 40%) 15 - 30 gm PO UD PRN; Protocol PRN Reason: Hypoglycemia Protocol Stop: 01/13/20 21:48 Lorazepam (Ativan) 0.25 mg in 0.5 mls @ 0.5 mls/min IV Q4H PRN PRN Reason: Anxiety Stop: 01/13/20 21:48 Last Admin: 12/16/19 11:04 Dose: 0.5 mls/min Documented by: Promethazine HCl 12.5 mg/ (Sodium Chloride) 50.5 mls @ 202 mls/hr IV Q6H PRN PRN Reason: Nausea And Vomiting Stop: 01/13/20 21:48 Insulin Aspart (Novolog Flexpen) 0 units SC ACHS [facility] Stop: 01/13/20 21:48 Last Admin: 12/16/19 09:17 Dose: Not Given Documented by: Insulin Glargine (Lantus Solostar Pen) 5 units SC BID [facility] Stop: 01/13/20 21:48 Last Admin: 12/16/19 09:18 Dose: 5 units Documented by: Ioversol (Optiray 320 125ml) 114 ml IV ONCE PRN PRN Reason: Interaction Checking Stop: 12/18/19 21:32 Last Admin: 12/14/19 21:34 Dose: 114 ml Documented by: Ipratropium [place] (Atrovent 0.02% 0.5mg/2.5ml) 0.5 mg INH Q4H PRN PRN Reason: Shortness Of Breath Or Wheezing Stop: 01/13/20 21:48 Levalbuterol HCl (Xopenex 1.25mg/0.5ml Neb) 1.25 mg INH Q4H PRN PRN Reason: Shortness Of Breath Or Wheezing Stop: 01/13/20 21:48 Lisinopril (Zestril) 40 mg PO QAM [facility] Stop: 01/14/20 08:59 Last Admin: 12/16/19 09:20 Dose: 40 mg Documented by: Miscellaneous (Carbohydrates For Hypoglycemia) 15 - 30 gm PO UD PRN PRN Reason: Hypoglycemia Protocol Stop: 01/13/20 21:48 Miscellaneous (Remove Nicoderm Patch) 1 ea N/A DAILY@0859 [facility] Stop: 01/14/20 08:58 Last Admin: 12/16/19 09:21 Dose: 1 ea Documented by: Morphine Sulfate (Morphine Sulfate) 4 mg IV Q8H PRN PRN Reason: Pain Stop: 12/28/19 21:48 Last Admin: 12/16/19 09:30 Dose: 4 mg Documented by: Nicotine (Nicoderm Cq) 21 mg TD DAILY [facility] Stop: 01/14/20 08:59 Last Admin: 12/16/19 09:21 Dose: 21 mg Documented by: Nitroglycerin (Nitrostat) 0.4 mg SL UD PRN PRN Reason: Chest Pain Stop: 01/13/20 21:48 Oxycodone HCl (Roxicodone Immediate Rel) 5 mg PO Q4H PRN PRN Reason: Pain Stop: 12/28/19 21:57 Last Admin: 12/15/19 20:37 Dose: 5 mg Documented by: Pantoprazole Sodium (Protonix) 40 mg PO BID [facility] Stop: 01/13/20 21:59 Last Admin: 12/16/19 09:21 Dose: 40 mg Documented by: Sertraline HCl (Zoloft) 50 mg PO [facility] Stop: 01/13/20 21:48 Last Admin: 12/15/19 20:38 Dose: 50 mg Documented by: Tamsulosin HCl (Flomax) 0.4 mg PO [facility] Stop: 01/13/20 21:59 Last Admin: 12/15/19 20:39 Dose: 0.4 mg Documented by: (1) Chest pain Chest pain type: precordial pain Qualified Code(s): R07.2 - Precordial pain
[2019-12-16] MEDS ORDERED: AMOXICILLIN/CLAVULANATE 875 MG TAB PO ONE (12:22)
[2019-12-16] MEDS: AMOXICILLIN/CLAVULANATE 875 MG TAB PO SCH (16:48)
[2019-12-16] MEDS: OXYCODONE HCL IR 5 MG TAB (IMMEDIATE RELEASE) PO PRN (16:58)
[2019-12-16] MEDS: TAMSULOSIN HCL 0.4 MG CAP PO SCH (21:08)
[2019-12-16] MEDS: SERTRALINE HCL 50 MG TABLET PO SCH (21:08)
[2019-12-16] MEDS: ATORVASTATIN 40 MG TAB PO SCH (21:09)
[2019-12-17] MEDS: OXYCODONE HCL IR 5 MG TAB (IMMEDIATE RELEASE) PO PRN ×4 (01:36→19:40)
[2019-12-17] MEDS: MoRPHine SULFATE 4 MG/ML 1 ML CARP\\VIAL IV PRN ×3 (04:41→22:18)
[2019-12-17] MEDS: AMLODIPINE BESYLATE 5 MG TAB PO SCH (08:49)
[2019-12-17] MEDS: lisinopriL 40 MG TAB PO SCH (08:49)
[2019-12-17] MEDS: carvediloL 3.125 MG TAB PO SCH ×2 (08:49→21:55)
[2019-12-17] MEDS: ASPIRIN 81 MG ECTAB PO SCH (08:49)
[2019-12-17] MEDS: PANTOprazole 40 MG TAB PO SCH ×2 (08:49→21:56)
[2019-12-17] MEDS: AMOXICILLIN/CLAVULANATE 875 MG TAB PO SCH ×2 (08:50→18:42)
[2019-12-17] MEDS: INSULIN GLARGINE SOLOSTAR 100 UNITS/ML 3 ML PEN SC SCH ×2 (08:50→21:58)
[2019-12-17] MEDS: INSULIN ASPART 100 UNITS/ML 3 ML PEN SC SCH ×4 (08:55→21:59)
[2019-12-17] MEDS: NICOTINE 21 MG/24 HR TDSY TD SCH (08:55)
[2019-12-17] MEDS ORDERED: ALUMINUM/MAGNESIUM SUSP 30 ML UDC PO PRN (10:48)
--- NOTE | 2019-12-17 11:05 | Hospitalist Progress Note ---
Date of Service December 17, 2019 Assessment & Plan (1) Chest pain: Likely secondary to complicated bronchitis rule out flu Differentials include unstable angina given hx CAD status post stent, PE, Pericarditis Serial troponins, EKG and bedside echo did not show any significant change compared with prior CTA was negative for any pulmonary embolism Appreciate cardiology input and recommendationno further cardiac work-up at this time We will observe patient in telemetry unit today No more chest pain, palpitation and no arrhythmias on monitor Complains to have diarrhea since this morning Likely secondary to use of Augmentin We will send stool for C. difficile Likely be discharged this afternoon if the diarrhea is controlled Left eye blurred vision with adjoining numbness Complaint to have associated left-sided weakness since 12/15/2019 Similar complaints this morning 12/16/2019 Doubt any strokelike symptoms but given his comorbid conditions and MRI of the brain was ordered MRI did show no stroke but mild left paranasal sinus disease was noted We will change antibiotic from doxycycline to Augmentin He was advised to have an ophthalmology appointment as an outpatient as soon as possible Nonspecific pain involving all over the body Seems to be secondary to viral type of illness Minimal cough without any wheezing He has been on Augmentin for suspected sinusitis Complains to have hematuria with urinary symptoms Symptomatic BPH, rule out UTI-we will send repeat UA and culture We will send repeat UA and culture No antibiotic as of yet Advised to drink plenty of fluid No more hematuria hemoglobin stable Order significant medical conditions remained stable as below Hypertension, stable hyperlipidemia on statin Rx 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 SCDs RE intermittent hematochezia Full code PT and OT evaluation. If he does well with that he will be going home this afternoon Admission and Anticipated Discharge Date Admission Date: December 16, 2019 Subjective The patient was seen and examined in the telemetry unit He was admitted with chest pain from home following a call to the nurse for an appointment with a nursing home physician He has had quite a few admissions recently in the hospital with chest pain and relevant investigations came out to be unremarkable Complaints to have nonspecific symptoms this morning Complains to have some blood in the urine 12/16/2019 Patient is seen and examined in telemetry unit He still has some blurry vision involving the left eye with associated numbness Denies any other significant symptoms except questionable left-sided extremities weakness PT and OT have been water and if he does well with that he will be sent home this afternoon 12/17/2019 Patient was seen and examined in telemetry unit Still complains of left eyesight blurriness with adjoining numbness Complains today of diarrhea without any abdominal pain Still has minimal left-sided weakness Review of Systems Review of Systems: All systems reviewed and are unremarkable except as noted below; very nonspecific generalized kind of symptoms Neurologic: Blurry vision involving the left eye and subjective left-sided weakness Physical Exam Physical Exam: Lying in bed without any acute distress but looks depressed Constitutional: well developed, well nourished, + ill appearing and + obese; no acute distress Eyes: PERRL, conjunctivae normal, anicteric sclerae ENMT: external ear and nose normal, oropharynx normal Neck: trachea midline, no thyromegaly Respiratory: normal respiratory effort Auscultation: lungs clear to auscultation bilaterally Cardiovascular: Rate/Rhythm: regular rate and regular rhythm Heart Sounds: + murmur (2/6 ejection systolic murmur over precordium) Gastrointestinal (Abdomen): Inspection/Auscultation: abdomen normal to inspection; + abnormal bowel sounds Percussion/Palpation: abdomen soft; abdom en nontender Musculoskeletal: No acute arthritis in any joints Neurologic: moves all extremities Alert, awake and oriented x3. No facial asymmetry and no cranial nerve palsy, no sensory impairment, left-sided weakness of about 3/5. Lymphatic: no cervical or axillary lymphadenopathy Results & Data ([facility]) Vital Signs (Past 12 Hours) Vital Signs Temp Pulse Pulse Resp BP Pulse Ox 12/17/19 07:00 36.8 C 65 16 103/67 94 12/17/19 04:58 70 12/17/19 04:19 36.5 C 65 18 110/70 94 12/16/19 23:00 36.8 C 67 16 120/63 96 Medications Administered Current Inpatient Medications Al Hydrox/Mg Hydrox/Simethicone (Maalox) 30 ml PO Q6H PRN PRN Reason: Dyspepsia Stop: 01/16/20 10:47 Amlodipine Besylate (Norvasc) 10 mg PO QAM [facility] Stop: 01/14/20 08:59 Last Admin: 12/17/19 08:49 Dose: 10 mg Documented by: Amoxicillin/Clavulanate Potassium (Augmentin 875mg) 1 tab PO BIDM [facility] Stop: 12/23/19 16:59 Last Admin: 12/17/19 08:50 Dose: 1 tab Documented by: Aspirin (Ecotrin Ectab) 81 mg PO QAM [facility] Stop: 01/14/20 08:59 Last Admin: 12/17/19 08:49 Dose: 81 mg Documented by: Atorvastatin Calcium (Lipitor) 80 mg PO HS [facility] Stop: 01/13/20 21:48 Last Admin: 12/16/19 21:09 Dose: 80 mg Documented by: Carvedilol (Coreg) 3.125 mg PO BID [facility] Stop: 01/13/20 21:48 Last Admin: 12/17/19 08:49 Dose: 3.125 mg Documented by: Cyclobenzaprine HCl (Flexeril) 5 mg PO BID PRN PRN Reason: muscle spasm Stop: 01/13/20 21:48 Dextrose (Dextrose 50%) 25 - 50 ml IV UD PRN; Protocol PRN Reason: Hypoglycemia Protocol Stop: 01/13/20 21:48 Glucagon (Glucagen) 1 mg SQ UD PRN; Protocol PRN Reason: Hypoglycemia Protocol Stop: 01/13/20 21:48 Glucose (Dex4 Glucose) 4 - 8 tabs PO UD PRN; Protocol PRN Reason: Hypoglycemia Protocol Stop: 01/13/20 21:48 Glucose (Glucose 40%) 15 - 30 gm PO UD PRN; Protocol PRN Reason: Hypoglycemia Protocol Stop: 01/13/20 21:48 Lorazepam (Ativan) 0.25 mg in 0.5 mls @ 0.5 mls/min IV Q4H PRN PRN Reason: Anxiety Stop: 01/13/20 21:48 Last Admin: 12/16/19 11:04 Dose: 0.5 mls/min Documented by: Promethazine HCl 12.5 mg/ (Sodium Chloride) 50.5 mls @ 202 mls/hr IV Q6H PRN PRN Reason: Nausea And Vomiting Stop: 01/13/20 21:48 Insulin Aspart (Novolog Flexpen) 0 units SC ACHS [facility] Stop: 01/13/20 21:48 Last Admin: 12/17/19 08:55 Dose: 8 units Documented by: Insulin Glargine (Lantus Solostar Pen) 5 units SC BID [facility] Stop: 01/13/20 21:48 Last Admin: 12/17/19 08:50 Dose: 5 units Documented by: Ioversol (Optiray 320 125ml) 114 ml IV ONCE PRN PRN Reason: Interaction Checking Stop: 12/18/19 21:32 Last Admin: 12/14/19 21:34 Dose: 114 ml Documented by: Ipratropium [place] (Atrovent 0.02% 0.5mg/2.5ml) 0.5 mg INH Q4H PRN PRN Reason: Shortness Of Breath Or Wheezing Stop: 01/13/20 21:48 Levalbuterol HCl (Xopenex 1.25mg/0.5ml Neb) 1.25 mg INH Q4H PRN PRN Reason: Shortness Of Breath Or Wheezing Stop: 01/13/20 21:48 Lisinopril (Zestril) 40 mg PO QAM [facility] Stop: 01/14/20 08:59 Last Admin: 12/17/19 08:49 Dose: 40 mg Documented by: Miscellaneous (Carbohydrates For Hypoglycemia) 15 - 30 gm PO UD PRN PRN Reason: Hypoglycemia Protocol Stop: 01/13/20 21:48 Miscellaneous (Remove Nicoderm Patch) 1 ea N/A DAILY@0859 [facility] Stop: 01/14/20 08:58 Last Admin: 12/16/19 09:21 Dose: 1 ea Documented by: Morphine Sulfate (Morphine Sulfate) 4 mg IV Q8H PRN PRN Reason: Pain Stop: 12/28/19 21:48 Last Admin: 12/17/19 04:41 Dose: 4 mg Documented by: Nicotine (Nicoderm Cq) 21 mg TD DAILY [facility] Stop: 01/14/20 08:59 Last Admin: 12/17/19 08:55 Dose: 21 mg Documented by: Nitroglycerin (Nitrostat) 0.4 mg SL UD PRN PRN Reason: Chest Pain Stop: 01/13/20 21:48 Oxycodone HCl (Roxicodone Immediate Rel) 5 mg PO Q4H PRN PRN Reason: Pain Stop: 12/28/19 21:57 Last Admin: 12/17/19 09:02 Dose: 5 mg Documented by: Pantoprazole Sodium (Protonix) 40 mg PO BID [facility] Stop: 01/13/20 21:59 Last Admin: 12/17/19 08:49 Dose: 40 mg Documented by: Sertraline HCl (Zoloft) 50 mg PO [facility] Stop: 01/13/20 21:48 Last Admin: 12/16/19 21:08 Dose: 50 mg Documented by: Tamsulosin HCl (Flomax) 0.4 mg PO [facility] Stop: 01/13/20 21:59 Last Admin: 12/16/19 21:08 Dose: 0.4 mg Documented by: (1) Chest pain Chest pain type: precordial pain Qualified Code(s): R07.2 - Precordial pain
[2019-12-17] MEDS ORDERED: LOPERAMIDE HCL 2 MG CAP PO PRN (17:49)
[2019-12-17] MEDS: TAMSULOSIN HCL 0.4 MG CAP PO SCH (21:55)
[2019-12-17] MEDS: ATORVASTATIN 40 MG TAB PO SCH (21:55)
[2019-12-17] MEDS: SERTRALINE HCL 50 MG TABLET PO SCH (21:56)
[2019-12-18] MEDS: AMOXICILLIN/CLAVULANATE 875 MG TAB PO SCH (08:55)
[2019-12-18] MEDS: carvediloL 3.125 MG TAB PO SCH (08:55)
[2019-12-18] MEDS: ASPIRIN 81 MG ECTAB PO SCH (08:55)
[2019-12-18] MEDS: PANTOprazole 40 MG TAB PO SCH (08:56)
[2019-12-18] MEDS: NICOTINE 21 MG/24 HR TDSY TD SCH (08:56)
[2019-12-18] MEDS: AMLODIPINE BESYLATE 5 MG TAB PO SCH (08:56)
[2019-12-18] MEDS: INSULIN GLARGINE SOLOSTAR 100 UNITS/ML 3 ML PEN SC SCH (08:56)
[2019-12-18] MEDS: lisinopriL 40 MG TAB PO SCH (08:57)
[2019-12-18] MEDS: INSULIN ASPART 100 UNITS/ML 3 ML PEN SC SCH ×2 (08:57→11:52)
[2019-12-18] MEDS: MoRPHine SULFATE 4 MG/ML 1 ML CARP\\VIAL IV PRN (10:00)
--- NOTE | 2019-12-18 10:15 | Hospitalist Progress Note ---
Date of Service December 18, 2019 Assessment & Plan (1) Chest pain: Likely secondary to complicated bronchitis rule out flu Differentials include unstable angina given hx CAD status post stent, PE, Pericarditis Serial troponins, EKG and bedside echo did not show any significant change compared with prior CTA was negative for any pulmonary embolism Appreciate cardiology input and recommendationno further cardiac work-up at this time We will observe patient in telemetry unit today No more chest pain, palpitation and no arrhythmias on monitor No more cardiac symptoms Complains to have diarrhea since this morning Likely secondary to use of Augmentin We will send stool for C. difficile Likely be discharged this afternoon if the diarrhea is controlled Stool culture and C. 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 as soon as possible Nonspecific pain involving all over the body Seems to be secondary to viral type of illness Minimal cough without any wheezing He has been on Augmentin for suspected sinusitis Complains to have hematuria with urinary symptoms Symptomatic BPH, rule out UTI-we will send repeat UA and culture We will send repeat UA and culture No antibiotic as of yet Advised to drink plenty of fluid No more hematuria hemoglobin stable Order significant medical conditions remained stable as below Hypertension, stable hyperlipidemia on statin Rx 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 SCDs RE intermittent hematochezia Full code PT and OT evaluation. If he does well with that he will be going home this afternoon He will be discharged this afternoon He is going to live with his family members Admission and Anticipated Discharge Date Admission Date: December 16, 2019 Subjective The patient was seen and examined in the telemetry unit He was admitted with chest pain from home following a call to the nurse for an appointment with a psychology lecturer He has had quite a few admissions recently in the hospital with chest pain and relevant investigations came out to be unremarkable Complaints to have nonspecific symptoms this morning Complains to have some blood in the urine 12/16/2019 Patient is seen and examined in telemetry unit He still has some blurry vision involving the left eye with associated numbness Denies any other significant symptoms except questionable left-sided extremities weakness PT and OT have been water and if he does well with that he will be sent home this afternoon 12/17/2019 Patient was seen and examined in telemetry unit Still complains of left eyesight blurriness with adjoining numbness Complains today of diarrhea without any abdominal pain Still has minimal left-sided weakness 12/18/2019 The patient was seen and examined in telemetry unit He is left eye blurriness and adjoining numbness have improved No more diarrhea and lower abdominal pain Still has some left-sided weakness Review of Systems Review of Systems: All systems reviewed and are unremarkable except as noted below; very nonspecific generalized kind of symptoms Neurologic: Blurry vision involving the left eye and subjective left-sided weakness--have improved Physical Exam Physical Exam: Lying in bed comfortably Constitutional: well developed, well nourished, + ill appearing and + obese; no acute distress Eyes: PERRL, conjunctivae normal, anicteric sclerae ENMT: external ear and nose normal, oropharynx normal Neck: trachea midline, no thyromegaly Respiratory: normal respiratory effort Auscultation: lungs clear to auscultation bilaterally Cardiovascular: Rate/Rhythm: regular rate and regular rhythm Heart Sounds: + murmur (2/6 ejection systolic murmur over precordium) Gastrointestinal (Abdomen): Inspection/Auscultation: abdomen normal to inspection; + abnormal bowel sounds Percussion/Palpation: abdomen soft; abdomen nontender Musculoskeletal: No acute arthritis involving any joints Neurologic: Left-sided weakness has improved Lymphatic: no cervical or axillary lymphadenopathy Results & Data ([facility]) Vital Signs (Past 12 Hours) Vital Signs Temp Pulse Pulse Pulse Resp BP Pulse Ox 12/18/19 07:43 55 L 55 L 12/18/19 07:30 36.7 C 64 16 111/71 97 12/18/19 03:28 36.5 C 62 16 116/71 95 12/18/19 00:00 68 12/17/19 23:30 36.4 C L 64 16 134/80 97 Medications Administered Current Inpatient Medications Al Hydrox/Mg Hydrox/Simethicone (Maalox) 30 ml PO Q6H PRN PRN Reason: Dyspepsia Stop: 01/16/20 10:47 Amlodipine Bes[facility]) [facility] Stop: 01/14/20 08:59 Last Admin: 12/18/19 08:56 Dose: 10 mg Documented by: Amoxicillin/Clavulanate Potassium (Augmentin 875mg) 1 tab PO BIDM [facility] Stop: 12/23/19 16:59 Last Admin: 12/18/19 08:55 Dose: 1 tab Documented by: Aspirin (Ecotrin Ectab) 81 [facility] [place] Stop: 01/14/20 08:59 Last Admin: 12/18/19 08:55 Dose: 81 mg Documented by: Atorvastatin Calcium (Lipitor) [facility] Stop: 01/13/20 21:48 Last Admin: 12/17/19 21:55 Dose: 80 mg Documented by: Carvedilol (Coreg) 3.125 mg PO BID [facility] Stop: 01/13/20 21:48 Last Admin: 12/18/19 08:55 Dose: Not Given Documented by: Cyclobenzaprine HCl (Flexeril) 5 mg PO BID PRN PRN Reason: muscle spasm Stop: 01/13/20 21:48 Dextrose (Dextrose 50%) 25 - 50 ml IV UD PRN; Protocol PRN Reason: Hypoglycemia Protocol Stop: 01/13/20 21:48 Glucagon (Glucagen) 1 mg SQ UD PRN; Protocol PRN Reason: Hypoglycemia Protocol Stop: 01/13/20 21:48 Glucose (Dex4 Glucose) 4 - 8 tabs PO UD PRN; Protocol PRN Reason: Hypoglycemia Protocol Stop: 01/13/20 21:48 Glucose (Glucose 40%) 15 - 30 gm PO UD PRN; Protocol PRN Reason: Hypoglycemia Protocol Stop: 01/13/20 21:48 Lorazepam (Ativan) 0.25 mg in 0.5 mls @ 0.5 mls/min IV Q4H PRN PRN Reason: Anxiety Stop: 01/13/20 21:48 Last Admin: 12/16/19 11:04 Dose: 0.5 mls/min Documented by: Promethazine HCl 12.5 mg/ (Sodium Chloride) 50.5 mls @ 202 mls/hr IV Q6H PRN PRN Reason: Nausea And Vomiting Stop: 01/13/20 21:48 Insulin Aspart (Novolog Flexpen) 0 units SC ACHS [facility] Stop: 01/13/20 21:48 Last Admin: 12/18/19 08:57 Dose: 1 units Documented by: Insulin Glargine (Lantus Solostar Pen) 5 units SC BID [facility] Stop: 01/13/20 21:48 Last Admin: 12/18/19 08:56 Dose: 5 units Documented by: Ioversol (Optiray 320 125ml) 114 ml IV ONCE PRN PRN Reason: Interaction Checking Stop: 12/18/19 21:32 Last Admin: 12/14/19 21:34 Dose: 114 ml Documented by: Ipratropium [place] (Atrovent 0.02% 0.5mg/2.5ml) 0.5 mg INH Q4H PRN PRN Reason: Shortness Of Breath Or Wheezing Stop: 01/13/20 21:48 Levalbuterol HCl (Xopenex 1.25mg/0.5ml Neb) 1.25 mg INH Q4H PRN PRN Reason: Shortness Of Breath Or Wheezing Stop: 01/13/20 21:48 Lisinopril (Zestril) 40 mg PO QAM [facility] Stop: 01/14/20 08:59 Last Admin: 12/18/19 08:57 Dose: 40 mg Documented by: Loperamide HCl (Imodium) 2 mg PO Q4H PRN PRN Reason: Diarrhea Stop: 01/16/20 17:48 Last Admin: 12/17/19 18:42 Dose: 2 mg Documented by: Miscellaneous (Carbohydrates For Hypoglycemia) 15 - 30 gm PO UD PRN PRN Reason: Hypoglycemia Protocol Stop: 01/13/20 21:48 Miscellaneous (Remove Nicoderm Patch) 1 ea N/A DAILY@[id number] [facility] Stop: 01/14/20 08:58 Last Admin: 12/18/19 08:55 Dose: 1 ea Documented by: Morphine Sulfate (Morphine Sulfate) 4 mg IV Q8H PRN PRN Reason: Pain Stop: 12/28/19 21:48 Last Admin: 12/18/19 10:00 Dose: 4 mg Documented by: Nicotine (Nicoderm Cq) 21 mg TD DAILY [facility] Stop: 01/14/20 08:59 Last Admin: 12/18/19 08:56 Dose: 21 mg Documented by: Nitroglycerin (Nitrostat) 0.4 mg SL UD PRN PRN Reason: Chest Pain Stop: 01/13/20 21:48 Oxycodone HCl (Roxicodone Immediate Rel) 5 mg PO Q4H PRN PRN Reason: Pain Stop: 12/28/19 21:57 Last Admin: 12/17/19 19:40 Dose: 5 mg Documented by: Pantoprazole Sodium (Protonix) 40 mg PO BID [facility] Stop: 01/13/20 21:59 Last Admin: 12/18/19 08:56 Dose: 40 mg Documented by: Sertraline HCl (Zoloft) 50 mg PO HS [facility] Stop: 01/13/20 21:48 Last Admin: 12/17/19 21:56 Dose: 50 mg Documented by: Tamsulosin HCl (Flomax) 0.4 mg PO HS [facility] Stop: 01/13/20 21:59 Last Admin: 12/17/19 21:55 Dose: 0.4 mg Documented by: (1) Chest pain Chest pain type: precordial pain Qualified Code(s): R07.2 - Precordial pain
[2019-12-18] MEDS: OXYCODONE HCL IR 5 MG TAB (IMMEDIATE RELEASE) PO PRN (11:59)
--- NOTE | 2019-12-18 15:29 | Discharge Summary ---
Date of Service December 18, 2019 Admission HPI Per Admitting Provider History obtained from patient and records. Medical history significant for CAD status post stent, hypertension, hyperlipidemia, chronic right arm pain secondary to hx compartment syndrome, DM2 insulin requiring, history of laryngeal cancer status post surgery, past tobacco abuse, PTSD as per records, diverticulosis/colonic polyposis as per records. Recent confinement last week for abdominal pain with some hematochezia. Few days history of achy pleuritic substernal pain going to the neck with some shortness of breath, junky cough symptoms and chills. No known sick contacts or recent travel. Achy abdominal pain with some urinary retention with burning, occasional rectal bleed as per patient. Minimal relief of chest pain with nitro intake. Patient sent by PCPs office to the ER. Patient still complaining of substernal discomfort. 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 Admission Exam Per Admitting Provider Physical Exam: GENERAL: Comfortable, no respiratory distress SKIN: Normal color, warm HEENT: [place] palpebral conjunctivae, no ptosis, dry buccal mucosa NECK : Supple, no tenderness CHEST : CTA, no tenderness HEART : RRR, no obvious murmurs ABDOMEN: Some distention, nontender EXTREMITIES : No LE swelling/tenderness, no other conspicuous deformities noted NEUROLOGIC : Coherent, no facial asymmetry, no other gross focality Principal Diagnosis Chest pain-no ACS, stable CAD, left paranasal sinusitis, hypertension, chronic right arm pain secondary to history of compartment syndrome, diabetes type 2, stroke has been ruled out. Discharge Exam Constitutional well developed, well nourished, + ill appearing and + obese; no acute distress Eyes PERRL, conjunctivae normal, anicteric sclerae ENMT external ear and nose normal, oropharynx normal Neck trachea midline, no thyromegaly Respiratory normal respiratory effort Auscultation: lungs clear to auscultation bilaterally Cardiovascular Rate/Rhythm: regular rate and regular rhythm Heart Sounds: + murmur (2/6 ejection systolic murmur over precordium) Gastrointestinal (Abdomen) Inspection/Auscultation: abdomen normal to inspection; + abnormal bowel sounds Percussion/Palpation: abdomen soft; abdomen nontender Neurologic moves all extremities Lymphatic no cervical or axillary lymphadenopathy Discharge Data Allergies Allergy/AdvReac Type Severity Reaction Status Date / Time diphenhydramine Allergy Intermediate Unknown Verified 12/14/19 18:27 [From Benadryl] Consultations 12/14/19 20:04 ED Decision to Admit Stat 12/14/19 22:00 Consult Cardiology Routine 12/17/19 10:17 Consult Case Management - Discharge Planning Routine Ordered Studies 12/14/19 17:40 CT abd pelvis wo con Stat 12/14/19 21:13 CT angio chest PE protocol Urgent 12/16/19 09:58 MR brain wo con Urgent Hospital Course (1) Chest pain: Likely secondary to complicated bronchitis rule out flu Differentials include unstable angina given hx CAD status post stent, PE, Peric arditis Serial troponins, EKG and bedside echo did not show any significant change compared with prior CTA was negative for any pulmonary embolism Appreciate cardiology input and recommendationno further cardiac work-up at this time We will observe patient in telemetry unit today No more chest pain, palpitation and no arrhythmias on monitor No more cardiac symptoms Complains to have diarrhea since this morning Likely secondary to use of Augmentin We will send stool for C. difficile Likely be discharged this afternoon if the diarrhea is controlled Stool culture and C. difficile have been negative Diarrhea is controlled Left eye blurred vision with adjoining numbness Complaint to have associated left-sided weakness since 12/15/2019 Similar complaints this morning 12/16/2019 Doubt any strokelike symptoms but given his comorbid conditions and MRI of the brain was ordered MRI did show no stroke but mild left paranasal sinus disease was noted We will change antibiotic from doxycycline to Augmentin He was advised to have an ophthalmology appointment as an outpatient as soon as possible Symptomatic improvement-but he was advised to have a follow-up with outpatient fiberglass 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 as soon as possible Nonspecific pain involving all over the body Seems to be secondary to viral type of illness Minimal cough without any wheezing He has been on Augmentin for suspected sinusitis Complains to have hematuria with urinary symptoms Symptomatic BPH, rule out UTI-we will send repeat UA and culture We will send repeat UA and culture No antibiotic as of yet Advised to drink plenty of fluid No more hematuria hemoglobin stable Order significant medical conditions remained stable as below Hypertension, stable hyperlipidemia on statin Rx 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 SCDs RE intermittent hematochezia Full code PT and OT evaluation. If he does well with that he will be going home this afte rnoon He will be discharged this afternoon He is going to live with his family members Total Time Total Time Spent Total Time Spent (In Minutes): 35 minutes Total Time Includes: Examination of the Patient, Discharge Planning, Medication Reconciliation and Communication With Other Providers Discharge Plan Discharge Items Patient Disposition: Home - Self-Care Reason For Visit: CP Discharge Diagnosis: Chest pain-no ACS, stable CAD, left paranasal sinusitis, hypertension, chronic right arm pain secondary to history of compartment syndrome, diabetes type 2, stroke has been ruled out. Condition on Discharge: Fair Activity: Resume your previous activity Non-emergency contact: Primary Care Provider Call non-emergency contact if: you have any medication questions and your symptoms worsen Follow-up/Referrals: Razia Chávez DO [Primary Care Provider] - 12/24/19 11:05 am Diet: Carb Consistent or DM2 Addtl Attending Provider Instructions: Please take precaution to avoid falls Addtl Industrial Relations Worker Provider Instructions: Coronavirus disease 2019 (COVID-19) is a virus that causes a respiratory illness. It is caused by a coronavirus called 2019 novel coronavirus (2019- nCoV). There are many types of coronavirus. Coronaviruses are a very common cause of bronchitis. They may sometimes cause lung infection(pneumonia). Symptoms can range from mild to severe respiratory illness. These viruses are also foundin some animals. COVID-19 was first found in people in [facility], in late 2019. In 2020, several cases of COVID-19 have been confirmed in the [place] Public health officials are working to find the source. How the virus spreads is not yet fully known. It may be spread through droplets of fluid that a person coughs or sneezes into the air. It may be spread if you touch a surface with virus on it, such as a handle or object, and then touch your mouth. What are the symptoms of COVID-19? Some people have no symptoms or mild symptoms. Symptoms may appear 2 to 14 days after contact with the virus. Symptoms can include: Fever Coughing Trouble breathing What are possible complications from COVID-19? In many cases, this virus can cause infection (pneumonia) in both lungs. In some cases, this can cause . How is COVID-19 diagnosed? Your healthcare provider will ask about your symptoms. He or she will also ask about your recent travel and contact with sick people. Testing for the virus is only done through the CDC. If yourhealthcare provider thinks you may have COVID- 19, he or she will work with your local health department and the CDC on testing. Follow all instructions from your healthcare provider. COVID-19 is diagnosed by: Nasal and throat swab. A cotton-tipped swab is wiped inside your nose or throat. This is done to check for viruses in your nasal mucus. Sputum culture. A small sample of mucus coughed from your lungs (sputum) is collected if you have a cough. It is checked for the virus. How is COVID-19 treated? There is currently no medicine to treat the virus. Treatment is done to help your body while it fights the virus. This is known as supportive care. Supportive care may include: Pain medicine. These include acetaminophen and ibuprofen. They are used to help ease pain and reduce fever. Bed rest. This helps your body fight the illness. For severe illness, you may need to stay in the hospital. Care during severe illness may include: IV (intravenous) fluids.These are given through a vein to help keep your body hydrated. Oxygen. Supplemental oxygen or ventilation with a breathing machine (ventilator) may be given. This is done to keep enough oxygen in your body. Are you at risk for COVID-19? If youve been to a place where people have been sick with this virus, you are at risk for infection. You are at risk if you: Recently traveled to an affected area Had contact with a sick person who recently traveled to this area Had contact with a person who was diagnosed with COVID-19 How can COVID-19 be prevented? There is no vaccine yet. The best prevention is to not have contact with the virus. The CDC advises that people should not travel to areas where there are COVID-19 outbreaks right now for any reason that is not urgent. To help prevent spreading the infection, wash your hands often, or use an alcohol-basedhand digital print operator. If you are in an area with COVID-19: Wash your hands often. Or use an alcohol-based hand digital print operator often. Only touch your eyes, nose, or mouth with clean hands. Dont have contact with people who are sick. Follow local instructions about being in public. For example, you may be told to not use public transport for a period of time. Stay away from markets that have live or animals. Wash your hands after touching any animals. Don't touch animals that may be sick. Dont share eating or drinking tools with sick people. Dont kiss someone who is sick. Clean surfaces often with disinfectant. If you were in an area with COVID-19 in the last 14 days: Call your healthcare provider. He or she can talk with local health staff to see what action may be needed. Follow all instructions from your provider. Take your temperature every morning and evening for at least 14 days. This is to check for fever. Keep a record of the readings. Keep watch for symptoms of the virus. Tell your provider right away if you have symptoms. If you were in an area with COVID-19 and have a fever or other symptoms: Dont panic. Keep in mind that other illnesses can cause similar symptoms. Stay away from work, school, and public places. Limit physical contact with family members. Don't kiss anyone or share eating or drinking utensils. Clean surfaces you touch with disinfectant. This is to help prevent the virus from spreading. Call your healthcare provider. Explain that you have been exposed to COVID-19 and have symptoms. Do this before going to any hospital. Wait for instructions. Keep in mind that healthcare staff may wear protective equipment such as masks, gowns, gloves, and eye protection. You may be put in a separate room. This is to prevent the possible virus from spreading. Tell the healthcare staff about recent travel. This includes local travel on public transport. Staff may need to find other people you have been in contact with. Follow all instructions the healthcare staff give you. If you have been diagnosed with COVID-19 Follow all instructions from your healthcare provider. Dont leave your home, except to get medical care. Call your healthcare providers office before going. They can prepare and give you instructions. This will help prevent the virus from spreading. Dont go to work, school, or public areas. Dont use public transport or taxis. Stay away from other people in your home. Have them wear face masks around you. Dont share household items or food. Wear a face mask if you can. This includes at home or in a medical facility. Cover your face with a tissue when you cough or sneeze. Throw the tissue away. Wash your hands. Wash your hands often. Caregivers should: Follow all instructions from healthcare staff. Wear a face mask and protective clothing as advised. Wash hands often. Keep track of the sick persons symptoms. Clean surfaces, fabrics, and laundry thoroughly. Keep other people away from the sick person. When to call your healthcare provider Call your healthcare provider: If youve recently traveled and have symptoms If you have been diagnosed with COVID-19 and your symptoms are worse To learn more To find out more about COVID-19, visit the CDC website at www.cdc.gov/coronavirus/2019-ncov/index.html. [employer]. [address] [place] [address]. All rights reserved. This information is not intended as a substitute for professional medical care. Always follow your healthcare professional's instructions. This information has been adapted from [employer] Pending Studies at Discharge: No Stand-Alone Forms: [facility], Smoking Cessation Medications and DC Order Prescriptions: New tamsulosin 0.4 mg Capsule 0.4 mg PO HS 30 Days Qty: 30 RF: 0 amoxicillin-pot clavulanate [Augmentin] 875-125 mg Tablet 1 tab PO BIDM 7 Days Qty: 14 RF: 0 Lactinex 1 million cell tablet,chewable 1 tab PO BID Qty: 30 RF: 0 Continued amlodipine [Norvasc] 5 mg Tablet 10 mg PO QAM 30 Days Qty: 60 RF: 2 cyclobenzaprine 5 mg tablet 5 mg PO BID PRN (Reason: muscle spasm) Qty: 10 RF: 0 omeprazole 40 mg capsule,delayed release(DR/EC) 40 mg PO BID Qty: 60 RF: 2 nicotine [Nicoderm CQ] 21 mg/24 hr Patch 24 Hour 21 mg transdermal DAILY Qty: 14 RF: 0 aspirin 81 mg Tablet,Delayed Release (Dr/Ec) 81 mg PO QAM Qty: 90 RF: 1 insulin aspart U-100 [Novolog Flexpen U-100 Insulin] 100 unit/mL (3 mL) Insulin Pen 5 units SC ACHS 30 Days Qty: 1.5 RF: 1 Lantus Solostar U-100 Insulin 100 unit/mL (3 mL) Insulin Pen 25 unit SC HS 30 Days Qty: 7.5 RF: 1 atorvastatin [Lipitor] 80 mg tablet 80 mg PO HS RF: 0 carvedilol [Coreg] 3.125 mg tablet 3.125 mg PO BID RF: 0 lisinopril [Zestril] 40 mg tablet 40 mg PO QAM RF: 0 sertraline [Zoloft] 50 mg tablet 50 mg PO HS RF: 0 oxycodone [Roxicodone] 5 mg tablet 5 mg PO Q4H PRN (Reason: severe pain) RF: 0 Discharge Orders: Discharge Order (Routine); Ordered 12/18/19 Ordered By: Yeimi Levy Admission Data Admit Date/Time: 12/16/19 16:28 Attending Provider: Yeimi Levy Admit Provider: Munir Mueller Primary Care Provider: Razia Chávez Other Providers: Munir Mueller ; Andrea Lozano Other Interventions: Discharge Summary Assessment (RN) Last Done: 12/18/19 12:06 DC Date/Time DO NOT enter until pt leaves facility: 12/18/19 12:55
== END 2019-12-18 12:55 | disposition home or self-care (01) | DRG 313 ==
LOC: ED 16:59 → 2S 16:59